=== PATIENT | female | born 1955 | race Caucasian/White ===

== ENCOUNTER 2022-10-16 21:37 | Inpatient (IN) | payer MEDICARE, OTHER ==
[2022-10-16] MEDS ORDERED: MORPHINE SULFATE 4 MG/ML SYRINGE IV PRN (22:20)
[2022-10-16] MEDS ORDERED: NALOXONE 0.4 MG/ML 1 ML VIAL IV PRN (22:20)
--- NOTE | 2022-10-16 22:20 | ED ---
General Adult HPI - General Chief complaint: Abdominal Pain Stated complaint: Abd Pain Time Seen by Provider: 10/16/22 21:56 Source: patient, EMS Mode of arrival: EMS Limitations: no limitations - History of Present Illness Initial comments: Dictation was produced using [employer] dictation software. please excuse any grammatical, word or spelling errors. Chief Complaint: 67-year-old female transferred from outside hospital for diverticulitis, bowel fistula and intra-abdominal abscess History of Present Illness: 67-year-old female transferred from [facility]. Patient was seen there for 3-4 days of nausea, abdominal pain. 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 Patient is treated with ceftriaxone and Flagyl. She was transferred to our facility for further care. Patient has any fevers. Denies any diarrhea. She states that the pain is to the perineal umbilical and epigastric area. Is nonradiating The ROS documented in this emergency department record has been reviewed and confirmed by me. Those systems with pertinent positive or negative responses have been documented in the HPI. All other systems are other negative and/or noncontributory. - Related Data Allergies Allergy/AdvReac Type Severity Reaction Status Date / Time codeine Allergy Unknown Verified 10/16/22 21:45 Review of Systems ROS Statement: Those systems with pertinent positive or pertinent negative responses have been documented in the HPI. ROS Other: All systems not noted in ROS Statement are negative. Past Medical History Past Medical History: Diabetes Mellitus, Hypertension, Myocardial Infarction ([place]) History of Any Multi-Drug Resistant Organisms: None Reported Past Surgical History: Tubal Ligation Past Psychological History: No Psychological Hx Reported Smoking Status: Former smoker Past Alcohol Use History: None Reported Past Drug Use History: None Reported General Exam - General Exam Comments Initial Comments: PHYSICAL EXAM: General Impression: Alert and oriented x3, not in acute distress HEENT: Normocephalic atraumatic, extra-ocular movements intact, pupils equal and reactive to light bilaterally, mucous membranes moist. Cardiovascular: Heart regular rate and rhythm Chest: Able to complete full sentences, no retractions, no tachypnea Abdomen: abdomen soft, tenderness to the epigastric and. Umbilical area, non- distended, no organomegaly Musculoskeletal: Pulses present and equal in all extremities, no peripheral edema Motor: no focal deficits noted Neurological: CN II-XII grossly intact, no focal motor or sensory deficits noted Skin: Intact with no visualized rashes Psych: Normal affect and mood Limitations: no limitations Course Vital Signs 10/16/22 21:41 Temperature 99 F Pulse Rate 111 H Respiratory 18 Rate Blood Pressure 149/64 O2 Sat by Pulse 97 Oximetry Medical Decision Making - Medical Decision Making Was pt. sent in by a medical professional or institution (, RUIZ, BUSINESS SALES CONSULTANT, urgent care, hospital, or custodial...) When possible be specific @ -Sent from [facility] Did you speak to anyone other than the patient for history (EMS, parent, family, police, friend...)? What history was obtained from this source @ -No Did you review nursing and triage notes (agree or disagree)? Why? @ -I reviewed and agree with nursing and triage notes Were old charts reviewed (outside hosp., previous admission, EMS record, old EKG, old radiological studies, urgent care reports/EKG's, custodial records)? Report findings @ -No old charts were reviewed Differential Diagnosis (chest pain, altered mental status, abdominal pain women, abdominal pain men, vaginal bleeding, musculoskeletal, weakness, fever, dyspnea, syncope, headache, dizziness, GI bleed, back pain, seizure, CVA, palpatations, mental health)? @ -Differential Abdominal Pain Women: Appendicitis, Cholecystitis, diverticulosis, ischemic bowel, pancreatitis, hepatitis, UTI, gastroenteritis, AAA, incarcerated hernia, bowel obstruction, constipation, inflammatory bowel, hepatitis, peptic ulcer disease, splenic infarction, perforated viscus, vulvitis, ovarian torsion, PID, kidney stone, placenta abruption, this is not meant to be an all-inclusive list EKG interpreted by me (3pts min.). @ -None done X-rays interpreted by me (1pt min.). @ -None done CT interpreted by me (1pt min.). @ -None done U/S interpreted by me (1pt. min.). @ -None done What testing was considered but not performed or refused? (CT, X-rays, U/S, labs)? Why? @ -None What meds were considered but not given or refused? Why? @ -None Did you discuss the management of the patient with other professionals (professionals i.e. , RUIZ, BUSINESS SALES CONSULTANT, lab, RT, psych nurse, social studies teacher, lead network architect, teacher, custody officer, case packer and sealer)? Give summary @ -Case was discussed with on-call general surgeon, Dr. Mckee requested patient be admitted to medicine service with surgery on consult Was smoking cessation discussed for >3mins.? @ -No Was critical care preformed (if so, how long)? @ -No Were there social determinants of health that impacted care today? How? (Homelessness, low income, unemployed, alcoholism, drug addiction, transportation, low edu. Level, literacy, decrease access to med. care, [facility], rehab)? @ -No Was there de-escalation of care discussed even if they declined (Discuss DNR or withdrawal of care, Hospice)? DNR status @ -No What co-morbidities impacted this encounter? (DM, HTN, Smoking, COPD, CAD, Cancer, CVA, ARF, Chemo, Hep., AIDS, mental health diagnosis, sleep apnea, morbid obesity)? @ -None Was patient admitted / discharged? Hospital course, mention meds given and route, prescriptions, significant lab abnormalities, going to OR and other pertinent info. @ -67-year-old female transferred from outside hospital for escalation of care. Patient is diagnosed with diverticulitis, complicated by fistula and abscess formation. Vital signs upon arrival shows mild tachycardia 111, worse vital signs within acceptable limits. Patient received ceftriaxone and Flagyl. Patient started on Zosyn here in our facility. Patient will be admitted with consultation to general surgery. Undiagnosed new problem with uncertain prognosis? @ -No Drug Therapy requiring intensive monitoring for toxicity (Heparin, Nitro, Insulin, Cardizem)? @ -No Were any procedures done? @ -No Diagnosis/symptom? Acute, or Chronic, or Acute on Chronic? Uncomplicated (without systemic symptoms) or Complicated (systemic symptoms)? @ -1. Complicated diverticulitis Side effects of treatment? @ -No Exacerbation, Progression, or Severe Exacerbation? @ -No Poses a threat to life or bodily function? How? (Chest pain, [place], [place], pneumonia, PE, COPD, DKA, ARF, appy, cholecystitis, CVA, Diverticulitis, Homicidal, Suicidal, threat to staff... and all critical care pts) @ -yes Disposition Clinical Impression: Diverticulitis of large intestine with complication Disposition: ADMITTED IP TO THIS [facility] Condition: Fair Referrals: Nonstaff,Physician [Primary Care Provider] - 1-2 days Decision Time: 22:20
[2022-10-16] MEDS ORDERED: ACETAMINOPHEN IV (For NPO) 1,000 MG in EMPTY BAG 1 BAG IVPB STA (22:21)
[2022-10-16] MEDS: SODIUM CHLORIDE 0.9% 1,000 ML IV SCH (22:55)
[2022-10-16] MEDS ORDERED: DEXTROSE 50% SYRINGE 50 ML IVP PRN ×2 (23:41)
[2022-10-17] MEDS: PIPERACILLIN-TAZOBACTAM 3.375 GM in SODIUM CHLORIDE 0.9% 100 ML IVPB SCH ×5 (00:21→23:36)
[2022-10-17] MEDS ORDERED: ACETAMINOPHEN IV (For NPO) 500 MG in EMPTY BAG 1 BAG IVPB PRN (04:00)
[2022-10-17] MEDS: ENOXAPARIN 40 MG/0.4 ML SYRINGE SQ SCH (06:09)
[2022-10-17] MEDS: SODIUM CHLORIDE 0.9% 1,000 ML IV SCH ×2 (06:11→17:07)
[2022-10-17 08:07] LABS: Glucose,Whole Blood 140 mg/dL (70-110)
[2022-10-17 08:48] LABS: Basophils # (A) 0.04 X 10*3/uL (0.00-0.10); Basophils % (A) 0.3 %; Eosinophils # (A) 0.11 X 10*3/uL (0.04-0.35); Eosinophils % (A) 0.8 %; HCT 35.2 % (37.2-46.3); HGB 10.6 d/dL (12.0-15.0); Lymphocytes # (A) 0.96 X 10*3/uL (0.90-5.00); Lymphocytes % (A) 6.6 %; MCH 26.3 pg (27.0-32.0); MCHC 30.1 d/dL (32.0-37.0); MCV 87.3 FL (80.0-97.0); Monocytes % (A) 8.3 %; NRBC Per 100 WBC 0 X 10*3/uL (0.00-0.01); Neutrophils # (A) 12.06 X 10*3/uL (1.80-7.70); Neutrophils % (A) 83.4 %; Platelet Count 383 X 10*3/uL (140-440); RBC 4.03 X 10*6/uL (4.10-5.20); RDW 15.3 % (11.5-14.5); WBC 14.46 X 10*3/uL (4.50-10.00)
[2022-10-17 09:43] LABS: ALT 32 U/L (8-44); AST 13 U/L (13-35); Albumin 3.1 d/dL (3.8-4.9); Albumin/Globulin Ratio 0.91 Ratio (1.60-3.17); Alkaline Phosphatase 137 U/L (41-126); BUN/Creat Ratio 10.71 Ratio (12.00-20.00); Blood Urea Nitrogen 7.5 mg/dL (9.0-27.0); Calcium 8.7 mg/dL (8.7-10.3); Carbon Dioxide 23.2 mmol/L (21.6-31.8); Chloride 102 mmol/L (96-109); Globulin 3.4 d/dL (1.6-3.3); Glucose 147 mg/dL (70-110); Potassium 4.3 mmol/L (3.5-5.5); Sodium 139 mmol/L (135-145); Total Bilirubin 0.6 mg/dL (0.3-1.2); Total Protein 6.5 d/dL (6.2-8.2)
[2022-10-17] MEDS: lisinopriL 5 MG TAB PO SCH (09:47)
--- NOTE | 2022-10-17 10:53 | P.GSCN ---
History of Present Illness Consult date: 10/17/22 History of present illness: CHIEF COMPLAINT: Abdominal pain HISTORY OF PRESENT ILLNESS: This is a 67-year-old female who was a transfer from [facility] to be evaluated by surgical service. She complains of right- sided mid abdominal pain and nausea for the past 4 days. Patient had a computed tomography scan completed at [facility] had shown evidence of diverticulitis with fistula formation from the descending colon to an adjacent loop of proximal small bowel with a developing abscess within the wall of the small bowel. Patient denies any past history of diverticulitis. She reports her last colonoscopy was several years ago and at that time daily found a polyp. She reports having nausea. Denies any vomiting. Denies any change in bowel habits. Patient denies any fever chills or sweats. She has a surgical history of a tubal ligation. She also has history of diabetes and [place] in 2007, managed medically. She denies any blood thinners. Patient has been mildly tachycardic low-grade temp 99. PAST MEDICAL HISTORY: See list. PAST SURGICAL HISTORY: See list. MEDICATIONS: See list. ALLERGIES: See list. SOCIAL HISTORY: No illicit drug use. REVIEW OF SYSTEMS: CONSTITUTIONAL: Denies fever or chills. HEENT: Denies blurred vision, vision changes, or eye pain. Denies hemoptysis ENDOCRINE: Denies heat or cold intolerance. CARDIOVASCULAR: Denies chest pain or pressure. RESPIRATORY: No shortness of breath. GASTROINTESTINAL: Please refer to HPI NEURO: Denies history of seizures. PSYCH: No depression or suicidal ideation HEMATOLOGIC: Denies bleeding disorders. LYMPHATIC: The patient denies any lumps and bumps around the neck. GENITOURINARY: Denies any blood in urine or increased urinary frequency. MUSCULOSKELETAL: Denies myalgias. Denies joint swelling. Denies decreased range of motion beyond patients baseline. SKIN: Denies pruitis. Denies rash. PHYSICAL EXAM: VITAL SIGNS: Reviewed GENERAL: Well-developed in no acute distress. HEENT: No sclera icterus. Extraocular movements grossly intact. Moist buccal mucosa. Head is atraumatic, normocephalic. Hears conversational speech. No nasal drainage. NECK: Supple without lymphadenopathy. CHEST: Non-labored respirations and equal bilateral excursions. CARDIOVASCULAR: Palpable 2+ radial pulses. ABDOMEN: Soft. obese. Nondistended. Tenderness with palpation of right mid abdomen and left side abdomen. No evidence of peritonitis MUSCULOSKELETAL: No clubbing or cyanosis. NEUROLOGIC: No focal or lateralizing signs. Cranial nerves II through XII grossly intact. PSYCH: Appropriate affect. Alert and oriented to person, place and time. SKIN: Well perfused. Good skin turgor. LABORATORY DATA: WBC 14.46 HCT 10.6 platelets 383 Sodium 139 potassium is 4.3 creatinine 0.7 Hemoglobin A1c 7.9 IMAGING: Computed tomography scan findings as stated above ASSESSMENT: 1. Acute diverticulitis with fistula formation from the descending colon to an adjacent loop of proximal small bowel with a developing abscess 2. Leukocytosis secondary to above 3. History of diabetes mellitus 4. History of hypertension PLAN: -Further recommendations forthcoming per surgeon -Keep patient nothing by mouth -Continue IV antibiotics -Continue IV fluids -Continue supportive care -Agree with ID consult Thank you for this consultation Physician [employer] Superintendent note has been reviewed by physician. Signing provider agrees with the documented findings, assessment, and plan of care. Past Medical History Past Medical History: Diabetes Mellitus, Hypertension, Myocardial Infarction ([place]) Last Myocardial Infarction Date:: 11/19/2007 History of Any Multi-Drug Resistant Organisms: None Reported Past Surgical History: Orthopedic Surgery, Tubal Ligation Additional Past Surgical History / Comment(s): bilateral knee replacement Past Psychological History: Anxiety Smoking Status: Former smoker Past Alcohol Use History: None Reported Past Drug Use History: None Reported Medications and Allergies Home Medications Medication Instructions Recorded Confirmed Type Acetaminophen Tab [Tylenol Tab] 500 mg PO Q6H PRN 10/16/22 10/16/22 History Insulin Glargine,Hum.rec.anlog 35 units SQ BID 10/16/22 10/16/22 History [Lantus Solostar Pen] Insulin Lispro [humaLOG Kwikpen] See Protocol SQ ACHS PRN 10/16/22 10/16/22 History lisinopriL [Zestril] 5 mg PO DAILY 10/16/22 10/16/22 History Allergies Allergy/AdvReac Type Severity Reaction Status Date / Time codeine Allergy Unknown Verified 10/16/22 23:21 Latex, Natural Rubber Allergy Swelling Verified 10/17/22 00:29 morphine Allergy Nausea & Verified 10/17/22 00:30 Vomiting sulfamethoxazole Allergy Nausea & Verified 10/17/22 00:29 [From Bactrim] Vomiting trimethoprim [From Bactrim] Allergy Nausea & Verified 10/17/22 00:29 Vomiting Surgical - Exam Vital Signs Temp Pulse Resp BP Pulse Ox 99 F 111 H 18 149/64 97 10/16/22 21:41 10/16/22 21:41 10/16/22 21:41 10/16/22 21:41 10/16/22 21:41 Results - Labs 10/17/22 06:06 10/17/22 06:06 Abnormal Lab Results - Last 24 Hours (Table) 10/17/22 10/17/22 10/17/22 Range/Units 06:06 06:06 06:06 WBC 14.46 H (4.50-10.00) X 10*3/uL RBC 4.03 L (4.10-5.20) X 10*6/uL Hgb 10.6 L (12.0-15.0) d/dL Hct 35.2 L (37.2-46.3) % MCH 26.3 L (27.0-32.0) pg MCHC 30.1 L (32.0-37.0) d/dL RDW 15.3 H (11.5-14.5) % MPV 9.0 L (9.5-12.2) FL Neutrophils # 12.06 H (1.80-7.70) X 10*3/uL Monocytes # 1.20 H (0.20-1.00) X 10*3/uL Anion Gap 13.80 H (4.00-12.00) mmol/L BUN 7.5 L (9.0-27.0) mg/dL BUN/Creatinine Ratio 10.71 L (12.00-20.00) Ratio Glucose 147 H (70-110) mg/dL POC Glucose (mg/dL) (70-110) mg/dL Hemoglobin A1c 7.9 H (<=6.0) % Alkaline Phosphatase 137 H (41-126) U/L Albumin 3.1 L (3.8-4.9) d/dL Globulin 3.4 H (1.6-3.3) d/dL Albumin/Globulin Ratio 0.91 L (1.60-3.17) Ratio 10/17/22 Range/Units 08:05 WBC (4.50-10.00) X 10*3/uL RBC (4.10-5.20) X 10*6/uL Hgb (12.0-15.0) d/dL Hct (37.2-46.3) % MCH (27.0-32.0) pg MCHC (32.0-37.0) d/dL RDW (11.5-14.5) % MPV (9.5-12.2) FL Neutrophils # (1.80-7.70) X 10*3/uL Monocytes # (0.20-1.00) X 10*3/uL Anion Gap (4.00-12.00) mmol/L BUN (9.0-27.0) mg/dL BUN/Creatinine Ratio (12.00-20.00) Ratio Glucose (70-110) mg/dL POC Glucose (mg/dL) 140 H (70-110) mg/dL Hemoglobin A1c (<=6.0) % Alkaline Phosphatase (41-126) U/L Albumin (3.8-4.9) d/dL Globulin (1.6-3.3) d/dL Albumin/Globulin Ratio (1.60-3.17) Ratio Diabetes panel 10/17/22 10/17/22 Range/Units 06:06 06:06 Sodium 139 (135-145) mmol/L Potassium 4.3 (3.5-5.5) mmol/L Chloride 102 (96-109) mmol/L Carbon Dioxide 23.2 (21.6-31.8) mmol/L BUN 7.5 L (9.0-27.0) mg/dL Creatinine 0.7 (0.6-1.5) mg/dL Glucose 147 H (70-110) mg/dL Hemoglobin A1c 7.9 H (<=6.0) % Calcium 8.7 (8.7-10.3) mg/dL AST 13 (13-35) U/L ALT 32 (8-44) U/L Alkaline Phosphatase 137 H (41-126) U/L Total Protein 6.5 (6.2-8.2) d/dL Albumin 3.1 L (3.8-4.9) d/dL Calcium panel 10/17/22 Range/Units 06:06 Calcium 8.7 (8.7-10.3) mg/dL Albumin 3.1 L (3.8-4.9) d/dL Pituitary panel 10/17/22 Range/Units 06:06 Sodium 139 (135-145) mmol/L Potassium 4.3 (3.5-5.5) mmol/L Chloride 102 (96-109) mmol/L Carbon Dioxide 23.2 (21.6-31.8) mmol/L BUN 7.5 L (9.0-27.0) mg/dL Creatinine 0.7 (0.6-1.5) mg/dL Glucose 147 H (70-110) mg/dL Calcium 8.7 (8.7-10.3) mg/dL Adrenal panel 10/17/22 Range/Units 06:06 Sodium 139 (135-145) mmol/L Potassium 4.3 (3.5-5.5) mmol/L Chloride 102 (96-109) mmol/L Carbon Dioxide 23.2 (21.6-31.8) mmol/L BUN 7.5 L (9.0-27.0) mg/dL Creatinine 0.7 (0.6-1.5) mg/dL Glucose 147 H (70-110) mg/dL Calcium 8.7 (8.7-10.3) mg/dL Total Bilirubin 0.6 (0.3-1.2) mg/dL AST 13 (13-35) U/L ALT 32 (8-44) U/L Alkaline Phosphatase 137 H (41-126) U/L Total Protein 6.5 (6.2-8.2) d/dL Albumin 3.1 L (3.8-4.9) d/dL
[2022-10-17 12:47] LABS: Glucose,Whole Blood 162 mg/dL (70-110)
[2022-10-17 17:21] LABS: Glucose,Whole Blood 141 mg/dL (70-110)
[2022-10-17] MEDS: PANTOPRAZOLE 40 MG TABLET PO SCH ×2 (18:36→19:03)
[2022-10-17] MEDS: ONDANSETRON 4 MG/2 ML VIAL IVP PRN (19:03)
--- NOTE | 2022-10-17 19:32 | HP ---
HISTORY AND PHYSICAL HISTORY OF PRESENT ILLNESS: A 67-year-old white female transferred from diverticulitis with fistula formation, descending colon to the adjacent loop of the small bowel, developing abscess. Denies any history of diverticulitis. She had a scope done 10 years ago, found polyps. Surgical history of tubal ligation. Diabetes mellitus. She is having tachycardia and low-grade temperatures. ALLERGIES: See list. MEDICATIONS: See list. PAST SURGICAL HISTORY: See list. PAST MEDICAL HISTORY: Diabetic, hypertensive, and obese. SOCIAL HISTORY: Please see further orders. REVIEW OF SYSTEMS: Fourteen-point review of systems is otherwise negative. PHYSICAL EXAMINATION: VITAL SIGNS: Reviewed. CARDIOVASCULAR: S1 and S2. LUNGS: Clear. GI: Soft. Abdomen is distended. Obesity. Tenderness to palpation, right middle abdomen and left-sided abdomen. Negative peritoneal signs. NEUROLOGIC: Cranial nerves are intact. LABORATORY DATA: White count 14.46, hemoglobin 10.6, platelets 383. Sodium 139, potassium 4.3, creatinine 0.7. A1c 7.9. ASSESSMENT: 1. Acute diverticulitis with fistula formation, descending colon to the adjacent loop of the proximal small bowel, with developing abscess. 2. Leukocytosis secondary to above. 3. Diabetes mellitus. 4. Hypertension. PLAN: IV antibiotics. Infectious Disease consult. Possible Surgical recommendations. IV fluids. Supportive care. Possible surgical repair will be needed. Please see further orders. Wait for Surgical consultation. MMODL / IJN: [id number] /
[2022-10-17 20:05] LABS: Glucose,Whole Blood 182 mg/dL (70-110)
[2022-10-17 20:28] LABS: Creatine Kinase MB <0.2 ng/mL (0.0-3.4); Troponin I <0.012 ng/mL (0.000-0.034)
--- NOTE | 2022-10-17 22:44 | P.CONS ---
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 significant for diabetes mellitus hypertension [place] presented to [facility] for evaluation of right-sided abdominal pain and nausea patien t mention symptom has been getting worse for the last 4 days patient did have some abdominal pain prior to that which she was attributing to a fall recently with the pain getting worse and became more intense describing it to be sharp intensity almost 10 out of 10 in severity with no radiation with associated nausea but no vomiting denies having any constipation or diarrhea patient was evaluated at [facility] the patient did have a CT abdominal pelvis we did shows evidence of diverticulitis with fistula formation from the descending colon to the adjustment about the proximal small bowel and developing abscess within the wall of the small bowel for the patient has been transferred to [facility] for further evaluation patient on presentation to this facility did have a low-grade fever of 99.1 F patient was tachycardic did have elevated white count with a left shift kidney function has been normal exams are normal patient was started on Zosyn infectious disease was consulted for further management of antibiotic therapy Review of Systems Positive point and negatives has been mentioned in the HPI, complete review of systems was performed and all other systems are negative Past Medical History Past Medical History: Diabetes Mellitus, Hypertension, Myocardial Infarction ([place]) Last Myocardial Infarction Date:: 11/19/2007 History of Any Multi-Drug Resistant Organisms: None Reported Past Surgical History: Orthopedic Surgery, Tubal Ligation Additional Past Surgical History / Comment(s): bilateral knee replacement Past Psychological History: Anxiety Smoking Status: Former smoker Past Alcohol Use History: None Reported Past Drug Use History: None Reported Medications and Allergies Home Medications Medication Instructions Recorded Confirmed Type Acetaminophen Tab [Tylenol] 500 mg PO Q6H PRN 10/16/22 10/16/22 History Budesonide [Pulmicort] 0.5 mg INHALATION RT-BID 30 Days 11/07/22 Rx #60 ml Ciprofloxacin HCl [Cipro] 500 mg PO BID 7 Days #14 tab 11/07/22 Rx HYDROcodone/APAP 5-325MG [Murray 1 each PO Q4HR PRN tab 11/07/22 Rx 5-325] INSULIN ASPART (NovoLOG) [NovoLOG 0 unit SQ ACHS each 11/07/22 Rx (formulary)] Insulin Detemir (Levemir) [Levemir] 15 unit SQ BID@0700,2100 each 11/07/22 Rx Ipratropium-Albuterol Nebulize 3 ml INHALATION RT-QID 30 Days 11/07/22 Rx [Duoneb 0.5 mg-3 mg/3 ml Soln] #120 each Lactulose [Cephulac] 20 gm PO DAILY ml 11/07/22 Rx Losartan-Hctz 50-12.5 mg [Hyzaar 1 each PO DAILY tab 11/07/22 Rx 50-12.5] Nystatin 100,000 Unit/gm Powd 1 applic TOPICAL BID 30 Days #100 11/07/22 Rx [Mycostatin Powder] each atenoloL [Tenormin] 25 mg PO BID tab 11/07/22 Rx metroNIDAZOLE [Flagyl] 500 mg PO TID 7 Days #21 tab 11/07/22 Rx Allergies Allergy/AdvReac Type Severity Reaction Status Date / Time codeine Allergy Unknown Verified 10/16/22 23:21 Latex, Natural Rubber Allergy Swelling Verified 10/17/22 00:29 morphine Allergy Nausea & Verified 10/17/22 00:30 Vomiting sulfamethoxazole Allergy Nausea & Verified 10/17/22 00:29 [From Bactrim] Vomiting trimethoprim [From Bactrim] Allergy Nausea & Verified 10/17/22 00:29 Vomiting Physical Exam Vitals: Vital Signs Temp Pulse Pulse Resp BP BP Pulse Ox 10/17/22 08:03 98.5 F 102 H 17 131/79 96 10/17/22 02:00 98.0 F 118 H 16 145/83 95 10/16/22 23:59 98.4 F 102 H 16 119/73 93 L 10/16/22 23:12 99.1 F 108 H 20 142/68 97 10/16/22 21:41 99 F 111 H 18 149/64 97 Intake and Output 10/16/22 10/17/22 10/17/22 22:59 06:59 14:59 Intake Total 2400 Balance 2400 Intake: Oral 2400 Other: Voiding Method Toilet # Voids 2 Weight 108.862 kg GENERAL DESCRIPTION: An male female lying in bed, no distress. No tachypnea or accessory muscle of respiration use. HEENT: Shows Pallor , no scleral icterus. Oral mucous membrane is dry. No pharyngeal erythema or thrush NECK: Trachea central, no thyromegaly. LUNGS: Unlabored breathing. Clear to auscultation anteriorly. No wheeze or crackle. HEART: S1, S2, regular rate and rhythm. No loud murmur ABDOMEN: Soft, mild distention and tenderness EXTREMITIES: No edema of feet. SKIN: No rash, no masses palpable. NEUROLOGICAL: The patient is awake, alert, oriented x3, mood and affect normal. Results CBC & Chem 7: 11/08/22 06:31 11/08/22 06:31 Labs: Abnormal Lab Results - Last 24 Hours (Table) 10/17/22 10/17/22 10/17/22 Range/Units 06:06 06:06 06:06 WBC 14.46 H (4.50-10.00) X 10*3/uL RBC 4.03 L (4.10-5.20) X 10*6/uL Hgb 10.6 L (12.0-15.0) d/dL Hct 35.2 L (37.2-46.3) % MCH 26.3 L (27.0-32.0) pg MCHC 30.1 L (32.0-37.0) d/dL RDW 15.3 H (11.5-14.5) % MPV 9.0 L (9.5-12.2) FL Neutrophils # 12.06 H (1.80-7.70) X 10*3/uL Monocytes # 1.20 H (0.20-1.00) X 10*3/uL Anion Gap 13.80 H (4.00-12.00) mmol/L BUN 7.5 L (9.0-27.0) mg/dL BUN/Creatinine Ratio 10.71 L (12.00-20.00) Ratio Glucose 147 H (70-110) mg/dL POC Glucose (mg/dL) (70-110) mg/dL Hemoglobin A1c 7.9 H (<=6.0) % Alkaline Phosphatase 137 H (41-126) U/L Albumin 3.1 L (3.8-4.9) d/dL Globulin 3.4 H (1.6-3.3) d/dL Albumin/Globulin Ratio 0.91 L (1.60-3.17) Ratio / Range/Units 08:05 WBC (4.50-10.00) X 10*3/uL RBC (4.10-5.20) X 10*6/uL Hgb (12.0-15.0) d/dL Hct (37.2-46.3) % MCH (27.0-32.0) pg MCHC (32.0-37.0) d/dL RDW (11.5-14.5) % MPV (9.5-12.2) FL Neutrophils # (1.80-7.70) X 10*3/uL Monocytes # (0.20-1.00) X 10*3/uL Anion Gap (4.00-12.00) mmol/L BUN (9.0-27.0) mg/dL BUN/Creatinine Ratio (12.00-20.00) Ratio Glucose (70-110) mg/dL POC Glucose (mg/dL) 140 H (70-110) mg/dL Hemoglobin A1c (<=6.0) % Alkaline Phosphatase (41-126) U/L Albumin (3.8-4.9) d/dL Globulin (1.6-3.3) d/dL Albumin/Globulin Ratio (1.60-3.17) Ratio Assessment and Plan (1) Intra-abdominal abscess Status: Acute Code(s): K65.1 - PERITONEAL ABSCESS SNOMED Code(s): 79154524 (2) Diverticulitis of large intestine with complication Status: Acute Code(s): K57.32 - DVTRCLI OF LG INT W/O PERFORATION OR ABSCESS W/O BLEEDING SNOMED Code(s): 259554361 Plan: 1patient was in the hospital with sepsis in this patient with a fever tachycardia elevated white count cirrhosis complicated diverticulitis with evidence of fistula formation between descending colon and loop of the small bowel and concern for abscess we will need to cover for the enteric gram-ne gative both anaerobes and anaerobes to the likely pathogen 2-await possible surgery and drainage of the abscess along with deep culture 3-Zosyn 3.375 g every 8 hours should provide adequate antibiotic coverage at this point Family at the bedside questions were answered We will follow on clinical condition and cultures to further adjust medication if needed Thank you for this consultation we will follow the patient along with you Dictation was produced using [employer] dictation software. please excuse any grammatical, word or spelling errors. Time with Patient: Greater than 30
[2022-10-18] MEDS: SODIUM CHLORIDE 0.9% 1,000 ML IV SCH ×3 (01:10→16:53)
[2022-10-18] MEDS: ONDANSETRON 4 MG/2 ML VIAL IVP PRN (02:17)
[2022-10-18] MEDS: ENOXAPARIN 40 MG/0.4 ML SYRINGE SQ SCH (05:17)
[2022-10-18 07:09] LABS: Glucose,Whole Blood 200 mg/dL (70-110)
[2022-10-18] MEDS: PANTOPRAZOLE 40 MG/10 ML VIAL IVP SCH ×2 (08:56→22:04)
[2022-10-18] MEDS: PIPERACILLIN-TAZOBACTAM 3.375 GM in SODIUM CHLORIDE 0.9% 100 ML IVPB SCH ×3 (08:58→23:53)
[2022-10-18 09:03] LABS: Basophils # (A) 0.03 X 10*3/uL (0.00-0.10); Basophils % (A) 0.3 %; Eosinophils # (A) 0.04 X 10*3/uL (0.04-0.35); Eosinophils % (A) 0.4 %; HCT 34.6 % (37.2-46.3); HGB 10.6 d/dL (12.0-15.0); Lymphocytes # (A) 0.68 X 10*3/uL (0.90-5.00); Lymphocytes % (A) 6.8 %; MCH 26.9 pg (27.0-32.0); MCHC 30.6 d/dL (32.0-37.0); MCV 87.8 FL (80.0-97.0); Mean Platelet Volume 8.8 FL (9.5-12.2); Monocytes # (A) 0.68 X 10*3/uL (0.20-1.00); Monocytes % (A) 6.8 %; NRBC Per 100 WBC 0 X 10*3/uL (0.00-0.01); Neutrophils # (A) 8.48 X 10*3/uL (1.80-7.70); Neutrophils % (A) 84.6 %; Platelet Count 378 X 10*3/uL (140-440); RBC 3.94 X 10*6/uL (4.10-5.20); RDW 15.5 % (11.5-14.5); WBC 10.02 X 10*3/uL (4.50-10.00)
[2022-10-18] MEDS: ACETAMINOPHEN IV (For NPO) 1,000 MG in EMPTY BAG 1 BAG IVPB SCH ×4 (09:05→23:51)
[2022-10-18 09:06] LABS: ALT 24 U/L (8-44); AST 13 U/L (13-35); Albumin 3.1 d/dL (3.8-4.9); Albumin/Globulin Ratio 0.89 Ratio (1.60-3.17); Alkaline Phosphatase 125 U/L (41-126); BUN/Creat Ratio 10.38 Ratio (12.00-20.00); Blood Urea Nitrogen 8.3 mg/dL (9.0-27.0); Calcium 8.6 mg/dL (8.7-10.3); Carbon Dioxide 21.5 mmol/L (21.6-31.8); Chloride 102 mmol/L (96-109); Globulin 3.5 d/dL (1.6-3.3); Glucose 199 mg/dL (70-110); Potassium 4.1 mmol/L (3.5-5.5); Sodium 139 mmol/L (135-145); Total Bilirubin 0.5 mg/dL (0.3-1.2); Total Protein 6.6 d/dL (6.2-8.2)
[2022-10-18] MEDS: lisinopriL 5 MG TAB PO SCH (09:07)
[2022-10-18] MEDS: PANTOPRAZOLE 40 MG TABLET PO SCH (11:30)
[2022-10-18 12:18] LABS: Glucose,Whole Blood 181 mg/dL (70-110)
--- NOTE | 2022-10-18 13:37 | P.PN ---
Subjective Progress Note Date: 10/18/22 CHIEF COMPLAINT: Diverticulitis with fistula and abscess HISTORY OF PRESENT ILLNESS: Patient complains of right sided abdominal pain. She does report the pain is slightly less than yesterday. She has been nauseated. She had multiple episodes of vomiting during the night. Patient reports as the antibiotics were contributing to her nausea and vomiting. She did have a small bowel movement yesterday. She does report some dry heaves this morning. She did have a low-grade temp of 100 at 2 AM. She had been tachycardic. WBC is decreased from 14.46-10.0 to Hgb 10.6 platelets 378 creatinine 0.8 PHYSICAL EXAM: VITAL SIGNS: Reviewed GENERAL: Well-developed in no acute distress. HEENT: No sclera icterus. Extraocular movements grossly intact. Moist buccal mucosa. Head is atraumatic, normocephalic. Hears conversational speech. No nasal drainage. NECK: Supple without lymphadenopathy. CHEST: Non-labored respirations and equal bilateral excursions. CARDIOVASCULAR: Palpable 2+ radial pulses. ABDOMEN: Soft. Nondistended. Tenderness to palpation of the right side abdomen MUSCULOSKELETAL: No clubbing or cyanosis. NEUROLOGIC: No focal or lateralizing signs. Cranial nerves II through XII grossly intact. PSYCH: Appropriate affect. Alert and oriented to person, place and time. SKIN: Well perfused. Good skin turgor. ASSESSMENT: 1. Acute diverticulitis with fistula formation from the descending colon to an adjacent loop of proximal small bowel with a developing abscess 2. Leukocytosis secondary to above 3. History of diabetes mellitus 4. History of hypertension PLAN: -Small bowel follow-through ordered for further evaluation of fistula -Keep patient nothing by mouth -Continue IV antibiotics -Continue IV fluids -Continue anti-emetics -Zofran changed every 6 hours. Protonix changed to IV -Tylenol IV added for pain Physician Purchase Analyst note has been reviewed by physician. Signing provider agrees with the documented findings, assessment, and plan of care. Objective - Vital Signs Vital signs: Vital Signs Temp 98.6 F 10/18/22 08:10 Pulse 94 10/18/22 08:10 Resp 16 10/18/22 08:10 BP 137/83 10/18/22 08:10 Pulse Ox 94 L 10/18/22 07:15 FiO2 Intake & Output 10/17/22 10/18/22 10/18/22 18:59 06:59 18:59 Intake Total 100 0 Balance 100 0 Intake: Intake, IV Titration 100 Amount Piperacillin-Tazobactam 3 100 .375 gm In Sodium Chloride 0.9% 100 ml @ 25 mls/hr IVPB Q8HR [facility] Rx# :[id number] Oral 0 Other: Voiding Method Toilet Toilet # Voids 4 - Labs CBC & Chem 7: 10/18/22 05:32 10/18/22 05:32 Labs: Abnormal Lab Results - Last 24 Hours (Table) 10/17/22 10/17/22 10/17/22 Range/Units 12:44 17:18 20:04 WBC (4.50-10.00) X 10*3/uL RBC (4.10-5.20) X 10*6/uL Hgb (12.0-15.0) d/dL Hct (37.2-46.3) % MCH (27.0-32.0) pg MCHC (32.0-37.0) d/dL RDW (11.5-14.5) % MPV (9.5-12.2) FL Neutrophils # (1.80-7.70) X 10*3/uL Lymphocytes # (0.90-5.00) X 10*3/uL Carbon Dioxide (21.6-31.8) mmol/L Anion Gap (4.00-12.00) mmol/L BUN (9.0-27.0) mg/dL BUN/Creatinine Ratio (12.00-20.00) Ratio Glucose (70-110) mg/dL POC Glucose (mg/dL) 162 H 141 H 182 H (70-110) mg/dL Calcium (8.7-10.3) mg/dL Albumin (3.8-4.9) d/dL Globulin (1.6-3.3) d/dL Albumin/Globulin Ratio (1.60-3.17) Ratio 10/18/22 10/18/22 10/18/22 Range/Units 05:32 05:32 07:07 WBC 10.02 H (4.50-10.00) X 10*3/uL RBC 3.94 L (4.10-5.20) X 10*6/uL Hgb 10.6 L (12.0-15.0) d/dL Hct 34.6 L (37.2-46.3) % MCH 26.9 L (27.0-32.0) pg MCHC 30.6 L (32.0-37.0) d/dL RDW 15.5 H (11.5-14.5) % MPV 8.8 L (9.5-12.2) FL Neutrophils # 8.48 H (1.80-7.70) X 10*3/uL Lymphocytes # 0.68 L (0.90-5.00) X 10*3/uL Carbon Dioxide 21.5 L (21.6-31.8) mmol/L Anion Gap 15.50 H (4.00-12.00) mmol/L BUN 8.3 L (9.0-27.0) mg/dL BUN/Creatinine Ratio 10.38 L (12.00-20.00) Ratio Glucose 199 H (70-110) mg/dL POC Glucose (mg/dL) 200 H (70-110) mg/dL Calcium 8.6 L (8.7-10.3) mg/dL Albumin 3.1 L (3.8-4.9) d/dL Globulin 3.5 H (1.6-3.3) d/dL Albumin/Globulin Ratio 0.89 L (1.60-3.17) Ratio
[2022-10-18 17:09] LABS: Glucose,Whole Blood 176 mg/dL (70-110)
[2022-10-18 20:11] LABS: Glucose,Whole Blood 171 mg/dL (70-110)
[2022-10-19] MEDS: SODIUM CHLORIDE 0.9% 1,000 ML IV SCH ×4 (05:36→21:57)
[2022-10-19] MEDS: ENOXAPARIN 40 MG/0.4 ML SYRINGE SQ SCH (05:36)
[2022-10-19 07:25] LABS: Glucose,Whole Blood 146 mg/dL (70-110)
[2022-10-19 08:21] LABS: Basophils # (A) 0.01 X 10*3/uL (0.00-0.10); Basophils % (A) 0.1 %; Eosinophils % (A) 1.5 %; HCT 31.3 % (37.2-46.3); HGB 9.4 d/dL (12.0-15.0); Lymphocytes # (A) 0.72 X 10*3/uL (0.90-5.00); Lymphocytes % (A) 10.6 %; MCH 26.9 pg (27.0-32.0); MCV 89.4 FL (80.0-97.0); Mean Platelet Volume 8.6 FL (9.5-12.2); Monocytes # (A) 0.56 X 10*3/uL (0.20-1.00); Monocytes % (A) 8.2 %; NRBC Per 100 WBC 0 X 10*3/uL (0.00-0.01); Neutrophils # (A) 5.36 X 10*3/uL (1.80-7.70); Platelet Count 308 X 10*3/uL (140-440); RDW 15.5 % (11.5-14.5); WBC 6.79 X 10*3/uL (4.50-10.00)
[2022-10-19 08:42] LABS: ALT 20 U/L (8-44); AST 10 U/L (13-35); Albumin 2.8 d/dL (3.8-4.9); Albumin/Globulin Ratio 0.93 Ratio (1.60-3.17); Alkaline Phosphatase 104 U/L (41-126); BUN/Creat Ratio 11.86 Ratio (12.00-20.00); Blood Urea Nitrogen 8.3 mg/dL (9.0-27.0); Calcium 8.2 mg/dL (8.7-10.3); Carbon Dioxide 23.3 mmol/L (21.6-31.8); Chloride 108 mmol/L (96-109); Glucose 151 mg/dL (70-110); Sodium 142 mmol/L (135-145); Total Bilirubin 0.3 mg/dL (0.3-1.2); Total Protein 5.8 d/dL (6.2-8.2)
--- NOTE | 2022-10-19 11:01 | CDI ---
Documentation Clarification Form Date: 10/19/2022 10:34:19 AM From: Zulema Murphy RN,CCDS Admit Date: 10/16/2022 10:20:00 PM Patient Name: Alannah Galloway Visit Number: [id number] Discharge Date: ATTENTION: The Clinical Documentation Specialists (CDI) and [facility] Coding Staff appreciate your assistance in clarifying documentation. Please respond to the clarification below the line at the bottom and electronically sign. The CDI & [facility] Coding staff will review the response and follow-up if needed. Please note: Queries are made part of the Legal Health Record. If you have any questions, please contact the author of this message via ITS. Dr. Pérez Payne The patient has sepsis documented in the ID consult on 10/17/2022. Based on this information and the findings below, is there an additional diagnosis that is clinically appropriate for this patient? History/Risk Factors: Diabetes Mellitus, Hypertension, Myocardial Infarction (CO) former smoker Clinical Indicators: 67-year-old female transfer for diverticulitis, bowel fistula and intra-abdominal abscess. 10/17 WBC 14.46, Neutrophils 12.06, Monocytes 1.20 10/17 Vital signs: 149/64 111 18 99 97% RA Treatment: Zosyn 3.375 GM IVPB Q8 HR 10/17-10/18 Small bowel follow-through further evaluation of fistula, Keep patient NPO Zofran 4 MG IVP Q6 HR ID Consult: patient was in the hospital with sepsis in this patient with a fever tachycardia elevated white count, complicated diverticulitis with evidence of fistula formation between descending colon and loop of the small bowel and concern for abscess. Is there an additional diagnosis that is clinically appropriate for this patient? [ ] Sepsis, present on admission [ ] Sepsis ruled out [ ] Other, please specify [ ] Unable to determine SIRS Criteria: 2 or more of the following may indicate SIRS Temperature < 96.8F (36C) or > 101.0F (38.3C) Heart Rate > 90 bpm Respiratory Rate > 20 breaths/min or PaCO2 < 32 mmHg White Blood Cell Count > 12,000 or < 4,000 cells/mm3 or > 10% bands (Template Last Reviewed: April 2022) MTDD
[2022-10-19] MEDS: PIPERACILLIN-TAZOBACTAM 3.375 GM in SODIUM CHLORIDE 0.9% 100 ML IVPB SCH ×2 (12:07→17:59)
[2022-10-19] MEDS: PANTOPRAZOLE 40 MG/10 ML VIAL IVP SCH ×2 (12:07→21:56)
[2022-10-19 13:11] LABS: Glucose,Whole Blood 181 mg/dL (70-110)
--- NOTE | 2022-10-19 13:27 | P.PN ---
Subjective Progress Note Date: 10/19/22 CHIEF COMPLAINT: Diverticulitis with fistula and abscess HISTORY OF PRESENT ILLNESS: Patient reports her pain is better. She had nausea and vomiting during the night and NG tube was placed. She had 400 mL output. She's undergoing a small bowel follow-through series today. Imaging partially completed per radiologist showing obstruction secondary to progressive inflammation. Barium is not well controlled. Afebrile. WBC is 6.79 Hgb 9.4 platelets are 308 sounds 142 potassium is 4.0 creatinine 0.7 PHYSICAL EXAM: VITAL SIGNS: Reviewed GENERAL: Well-developed in no acute distress. HEENT: No sclera icterus. Extraocular movements grossly intact. Moist buccal mucosa. Head is atraumatic, normocephalic. Hears conversational speech. No nasal drainage. NECK: Supple without lymphadenopathy. CHEST: Non-labored respirations and equal bilateral excursions. CARDIOVASCULAR: Palpable 2+ radial pulses. ABDOMEN: Soft. Nondistended. Tenderness to palpation of the right side abdomen MUSCULOSKELETAL: No clubbing or cyanosis. NEUROLOGIC: No focal or lateralizing signs. Cranial nerves II through XII grossly intact. PSYCH: Appropriate affect. Alert and oriented to person, place and time. SKIN: Well perfused. Good skin turgor. ASSESSMENT: 1. Acute diverticulitis with fistula formation from the descending colon to an adjacent loop of proximal small bowel with a developing abscess 2. Leukocytosis secondary to above 3. History of diabetes mellitus 4. History of hypertension PLAN: -Complete small bowel follow-through series -Further recommendations forthcoming -Continue NG tube. Currently clamped to complete small bowel follow through series -Keep patient nothing by mouth -Continue IV antibiotics -Continue IV fluids -Continue anti-emetics -Continue pain management -Encourage patient to ambulate Physician Calendar Control Clerk Blood Bank note has been reviewed by physician. Signing provider agrees with the documented findings, assessment, and plan of care. Objective - Vital Signs Vital signs: Vital Signs Temp 97.6 F 10/19/22 07:40 Pulse 74 10/19/22 07:40 Resp 15 10/19/22 07:40 BP 133/73 10/19/22 07:40 Pulse Ox 95 10/19/22 07:40 FiO2 Intake & Output 10/18/22 10/19/22 10/19/22 18:59 06:59 18:59 Intake Total 300 0 Output Total 1202 Balance -902 0 Intake: Intake, IV Titration 300 Amount ACETAMINOPHEN IV (For NPO 100 ) 1,000 mg In Empty Bag 1 bag @ 400 mls/hr IVPB Q6HR [facility] Rx#:[id number] ACETAMINOPHEN IV (For NPO 100 ) 500 mg In Empty Bag 1 bag @ 200 mls/hr IVPB Q6H [facility] Rx#:[id number] Piperacillin-Tazobactam 3 100 .375 gm In Sodium Chloride 0.9% 100 ml @ 25 mls/hr IVPB Q8HR [facility] Rx# :[id number] Oral 0 Output: Gastric Drainage 400 Emesis 2 Oral Regurgitation 800 Other: Voiding Method Toilet Toilet Toilet # Voids 1 2 - Labs CBC & Chem 7: 10/19/22 05:48 10/19/22 05:48 Labs: Abnormal Lab Results - Last 24 Hours (Table) 10/18/22 10/18/22 10/19/22 Range/Units 17:07 20:11 05:48 RBC 3.50 L (4.10-5.20) X 10*6/uL Hgb 9.4 L (12.0-15.0) d/dL Hct 31.3 L (37.2-46.3) % MCH 26.9 L (27.0-32.0) pg MCHC 30.0 L (32.0-37.0) d/dL RDW 15.5 H (11.5-14.5) % MPV 8.6 L (9.5-12.2) FL Lymphocytes # 0.72 L (0.90-5.00) X 10*3/uL BUN (9.0-27.0) mg/dL BUN/Creatinine Ratio (12.00-20.00) Ratio Glucose (70-110) mg/dL POC Glucose (mg/dL) 176 H 171 H (70-110) mg/dL Calcium (8.7-10.3) mg/dL AST (13-35) U/L Total Protein (6.2-8.2) d/dL Albumin (3.8-4.9) d/dL Albumin/Globulin Ratio (1.60-3.17) Ratio 10/19/22 10/19/22 10/19/22 Range/Units 05:48 07:23 13:09 RBC (4.10-5.20) X 10*6/uL Hgb (12.0-15.0) d/dL Hct (37.2-46.3) % MCH (27.0-32.0) pg MCHC (32.0-37.0) d/dL RDW (11.5-14.5) % MPV (9.5-12.2) FL Lymphocytes # (0.90-5.00) X 10*3/uL BUN 8.3 L (9.0-27.0) mg/dL BUN/Creatinine Ratio 11.86 L (12.00-20.00) Ratio Glucose 151 H (70-110) mg/dL POC Glucose (mg/dL) 146 H 181 H (70-110) mg/dL Calcium 8.2 L (8.7-10.3) mg/dL AST 10 L (13-35) U/L Total Protein 5.8 L (6.2-8.2) d/dL Albumin 2.8 L (3.8-4.9) d/dL Albumin/Globulin Ratio 0.93 L (1.60-3.17) Ratio
--- NOTE | 2022-10-19 15:07 | FL ---
EXAMINATION TYPE: FL small bowel follow through DATE OF EXAM: 10/19/2022 CLINICAL HISTORY: 67-year-old female with diverticulitis with fistula, abdominal pain TECHNIQUE: A single contrast small bowel follow through is performed utilizing barium. Surgery was consulted prior to the start of the procedure as far as type of contrast. Total fluoroscopy time: None. Total images: DOSE AREA PRODUCT (DAP) UGY*M,MGY*CM: 5 COMPARISON: Correlation outside CT 10/16/2022 FINDINGS: Can Bander Operator image shows a solitary dilated small bowel loop in the midabdomen measuring up to 7.4 cm. The small bowel study shows cut off of contrast within the proximal jejunum. Jejunum just before the cut off is dilated up to 6.0 cm. Duodenum is dilated up to 5.9 cm. Imaging was carried out to 3 hours and 45 minutes and the appearance is similar. When correlating with the patient's CT, this appears to be obstruction secondary to contiguous inflam mation of this small bowel loop and/or mass effect from the patient's known abscess. IMPRESSION: 1. High-grade small bowel obstruction at the proximal jejunum. 2. Duodenum and jejunum dilated up to 6.0 cm. When correlating with the patient's CT, obstruction is likely secondary to contiguous inflammation of the small bowel and/or mass effect from the patient's known abscess.
--- NOTE | 2022-10-19 16:15 | PN ---
PROGRESS NOTE The patient remains on Zosyn, has an NG tube in. Temperature 97 to 98, blood pressure 130s to 140s over 70s to 80s, O2 92 to 95 on room air, respiratory rate 16 to 18 NG tube, small-bowel x-ray today Infectious Disease consult. Antibiotics and surgical consult. Prognosis guarded. MMODL / IJN: [id number] /
--- NOTE | 2022-10-19 16:23 | P.PN ---
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 On today's evaluation that is 10/18/2022, the patient did have a low-grade fever 100F after midnight, the patient is afebrile since then the patient is [place] athing comfortably. Still complaining of abdominal pain. The patient is feeling nauseated but no vomiting did not have any bowel movement for chest pain shortness of breath or cough Objective - Vital Signs Vital signs: Vital Signs Temp 97.8 F 10/18/22 13:57 Pulse 104 H 10/18/22 13:57 Resp 18 10/18/22 13:57 BP 137/94 10/18/22 13:57 Pulse Ox 95 10/18/22 13:57 FiO2 Intake & Output 10/17/22 10/18/22 10/18/22 18:59 06:59 18:59 Intake Total 100 0 Balance 100 0 Intake: Intake, IV Titration 100 Amount Piperacillin-Tazobactam 3 100 .375 gm In Sodium Chloride 0.9% 100 ml @ 25 mls/hr IVPB Q8HR [facility] Rx# :[id number] Oral 0 Other: Voiding Method Toilet Toilet Toilet # Voids 4 2 - Exam GENERAL DESCRIPTION: An elderly female lying in bed in no distress RESPIRATORY SYSTEM: Unlabored breathing , decreased breath sounds at bases HEART: S1 S2 regular rate and rhythm , ABDOMEN: Soft , mild abdominal distention and tenderness EXTREMITIES: No edema feet - Labs CBC & Chem 7: 10/19/22 05:48 10/19/22 05:48 Labs: Abnormal Lab Results - Last 24 Hours (Table) 10/17/22 10/17/22 10/18/22 Range/Units 17:18 20:04 05:32 WBC 10.02 H (4.50-10.00) X 10*3/uL RBC 3.94 L (4.10-5.20) X 10*6/uL Hgb 10.6 L (12.0-15.0) d/dL Hct 34.6 L (37.2-46.3) % MCH 26.9 L (27.0-32.0) pg MCHC 30.6 L (32.0-37.0) d/dL RDW 15.5 H (11.5-14.5) % MPV 8.8 L (9.5-12.2) FL Neutrophils # 8.48 H (1.80-7.70) X 10*3/uL Lymphocytes # 0.68 L (0.90-5.00) X 10*3/uL Carbon Dioxide (21.6-31.8) mmol/L Anion Gap (4.00-12.00) mmol/L BUN (9.0-27.0) mg/dL BUN/Creatinine Ratio (12.00-20.00) Ratio Glucose (70-110) mg/dL POC Glucose (mg/dL) 141 H 182 H (70-110) mg/dL Calcium (8.7-10.3) mg/dL Albumin (3.8-4.9) d/dL Globulin (1.6-3.3) d/dL Albumin/Globulin Ratio (1.60-3.17) Ratio 10/18/22 10/18/22 10/18/22 Range/Units 05:32 07:07 12:17 WBC (4.50-10.00) X 10*3/uL RBC (4.10-5.20) X 10*6/uL Hgb (12.0-15.0) d/dL Hct (37.2-46.3) % MCH (27.0-32.0) pg MCHC (32.0-37.0) d/dL RDW (11.5-14.5) % MPV (9.5-12.2) FL Neutrophils # (1.80-7.70) X 10*3/uL Lymphocytes # (0.90-5.00) X 10*3/uL Carbon Dioxide 21.5 L (21.6-31.8) mmol/L Anion Gap 15.50 H (4.00-12.00) mmol/L BUN 8.3 L (9.0-27.0) mg/dL BUN/Creatinine Ratio 10.38 L (12.00-20.00) Ratio Glucose 199 H (70-110) mg/dL POC Glucose (mg/dL) 200 H 181 H (70-110) mg/dL Calcium 8.6 L (8.7-10.3) mg/dL Albumin 3.1 L (3.8-4.9) d/dL Globulin 3.5 H (1.6-3.3) d/dL Albumin/Globulin Ratio 0.89 L (1.60-3.17) Ratio Assessment and Plan (1) Diverticulitis of large intestine with complication Current Visit: Yes Status: Acute Code(s): K57.32 - DVTRCLI OF LG INT W/O PERFORATION OR ABSCESS W/O BLEEDING SNOMED Code(s): 132836585 Plan: 1patient was in the hospital with sepsis in this patient with a fever tachycardia elevated white count cirrhosis complicated diverticulitis with evidence of fistula formation between descending colon and loop of the small bowel and concern for abscess we will need to cover for the enteric gram- negative both anaerobes and anaerobes to the likely pathogen 2-await possible surgery and drainage of the abscess along with deep culture 3-patient to continue Zosyn 3.375 g every 8 hours along with bowel rest Dictation was produced using [employer] dictation software. please excuse any grammatical, word or spelling errors. Time with Patient: Less than 30
--- NOTE | 2022-10-19 16:25 | P.PN ---
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 On today's evaluation that is 10/19/2022, the patient did have a low-grade fever 99.6F this morning, the patient is breathing comfortably on room air patient did have NG for suction and has been complaining of abdominal pain after drinking contrast for the small bowel follow-through. The patient is feeling nauseated but no vomiting did not have any bowel movement for chest pain shortness of breath or cough Objective - Vital Signs Vital signs: Vital Signs Temp 97.6 F 10/19/22 07:40 Pulse 74 10/19/22 07:40 Resp 15 10/19/22 07:40 BP 133/73 10/19/22 07:40 Pulse Ox 95 10/19/22 07:40 FiO2 Intake & Output 10/18/22 10/19/22 10/19/22 18:59 06:59 18:59 Intake Total 300 0 Output Total 1202 Balance -902 0 Intake: Intake, IV Titration 300 Amount ACETAMINOPHEN IV (For NPO 100 ) 1,000 mg In Empty Bag 1 bag @ 400 mls/hr IVPB Q6HR [facility] Rx#:[id number] ACETAMINOPHEN IV (For NPO 100 ) 500 mg In Empty Bag 1 bag @ 200 mls/hr IVPB Q6H [facility] Rx#:[id number] Piperacillin-Tazobactam 3 100 .375 gm In Sodium Chloride 0.9% 100 ml @ 25 mls/hr IVPB Q8HR [facility] Rx# :[id number] Oral 0 Output: Gastric Drainage 400 Emesis 2 Oral Regurgitation 800 Other: Voiding Method Toilet Toilet Toilet # Voids 1 2 - Exam GENERAL DESCRIPTION: An elderly female lying in bed in no distress RESPIRATORY SYSTEM: Unlabored breathing , decreased breath sounds at bases HEART: S1 S2 regular rate and rhythm , ABDOMEN: Soft , mild abdominal distention and tenderness EXTREMITIES: No edema feet - Labs CBC & Chem 7: 10/19/22 05:48 10/19/22 05:48 Labs: Abnormal Lab Results - Last 24 Hours (Table) 10/18/22 10/18/22 10/19/22 Range/Units 17:07 20:11 05:48 RBC 3.50 L (4.10-5.20) X 10*6/uL Hgb 9.4 L (12.0-15.0) d/dL Hct 31.3 L (37.2-46.3) % MCH 26.9 L (27.0-32.0) pg MCHC 30.0 L (32.0-37.0) d/dL RDW 15.5 H (11.5-14.5) % MPV 8.6 L (9.5-12.2) FL Lymphocytes # 0.72 L (0.90-5.00) X 10*3/uL BUN (9.0-27.0) mg/dL BUN/Creatinine Ratio (12.00-20.00) Ratio Glucose (70-110) mg/dL POC Glucose (mg/dL) 176 H 171 H (70-110) mg/dL Calcium (8.7-10.3) mg/dL AST (13-35) U/L Total Protein (6.2-8.2) d/dL Albumin (3.8-4.9) d/dL Albumin/Globulin Ratio (1.60-3.17) Ratio 10/19/22 10/19/22 Range/Units 05:48 07:23 RBC (4.10-5.20) X 10*6/uL Hgb (12.0-15.0) d/dL Hct (37.2-46.3) % MCH (27.0-32.0) pg MCHC (32.0-37.0) d/dL RDW (11.5-14.5) % MPV (9.5-12.2) FL Lymphocytes # (0.90-5.00) X 10*3/uL BUN 8.3 L (9.0-27.0) mg/dL BUN/Creatinine Ratio 11.86 L (12.00-20.00) Ratio Glucose 151 H (70-110) mg/dL POC Glucose (mg/dL) 146 H (70-110) mg/dL Calcium 8.2 L (8.7-10.3) mg/dL AST 10 L (13-35) U/L Total Protein 5.8 L (6.2-8.2) d/dL Albumin 2.8 L (3.8-4.9) d/dL Albumin/Globulin Ratio 0.93 L (1.60-3.17) Ratio Assessment and Plan (1) Diverticulitis of large intestine with complication Current Visit: Yes Status: Acute Code(s): K57.32 - DVTRCLI OF LG INT W/O PERFORATION OR ABSCESS W/O BLEEDING SNOMED Code(s): 360332690 Plan: 1patient was in the hospital with sepsis in this patient with a fever tachycardia elevated white count cirrhosis complicated diverticulitis with evidence of fistula formation between descending colon and loop of the small bowel and concern for abscess we will need to cover for the enteric gram-negative both anaerobes and anaerobes to the likely pathogen Patient is currently undergoing small bowel follow-through per surgery 3-patient to continue Zosyn 3.375 g every 8 hours along with bowel rest Dictation was produced using [email or web address] dictation software. please excuse any grammatical, word or spelling errors. Time with Patient: Less than 30
--- NOTE | 2022-10-19 16:29 | XR ---
EXAMINATION TYPE: XR chest 2V DATE OF EXAM: 10/19/2022 4:21 PM COMPARISON: Chest radiographs from 06/22/2013 TECHNIQUE: XR chest 2V Frontal and lateral views of the chest. CLINICAL INDICATION:Female, 67 years old with history of preop; FINDINGS: Lungs/Pleura: There is no evidence of pleural effusion, focal consolidation, or pneumothorax. Pulmonary vascularity: Unremarkable. Heart/mediastinum: Cardiomediastinal silhouette is unremarkable. Musculoskeletal: No acute osseous pathology. Other findings: None Lines/Tubes: Tubing terminates in the in the gastroesophageal junction. IMPRESSION: Suspected oral gastric tube remain with tip projecting over the gastroesophageal junction. Consider a dvancement of 5 cm for optimal placement.
--- NOTE | 2022-10-19 17:29 | P.PN ---
Progress Note - Text Progress Note Date: 10/19/22 I am now covering this patient. I was signed out this patient by Dr. Garcia. Today she had a small bowel series which shows near complete small bowel obstruction. Recent CAT scan from [facility] reviewed. Clinical scenario and films discussed with patient at length. Patient has a abscess adjacent to a loop of small bowel which is likely this site of small bowel obstruction. There is mild inflammatory changes and haziness of the colon adjacent to the small bowel loop and there is the possibility of perforated diverticulitis with abscess formation and developing fistula. Patient admits that she is not feeling any better since she was admitted. Options discussed. I do not think this patient will improve with conservative management at this time. Recommend surgical intervention. She is agreeable. We'll proceed with exploratory laparotomy, possible bowel resection, possible ostomy tomorrow. Discussed that depending on the appearance of the adjacent: We may be able to avoid colostomy in this case. Risks of bleeding, infection, scarring, leak, abscess, recurrent obstruction, peritonitis, need for further surgery, ostomy related complications, hernia, sepsis, ureteral injury, cardiac complications all discussed. Will discuss case with cardiology this evening. She understands wishes to proceed.
[2022-10-19 17:31] LABS: Glucose,Whole Blood 145 mg/dL (70-110)
[2022-10-19 19:51] LABS: Glucose,Whole Blood 152 mg/dL (70-110)
[2022-10-19] MEDS: lisinopriL 5 MG TAB PO SCH (21:47)
[2022-10-20] MEDS: PIPERACILLIN-TAZOBACTAM 3.375 GM in SODIUM CHLORIDE 0.9% 100 ML IVPB SCH ×3 (00:01→16:26)
[2022-10-20] MEDS: SODIUM CHLORIDE 0.9% 1,000 ML IV SCH ×4 (04:45→21:01)
[2022-10-20] MEDS: ENOXAPARIN 40 MG/0.4 ML SYRINGE SQ SCH (06:11)
--- NOTE | 2022-10-20 07:52 | P.CRDCN ---
History of Present Illness History of present illness: HISTORY OF PRESENTING ILLNESS Patient is a pleasant 67-year-old female with history of diabetes mellitus type 2 hypertension, reported history of myocardial infarction however patient denies , previous tobacco abuse, family history father with CABG, osteoarthritis. Patient presented as a transfer from [place] secondary to abdominal pain. Patient has been having nausea with right-sided abdominal pain and epigastric abdominal pain or lasts 5-6 days. CAT scan showed diverticulitis with fistula formation and additional concern of small bowel obstruction. She has had sinus tachycardia and low-grade fevers and placed on antibiotics. She has been monitored with NG tube in place however has not significantly improved and conservative management patient has not been feeling any better. She states she has had issues with anesthesia in the past however is unsure of this have been related to ALLERGIES to medications. She believes that with her knee surgery she required CPR however no additional workup has been performed and apparently was told this can happen frequently with anesthesia. She did see a cytotechnologist and has had a number of stress test which were all normal per patient and therefore stop seen cytotechnologist. She states she has never had a heart catheterization. She normally can walk around [employer] without stopping and denies any chest pain, pressure, shortness breath. She does have some atypical chest pain worse with movement since a fall a few months ago however only occurring with positioning. REVIEW OF SYSTEMS At the time of my exam: CONSTITUTIONAL: Denies fever or chills. CARDIOVASCULAR: +Atypical chest pain, +mild shortness of breath, no orthopnea, PND or palpitations. RESPIRATORY: Denies cough. GASTROINTESTINAL: Denies abdominal pain, diarrhea, constipation, nausea or vomiting. MUSCULOSKELETAL: Denies myalgias. NEUROLOGIC: Denies numbness, tingling or weakness. ENDOCRINE: Denies fatigue, weight change, polydipsia or polyurina. GENITOURINARY: Denies burning, hematuria or urgency with micturation. HEMATOLOGIC: Denies history of anemia or bleeding. PHYSICAL EXAMINATION Vital signs reviewed. CONSTITUTIONAL: No apparent distress. HEENT: Head is normocephalic. Pupils are equal, round. Sclerae anicteric. Mucous membranes of the mouth are moist. No JVD. No carotid bruit. CHEST EXAMINATION: Lungs are clear to auscultation. No chest wall tenderness is noted on palpation or with deep breathing. HEART EXAMINATION: Regular rate and rhythm. S1, S2 heard. No murmurs, gallops or rub. ABDOMEN: Soft, nontender. Positive bowel sounds. EXTREMITIES: 2+ peripheral pulses, no lower extremity edema and no calf tenderness. NEUROLOGIC EXAMINATION: Patient is awake, alert and oriented x3. ASSESSMENT 1. Diverticulitis with abscess 2. Preoperative cardiovascular exam 3. Atypical chest pain after fall, musculoskeletal 4. Reported prior issues with anesthesia, does not appear cardiac and believes related to her allergies 5. Diabetes mellitus type 2 6. Hypertension 7. Family history of CAD/CABG 8. Documentation of ID, patient denies PLAN Overall patient having occasional atypical chest pain at home however able to do 4 metastases of activity walking around [facility] without difficulty. Patient apparently did have issues with anesthesia in the past however does not appear cardiac related and more likely related to medications she was given. Bedside echo reviewed with ejection fraction 55% without significant valvular disease. Patient is cleared from a cardiology standpoint for surgery. Given family history of coronary artery disease and number of risk factors discuss follow-up as an outpatient for further evaluation. Thank you for the consult and please call with any questions. Past Medical History Past Medical History: Diabetes Mellitus, Hypertension, Myocardial Infarction (ID) Last Myocardial Infarction Date:: 11/19/2007 History of Any Multi-Drug Resistant Organisms: None Reported Past Surgical History: Orthopedic Surgery, Tubal Ligation Additional Past Surgical History / Comment(s): bilateral knee replacement Past Psychological History: Anxiety Smoking Status: Former smoker Past Alcohol Use History: None Reported Past Drug Use History: None Reported Medications and Allergies Home Medications Medication Instructions Recorded Confirmed Type Acetaminophen Tab [Tylenol Tab] 500 mg PO Q6H PRN 10/16/22 10/16/22 History Insulin Glargine,Hum.rec.anlog 35 units SQ BID 10/16/22 10/16/22 History [Lantus Solostar Pen] Insulin Lispro [humaLOG Kwikpen] See Protocol SQ ACHS PRN 10/16/22 10/16/22 History lisinopriL [Zestril] 5 mg PO DAILY 10/16/22 10/16/22 History Allergies Allergy/AdvReac Type Severity Reaction Status Date / Time codeine Allergy Unknown Verified 10/16/22 23:21 Latex, Natural Rubber Allergy Swelling Verified 10/17/22 00:29 morphine Allergy Nausea & Verified 10/17/22 00:30 Vomiting sulfamethoxazole Allergy Nausea & Verified 10/17/22 00:29 [From Bactrim] Vomiting trimethoprim [From Bactrim] Allergy Nausea & Verified 10/17/22 00:29 Vomiting Physical Exam Vitals: Vital Signs Temp Pulse Resp BP Pulse Ox 10/20/22 02:00 98.3 F 75 16 123/78 92 L 10/19/22 20:00 97.9 F 80 17 128/76 96 10/19/22 15:04 97.6 F 83 14 136/81 96 Intake and Output 10/19/22 10/20/22 10/20/22 22:59 06:59 14:59 Other: Voiding Method Toilet # Voids 1 Weight 108.862 kg Results 10/19/22 05:48 10/19/22 05:48 Cardiac Enzymes 10/19/22 Range/Units 05:48 AST 10 L (13-35) U/L CBC 10/19/22 Range/Units 05:48 WBC 6.79 (4.50-10.00) X 10*3/uL RBC 3.50 L (4.10-5.20) X 10*6/uL Hgb 9.4 L (12.0-15.0) d/dL Hct 31.3 L (37.2-46.3) % Plt Count 308 (140-440) X 10*3/uL Comprehensive Metabolic Panel 10/19/22 Range/Units 05:48 Sodium 142 (135-145) mmol/L Potassium 4.0 (3.5-5.5) mmol/L Chloride 108 (96-109) mmol/L Carbon Dioxide 23.3 (21.6-31.8) mmol/L BUN 8.3 L (9.0-27.0) mg/dL Creatinine 0.7 (0.6-1.5) mg/dL Glucose 151 H (70-110) mg/dL Calcium 8.2 L (8.7-10.3) mg/dL AST 10 L (13-35) U/L ALT 20 (8-44) U/L Alkaline Phosphatase 104 (41-126) U/L Total Protein 5.8 L (6.2-8.2) d/dL Albumin 2.8 L (3.8-4.9) d/dL Current Medications Generic Name Dose Route Start Last Admin Trade Name Freq PRN Reason Stop Dose Admin Dextrose/Water 25 ml 10/16/22 23:41 Dextrose 50% Syringe 50 Ml IVP PER PROTOCOL PRN Hypoglycemia Protocol Dextrose/Water 50 ml 10/16/22 23:41 Dextrose 50% Syringe 50 Ml IVP PER PROTOCOL PRN Hypoglycemia Protocol Enoxaparin Sodium 40 mg 10/17/22 06:00 10/20/22 06:11 Enoxaparin 40 Mg/0.4 Ml Syringe SQ Not Given Q24H LORETTA Sodium Chloride 1,000 mls @ 130 mls/hr 10/16/22 22:30 10/20/22 04:45 Saline 0.9% IV 130 mls/hr .Q7H42M LORETTA Administration Piperacillin Sod/Tazobactam 100 mls @ 25 mls/hr 10/17/22 00:00 10/20/22 00:01 Sod 3.375 gm/ Sodium Chloride IVPB 25 mls/hr Q8HR LORETTA Administration Protocol Lisinopril 5 mg 10/19/22 21:00 10/19/22 21:47 Lisinopril 5 Mg Tab PO Not Given HS LORETTA Morphine Sulfate 4 mg 10/16/22 22:20 Morphine Sulfate 4 Mg/Ml Syringe IV Q4HR PRN Severe Pain (Scale 7 to 10) Naloxone HCl 0.2 mg 10/16/22 22:20 Naloxone 0.4 Mg/Ml 1 Ml Vial IV Q2M PRN Opioid Reversal Ondansetron HCl 4 mg 10/18/22 07:46 Ondansetron 4 Mg/2 Ml Vial IVP Q6HR PRN Nausea And Vomiting Pantoprazole Sodium 40 mg 10/18/22 09:00 10/19/22 21:56 Pantoprazole 40 Mg/10 Ml Vial IVP 40 mg BID LORETTA Administration Intake and Output 10/19/22 10/20/22 10/20/22 22:59 06:59 14:59 Other: Voiding Method Toilet # Voids 1 Weight 108.862 kg 10/19/22 05:48 10/19/22 05:48
[2022-10-20] MEDS ORDERED: LABETALOL 5 MG/ML VIAL MDV ONE (08:16)
[2022-10-20] MEDS ORDERED: MIDAZOLAM 2 MG/2 ML VIAL ONE (08:16)
[2022-10-20] MEDS ORDERED: ceFAZolin 1,000 MG VIAL ONE (08:16)
[2022-10-20] MEDS ORDERED: PROPOFOL 10 MG/ML 20 ML VIAL IV ONE (08:16)
[2022-10-20] MEDS ORDERED: ONDANSETRON 4 MG/2 ML VIAL ONE (08:16)
[2022-10-20] MEDS ORDERED: GLYCOPYRROLATE 0.2 MG/ML 2 ML VIAL ONE (08:16)
[2022-10-20] MEDS ORDERED: ROCURONIUM 10 MG/ML (5 ML VIAL) IV ONE (08:16)
[2022-10-20] MEDS ORDERED: HYDROmorphone (PF) 1 MG/ML ONE (08:16)
[2022-10-20] MEDS ORDERED: LIDOCAINE 2% INJ 20 MG/ML (2 ML VIAL) ONE (08:16)
[2022-10-20] MEDS ORDERED: DEXAMETHASONE SOD PHOSPHATE 4 MG/ML 1 ML VIAL ONE (08:16)
[2022-10-20] MEDS ORDERED: ACETAMINOPHEN IV (For NPO) 1,000 MG/100 ML VIAL ONE (08:16)
[2022-10-20] MEDS ORDERED: PHENYLEPHRINE-0.9% NACL SYG 1,000 MCG/10 ML SYRINGE ONE (08:16)
[2022-10-20] MEDS ORDERED: SUCCINYLCHOLINE CHLORIDE 200 MG/10 ML VIAL IV ONE (08:16)
[2022-10-20] MEDS ORDERED: SODIUM CHLORIDE 0.9% 100 ML BAG ONE (08:16)
[2022-10-20] MEDS ORDERED: fentaNYL (PF) 50 MCG/ML 2 ML AMP ONE (08:16)
[2022-10-20] MEDS ORDERED: NEOSTIGMINE 1 MG/ML 10 ML VIAL ONE (08:16)
[2022-10-20] MEDS ORDERED: LACTATED RINGERS 1,000 ML IV ONE (08:21)
[2022-10-20] MEDS ORDERED: SODIUM CHLORIDE 0.9% 100 ML with ceFAZolin 2,000 MG IV ONE ×2 (08:50)
[2022-10-20] MEDS: PANTOPRAZOLE 40 MG/10 ML VIAL IVP SCH ×2 (09:28→21:01)
[2022-10-20] MEDS ORDERED: PROCHLORPERAZINE SUPPOSITORY 25 MG SUPP RECTAL PRN (11:49)
--- NOTE | 2022-10-20 11:58 | P.OP ---
Date of Procedure: 10/20/22 Procedure(s) Performed: PREOPERATIVE DIAGNOSIS: Abdominal abscess with small bowel obstruction, suspected diverticulitis POSTOPERATIVE DIAGNOSIS: Same PROCEDURE: Partial colectomy with end colostomy, small bowel resection, drainage of abdominal abscess, mobilization splenic flexure SURGEON: Carly EBL: 150 mL ANESTHESIA: General COMPLICATIONS: None OPERATIVE PROCEDURE: Patient place in the operative table in the supine position. The patient was placed under general anesthesia. The abdomen was prepped and draped in usual sterile fashion. A vertical incision was made encompassing extending from the suprapubic region above the umbilicus. The fascia was divided as well. The patient had a fascial defect at the umbilicus that was incorporated into our incision and later closed with our fascial closure. Upon entrance into the peritoneal cavity serous fluid was identified. The Bookwalter retractor was utilized. The proximal to mid jejunum loop where the obstruction was present was adjacent to the distal descending colon mesentery. As I mobilized the small bowel away from this chronically adhesed area a pocket of purulent fluid was encountered and cultured. This was then irrigated and evacuated. The patient's small bowel was very diseased in this area with chronic inflammatory changes and suspected luminal narrowing. I decided to proceed with resection of the small bowel loop. The bowel was divided proximal and distal to this using a linear 75 stapler. The mesentery was then divided using a combination of 0 silk ties and LigaSure. It should be noted that the mesentery was very thick and inflamed. Once the specimen was removed a gcul-bt-heqp anastomosis took place. The antimesenteric portion of the staple line was removed and a linear stapler was fired along the antimesenteric border. The remaining defect was closed transversely using a TX 60 device. The TX 60 stapler line was imbricated using interrupted 3-0 GI silk sutures and a 3-0 GI silk crotch stitch was placed. I was then able to inspect the distal descending colon. The patient had marketed inflammatory changes here with some small 5 mm nodules on the peritoneal surface that it initially appeared somewhat suspicious for malignancy. As the case progressed I suspect this was more related to the chronic inflammatory change of malignancy is not excluded at this point. This section of colon was mobilized medially and in doing so an additional abscess was identified on the lateral posterior surface of the colon here. This was evacuated. The colon was divided proximal and distal to the inflamed segment using a linear 75 stapler proximally and a contour stapler distally. The mesentery was again divided using a combination of 0 silk ties and the LigaSure device. Unfortunately we were now dealing with the proximal descending colon and this would not reach the skin surface for ostomy. A painstaking mobilization of the splenic flexure took place using both blunt dissection and electrocautery and LigaSure. We then had adequate length. Copious irrigation of the abdominal cavity took place using 4 L of saline. No purulence or bleeding was seen. A drain was brought into the abdomen from a separate stab incision in the left lateral upper abdomen. This was placed along the left gutter where the abscess had been present. At that point circular incision was made in the left midabdomen. Dissection through the subcutaneous fat and fascia took place using electrocautery. I bluntly entered the perineal cavity and this was further bluntly opened. The bowel was brought out through this defect in the left midabdomen. The midline fascia was then reapproximated using 3 separate double-stranded #1 PDS sutures. The subcutaneous tissues were irrigated. A drain was placed anterior to the fascial closure exiting from the suprapubic location. Both drains were sutured in place using 3-0 silk sutures. The subcutaneous tissues were closed using 20 and 3-0 Vicryl sutures. The skin was then closed using will. The ostomy was then addressed. A portion of the pericolonic fat was removed using the LigaSure device. The staple line was then removed using electrocautery. The ostomy was then matured in a three affiliated fashion using interrupted 3-0 Vicryl sutures. An ostomy appliance was then applied. Sterile dressings were then applied to the midline incision. DISPOSITION: Stable to recovery room
[2022-10-20 12:17] LABS: Glucose,Whole Blood 203 mg/dL (70-110)
[2022-10-20 12:45] LABS: Glucose,Whole Blood 225 mg/dL (70-110)
--- NOTE | 2022-10-20 14:07 | P.PN ---
Subjective Progress Note Date: 10/20/22 Patient is a pleasant 67-year-old female with history of diabetes mellitus type 2 hypertension, reported history of myocardial infarction however patient denies, previous tobacco abuse, family history father with CABG, osteoarthritis. Patient presented as a transfer from [place] secondary to abdominal pain. Patient has been having nausea with right-sided abdominal pain and epigastric abdominal pain or lasts 5-6 days. CAT scan showed diverticulitis with fistula formation and additional concern of small bowel obstruction. She has had sinus tachycardia and low-grade fevers and placed on antibiotics. She has been monitored with NG tube in place however has not significantly improved and conservative management patient has not been feeling any better. 10/20. Patient seen and examined. Going for surgery today REVIEW OF SYSTEMS: CONSTITUTIONAL: No fever, no malaise,. CARDIOVASCULAR: No chest pain, no palpitations, no syncope. PULMONARY: No shortness of breath, no cough, GASTROINTESTINAL: Having abdominal pain NEUROLOGICAL: No headaches, no weakness, PHYSICAL EXAMINATION: GENERAL: The patient is alert and oriented x3, not in any acute distress. Well developed, well nourished. HEENT: Pupils are round and equally reacting to light. EOMI. No scleral icterus. No conjunctival pallor. Normocephalic, atraumatic. No pharyngeal erythema. No thyromegaly. CARDIOVASCULAR: S1 and S2 present. No murmurs, rubs, or gallops. PULMONARY: Chest is clear to auscultation, no wheezing or crackles. ABDOMEN: Tenderness left lower quadrant No palpable organomegaly. MUSCULOSKELETAL: No joint swelling or deformity. EXTREMITIES: No cyanosis, clubbing, or pedal edema. NEUROLOGICAL: Gross neurological examination did not reveal any focal deficits. SKIN: No rashes. Assessment and plan Acute diverticulitis with fistula formation from the descending colon to an adjacent loop of proximal small bowel with a developing abscess Sepsis Atypical chest pain after fall, musculoskeletal Reported prior issues with anesthesia, does not appear cardiac and believes related to her allergies Diabetes mellitus type 2 Hypertension Family history of CAD/CABG Documentation of [place], patient denies Monitor vital signs Monitor CBC Monitor CMP Continue telemetry monitoring Continue IV fluids Continue IV Zosyn ID following Cardiology has cleared the patient for surgery Surgery planning exploratory laparotomy, possible bowel resection, possible ostomy Labs and medication were reviewed.. Continue same treatment. Continue with symptomatic treatment. Resume home medication. Monitor labs and vitals. DVT and GI prophylaxis. Further recommendations as per clinical course of the patient Dictation was produced using [employer] dictation software. please excuse any grammatical, word or spelling errors. Objective - Vital Signs Vital signs: Vital Signs Temp 98.3 F 10/20/22 02:00 Pulse 75 10/20/22 02:00 Resp 16 10/20/22 02:00 BP 123/78 10/20/22 02:00 Pulse Ox 92 L 10/20/22 02:00 FiO2 Intake & Output 10/19/22 10/20/22 10/20/22 18:59 06:59 18:59 Intake Total 100 Balance 100 Weight 108.862 kg Intake: IV 100 Other: Voiding Method Toilet Toilet # Voids 1 - Labs CBC & Chem 7: 10/19/22 05:48 10/19/22 05:48 Labs: Abnormal Lab Results - Last 24 Hours (Table) 10/19/22 10/19/22 10/19/22 Range/Units 13:09 17:29 19:50 POC Glucose (mg/dL) 181 H 145 H 152 H (70-110) mg/dL
[2022-10-20] MEDS: HYDROmorphone PCA 10 MG/50 ML BAG IV PRN (14:14)
--- NOTE | 2022-10-20 15:32 | CA ---
Transthoracic Echo Report Name: Alannah Galloway Age: 67 Gender: F : 1955 Exam Date: 10/20/2022 07:32 Exam Location: [facility] Ht (in): 62 Wt (lb): 240 Ordering Physician: Pérez Payne MD Attending/Referring Phys: Kerry Ortez;[id number] Wet Pan Operator Kailey Nunn RDCS Procedure CPT: Indications: preop Cardiac Hx: Technical Quality: Contrast 1: Total Dose (mL): Contrast 2: Total Dose (mL): MEASUREMENTS (Male / Female) Normal Values 2D ECHO LV Diastolic Diameter PLAX 4.9 cm 4.2 - 5.9 / 3.9 - 5.3 cm LV Systolic Diameter PLAX 3.2 cm IVS Diastolic Thickness 1.0 cm 0.6 - 1.0 / 0.6 - 0.9 cm LVPW Diastolic Thickness 1.1 cm 0.6 - 1.0 / 0.6 - 0.9 cm LV Relative Wall Thickness 0.4 RV Internal Dim ED PLAX 2.9 cm LA Systolic Diameter LX 3.2 cm 3.0 - 4.0 / 2.7 - 3.8 cm LA Volume 40.9 cm??? 18 - 58 / 22 - 52 cm??? M-MODE Aortic Root Diameter MM 3.5 cm MV E Point Septal Separation 0.3 cm AV Cusp Separation MM 2.0 cm DOPPLER AV Peak Velocity 145.3 cm/s AV Peak Gradient 8.4 mmHg MV Area PHT 3.8 cm??? Mitral E Point Velocity 110.9 cm/s Mitral A Point Velocity 119.3 cm/s Mitral E to A Ratio 0.9 MV Deceleration Time 201.9 ms MV E' Velocity 9.2 cm/s Mitral E to MV E' Ratio 12.0 TR Peak Velocity 256.7 cm/s TR Peak Gradient 26.4 mmHg Right Ventricular Systolic Press 30.1 mmHg FINDINGS Left Ventricle Left ventricular ejection fraction is estimated at 55-60 %. Left ventricular cavity size normal. Mildly increased posterior wall thickness. Right Ventricle Normal right ventricular size and function. Right ventricular systolic pressure within normal limits. Right Atrium Normal right atrial size. Left Atrium Normal left atrial size. Mitral Valve Structurally normal mitral valve. Trace mitral regurgitation. Aortic Valve Trileaflet aortic valve. No aortic valve stenosis or regurgitation. Tricuspid Valve Structurally normal tricuspid valve. Mild tricuspid regurgitation. Pulmonic Valve Structurally normal pulmonic valve. No pulmonic regurgitation. Pericardium Normal pericardium. No pericardial effusion. Aorta Normal size aortic root and proximal ascending aorta. CONCLUSIONS Left ventricular ejection fraction 55-60% Mild increased left ventricular wall thickness Trace mitral regurgitation Mild tricuspid regurgitation No pericardial effusion Previewed by: Dr. Mac Hui DO (Electronically Signed) Final Date: 20 October 2022 15:31
[2022-10-20 17:34] LABS: Glucose,Whole Blood 195 mg/dL (70-110)
[2022-10-20 20:35] LABS: Glucose,Whole Blood 218 mg/dL (70-110)
[2022-10-20] MEDS: lisinopriL 5 MG TAB PO SCH (20:48)
[2022-10-21] MEDS: PIPERACILLIN-TAZOBACTAM 3.375 GM in SODIUM CHLORIDE 0.9% 100 ML IVPB SCH ×4 (00:01→23:26)
[2022-10-21] MEDS: ENOXAPARIN 40 MG/0.4 ML SYRINGE SQ SCH (06:09)
[2022-10-21] MEDS: SODIUM CHLORIDE 0.9% 1,000 ML IV SCH ×4 (06:09→22:15)
[2022-10-21 07:03] LABS: Glucose,Whole Blood 188 mg/dL (70-110)
--- NOTE | 2022-10-21 08:01 | P.PN ---
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 significant for diabetes mellitus hypertension MS presented to [facility] for evaluation of right-sided abdominal pain,patient did have a CT abdominal pelvis we did shows evidence of diverticulitis with fistula formation from the descending colon to the adjustment about the proximal small b owel and developing abscess within the wall of the small bowel,, patient subsequently transferred to [facility] for further management.Patient is status post partial colectomy with end colostomy small bowel resection drainage of abdominal abscess however no culture was done on 10/20/2022. On today's evaluation that is 10/20/2022 patient denies having any fever or any chills patient complaining of abdominal discomfort after surgery did have some nausea but no vomiting no chest pain shortness of breath or cough Objective - Vital Signs Vital signs: Vital Signs Temp 97.6 F 10/20/22 12:42 Pulse 81 10/20/22 12:42 Resp 15 10/20/22 12:42 BP 133/70 10/20/22 12:42 Pulse Ox 91 L 10/20/22 12:42 FiO2 Intake & Output 10/19/22 10/20/22 10/20/22 18:59 06:59 18:59 Intake Total 1950 Output Total 690 Balance 1260 Weight 108.862 kg Intake: IV 1950 Output: Drainage 90 Left 90 Urine 450 Estimated Blood Loss 150 Other: Voiding Method Toilet Toilet # Voids 1 - Exam GENERAL DESCRIPTION: An elderly female lying in bed in no distress RESPIRATORY SYSTEM: Unlabored breathing , decreased breath sounds at bases HEART: S1 S2 regular rate and rhythm , ABDOMEN: Soft , mild abdominal distention and tenderness EXTREMITIES: No edema feet - Labs CBC & Chem 7: 10/19/22 05:48 10/19/22 05:48 Labs: Abnormal Lab Results - Last 24 Hours (Table) 10/19/22 10/19/22 10/20/22 Range/Units 17:29 19:50 12:14 POC Glucose (mg/dL) 145 H 152 H 203 H (70-110) mg/dL 10/20/22 Range/Units 12:44 POC Glucose (mg/dL) 225 H (70-110) mg/dL Assessment and Plan (1) Diverticulitis of large intestine with complication Current Visit: Yes Status: Acute Code(s): K57.32 - DVTRCLI OF LG INT W/O PERFORATION OR ABSCESS W/O BLEEDING SNOMED Code(s): 472277560 Plan: 1patient was in the hospital with sepsis in this patient with a fever tachycardia elevated white count cirrhosis complicated diverticulitis with evidence of fistula formation between descending colon and loop of the small bowel and concern for abscess we will need to cover for the enteric gram- negative both anaerobes and anaerobes to the likely pathogen 2-Patient is status post partial colectomy with end colostomy small bowel resection drainage of abdominal abscess however no culture was done on 10/20/2022 3-patient to continue Zosyn 3.375 g every 8 hours and monitor clinical course closely Dictation was produced using [employer] dictation software. please excuse any grammatical, word or spelling errors. Time with Patient: Less than 30
[2022-10-21] MEDS: PANTOPRAZOLE 40 MG/10 ML VIAL IVP SCH ×2 (08:22→21:40)
--- NOTE | 2022-10-21 10:45 | PN ---
PROGRESS NOTE ADDENDUM: Sepsis, present on admission. MMODL / IJN: [id number] /
[2022-10-21 11:47] LABS: Glucose,Whole Blood 204 mg/dL (70-110)
--- NOTE | 2022-10-21 13:46 | P.PN ---
Subjective Progress Note Date: 10/21/22 Principal diagnosis: Diverticulitis with abscess Patient says her pain is somewhat improved today. Feels better than when she came to the hospital. She is afebrile. She is tachycardic. Urine output is marginal and somewhat cloudy. Objective - Vital Signs Vital signs: Vital Signs Temp 98.2 F 10/21/22 13:00 Pulse 109 H 10/21/22 13:00 Resp 18 10/21/22 13:00 BP 126/87 10/21/22 13:00 Pulse Ox 94 L 10/21/22 13:00 FiO2 Intake & Output 10/20/22 10/21/22 10/21/22 18:59 06:59 18:59 Intake Total 1950 Output Total 1030 525 Balance 920 -525 Intake: IV 1950 Output: Drainage 130 100 Left 130 80 Left Lower Abdomen 20 Urine 750 425 Estimated Blood Loss 150 Other: Voiding Method Indwelling Catheter Indwelling Catheter Indwelling Catheter - Exam Abdomen: Soft, mild distention, dressing clean and dry, ostomy pink, drains serosanguineous - Labs CBC & Chem 7: 10/19/22 05:48 10/19/22 05:48 Labs: Abnormal Lab Results - Last 24 Hours (Table) 10/20/22 10/20/22 10/21/22 Range/Units 17:33 20:33 07:02 POC Glucose (mg/dL) 195 H 218 H 188 H (70-110) mg/dL 10/21/22 Range/Units 11:45 POC Glucose (mg/dL) 204 H (70-110) mg/dL Assessment and Plan (1) Diverticulitis of large intestine with complication Narrative/Plan: Patient slowly improving. We'll bolus saline for tachycardia and marginal urine output. Add Toradol for pain control. Recheck labs tomorrow. Current Visit: Yes Status: Acute Code(s): K57.32 - DVTRCLI OF LG INT W/O PERFORATION OR ABSCESS W/O BLEEDING SNOMED Code(s): 775704460
[2022-10-21] MEDS ORDERED: SODIUM CHLORIDE 0.9% 500 ML 500 ML IV ONE (13:47)
[2022-10-21 15:39] LABS: Basophils % (A) 0 %; Eosinophils # (A) 0.1 k/uL (0-0.7); Eosinophils % (A) 1 %; HCT 31.8 % (34.0-46.0); HGB 9.8 gm/dL (11.4-16.0); Hypochromasia Marked; Lymphocytes % (A) 9 %; MCH 27.8 pg (25.0-35.0); MCHC 30.8 g/dL (31.0-37.0); MCV 90.4 fL (80.0-100.0); Mean Platelet Volume 7.4; Monocytes # (A) 0.6 k/uL (0-1.0); Monocytes % (A) 5 %; Neutrophils # (A) 9.2 k/uL (1.3-7.7); Neutrophils % (A) 83 %; Platelet Count 346 k/uL (150-450); RBC 3.52 m/uL (3.80-5.40); RDW 15.7 % (11.5-15.5); WBC 11.1 k/uL (3.8-10.6)
[2022-10-21 15:48] LABS: African American GFR (CKD) >90 (>60 ml/min/1.73 sqM); Anion Gap 10 mmol/L; Blood Urea Nitrogen 10 mg/dL (7-17); Calcium 7.3 mg/dL (8.4-10.2); Carbon Dioxide 22 mmol/L (22-30); Chloride 110 mmol/L (98-107); Glucose 200 mg/dL (74-99); Non-African American GFR(CKD) 89 (>60 ml/min/1.73 sqM); Sodium 142 mmol/L (137-145)
--- NOTE | 2022-10-21 15:49 | P.PN ---
Subjective Progress Note Date: 10/21/22 Patient is a pleasant 67-year-old female with history of diabetes mellitus type 2 hypertension, reported history of myocardial infarction however patient denies, previous tobacco abuse, family history father with CABG, osteoarthritis. Patient presented as a transfer from [place] secondary to abdominal pain. Patient has been having nausea with right-sided abdominal pain and epigastric abdominal pain or lasts 5-6 days. CAT scan showed diverticulitis with fistula formation and additional concern of small bowel obstruction. She has had sinus tachycardia and low-grade fevers and placed on antibiotics. She has been monitored with NG tube in place however has not significantly improved and conservative management patient has not been feeling any better. 10/20. Patient seen and examined. Going for surgery today 10/21. Patient seen and examined. Status post exploratory laparotomy, NG tube in place. Tachycardic this morning. Complaining of abdominal pain REVIEW OF SYSTEMS: CONSTITUTIONAL: No fever, no malaise,. CARDIOVASCULAR: No chest pain, no palpitations, no syncope. PULMONARY: No shortness of breath, no cough, GASTROINTESTINAL: As mentioned above NEUROLOGICAL: No headaches, no weakness, PHYSICAL EXAMINATION: GENERAL: The patient is alert and oriented x3, not in any acute distress. Well developed, well nourished. HEENT: Pupils are round and equally reacting to light. EOMI. No scleral icterus. No conjunctival pallor. Normocephalic, atraumatic. No pharyngeal erythema. No thyromegaly. CARDIOVASCULAR: S1 and S2 present. No murmurs, rubs, or gallops. PULMONARY: Chest is clear to auscultation, no wheezing or crackles. ABDOMEN: Laparotomy surgical incision seen, tenderness present MUSCULOSKELETAL: No joint swelling or deformity. EXTREMITIES: No cyanosis, clubbing, or pedal edema. NEUROLOGICAL: Gross neurological examination did not reveal any focal deficits. SKIN: No rashes. Assessment and plan Acute diverticulitis with fistula formation from the descending colon to an adjacent loop of proximal small bowel with a developing abscess Sepsis Atypical chest pain after fall, musculoskeletal Reported prior issues with anesthesia, does not appear cardiac and believes related to her allergies Diabetes mellitus type 2 Hypertension Family history of CAD/CABG Documentation of [place], patient denies Monitor vital signs Monitor CBC Monitor CMP Continue telemetry monitoring Continue IV fluids Continue IV Zosyn Status post exploratory laparotomy, Partial colectomy with end colostomy, small bowel resection, drainage of abdominal abscess, mobilization splenic flexure Continue wound care per surgery Follow-up in surgery recommendations Follow-up in ID recommendations Labs and medication were reviewed.. Continue same treatment. Continue with symptomatic treatment. Resume home medication. Monitor labs and vitals. DVT and GI prophylaxis. Further recommendations as per clinical course of the patient Dictation was produced using [employer] dictation software. please excuse any grammatical, word or spelling errors. Objective - Vital Signs Vital signs: Vital Signs Temp 98.3 F 10/21/22 07:04 Pulse 112 H 10/21/22 07:04 Resp 20 10/21/22 07:04 BP 146/59 10/21/22 07:04 Pulse Ox 95 10/21/22 07:04 FiO2 Intake & Output 10/20/22 10/21/22 10/21/22 18:59 06:59 18:59 Intake Total 1950 Output Total 1030 525 Balance 920 -525 Intake: IV 1950 Output: Drainage 130 100 Left 130 80 Left Lower Abdomen 20 Urine 750 425 Estimated Blood Loss 150 Other: Voiding Method Indwelling Catheter Indwelling Catheter Indwelling Catheter - Labs CBC & Chem 7: 10/21/22 15:13 10/21/22 15:13 Labs: Abnormal Lab Results - Last 24 Hours (Table) 10/20/22 10/20/22 10/21/22 Range/Units 17:33 20:33 07:02 POC Glucose (mg/dL) 195 H 218 H 188 H (70-110) mg/dL 10/21/22 Range/Units 11:45 POC Glucose (mg/dL) 204 H (70-110) mg/dL
[2022-10-21] MEDS: HYDROmorphone PCA 10 MG/50 ML BAG IV PRN (16:19)
[2022-10-21 17:07] LABS: Glucose,Whole Blood 197 mg/dL (70-110)
[2022-10-21] MEDS: KETOROLAC 15 MG/ML 1 ML VIAL IVP SCH ×2 (18:04→23:27)
[2022-10-21 18:58] LABS: Chol/HDL Ratio 4.89 Ratio; LDL Cholesterol,Calculated 76.6 mg/dL (0.0-131.0)
[2022-10-21 20:07] LABS: Glucose,Whole Blood 186 mg/dL (70-110)
[2022-10-21] MEDS: lisinopriL 5 MG TAB PO SCH (21:46)
[2022-10-22] MEDS: lisinopriL 5 MG TAB PO SCH ×2 (02:16→21:30)
[2022-10-22] MEDS: ENOXAPARIN 40 MG/0.4 ML SYRINGE SQ SCH (06:05)
[2022-10-22] MEDS: SODIUM CHLORIDE 0.9% 1,000 ML IV SCH ×3 (06:05→21:29)
[2022-10-22] MEDS: KETOROLAC 15 MG/ML 1 ML VIAL IVP SCH ×4 (06:06→23:27)
[2022-10-22 07:09] LABS: Glucose,Whole Blood 173 mg/dL (70-110)
[2022-10-22] MEDS: PIPERACILLIN-TAZOBACTAM 3.375 GM in SODIUM CHLORIDE 0.9% 100 ML IVPB SCH ×3 (09:06→23:27)
[2022-10-22] MEDS: PANTOPRAZOLE 40 MG/10 ML VIAL IVP SCH ×2 (09:06→21:30)
[2022-10-22 09:23] LABS: Basophils # (A) 0.02 X 10*3/uL (0.00-0.10); Basophils % (A) 0.2 %; Eosinophils # (A) 0.19 X 10*3/uL (0.04-0.35); Eosinophils % (A) 2.1 %; HGB 8.5 d/dL (12.0-15.0); Lymphocytes # (A) 1.01 X 10*3/uL (0.90-5.00); Lymphocytes % (A) 11.3 %; MCH 26.9 pg (27.0-32.0); MCHC 29.3 d/dL (32.0-37.0); MCV 91.8 FL (80.0-97.0); Mean Platelet Volume 9.1 FL (9.5-12.2); Monocytes # (A) 0.75 X 10*3/uL (0.20-1.00); Monocytes % (A) 8.4 %; NRBC Per 100 WBC 0 X 10*3/uL (0.00-0.01); Neutrophils # (A) 6.81 X 10*3/uL (1.80-7.70); Neutrophils % (A) 76.5 %; Platelet Count 314 X 10*3/uL (140-440); RBC 3.16 X 10*6/uL (4.10-5.20); RDW 15.9 % (11.5-14.5); WBC 8.91 X 10*3/uL (4.50-10.00)
[2022-10-22 09:26] LABS: BUN/Creat Ratio 13.67 Ratio (12.00-20.00); Blood Urea Nitrogen 8.2 mg/dL (9.0-27.0); Calcium 7.6 mg/dL (8.7-10.3); Carbon Dioxide 19.5 mmol/L (21.6-31.8); Chloride 114 mmol/L (96-109); Glucose 178 mg/dL (70-110); Potassium 3.8 mmol/L (3.5-5.5); Sodium 147 mmol/L (135-145)
[2022-10-22 12:00] LABS: Glucose,Whole Blood 160 mg/dL (70-110)
--- NOTE | 2022-10-22 16:03 | P.PN ---
Subjective Progress Note Date: 10/22/22 Principal diagnosis: Diverticulitis with abscess Patient out of bed in the chair. Pain is improving. She is afebrile. Less tachycardic. White blood cell count is normal. Hemoglobin 8.5. Objective - Vital Signs Vital signs: Vital Signs Temp 98.1 F 10/22/22 11:55 Pulse 85 10/22/22 11:55 Resp 16 10/22/22 11:55 BP 126/77 10/22/22 11:55 Pulse Ox 94 L 10/22/22 11:55 FiO2 Intake & Output 10/21/22 10/22/22 10/22/22 18:59 06:59 18:59 Intake Total 0 Output Total 405 880 325 Balance -405 -880 -325 Weight 108.862 kg Intake: Oral 0 Output: Gastric Drainage 380 Drainage 30 Left 20 Left Lower Abdomen 10 Urine 375 500 325 Other: Voiding Method Indwelling Catheter Indwelling Catheter Indwelling Catheter - Exam Abdomen: Soft, nondistended, mild incisional tenderness, dressing clean and dry, ostomy pink - Labs CBC & Chem 7: 10/22/22 04:55 10/22/22 04:55 Labs: Abnormal Lab Results - Last 24 Hours (Table) 10/19/22 10/21/22 10/21/22 Range/Units 05:48 17:06 20:05 RBC (4.10-5.20) X 10*6/uL Hgb (12.0-15.0) d/dL Hct (37.2-46.3) % MCH (27.0-32.0) pg MCHC (32.0-37.0) d/dL RDW (11.5-14.5) % MPV (9.5-12.2) FL Sodium (135-145) mmol/L Chloride (96-109) mmol/L Carbon Dioxide (21.6-31.8) mmol/L Anion Gap (4.00-12.00) mmol/L BUN (9.0-27.0) mg/dL Glucose (70-110) mg/dL POC Glucose (mg/dL) 197 H 186 H (70-110) mg/dL Calcium (8.7-10.3) mg/dL HDL Cholesterol 27.00 L (40.00-60.00) mg/dL 10/22/22 10/22/22 10/22/22 Range/Units 04:55 04:55 07:07 RBC 3.16 L (4.10-5.20) X 10*6/uL Hgb 8.5 L (12.0-15.0) d/dL Hct 29.0 L (37.2-46.3) % MCH 26.9 L (27.0-32.0) pg MCHC 29.3 L (32.0-37.0) d/dL RDW 15.9 H (11.5-14.5) % MPV 9.1 L (9.5-12.2) FL Sodium 147 H (135-145) mmol/L Chloride 114 H (96-109) mmol/L Carbon Dioxide 19.5 L (21.6-31.8) mmol/L Anion Gap 13.50 H (4.00-12.00) mmol/L BUN 8.2 L (9.0-27.0) mg/dL Glucose 178 H (70-110) mg/dL POC Glucose (mg/dL) 173 H (70-110) mg/dL Calcium 7.6 L (8.7-10.3) mg/dL HDL Cholesterol (40.00-60.00) mg/dL 10/22/22 Range/Units 11:58 RBC (4.10-5.20) X 10*6/uL Hgb (12.0-15.0) d/dL Hct (37.2-46.3) % MCH (27.0-32.0) pg MCHC (32.0-37.0) d/dL RDW (11.5-14.5) % MPV (9.5-12.2) FL Sodium (135-145) mmol/L Chloride (96-109) mmol/L Carbon Dioxide (21.6-31.8) mmol/L Anion Gap (4.00-12.00) mmol/L BUN (9.0-27.0) mg/dL Glucose (70-110) mg/dL POC Glucose (mg/dL) 160 H (70-110) mg/dL Calcium (8.7-10.3) mg/dL HDL Cholesterol (40.00-60.00) mg/dL Microbiology - Last 24 Hours (Table) 10/20/22 10:43 Gram Stain - Preliminary Abdomen Wound Culture - Preliminary Gram Neg Bacilli Gram Neg Bacilli#2 Assessment and Plan (1) Diverticulitis of large intestine with complication Narrative/Plan: Patient is slowly improving. Keep nasogastric tube to suction. May have some popsicles intermittently. Continue antibiotics. Continue increasing activity. Await return bowel function. Current Visit: Yes Status: Acute Code(s): K57.32 - DVTRCLI OF LG INT W/O PERFORATION OR ABSCESS W/O BLEEDING SNOMED Code(s): 988688135
[2022-10-22 17:20] LABS: Glucose,Whole Blood 171 mg/dL (70-110)
[2022-10-22 20:34] LABS: Glucose,Whole Blood 205 mg/dL (70-110)
--- NOTE | 2022-10-22 23:11 | CT ---
EXAM: CT Chest Without Intravenous Contrast CLINICAL HISTORY: ITS.REASON CT Reason: dyspnea TECHNIQUE: Axial computed tomography images of the chest without intravenous contrast. CTDI is 14.70 mGy and DLP is 469.9 mGy-cm. This CT exam was performed using one or more of the following dose reduction techniques: automated exposure control, adjustment of the mA and/or kV according to patient size, and/or use of iterative reconstruction technique. COMPARISON: No relevant prior studies available. FINDINGS: Lungs: See below. Pleural space: Small bilateral pleural effusions. Dependent atelectasis. No pneumothorax. Heart: Mild cardiomegaly. No significant pericardial effusion. No significant coronary artery calcifications. Bones/joints: Degenerative changes of the spine. No acute fracture. No dislocation. Soft tissues: Unremarkable. Vasculature: Atherosclerotic changes of the aorta. No thoracic aortic aneurysm. Lymph nodes: Unremarkable. No enlarged lymph nodes. Tubes, lines and devices: Feeding tube terminates in the stomach. IMPRESSION: 1. Small bilateral pleural effusions. Dependent atelectasis. No pneumothorax. 2. Feeding tube terminates in the stomach.
[2022-10-23 00:14] LABS: Magnesium 2.2 mg/dL (1.5-2.4); Phosphorus 1.6 mg/dL (2.4-5.1)
[2022-10-23] MEDS: ENOXAPARIN 40 MG/0.4 ML SYRINGE SQ SCH (05:33)
[2022-10-23] MEDS: KETOROLAC 15 MG/ML 1 ML VIAL IVP SCH ×2 (05:33→12:16)
[2022-10-23] MEDS: SODIUM CHLORIDE 0.9% 1,000 ML IV SCH ×3 (05:33→20:29)
[2022-10-23 07:19] LABS: Glucose,Whole Blood 187 mg/dL (70-110)
[2022-10-23 07:32] LABS: Ionized Calcium 4.9 mg/dL (4.5-5.3)
[2022-10-23 07:38] LABS: ALT 17 U/L (4-34); AST 18 U/L (14-36); African American GFR (CKD) >90 (>60 ml/min/1.73 sqM); Albumin 2.1 g/dL (3.5-5.0); Albumin/Globulin Ratio 0.7; Alkaline Phosphatase 104 U/L (38-126); Anion Gap 8 mmol/L; Blood Urea Nitrogen 7 mg/dL (7-17); Calcium 7.3 mg/dL (8.4-10.2); Carbon Dioxide 19 mmol/L (22-30); Chloride 116 mmol/L (98-107); Globulin 2.9 g/dL; Glucose 164 mg/dL (74-99); Magnesium 2.2 mg/dL (1.6-2.3); Non-African American GFR(CKD) >90 (>60 ml/min/1.73 sqM); Phosphorus 2.5 mg/dL (2.5-4.5); Potassium 3.5 mmol/L (3.5-5.1); Sodium 143 mmol/L (137-145); Total Bilirubin 0.7 mg/dL (0.2-1.3)
--- NOTE | 2022-10-23 08:41 | P.PN ---
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 On today's evaluation that is 10/21/2022 patient remains to be afebrile, patient abdominal discomfort is controlled with a [employer] SAL[employer], the patient did have some nausea but no vomiting no chest pain shortness of breath or cough Objective - Vital Signs Vital signs: Vital Signs Temp 98.2 F 10/21/22 13:00 Pulse 75 10/21/22 15:05 Resp 18 10/21/22 13:00 BP 126/87 10/21/22 13:00 Pulse Ox 96 10/21/22 15:00 FiO2 Intake & Output 10/20/22 10/21/22 10/21/22 18:59 06:59 18:59 Intake Total 1950 Output Total 1030 525 Balance 920 -525 Intake: IV 1950 Output: Drainage 130 100 Left 130 80 Left Lower Abdomen 20 Urine 750 425 Estimated Blood Loss 150 Other: Voiding Method Indwelling Catheter Indwelling Catheter Indwelling Catheter - Exam GENERAL DESCRIPTION: An elderly female lying in bed in no distress RESPIRATORY SYSTEM: Unlabored breathing , decreased breath sounds at bases HEART: S1 S2 regular rate and rhythm , ABDOMEN: Soft , mild abdominal distention and tenderness EXTREMITIES: No edema feet - Labs CBC & Chem 7: 10/22/22 04:55 10/23/22 06:54 Labs: Abnormal Lab Results - Last 24 Hours (Table) 10/20/22 10/20/22 10/21/22 Range/Units 17:33 20:33 07:02 POC Glucose (mg/dL) 195 H 218 H 188 H (70-110) mg/dL 10/21/22 Range/Units 11:45 POC Glucose (mg/dL) 204 H (70-110) mg/dL Assessment and Plan (1) Diverticulitis of large intestine with complication Current Visit: Yes Status: Acute Code(s): K57.32 - DVTRCLI OF LG INT W/O PERFORATION OR ABSCESS W/O BLEEDING SNOMED Code(s): 965262793 Plan: 1patient was in the hospital with sepsis in this patient with a fever tachycardia elevated white count cirrhosis complicated diverticulitis with evidence of fistula formation between descending colon and loop of the small bowel and concern for abscess we will need to cover for the enteric gram- negative both anaerobes and anaerobes to the likely pathogen 2-Patient is status post partial colectomy with end colostomy small bowel resection drainage of abdominal abscess cultures were done and now showing up in the system now pending 3-patient to continue Zosyn 3.375 g every 8 hours and monitor clinical course closely Dictation was produced using [employer] dictation software. please excuse any grammatical, word or spelling errors. Time with Patient: Less than 30
--- NOTE | 2022-10-23 08:42 | P.PN ---
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 On today's evaluation that is 10/22/2022 patient continues to be afebrile, patient abdominal discomfort is controlled with a pain medication, the patient did have some nausea but no vomiting , the patient still have the NG in, the patient denies chest pain shortness of breath or cough Objective - Vital Signs Vital signs: Vital Signs Temp 98.1 F 10/22/22 11:55 Pulse 85 10/22/22 11:55 Resp 16 10/22/22 11:55 BP 126/77 10/22/22 11:55 Pulse Ox 94 L 10/22/22 11:55 FiO2 Intake & Output 10/21/22 10/22/22 10/22/22 18:59 06:59 18:59 Intake Total 0 Output Total 405 880 325 Balance -405 -880 -325 Intake: Oral 0 Output: Gastric Drainage 380 Drainage 30 Left 20 Left Lower Abdomen 10 Urine 375 500 325 Other: Voiding Method Indwelling Catheter Indwelling Catheter Indwelling Catheter - Exam GENERAL DESCRIPTION: An elderly female lying in bed in no distress RESPIRATORY SYSTEM: Unlabored breathing , decreased breath sounds at bases HEART: S1 S2 regular rate and rhythm , ABDOMEN: Soft , mild abdominal distention and tenderness EXTREMITIES: No edema feet - Labs CBC & Chem 7: 10/22/22 04:55 10/23/22 06:54 Labs: Abnormal Lab Results - Last 24 Hours (Table) 10/19/22 10/21/22 10/21/22 Range/Units 05:48 15:13 15:13 WBC 11.1 H (3.8-10.6) k/uL RBC 3.52 L (3.80-5.40) m/uL Hgb 9.8 L (11.4-16.0) gm/dL Hct 31.8 L (34.0-46.0) % MCH (27.0-32.0) pg MCHC 30.8 L (31.0-37.0) g/dL RDW 15.7 H (11.5-15.5) % MPV (9.5-12.2) FL Neutrophils # 9.2 H (1.3-7.7) k/uL Sodium (135-145) mmol/L Chloride 110 H (98-107) mmol/L Carbon Dioxide (21.6-31.8) mmol/L Anion Gap (4.00-12.00) mmol/L BUN (9.0-27.0) mg/dL Glucose 200 H (74-99) mg/dL POC Glucose (mg/dL) (70-110) mg/dL Calcium 7.3 L (8.4-10.2) mg/dL HDL Cholesterol 27.00 L (40.00-60.00) mg/dL 10/21/22 10/21/22 10/22/22 Range/Units 17:06 20:05 04:55 WBC (3.8-10.6) k/uL RBC 3.16 L (3.80-5.40) m/uL Hgb 8.5 L (11.4-16.0) gm/dL Hct 29.0 L (34.0-46.0) % MCH 26.9 L (27.0-32.0) pg MCHC 29.3 L (31.0-37.0) g/dL RDW 15.9 H (11.5-15.5) % MPV 9.1 L (9.5-12.2) FL Neutrophils # (1.3-7.7) k/uL Sodium (135-145) mmol/L Chloride (98-107) mmol/L Carbon Dioxide (21.6-31.8) mmol/L Anion Gap (4.00-12.00) mmol/L BUN (9.0-27.0) mg/dL Glucose (74-99) mg/dL POC Glucose (mg/dL) 197 H 186 H (70-110) mg/dL Calcium (8.4-10.2) mg/dL HDL Cholesterol (40.00-60.00) mg/dL 10/22/22 10/22/22 10/22/22 Range/Units 04:55 07:07 11:58 WBC (3.8-10.6) k/uL RBC (3.80-5.40) m/uL Hgb (11.4-16.0) gm/dL Hct (34.0-46.0) % MCH (27.0-32.0) pg MCHC (31.0-37.0) g/dL RDW (11.5-15.5) % MPV (9.5-12.2) FL Neutrophils # (1.3-7.7) k/uL Sodium 147 H (135-145) mmol/L Chloride 114 H (98-107) mmol/L Carbon Dioxide 19.5 L (21.6-31.8) mmol/L Anion Gap 13.50 H (4.00-12.00) mmol/L BUN 8.2 L (9.0-27.0) mg/dL Glucose 178 H (74-99) mg/dL POC Glucose (mg/dL) 173 H 160 H (70-110) mg/dL Calcium 7.6 L (8.4-10.2) mg/dL HDL Cholesterol (40.00-60.00) mg/dL Microbiology - Last 24 Hours (Table) 10/20/22 10:43 Gram Stain - Preliminary Abdomen Wound Culture - Preliminary Gram Neg Bacilli Gram Neg Bacilli#2 Assessment and Plan (1) Diverticulitis of large intestine with complication Current Visit: Yes Status: Acute Code(s): K57.32 - DVTRCLI OF LG INT W/O PERFORATION OR ABSCESS W/O BLEEDING SNOMED Code(s): 717113163 Plan: 1patient was in the hospital with sepsis in this patient with a fever tachycardia elevated white count cirrhosis complicated diverticulitis with evidence of fistula formation between descending colon and loop of the small bowel and concern for abscess we will need to cover for the enteric gram- negative both anaerobes and anaerobes to the likely pathogen 2-Patient is status post partial colectomy with end colostomy small bowel r esection drainage of abdominal abscess cultures were done and now showing up in the system is currently growing gram-negative bacilli 2 3-patient to continue Zosyn 3.375 g every 8 hours while waiting for the cultures to finalize Dictation was produced using [employer] dictation software. please excuse any grammatical, word or spelling errors. Time with Patient: Less than 30
[2022-10-23] MEDS ORDERED: LIDOCAINE 1% INJ 10MG/ML (5 ML VIAL-PF) SQ ONE (08:45)
[2022-10-23] MEDS ORDERED: IV FLUID CONTINUATION 700 ML IV ONE (08:56)
--- NOTE | 2022-10-23 09:07 | P.PCN ---
Date of Procedure: 10/23/22 Preoperative Diagnosis: Diverticulitis, intra-abdominal abscess, need for IV abx and TPN Postoperative Diagnosis: same Procedure(s) Performed: Ultrasound guided left basilic vein dual lumen PICC placement Surgeon: Chevy Montana Estimated Blood Loss (ml): 2 Pathology: none sent Condition: stable Disposition: floor Indications for Procedure: 67 year old female with history of diverticulitis, who underwent colon surgery for fistula and abscess presents for PICC line placement for TPN and Abx. Description of Procedure: After written and informed consent was obtained and all risks, benefits and complications were discussed the patient was brought to the labeling machine operator and laid in a supine position with the left arm on an arm board. The area of the arm was prepped and draped in the usual fashion. Timeout was performed in usual fashion. Local anesthetic was then placed over the vein which was visualized under ultrasound and shown to be compressible and patent. Utilzing a micro access needle the basilic vein was cannulated and an 018 guidewire was placed at the SVC. A breakaway sheath was then guided in place and the catheter was cut to size and guided to the tip of SVC and the sheath was removed. The catheter was then flushed and secured in usual fashion. The patient tolerated the procedure well and was sent back to her room for recovery.
[2022-10-23] MEDS: PANTOPRAZOLE 40 MG/10 ML VIAL IVP SCH ×2 (09:29→20:28)
[2022-10-23] MEDS: PIPERACILLIN-TAZOBACTAM 3.375 GM in SODIUM CHLORIDE 0.9% 100 ML IVPB SCH ×3 (09:29→23:07)
--- NOTE | 2022-10-23 11:12 | P.PN ---
Subjective Progress Note Date: 10/23/22 CHIEF COMPLAINT: Diverticulitis with fistula and abscess HISTORY OF PRESENT ILLNESS: Patient is postop day #1 status post Partial colectomy with end colostomy, small bowel resection, drainage of abdominal abscess, mobilization splenic flexure. Patient reports pain is controlled with VALVE TESTER pump. No function per ostomy. Denies any nausea. Afebrile. NG tube with 180ml output reddish in color from popsicles. ANNA MARIE drains with serosanguineous output. Left drain 30 mL left lower abdomen drain 20 mL. Patient is status post PICC line placement for TPN. PHYSICAL EXAM: VITAL SIGNS: Reviewed GENERAL: Well-developed in no acute distress. ABDOMEN: Soft. Nondistended. Incisional dressing with a small area of drainage noted distally. Ostomy with no function. Stoma is pink. ASSESSMENT: 1. Abdominal abscess with small bowel obstruction, suspected diverticulitis PLAN: -Continue NG tube for decompression -Keep patient nothing by mouth except for popsicles -Continue antibiotics -Increase activity level -Incentive spirometer ordered -Continue pain management -TPN has been started for nutrition support -DVT prophylaxis Lovenox and GI prophylaxis Protonix Physician Project Manager note has been reviewed by physician. Signing provider agrees with the documented findings, assessment, and plan of care. Objective - Vital Signs Vital signs: Vital Signs Temp 97.4 F L 10/23/22 07:14 Pulse 71 10/23/22 07:14 Resp 16 10/23/22 07:14 BP 146/80 10/23/22 07:14 Pulse Ox 95 10/23/22 07:14 FiO2 Intake & Output 10/22/22 10/23/22 10/23/22 18:59 06:59 18:59 Intake Total 50 Output Total 505 700 Balance -505 -700 50 Weight 108.862 kg Intake: IV 50 Output: Gastric Drainage 180 Drainage 50 Left 30 Left Lower Abdomen 20 Urine 325 600 Stool 50 Other: Voiding Method Indwelling Catheter Indwelling Catheter - Labs CBC & Chem 7: 10/22/22 04:55 10/23/22 06:54 Labs: Abnormal Lab Results - Last 24 Hours (Table) 10/22/22 10/22/22 10/22/22 Range/Units 04:55 11:58 17:19 Chloride (98-107) mmol/L Carbon Dioxide (22-30) mmol/L Glucose (74-99) mg/dL POC Glucose (mg/dL) 160 H 171 H (70-110) mg/dL Calcium (8.4-10.2) mg/dL Phosphorus 1.6 L (2.4-5.1) mg/dL Total Protein (6.3-8.2) g/dL Albumin (3.5-5.0) g/dL 10/22/22 10/23/22 10/23/22 Range/Units 20:33 06:54 07:17 Chloride 116 H (98-107) mmol/L Carbon Dioxide 19 L (22-30) mmol/L Glucose 164 H (74-99) mg/dL POC Glucose (mg/dL) 205 H 187 H (70-110) mg/dL Calcium 7.3 L (8.4-10.2) mg/dL Phosphorus (2.4-5.1) mg/dL Total Protein 5.0 L (6.3-8.2) g/dL Albumin 2.1 L (3.5-5.0) g/dL Microbiology - Last 24 Hours (Table) 10/20/22 10:43 Gram Stain - Final Abdomen Wound Culture - Final Escherichia coli Klebsiella oxytoca
[2022-10-23] MEDS ORDERED: MVI, ADULT NO.4 WITH VIT K 10 ML, TRACE (CONC-1ML/DOSE) 1 ML in AMINO ACID 5%-D20W+LYTE... IV ONE ×3 (12:00)
[2022-10-23 12:14] LABS: Glucose,Whole Blood 180 mg/dL (70-110)
--- NOTE | 2022-10-23 15:02 | P.PN ---
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 On today's evaluation that is 10/23/2022 patient remains to be afebrile, patient abdominal discomfort has decreased in intensity, the patient did have some nausea but no vomiting , the patient still have the NG in, the patient denies chest pain shortness of breath or cough Objective - Vital Signs Vital signs: Vital Signs Temp 97.4 F L 10/23/22 07:14 Pulse 71 10/23/22 07:14 Resp 16 10/23/22 07:14 BP 146/80 10/23/22 07:14 Pulse Ox 95 10/23/22 07:14 FiO2 Intake & Output 10/22/22 10/23/22 10/23/22 18:59 06:59 18:59 Intake Total 50 Output Total 505 700 Balance -505 -700 50 Weight 108.862 kg Intake: IV 50 Output: Gastric Drainage 180 Drainage 50 Left 30 Left Lower Abdomen 20 Urine 325 600 Stool 50 Other: Voiding Method Indwelling Catheter Indwelling Catheter Indwelling Catheter - Exam GENERAL DESCRIPTION: An elderly female lying in bed in no distress RESPIRATORY SYSTEM: Unlabored breathing , decreased breath sounds at bases HEART: S1 S2 regular rate and rhythm , ABDOMEN: Soft , mild abdominal distention and tenderness EXTREMITIES: No edema feet - Labs CBC & Chem 7: 10/22/22 04:55 10/23/22 06:54 Labs: Abnormal Lab Results - Last 24 Hours (Table) 10/22/22 10/22/22 10/22/22 Range/Units 04:55 17:19 20:33 Chloride (98-107) mmol/L Carbon Dioxide (22-30) mmol/L Glucose (74-99) mg/dL POC Glucose (mg/dL) 171 H 205 H (70-110) mg/dL Calcium (8.4-10.2) mg/dL Phosphorus 1.6 L (2.4-5.1) mg/dL Total Protein (6.3-8.2) g/dL Albumin (3.5-5.0) g/dL 10/23/22 10/23/22 10/23/22 Range/Units 06:54 07:17 12:13 Chloride 116 H (98-107) mmol/L Carbon Dioxide 19 L (22-30) mmol/L Glucose 164 H (74-99) mg/dL POC Glucose (mg/dL) 187 H 180 H (70-110) mg/dL Calcium 7.3 L (8.4-10.2) mg/dL Phosphorus (2.4-5.1) mg/dL Total Protein 5.0 L (6.3-8.2) g/dL Albumin 2.1 L (3.5-5.0) g/dL Microbiology - Last 24 Hours (Table) 10/20/22 10:43 Gram Stain - Final Abdomen Wound Culture - Final Escherichia coli Klebsiella oxytoca Assessment and Plan (1) Diverticulitis of large intestine with complication Current Visit: Yes Status: Acute Code(s): K57.32 - DVTRCLI OF LG INT W/O PERFORATION OR ABSCESS W/O BLEEDING SNOMED Code(s): 904021001 Plan: 1patient was in the hospital with sepsis in this patient with a fever tachycardia elevated white count cirrhosis complicated diverticulitis with evidence of fistula formation between descending colon and loop of the small bowel and concern for abscess we will need to cover for the enteric gram- negative both anaerobes and anaerobes to the likely pathogen 2-Patient is status post partial colectomy with end colostomy small bowel resection drainage of abdominal abscess cultures were done growing E. coli and Klebsiella, E. coli is resistant to Unasyn 3-patient to continue Zosyn 3.375 g every 8 hours and monitor glucose closely Dictation was produced using [employer] dictation software. please excuse any grammatical, word or spelling errors. Time with Patient: Less than 30
[2022-10-23] MEDS: FAT EMULSION 20% 250 ML in EMPTY BAG 1 BAG IV SCH (17:02)
[2022-10-23 17:41] LABS: Glucose,Whole Blood 245 mg/dL (70-110)
[2022-10-23] MEDS: INSULIN ASPART (NovoLOG) 100 UNIT/ML VIAL SQ SCH (17:54)
--- NOTE | 2022-10-23 20:15 | PN ---
PROGRESS NOTE SUBJECTIVE: The patient is a 67-year-old white female who was admitted with diverticulitis. Temperature 97.4, blood pressure 146/88, respiratory rate 16 to 18, and pulse 71. She had a bowel obstruction status post diverticulitis with fistula and abscess. No function per ostomy, continues with NG tube postop, continue broad-spectrum antibiotics for postop ileus and ostomy care. Broad-spectrum antibiotics for abdominal abscess. Prognosis extremely guarded. Continue breathing treatments, etc. OBJECTIVE: VITAL SIGNS: Temperature 97.4, blood pressure 146/80, pulse 71, respiratory rate 16, and O2 96. LUNGS: Decreased breath sounds x4. CARDIOVASCULAR: S1, S2. She has NG tube in place in ENT. BMI is over 40. ASSESSMENT: Suspect COPD asthma. Abdominal ostomy placement status post abdominal diverticular abscess with rupture. Prognosis guarded. Continue current treatment. Possibly TPN as she has not eaten in 12 days. MMODL / IJN: [id number] /
[2022-10-23] MEDS: lisinopriL 5 MG TAB PO SCH (20:28)
[2022-10-24 00:18] LABS: Glucose,Whole Blood 279 mg/dL (70-110)
[2022-10-24] MEDS: INSULIN ASPART (NovoLOG) 100 UNIT/ML VIAL SQ SCH ×4 (00:20→17:58)
[2022-10-24 05:57] LABS: Glucose,Whole Blood 268 mg/dL (70-110)
[2022-10-24] MEDS: ENOXAPARIN 40 MG/0.4 ML SYRINGE SQ SCH (06:08)
[2022-10-24 06:46] LABS: African American GFR (CKD) >90 (>60 ml/min/1.73 sqM); Anion Gap 7 mmol/L; Blood Urea Nitrogen 7 mg/dL (7-17); Calcium 7.3 mg/dL (8.4-10.2); Carbon Dioxide 23 mmol/L (22-30); Chloride 115 mmol/L (98-107); Glucose 263 mg/dL (74-99); Magnesium 2.1 mg/dL (1.6-2.3); Non-African American GFR(CKD) >90 (>60 ml/min/1.73 sqM); Phosphorus 2.6 mg/dL (2.5-4.5); Potassium 3.5 mmol/L (3.5-5.1); Sodium 145 mmol/L (137-145)
[2022-10-24] MEDS: PIPERACILLIN-TAZOBACTAM 3.375 GM in SODIUM CHLORIDE 0.9% 100 ML IVPB SCH ×2 (08:18→16:39)
[2022-10-24] MEDS: SODIUM CHLORIDE 0.9% 1,000 ML IV SCH ×2 (08:18→12:49)
[2022-10-24] MEDS: PANTOPRAZOLE 40 MG/10 ML VIAL IVP SCH ×2 (08:18→21:27)
--- NOTE | 2022-10-24 11:10 | P.PN ---
Subjective Progress Note Date: 10/24/22 CHIEF COMPLAINT: Diverticulitis with fistula and abscess HISTORY OF PRESENT ILLNESS: Patient is postop day #4 status post Partial colectomy with end colostomy, small bowel resection, drainage of abdominal abscess, mobilization splenic flexure. Patient reports her pain is controlled. She did have some nausea earlier that has improved. She denies any function from her ostomy. Currently has TPN for nutrition support. Afebrile. Sodium 145 potassium 3.5 creatinine 0.53. ANNA MARIE drains with 70 mL serosanguineous output on the left and lower drain minimal serosanguineous output. Urine is dark and urine output decreased PHYSICAL EXAM: VITAL SIGNS: Reviewed GENERAL: Well-developed in no acute distress. ABDOMEN: Soft. Nondistended. Incisional dressing with a small area of drainage noted distally. Ostomy with no function. Stoma is pink. ASSESSMENT: 1. Abdominal abscess with small bowel obstruction, suspected diverticulitis PLAN: -Continue NG tube for decompression -Keep patient nothing by mouth except for popsicles -Continue antibiotics -Increase activity level -Incentive spirometer ordered -Continue pain management -TPN has been started for nutrition support -Increase IV fluids to 100ml/hr -DVT prophylaxis Lovenox and GI prophylaxis Protonix Physician Pharmaceutical Compounding Supervisor note has been reviewed by physician. Signing provider agrees with the documented findings, assessment, and plan of care. I have personally seen and examined the patient, reviewed the BENDING ROLL OPERATOR /PAs history, exam and MDM and agree with the assessment and plan as written. Based on total visit time, I have performed more than 50% of the visit. As above: patient doing about the same. Still little ostomy output. Mild nausea today. Pain fairly well controlled with ARCHITECTURE INTERN. Vital signs are stable. Drains are serosanguineous. Continue antibiotics. Continue TPN. Keep nasogastric tube in place. Await final pathology Objective - Vital Signs Vital signs: Vital Signs Temp 98.7 F 10/24/22 07:30 Pulse 74 10/24/22 07:30 Resp 18 10/24/22 07:30 BP 162/79 10/24/22 07:30 Pulse Ox 93 L 10/24/22 07:30 FiO2 Intake & Output 10/23/22 10/24/22 10/24/22 18:59 06:59 18:59 Intake Total 50 0 Output Total 335 620 Balance -285 -620 Weight 108.862 kg Intake: IV 50 Oral 0 Output: Drainage 35 70 Left 30 70 Left Lower Abdomen 5 0 Urine 300 550 Other: Voiding Method Indwelling Catheter Indwelling Catheter Indwelling Catheter - Labs CBC & Chem 7: 10/22/22 04:55 10/24/22 06:02 Labs: Abnormal Lab Results - Last 24 Hours (Table) 10/23/22 10/23/22 10/24/22 Range/Units 12:13 17:36 00:17 Chloride (98-107) mmol/L Glucose (74-99) mg/dL POC Glucose (mg/dL) 180 H 245 H 279 H (70-110) mg/dL Calcium (8.4-10.2) mg/dL 10/24/22 10/24/22 Range/Units 05:48 06:02 Chloride 115 H (98-107) mmol/L Glucose 263 H (74-99) mg/dL POC Glucose (mg/dL) 268 H (70-110) mg/dL Calcium 7.3 L (8.4-10.2) mg/dL Microbiology - Last 24 Hours (Table) 10/20/22 10:43 Gram Stain - Final Abdomen Wound Culture - Final Escherichia coli Klebsiella oxytoca
[2022-10-24 11:56] LABS: Glucose,Whole Blood 291 mg/dL (70-110)
[2022-10-24] MEDS: POTASSIUM CHLORIDE 20 MEQ in WATER FOR INJECTION 1 100ML.BAG IVPB SCH ×2 (12:50→16:06)
[2022-10-24] MEDS: 1: MVI, ADULT NO.4 WITH VIT K 10 ML, TRACE (CONC-1ML/DOSE) 1 ML in AMINO ACID 5%-D20W+LY IV SCH ×3 (16:39)
[2022-10-24 17:38] LABS: Glucose,Whole Blood 323 mg/dL (70-110)
--- NOTE | 2022-10-24 20:27 | PN ---
PROGRESS NOTE SUBJECTIVE: A 67-year-old white female, status post bowel obstruction with drainage of abdominal abscess, mobilization of splenic flexure, and some nausea, improved. She is on TPN for nutritional support. She is afebrile. Sodium 145, potassium 3.5, creatinine 0.53. ANNA MARIE shows 70 mL of fluid. OBJECTIVE: VITAL SIGNS: Reviewed. CARDIOVASCULAR: S1 and S2. LUNGS: Transmitted upper airway sounds. HEMATOLOGY: Negative Homans. ASSESSMENT AND PLAN: 1. Abdominal abscess. 2. Small bowel obstruction. 3. Diverticulitis. NG tube for decompression. Antibiotics. N.p.o. Increase . Activity. Spirometry. TPN. Increase fluids. Prognosis is guarded. Follow up in the next 24 to 48 hours. MMODL / IJN: [id number] /
[2022-10-24] MEDS: ONDANSETRON 4 MG/2 ML VIAL IVP PRN (21:24)
[2022-10-24] MEDS: lisinopriL 5 MG TAB PO SCH (21:35)
[2022-10-24 23:49] LABS: Glucose,Whole Blood 218 mg/dL (70-110)
[2022-10-25] MEDS: INSULIN ASPART (NovoLOG) 100 UNIT/ML VIAL SQ SCH ×4 (00:29→17:38)
[2022-10-25] MEDS: PIPERACILLIN-TAZOBACTAM 3.375 GM in SODIUM CHLORIDE 0.9% 100 ML IVPB SCH ×3 (00:29→16:20)
[2022-10-25] MEDS: 1: MVI, ADULT NO.4 WITH VIT K 10 ML, TRACE (CONC-1ML/DOSE) 1 ML in AMINO ACID 5%-D20W+LY IV SCH ×6 (00:41→14:12)
[2022-10-25] MEDS: SODIUM CHLORIDE 0.9% 1,000 ML IV SCH ×3 (02:55→14:22)
[2022-10-25 04:29] LABS: African American GFR (CKD) >90 (>60 ml/min/1.73 sqM); Anion Gap 5 mmol/L; Blood Urea Nitrogen 5 mg/dL (7-17); Calcium 7.3 mg/dL (8.4-10.2); Carbon Dioxide 24 mmol/L (22-30); Chloride 111 mmol/L (98-107); Glucose 291 mg/dL (74-99); Magnesium 1.9 mg/dL (1.6-2.3); Non-African American GFR(CKD) >90 (>60 ml/min/1.73 sqM); Phosphorus 2.9 mg/dL (2.5-4.5); Potassium 3.5 mmol/L (3.5-5.1); Sodium 140 mmol/L (137-145)
[2022-10-25 05:03] LABS: Anisocytosis Slight; HCT 27.4 % (34.0-46.0); HGB 8.3 gm/dL (11.4-16.0); Hypochromasia Marked; MCH 27.5 pg (25.0-35.0); MCHC 30.4 g/dL (31.0-37.0); MCV 90.7 fL (80.0-100.0); Mean Platelet Volume 7.7; Platelet Count 322 k/uL (150-450); RBC 3.02 m/uL (3.80-5.40); RDW 16.1 % (11.5-15.5); WBC 6.6 k/uL (3.8-10.6)
[2022-10-25] MEDS: HYDROmorphone PCA 10 MG/50 ML BAG IV PRN (05:46)
[2022-10-25 06:01] LABS: Glucose,Whole Blood 344 mg/dL (70-110)
[2022-10-25] MEDS: ENOXAPARIN 40 MG/0.4 ML SYRINGE SQ SCH (06:24)
[2022-10-25] MEDS: PANTOPRAZOLE 40 MG/10 ML VIAL IVP SCH ×2 (09:06→20:20)
[2022-10-25] MEDS: POTASSIUM CHLORIDE 20 MEQ in WATER FOR INJECTION 1 100ML.BAG IVPB SCH ×2 (09:49→12:12)
[2022-10-25 11:59] LABS: Glucose,Whole Blood 352 mg/dL (70-110)
--- NOTE | 2022-10-25 12:01 | P.PN ---
Subjective Progress Note Date: 10/25/22 CHIEF COMPLAINT: Diverticulitis with fistula and abscess HISTORY OF PRESENT ILLNESS: Patient is postop day #5 status post Partial colectomy with end colostomy, small bowel resection, drainage of abdominal abscess, mobilization splenic flexure. Patient complains of abdominal pain. But she had just gotten up to the bedside chair. She does report nausea improved with medication. NG tube with 300 mL output. 2 ANNA MARIE drains with serosanguineous output. No stool or flatus output from ostomy. Urine output improving. Afebrile. WBC 6.6 Hgb 8.3 platelets 322 sodium 140 potassium 3.5 creatinine 0.50 glucose 344 PHYSICAL EXAM: VITAL SIGNS: Reviewed GENERAL: Well-developed in no acute distress. ABDOMEN: Soft. Nondistended. Incisional dressing with a small area of drainage noted distally. Ostomy with no stool function. Yellowish liquid noted in ostomy bag. Stoma is pink. ASSESSMENT: 1. Abdominal abscess with small bowel obstruction, suspected diverticulitis PLAN: -Continue NG tube for decompression -Keep patient nothing by mouth except for popsicles -Awaiting final pathology result -Continue antibiotics -Increase activity level -Incentive spirometer ordered -Continue pain management -TPN plus IV fluids equal total of 130 mL per hour -DVT prophylaxis Lovenox and GI prophylaxis Protonix Physician Epidemiology Investigator note has been reviewed by physician. Signing provider agrees with the documented findings, assessment, and plan of care. I have personally seen and examined the patient, reviewed the RECREATION MANAGER /PAs history, exam and MDM and agree with the assessment and plan as written. Based on total visit time, I have performed more than 50% of the visit. As above: Patient doing about the same. She has had a small amount of flatus through the ostomy. Mild nausea at times. Continue antibiotics. Keep nasogastric tube to suction. We'll follow. Objective - Vital Signs Vital signs: Vital Signs Temp 98.8 F 10/25/22 07:10 Pulse 85 10/25/22 07:10 Resp 16 10/25/22 07:10 BP 158/80 10/25/22 07:10 Pulse Ox 92 L 10/25/22 07:10 FiO2 Intake & Output 10/24/22 10/25/22 10/25/22 18:59 06:59 18:59 Output Total 1410 809 700 Balance -1410 -809 -700 Weight 108.862 kg Output: Gastric Drainage 600 Drainage 60 9 Left 50 0 Left Lower Abdomen 10 9 Urine 750 800 700 Other: Voiding Method Indwelling Catheter Indwelling Catheter Indwelling Catheter # Voids 0 - Labs CBC & Chem 7: 10/25/22 03:37 10/25/22 03:37 Labs: Abnormal Lab Results - Last 24 Hours (Table) 10/24/22 10/24/22 10/25/22 Range/Units 17:36 23:47 03:37 RBC (3.80-5.40) m/uL Hgb (11.4-16.0) gm/dL Hct (34.0-46.0) % MCHC (31.0-37.0) g/dL RDW (11.5-15.5) % Chloride 111 H (98-107) mmol/L BUN 5 L (7-17) mg/dL Creatinine 0.50 L (0.52-1.04) mg/dL Glucose 291 H (74-99) mg/dL POC Glucose (mg/dL) 323 H 218 H (70-110) mg/dL Calcium 7.3 L (8.4-10.2) mg/dL 10/25/22 10/25/22 Range/Units 03:37 05:58 RBC 3.02 L (3.80-5.40) m/uL Hgb 8.3 L D (11.4-16.0) gm/dL Hct 27.4 L (34.0-46.0) % MCHC 30.4 L (31.0-37.0) g/dL RDW 16.1 H (11.5-15.5) % Chloride (98-107) mmol/L BUN (7-17) mg/dL Creatinine (0.52-1.04) mg/dL Glucose (74-99) mg/dL POC Glucose (mg/dL) 344 H (70-110) mg/dL Calcium (8.4-10.2) mg/dL
[2022-10-25 17:18] LABS: Glucose,Whole Blood 293 mg/dL (70-110)
[2022-10-25] MEDS: ONDANSETRON 4 MG/2 ML VIAL IVP PRN (20:20)
[2022-10-25] MEDS: lisinopriL 5 MG TAB PO SCH (20:20)
--- NOTE | 2022-10-25 21:56 | P.PN ---
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 On today's evaluation that is 10/24/2022 patient continues to be afebrile, patient abdominal pain is controlled with the pain medication, the patient did have some nausea but no vomiting , the patient still have the NG in, the patient denies chest pain shortness of breath or cough Objective - Vital Signs Vital signs: Vital Signs Temp 98.7 F 10/24/22 07:30 Pulse 74 10/24/22 07:30 Resp 18 10/24/22 07:30 BP 162/79 10/24/22 07:30 Pulse Ox 93 L 10/24/22 07:30 FiO2 Intake & Output 10/23/22 10/24/22 10/24/22 18:59 06:59 18:59 Intake Total 50 0 Output Total 335 620 390 Balance -285 -620 -390 Weight 108.862 kg Intake: IV 50 Oral 0 Output: Drainage 35 70 40 Left 30 70 30 Left Lower Abdomen 5 0 10 Urine 300 550 350 Other: Voiding Method Indwelling Catheter Indwelling Catheter Indwelling Catheter - Exam GENERAL DESCRIPTION: An elderly female lying in bed in no distress RESPIRATORY SYSTEM: Unlabored breathing , decreased breath sounds at bases HEART: S1 S2 regular rate and rhythm , ABDOMEN: Soft , mild abdominal distention and tenderness EXTREMITIES: No edema feet - Labs CBC & Chem 7: 10/25/22 03:37 10/25/22 03:37 Labs: Abnormal Lab Results - Last 24 Hours (Table) 10/23/22 10/24/22 10/24/22 Range/Units 17:36 00:17 05:48 Chloride (98-107) mmol/L Glucose (74-99) mg/dL POC Glucose (mg/dL) 245 H 279 H 268 H (70-110) mg/dL Calcium (8.4-10.2) mg/dL 10/24/22 10/24/22 Range/Units 06:02 11:54 Chloride 115 H (98-107) mmol/L Glucose 263 H (74-99) mg/dL POC Glucose (mg/dL) 291 H (70-110) mg/dL Calcium 7.3 L (8.4-10.2) mg/dL Microbiology - Last 24 Hours (Table) 10/20/22 10:43 Gram Stain - Final Abdomen Wound Culture - Final Escherichia coli Klebsiella oxytoca Assessment and Plan (1) Diverticulitis of large intestine with complication Current Visit: Yes Status: Acute Code(s): K57.32 - DVTRCLI OF LG INT W/O PERFORATION OR ABSCESS W/O BLEEDING SNOMED Code(s): 058343324 Plan: 1patient was in the hospital with sepsis in this patient with a fever tachycardia elevated white count cirrhosis complicated diverticulitis with evidence of fistula formation between descending colon and loop of the small bowel and concern for abscess we will need to cover for the enteric gram- negative both anaerobes and anaerobes to the likely pathogen 2-Patient is status post partial colectomy with end colostomy small bowel resection drainage of abdominal abscess cultures were done growing E. coli and Klebsiella, E. coli is resistant to Unasyn 3-patient is slowly clinically improving and will continue Zosyn 3.375 g every 8 hours and monitor clinical course closely Dictation was produced using [email or web address] dictation software. please excuse any grammatical, word or spelling errors. Time with Patient: Less than 30
--- NOTE | 2022-10-25 21:57 | P.PN ---
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 On today's evaluation that is 10/25/2022 patient remains to be afebrile, patient abdominal pain has decreased in intensity, patient did have some nausea but no vomiting , the patient still have the NG in, the patient denies chest pain shortness of breath or cough Objective - Vital Signs Vital signs: Vital Signs Temp 99.5 F 10/25/22 13:16 Pulse 88 10/25/22 13:16 Resp 18 10/25/22 13:16 BP 165/90 10/25/22 13:16 Pulse Ox 93 L 10/25/22 13:16 FiO2 Intake & Output 10/24/22 10/25/22 10/25/22 18:59 06:59 18:59 Output Total 1410 809 700 Balance -1410 -809 -700 Weight 108.862 kg Output: Gastric Drainage 600 Drainage 60 9 Left 50 0 Left Lower Abdomen 10 9 Urine 750 800 700 Other: Voiding Method Indwelling Catheter Indwelling Catheter Indwelling Catheter # Voids 0 - Exam GENERAL DESCRIPTION: An elderly female lying in bed in no distress RESPIRATORY SYSTEM: Unlabored breathing , decreased breath sounds at bases HEART: S1 S2 regular rate and rhythm , ABDOMEN: Soft , mild abdominal distention and tenderness EXTREMITIES: No edema feet - Labs CBC & Chem 7: 10/25/22 03:37 10/25/22 03:37 Labs: Abnormal Lab Results - Last 24 Hours (Table) 10/24/22 10/24/22 10/25/22 Range/Units 17:36 23:47 03:37 RBC (3.80-5.40) m/uL Hgb (11.4-16.0) gm/dL Hct (34.0-46.0) % MCHC (31.0-37.0) g/dL RDW (11.5-15.5) % Chloride 111 H (98-107) mmol/L BUN 5 L (7-17) mg/dL Creatinine 0.50 L (0.52-1.04) mg/dL Glucose 291 H (74-99) mg/dL POC Glucose (mg/dL) 323 H 218 H (70-110) mg/dL Calcium 7.3 L (8.4-10.2) mg/dL 10/25/22 10/25/22 10/25/22 Range/Units 03:37 05:58 11:57 RBC 3.02 L (3.80-5.40) m/uL Hgb 8.3 L D (11.4-16.0) gm/dL Hct 27.4 L (34.0-46.0) % MCHC 30.4 L (31.0-37.0) g/dL RDW 16.1 H (11.5-15.5) % Chloride (98-107) mmol/L BUN (7-17) mg/dL Creatinine (0.52-1.04) mg/dL Glucose (74-99) mg/dL POC Glucose (mg/dL) 344 H 352 H (70-110) mg/dL Calcium (8.4-10.2) mg/dL Assessment and Plan (1) Diverticulitis of large intestine with complication Current Visit: Yes Status: Acute Code(s): K57.32 - DVTRCLI OF LG INT W/O PERFORATION OR ABSCESS W/O BLEEDING SNOMED Code(s): 527522015 Plan: 1patient was in the hospital with sepsis in this patient with a fever tachycardia elevated white count cirrhosis complicated diverticulitis with shankar dence of fistula formation between descending colon and loop of the small bowel and concern for abscess we will need to cover for the enteric gram-negative both anaerobes and anaerobes to the likely pathogen 2-Patient is status post partial colectomy with end colostomy small bowel resection drainage of abdominal abscess cultures were done growing E. coli and Klebsiella, E. coli is resistant to Unasyn 3-patient is slowly clinically improving and the patient white count has normalized 4- the patient will continue Zosyn 3.375 g every 8 hours and monitor clinical course closely Dictation was produced using [employer] dictation software. please excuse any grammatical, word or spelling errors. Time with Patient: Less than 30
[2022-10-26 00:11] LABS: Glucose,Whole Blood 368 mg/dL (70-110)
[2022-10-26] MEDS: PIPERACILLIN-TAZOBACTAM 3.375 GM in SODIUM CHLORIDE 0.9% 100 ML IVPB SCH ×3 (00:26→16:21)
[2022-10-26] MEDS: INSULIN ASPART (NovoLOG) 100 UNIT/ML VIAL SQ SCH ×7 (00:32→17:40)
[2022-10-26] MEDS: SODIUM CHLORIDE 0.9% 1,000 ML IV SCH (00:41)
[2022-10-26] MEDS: 1: MVI, ADULT NO.4 WITH VIT K 10 ML, TRACE (CONC-1ML/DOSE) 1 ML in AMINO ACID 5%-D20W+LY IV SCH ×6 (00:42→11:59)
[2022-10-26 06:05] LABS: Glucose,Whole Blood 366 mg/dL (70-110)
[2022-10-26] MEDS: ENOXAPARIN 40 MG/0.4 ML SYRINGE SQ SCH (06:16)
[2022-10-26] MEDS: ONDANSETRON 4 MG/2 ML VIAL IVP PRN (06:25)
[2022-10-26 07:05] LABS: African American GFR (CKD) >90 (>60 ml/min/1.73 sqM); Anion Gap 5 mmol/L; Blood Urea Nitrogen 8 mg/dL (7-17); Calcium 7.6 mg/dL (8.4-10.2); Carbon Dioxide 27 mmol/L (22-30); Chloride 108 mmol/L (98-107); Glucose 362 mg/dL (74-99); Non-African American GFR(CKD) >90 (>60 ml/min/1.73 sqM); Phosphorus 2.9 mg/dL (2.5-4.5); Sodium 140 mmol/L (137-145)
[2022-10-26] MEDS ORDERED: DEXTROSE 50% SYRINGE 50 ML IVP PRN ×2 (07:23)
[2022-10-26] MEDS: PANTOPRAZOLE 40 MG/10 ML VIAL IVP SCH ×2 (09:25→20:54)
[2022-10-26] MEDS: INSULIN DETEMIR (LEVEMIR) 100 UNIT/ML SYR SQ SCH ×2 (09:26→20:55)
[2022-10-26] MEDS: METOCLOPRAMIDE 5 MG/ML 2 ML VIAL IVP PRN (09:28)
--- NOTE | 2022-10-26 11:21 | P.PN ---
Subjective Progress Note Date: 10/26/22 Principal diagnosis: Diverticulitis with abscess Patient states she is gradually feeling better. Had some discomfort this morning. Mild nausea still at times. Small amount of flatus through the ostomy. She is afebrile. Objective - Vital Signs Vital signs: Vital Signs Temp 98.5 F 10/26/22 07:25 Pulse 90 10/26/22 07:25 Resp 20 10/26/22 07:25 BP 157/78 10/26/22 07:25 Pulse Ox 92 L 10/26/22 07:25 FiO2 Intake & Output 10/25/22 10/26/22 10/26/22 18:59 06:59 18:59 Intake Total 1000 0 Output Total 1230 1900 600 Balance -230 -1900 -600 Intake: Intake, IV Titration 1000 Amount Amino Acid 5%-D20w+Lytes* 1000 E* 1,000 ml @ 90 mls/hr IV .BY DURATION [facility] Rx#: [id number] Oral 0 Output: Gastric Drainage 800 Drainage 30 Left 20 Left Lower Abdomen 10 Urine 1200 1100 600 Uretheral (Maria) 600 Other: Voiding Method Indwelling Catheter Indwelling Catheter - Exam Abdomen: Soft, mild distention, mild diffuse tenderness, dressing clean and dry, ANNA MARIE drains both serosanguineous - Labs CBC & Chem 7: 10/25/22 03:37 10/26/22 06:23 Labs: Abnormal Lab Results - Last 24 Hours (Table) 10/25/22 10/25/22 10/26/22 Range/Units 11:57 17:17 00:09 Chloride (98-107) mmol/L Creatinine (0.52-1.04) mg/dL Glucose (74-99) mg/dL POC Glucose (mg/dL) 352 H 293 H 368 H (70-110) mg/dL Calcium (8.4-10.2) mg/dL 10/26/22 10/26/22 Range/Units 06:03 06:23 Chloride 108 H (98-107) mmol/L Creatinine 0.50 L (0.52-1.04) mg/dL Glucose 362 H (74-99) mg/dL POC Glucose (mg/dL) 366 H (70-110) mg/dL Calcium 7.6 L (8.4-10.2) mg/dL Assessment and Plan (1) Diverticulitis of large intestine with complication Narrative/Plan: Patient is doing slightly better each day. Still has mild nausea and does not have great ostomy output. Ileus persisting although I believe improving. Continue nasogastric tube to suction for today. Hopefully can remove tomorrow. Discussed pathologic findings with patient. 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 We'll plan outpatient follow-up with gynecologic oncology and oncology. Current Visit: Yes Status: Acute Code(s): K57.32 - DVTRCLI OF LG INT W/O PERFORATION OR ABSCESS W/O BLEEDING SNOMED Code(s): 638265750
[2022-10-26 12:41] LABS: Glucose,Whole Blood 350 mg/dL (70-110)
--- NOTE | 2022-10-26 15:55 | P.PN ---
Subjective Progress Note Date: 10/26/22 patient is evaluated today in the medical floor postoperative colectomy with end colostomy and small bowel resection. Patient is postoperative day #6. Patient also had drainage of abdominal abscess with culture showing E. coli and Klebsiella. Patient remains on IV antibiotics with infectious disease on cl osely. Patient is currently nothing by mouth and has NG tube in place to intermittent suction. Patient does report feeling bloated. She is making minimal stool per the ostomy. Labs today remain stable. Blood glucoses in the 300s and long acting and scheduled insulin have been added. Continue Accu-Cheks every 6 hours. Patient remains on TPN and lipids. 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 Patient will need f/u with [facility] on discharge. Review of Systems Constitutional: Denied any fatigue denied any fever. Cardio vascular: denied any chest pain, palpitations Gastrointestinal: Reports nausea, no vomiting, diarrhea Pulmonary: Denied any shortness of breath cough Reports incisional abdominal pain and bloating Neurologic denied any new focal deficits All inpatient medications were reviewed and appropriate changes in these medications as dictated in the interval history and assessment and plan. PHYSICAL EXAMINATION: GENERAL: The patient is alert and oriented x3, not in any acute distress. Well developed, well nourished. HEENT: Pupils are round and equally reacting to light. EOMI. No scleral icterus. No conjunctival pallor. Normocephalic, atraumatic. No pharyngeal erythema. No thyromegaly. CARDIOVASCULAR: S1 and S2 present. No murmurs, rubs, or gallops. PULMONARY: Chest is clear to auscultation, no wheezing or crackles. ABDOMEN: Soft, nontender, nondistended, normoactive bowel sounds. No palpable organomegaly. Post surgical abdomen midline incision in place with ostomy. MUSCULOSKELETAL: No joint swelling or deformity. EXTREMITIES: No cyanosis, clubbing, or pedal edema. NEUROLOGICAL: Gross neurological examination did not reveal any focal deficits. SKIN: No rashes. Assessment and Plan Acute diverticulitis with Abscess formation postoperative day #6 bowel resection and colostomy formation patient also underwent drainage of abscess. Postoperative ileus with NG tube in place. and patient remains NPO general surgery making recommendations Hyperglycemia on TPN and Lipids insulin is increased today and continue accuchec ks Q6h. Incidental finding on pathology of possible primary ovarian/mullerin origin involving the wall of the colon patient needs f/u with [facility] Developer[facility] on discharge Diabetes Mellitus Hypertension Hx of [place] Anxiety Former smoker GI prophylaxis DVT prophylaxis Full Code Plan Continue with diet per general surgery NPO and popsicles/ice chips Encourage ambulation and incentive spirometry use Patient may benefit from simethicone gtts if ok with general surgery Increase insulin and accuchecks Q6h and levemir has been added Follow up labs in AM The impression and plan of care has been dictated by Saige Pina, Nurse Practitioner as directed. Dr. Francisco MD I have performed a history and physical examination and medical decision making of this patient, discussed the same with the dictator, and agree with the dictators assessment and plan as written, documented as a scribe. Based on total visit time, I have performed more than 50% of this visit. Objective - Vital Signs Vital signs: Vital Signs Temp 98.7 F 10/26/22 02:00 Pulse 86 10/26/22 02:00 Resp 16 10/26/22 02:00 BP 162/85 10/26/22 02:00 Pulse Ox 93 L 10/26/22 02:00 FiO2 Intake & Output 10/25/22 10/26/22 10/26/22 18:59 06:59 18:59 Intake Total 1000 0 Output Total 1230 1900 Balance -230 -1900 Intake: Intake, IV Titration 1000 Amount Amino Acid 5%-D20w+Lytes* 1000 E* 1,000 ml @ 90 mls/hr IV .BY DURATION LORETTA Rx#: [id number] Oral 0 Output: Gastric Drainage 800 Drainage 30 Left 20 Left Lower Abdomen 10 Urine 1200 1100 Other: Voiding Method Indwelling Catheter Indwelling Catheter - Labs CBC & Chem 7: 10/25/22 03:37 10/26/22 06:23 Labs: Abnormal Lab Results - Last 24 Hours (Table) 10/25/22 10/25/22 10/26/22 Range/Units 11:57 17:17 00:09 Chloride (98-107) mmol/L Creatinine (0.52-1.04) mg/dL Glucose (74-99) mg/dL POC Glucose (mg/dL) 352 H 293 H 368 H (70-110) mg/dL Calcium (8.4-10.2) mg/dL 10/26/22 10/26/22 Range/Units 06:03 06:23 Chloride 108 H (98-107) mmol/L Creatinine 0.50 L (0.52-1.04) mg/dL Glucose 362 H (74-99) mg/dL POC Glucose (mg/dL) 366 H (70-110) mg/dL Calcium 7.6 L (8.4-10.2) mg/dL Assessment and Plan Time with Patient: Less than 30
[2022-10-26] MEDS: FAT EMULSION 20% 250 ML in EMPTY BAG 1 BAG IV SCH (16:21)
[2022-10-26 17:35] LABS: Glucose,Whole Blood 329 mg/dL (70-110)
[2022-10-26] MEDS: lisinopriL 5 MG TAB PO SCH (20:53)
[2022-10-26] MEDS ORDERED: INSULIN DETEMIR (LEVEMIR) 100 UNIT/ML SYR SQ SCH (21:00)
[2022-10-27 00:12] LABS: Glucose,Whole Blood 322 mg/dL (70-110)
[2022-10-27] MEDS: INSULIN ASPART (NovoLOG) 100 UNIT/ML VIAL SQ SCH ×8 (00:16→18:01)
[2022-10-27] MEDS: 1: MVI, ADULT NO.4 WITH VIT K 10 ML, TRACE (CONC-1ML/DOSE) 1 ML in AMINO ACID 5%-D20W+LY IV SCH ×9 (00:17→23:02)
[2022-10-27] MEDS: PIPERACILLIN-TAZOBACTAM 3.375 GM in SODIUM CHLORIDE 0.9% 100 ML IVPB SCH ×3 (00:17→16:00)
[2022-10-27] MEDS: SODIUM CHLORIDE 0.9% 1,000 ML IV SCH (00:17)
[2022-10-27] MEDS: HYDROmorphone PCA 10 MG/50 ML BAG IV PRN (04:29)
[2022-10-27] MEDS: ONDANSETRON 4 MG/2 ML VIAL IVP PRN (05:21)
[2022-10-27 06:03] LABS: Glucose,Whole Blood 309 mg/dL (70-110)
[2022-10-27] MEDS: ENOXAPARIN 40 MG/0.4 ML SYRINGE SQ SCH (06:05)
[2022-10-27] MEDS: INSULIN DETEMIR (LEVEMIR) 100 UNIT/ML SYR SQ SCH ×2 (06:06→21:42)
--- NOTE | 2022-10-27 09:16 | IR ---
EXAMINATION TYPE: IR cvc insert >=5 years DATE OF EXAM: 10/23/2022 COMPARISON: NONE HISTORY: Antibiotics/TPN, 5 Ethiopian, 35 cm left basilic, fluoroscopy time 0.8 minutes, DAP 0.914 Gycm2 Fluoroscopy was provided to the referring clinician.
--- NOTE | 2022-10-27 09:45 | P.PN ---
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 past medical history significant for diabetes mellitus hypertension [place] presented to [facility] for evaluation of right-sided abdominal pain,patient did have a CT abdominal pelvis we did shows evidence of diverticulitis with fistula formation from the descending colon to the adjustment about the proximal small b owel and developing abscess within the wall of the small bowel,, patient subsequently transferred to [facility] for further management.Patient is status post partial colectomy with end colostomy small bowel resection drainage of abdominal abscess done on 10/20/2022. On today's evaluation that is 10/26/2022 patient continues to be afebrile, patient abdominal pain is currently controlled, patient did have some nausea but no vomiting , the patient still have the NG in, the patient denies chest pain shortness of breath or cough, feeling slightly better Objective - Vital Signs Vital signs: Vital Signs Temp 98.5 F 10/26/22 07:25 Pulse 90 10/26/22 07:25 Resp 20 10/26/22 07:25 BP 157/78 10/26/22 07:25 Pulse Ox 92 L 10/26/22 07:25 FiO2 Intake & Output 10/25/22 10/26/22 10/26/22 18:59 06:59 18:59 Intake Total 1000 1011 Output Total 1230 1900 600 Balance -230 -889 -600 Intake: Intake, IV Titration 1000 1011 Amount Amino Acid 5%-D20w+Lytes* 1000 E* 1,000 ml @ 90 mls/hr IV .BY DURATION [facility] Rx#: [id number] Mvi, Adult No.4 with Vit 1011 K 10 ml Trace (Conc-1Ml/ Dose) 1 ml In Amino Acid 5%-D20w+Lytes*E* 1,000 ml @ 90 mls/hr IV .BY DURATION [facility] Rx#: [id number] Oral 0 Output: Gastric Drainage 800 Drainage 30 Left 20 Left Lower Abdomen 10 Urine 1200 1100 600 Uretheral (Maria) 600 Other: Voiding Method Indwelling Catheter Indwelling Catheter Indwelling Catheter - Exam GENERAL DESCRIPTION: An elderly female lying in bed in no distress RESPIRATORY SYSTEM: Unlabored breathing , decreased breath sounds at bases HEART: S1 S2 regular rate and rhythm , ABDOMEN: Soft , mild abdominal distention and tenderness EXTREMITIES: No edema feet - Labs CBC & Chem 7: 10/25/22 03:37 10/26/22 06:23 Labs: Abnormal Lab Results - Last 24 Hours (Table) 10/25/22 10/26/22 10/26/22 Range/Units 17:17 00:09 06:03 Chloride (98-107) mmol/L Creatinine (0.52-1.04) mg/dL Glucose (74-99) mg/dL POC Glucose (mg/dL) 293 H 368 H 366 H (70-110) mg/dL Calcium (8.4-10.2) mg/dL 10/26/22 10/26/22 Range/Units 06:23 12:39 Chloride 108 H (98-107) mmol/L Creatinine 0.50 L (0.52-1.04) mg/dL Glucose 362 H (74-99) mg/dL POC Glucose (mg/dL) 350 H (70-110) mg/dL Calcium 7.6 L (8.4-10.2) mg/dL Assessment and Plan (1) Diverticulitis of large intestine with complication Current Visit: Yes Status: Acute Code(s): K57.32 - DVTRCLI OF LG INT W/O PERFORATION OR ABSCESS W/O BLEEDING SNOMED Code(s): 640886566 Plan: 1patient was in the hospital with sepsis in this patient with a fever tachycardia elevated white count cirrhosis complicated diverticulitis with evidence of fistula formation between descending colon and loop of the small bowel and concern for abscess we will need to cover for the enteric gram- negative both anaerobes and anaerobes to the likely pathogen 2-Patient is status post partial colectomy with end colostomy small bowel resection drainage of abdominal abscess cultures were done growing E. coli and Klebsiella, E. coli is resistant to Unasyn 3-patient continued to show some clinical improvement and the patient white count has normalized 4- the patient will continue Zosyn 3.375 g every 8 hours and continue supportive care Dictation was produced using [employer] dictation software. please excuse any grammatical, word or spelling errors. Time with Patient: Less than 30
[2022-10-27 10:05] LABS: Basophils # (A) 0.04 X 10*3/uL (0.00-0.10); Basophils % (A) 0.5 %; Eosinophils # (A) 0.28 X 10*3/uL (0.04-0.35); Eosinophils % (A) 3.2 %; HCT 29.1 % (37.2-46.3); HGB 8.4 d/dL (12.0-15.0); Lymphocytes # (A) 1.01 X 10*3/uL (0.90-5.00); Lymphocytes % (A) 11.7 %; MCH 26.5 pg (27.0-32.0); MCHC 28.9 d/dL (32.0-37.0); MCV 91.8 FL (80.0-97.0); Mean Platelet Volume 9.9 FL (9.5-12.2); Monocytes # (A) 0.61 X 10*3/uL (0.20-1.00); Monocytes % (A) 7.1 %; NRBC Per 100 WBC 0 X 10*3/uL (0.00-0.01); Neutrophils # (A) 6.51 X 10*3/uL (1.80-7.70); Neutrophils % (A) 75.4 %; Platelet Count 327 X 10*3/uL (140-440); RBC 3.17 X 10*6/uL (4.10-5.20); RDW 16.2 % (11.5-14.5); WBC 8.63 X 10*3/uL (4.50-10.00)
[2022-10-27 10:21] LABS: Blood Urea Nitrogen 9.2 mg/dL (9.0-27.0); Calcium 7.9 mg/dL (8.7-10.3); Chloride 104 mmol/L (96-109); Glucose 330 mg/dL (70-110); Potassium 3.9 mmol/L (3.5-5.5); Sodium 138 mmol/L (135-145)
[2022-10-27] MEDS: PANTOPRAZOLE 40 MG/10 ML VIAL IVP SCH ×2 (10:21→21:42)
--- NOTE | 2022-10-27 11:34 | P.PN ---
Progress Note - Text Progress Note Date: 10/27/22 The patient is resting comfortably in her bed. She denies any significant pain. On exam vital signs appear stable. Abdomen is soft. Incision is clean dry intact. Colostomy is functioning.. Status post colon resection for diverticular is. Patient will continue supportive care.
[2022-10-27 12:31] LABS: Glucose,Whole Blood 286 mg/dL (70-110)
--- NOTE | 2022-10-27 13:37 | P.PN ---
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 for evaluation of right-sided abdominal pain,patient did have a CT abdominal pelvis we did shows evidence of diverticulitis with fistula formation from the descending colon to the adjustment about the proximal small b owel and developing abscess within the wall of the small bowel,, patient subsequently transferred to [facility] for further management.Patient is status post partial colectomy with end colostomy small bowel resection drainage of abdominal abscess done on 10/20/2022. On today's evaluation that is 10/27/2022 patient remains to be afebrile, patient abdominal pain is controlled with current pain medication, patient did have some nausea and abdominal bloating but no vomiting , the patient still have the NG in, the patient denies chest pain shortness of breath or cough, no output in the colostomy bag Patient did have a normal white count of 8.63 creatinine 0.85, abdominal culture positive for Klebsiella and E. coli Objective - Vital Signs Vital signs: Vital Signs Temp 98.8 F 10/27/22 07:22 Pulse 88 10/27/22 07:22 Resp 18 10/27/22 07:22 BP 159/79 10/27/22 07:22 Pulse Ox 90 L 10/27/22 07:22 FiO2 Intake & Output 10/26/22 10/27/22 10/27/22 18:59 06:59 18:59 Intake Total 1480 1011 Output Total 1220 1025 0 Balance 260 -14 0 Weight 108.862 kg Intake: Intake, IV Titration 1480 1011 Amount Amino Acid 5%-D20w+Lytes* 1000 E* 1,000 ml @ 90 mls/hr IV .BY DURATION [facility]ET[facility] Rx#: [id number] Mvi, Adult No.4 with Vit 1011 K 10 ml Trace (Conc-1Ml/ Dose) 1 ml In Amino Acid 5%-D20w+Lytes*E* 1,000 ml @ 90 mls/hr IV .BY DURATION [facility]ET[facility] Rx#: [id number] Sodium Chloride 0.9% 1, 480 000 ml @ 40 mls/hr IV . Q24H LORETTA Rx#:[id number] Output: Gastric Drainage 80 Drainage 60 Left 40 Left Lower Abdomen 20 Urine 1050 1025 Uretheral (Maria) 600 Stool 30 0 Other: Voiding Method Indwelling Catheter Indwelling Catheter Indwelling Catheter - Exam GENERAL DESCRIPTION: An elderly female lying in bed in no distress RESPIRATORY SYSTEM: Unlabored breathing , decreased breath sounds at bases HEART: S1 S2 regular rate and rhythm , ABDOMEN: Soft , mild abdominal distention and tenderness EXTREMITIES: No edema feet - Labs CBC & Chem 7: 10/27/22 06:45 10/27/22 06:45 Labs: Abnormal Lab Results - Last 24 Hours (Table) 10/26/22 10/27/22 10/27/22 Range/Units 17:33 00:11 06:01 RBC (4.10-5.20) X 10*6/uL Hgb (12.0-15.0) d/dL Hct (37.2-46.3) % MCH (27.0-32.0) pg MCHC (32.0-37.0) d/dL RDW (11.5-14.5) % Creatinine (0.6-1.5) mg/dL Glucose (70-110) mg/dL POC Glucose (mg/dL) 329 H 322 H 309 H (70-110) mg/dL Calcium (8.7-10.3) mg/dL 10/27/22 10/27/22 10/27/22 Range/Units 06:45 06:45 12:30 RBC 3.17 L (4.10-5.20) X 10*6/uL Hgb 8.4 L (12.0-15.0) d/dL Hct 29.1 L (37.2-46.3) % MCH 26.5 L (27.0-32.0) pg MCHC 28.9 L (32.0-37.0) d/dL RDW 16.2 H (11.5-14.5) % Creatinine 0.5 L (0.6-1.5) mg/dL Glucose 330 H (70-110) mg/dL POC Glucose (mg/dL) 286 H (70-110) mg/dL Calcium 7.9 L (8.7-10.3) mg/dL Assessment and Plan (1) Diverticulitis of large intestine with complication Current Visit: Yes Status: Acute Code(s): K57.32 - DVTRCLI OF LG INT W/O PERFORATION OR ABSCESS W/O BLEEDING SNOMED Code(s): 878395146 Plan: 1patient was in the hospital with sepsis in this patient with a fever tachycardia elevated white count cirrhosis complicated diverticulitis with evidence of fistula formation between descending colon and loop of the small bowel and concern for abscess we will need to cover for the enteric gram- negative both anaerobes and anaerobes to the likely pathogen 2-Patient is status post partial colectomy with end colostomy small bowel resection drainage of abdominal abscess cultures were done growing E. coli and Klebsiella, E. coli is resistant to Unasyn 3-patient continued to show some clinical improvement and the patient white count has normalized, patient to continue with the Zosyn waiting for bowel activity Dictation was produced using [employer] dictation software. please excuse any grammatical, word or spelling errors. Time with Patient: Less than 30
[2022-10-27 17:12] LABS: Glucose,Whole Blood 284 mg/dL (70-110)
[2022-10-27] MEDS: lisinopriL 5 MG TAB PO SCH (21:42)
[2022-10-27 23:54] LABS: Glucose,Whole Blood 297 mg/dL (70-110)
[2022-10-28] MEDS: PIPERACILLIN-TAZOBACTAM 3.375 GM in SODIUM CHLORIDE 0.9% 100 ML IVPB SCH ×3 (00:33→17:05)
[2022-10-28] MEDS: INSULIN ASPART (NovoLOG) 100 UNIT/ML VIAL SQ SCH ×8 (00:33→18:00)
[2022-10-28] MEDS: atenoloL 25 MG TAB PO SCH ×3 (04:12→21:10)
[2022-10-28 05:52] LABS: Glucose,Whole Blood 273 mg/dL (70-110)
[2022-10-28] MEDS: ENOXAPARIN 40 MG/0.4 ML SYRINGE SQ SCH (06:12)
[2022-10-28] MEDS: INSULIN DETEMIR (LEVEMIR) 100 UNIT/ML SYR SQ SCH ×2 (06:12→21:09)
--- NOTE | 2022-10-28 07:03 | P.PN ---
Subjective Progress Note Date: 10/27/22 patient is evaluated today in the medical floor postoperative colectomy with end colostomy and small bowel resection. Patient is postoperative day #6. Patient also had drainage of abdominal abscess with culture showing E. coli and Klebsiella. Patient remains on IV antibiotics with infectious disease on cl osely. Patient is currently nothing by mouth and has NG tube in place to intermittent suction. Patient does report feeling bloated. She is making minimal stool per the ostomy. Labs today remain stable. Blood glucoses in the 300s and long acting and scheduled insulin have been added. Continue Accu-Cheks every 6 hours. Patient remains on TPN and lipids. 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 Patient will need f/u with Linux Developer-Onc on discharge. 10/27/2022 Patient evaluated today on the medical floor. Patient is postoperative day #7. NPO for postoperative ileus. Today she has about 50 ml of yellow clear drainage from the ostomy bag. Bowel sounds are increasing. Patient needs encouragement to get up out of bed and increase activity level. Labs today are stable, kidney function normal no elevated white count. Blood glucose is slowly improving down into the 200s. Review of Systems Constitutional: Denied any fatigue denied any fever. Cardio vascular: denied any chest pain, palpitations Gastrointestinal: Reports nausea, no vomiting, diarrhea Pulmonary: Denied any shortness of breath cough Reports incisional abdominal pain and bloating Neurologic denied any new focal deficits All inpatient medications were reviewed and appropriate changes in these medi cations as dictated in the interval history and assessment and plan. PHYSICAL EXAMINATION: GENERAL: The patient is alert and oriented x3, not in any acute distress. Well developed, well nourished. HEENT: Pupils are round and equally reacting to light. EOMI. No scleral icterus. No conjunctival pallor. Normocephalic, atraumatic. No pharyngeal erythema. No thyromegaly. CARDIOVASCULAR: S1 and S2 present. No murmurs, rubs, or gallops. PULMONARY: Chest is clear to auscultation, no wheezing or crackles. ABDOMEN: Soft, nontender, nondistended, hypoactive bowel sounds. No palpable organomegaly. Post surgical abdomen midline incision in place with ostomy. MUSCULOSKELETAL: No joint swelling or deformity. EXTREMITIES: No cyanosis, clubbing, or pedal edema. NEUROLOGICAL: Gross neurological examination did not reveal any focal deficits. SKIN: No rashes. Assessment and Plan Acute diverticulitis with Abscess formation postoperative day #7 bowel resection and colostomy formation patient also underwent drainage of abscess. Postoperative ileus with NG tube in place. and patient remains NPO general surgery making recommendations Hyperglycemia on TPN and Lipids insulin is increased today and continue accuchecks Q6h. Incidental finding on pathology of possible primary ovarian/mullerin origin involving the wall of the colon patient needs f/u with [employer] Developer-Onc on discharge Diabetes Mellitus Hypertension Hx of [place] Anxiety Former smoker GI prophylaxis DVT prophylaxis Full Code Plan Continue with diet per general surgery NPO and popsicles/ice chips Encourage ambulation and incentive spirometry use Patient may benefit from simethicone gtts if ok with general surgery Increase insulin and accuchecks Q6h and levemir on board and blood glucose improving The impression and plan of care has been dictated by Saige Pina, Nurse Practitioner as directed. Dr. Francisco MD I have performed a history and physical examination and medical decision making of this patient, discussed the same with the dictator, and agree with the dictators assessment and plan as written, documented as a scribe. Based on total visit time, I have performed more than 50% of this visit. Objective - Vital Signs Vital signs: Vital Signs Temp 98.8 F 10/27/22 14:17 Pulse 92 10/27/22 14:17 Resp 16 10/27/22 14:17 BP 143/87 10/27/22 14:17 Pulse Ox 93 L 10/27/22 14:17 FiO2 Intake & Output 10/26/22 10/27/22 10/27/22 18:59 06:59 18:59 Intake Total 1480 1011 Output Total 1220 1025 0 Balance 260 -14 0 Weight 108.862 kg Intake: Intake, IV Titration 1480 1011 Amount Amino Acid 5%-D20w+Lytes* 1000 E* 1,000 ml @ 90 mls/hr IV .BY DURATION [facility]ET[place] Rx#: [id number] Mvi, Adult No.4 with Vit 1011 K 10 ml Trace (Conc-1Ml/ Dose) 1 ml In Amino Acid 5%-D20w+Lytes*E* 1,000 ml @ 90 mls/hr IV .BY DURATION LORETTA Rx#: [id number] Sodium Chloride 0.9% 1, 480 000 ml @ 40 mls/hr IV . Q24H [facility] Rx#:[id number] Output: Gastric Drainage 80 Drainage 60 Left 40 Left Lower Abdomen 20 Urine 1050 1025 Uretheral (Maria) 600 Stool 30 0 Other: Voiding Method Indwelling Catheter Indwelling Catheter Indwelling Catheter - Labs CBC & Chem 7: 10/27/22 06:45 10/27/22 06:45 Labs: Abnormal Lab Results - Last 24 Hours (Table) 10/26/22 10/27/22 10/27/22 Range/Units 17:33 00:11 06:01 RBC (4.10-5.20) X 10*6/uL Hgb (12.0-15.0) d/dL Hct (37.2-46.3) % MCH (27.0-32.0) pg MCHC (32.0-37.0) d/dL RDW (11.5-14.5) % Creatinine (0.6-1.5) mg/dL Glucose (70-110) mg/dL POC Glucose (mg/dL) 329 H 322 H 309 H (70-110) mg/dL Calcium (8.7-10.3) mg/dL 10/27/22 10/27/22 10/27/22 Range/Units 06:45 06:45 12:30 RBC 3.17 L (4.10-5.20) X 10*6/uL Hgb 8.4 L (12.0-15.0) d/dL Hct 29.1 L (37.2-46.3) % MCH 26.5 L (27.0-32.0) pg MCHC 28.9 L (32.0-37.0) d/dL RDW 16.2 H (11.5-14.5) % Creatinine 0.5 L (0.6-1.5) mg/dL Glucose 330 H (70-110) mg/dL POC Glucose (mg/dL) 286 H (70-110) mg/dL Calcium 7.9 L (8.7-10.3) mg/dL Assessment and Plan Time with Patient: Less than 30
[2022-10-28 08:18] LABS: African American GFR (CKD) >90 (>60 ml/min/1.73 sqM); Anion Gap 5 mmol/L; Blood Urea Nitrogen 11 mg/dL (7-17); Calcium 7.5 mg/dL (8.4-10.2); Carbon Dioxide 30 mmol/L (22-30); Chloride 102 mmol/L (98-107); Glucose 295 mg/dL (74-99); Non-African American GFR(CKD) >90 (>60 ml/min/1.73 sqM); Sodium 137 mmol/L (137-145)
[2022-10-28] MEDS: PANTOPRAZOLE 40 MG/10 ML VIAL IVP SCH ×2 (09:19→21:09)
[2022-10-28] MEDS: 1: MVI, ADULT NO.4 WITH VIT K 10 ML, TRACE (CONC-1ML/DOSE) 1 ML in AMINO ACID 5%-D20W+LY IV SCH ×6 (10:34→21:15)
[2022-10-28] MEDS: SODIUM CHLORIDE 0.9% 1,000 ML IV SCH (10:38)
--- NOTE | 2022-10-28 10:52 | P.PN ---
Progress Note - Text Progress Note Date: 10/28/22 Patient's resting comfortably in bed. She has minimal incisional pain. She's had no significant output through her colostomy. Her nasogastric tube still has bilious fluid in the canister. On exam vital signs are stable. Abdomen soft. Colostomy is pink. There is no significant output through colostomy. Status post sigmoid resection. Patient has a postoperative ileus. She'll continue receive nasogastric tube decompression.
[2022-10-28 12:39] LABS: Glucose,Whole Blood 244 mg/dL (70-110)
[2022-10-28] MEDS: LOSARTAN-HCTZ 50-12.5 MG 1 EACH TAB PO SCH (12:39)
[2022-10-28] MEDS: IPRATROPIUM-ALBUTEROL 3 ML NEB INHALATION SCH ×2 (15:41→19:52)
--- NOTE | 2022-10-28 17:21 | XR ---
EXAMINATION TYPE: XR chest 1V portable DATE OF EXAM: 10/28/2022 5:15 PM COMPARISON: Chest radiographs from 10/19/2022 TECHNIQUE: XR chest 1V portable Portable AP radiograph of the chest. CLINICAL INDICATION:Female, 67 years old with history of sob; FINDINGS: Patient is rotated which limits evaluation. Lungs/Pleura: There is no evidence of pleural effusion or pneumothorax. Left basilar atelectasis. Pulmonary vascularity: Unremarkable. Heart/mediastinum: Cardiomediastinal silhouette is unremarkable. Atherosclerotic calcifications are seen in the aorta. Musculoskeletal: No acute osseous pathology. Degenerative changes of the thoracic spine Other findings: None Lines/Tubes: Nasogastric tube with its distal tip in the lower esophagus and sidehole in the midesophagus. IMPRESSION: 1. NG tube terminates within the lower esophagus with sidehole in the mid esophagus. Recommend advan cement of 15 cm. 2. Left basilar atelectasis.
[2022-10-28] MEDS ORDERED: FUROSEMIDE 10 MG/ML 4 ML VIAL IV STA (17:49)
[2022-10-28 17:53] LABS: Glucose,Whole Blood 215 mg/dL (70-110)
--- NOTE | 2022-10-28 18:41 | CT ---
EXAMINATION TYPE: CT chest angio for PE CT DLP: 450.4 mGycm, Automated exposure control for dose reduction was used. DATE OF EXAM: 10/28/2022 5:44 PM COMPARISON: Chest radiograph from same day CLINICAL INDICATION:Female, 67 years old with history of elevated d dimer, rule out PE; ELEVATED D-DI BRENNON TECHNIQUE/CONTRAST: CTA scan of the thorax is performed with IV Contrast, patient injected with 75cc mL of Isovue 370, pu lmonary embolism protocol. MIP images are created and reviewed. FINDINGS: Pulmonary Artery: There is no evidence for a filling defect within the pulmonary vasculature to sugge st acute pulmonary embolism. The pulmonary artery is of normal size. Lungs/Pleura: Mild left and small to moderate size right pleural effusion with associated atelectasis . Fluid tracks into both major fissures. No pneumothorax. No focal consolidation. Airway: Large airways are patent. Heart: Heart is within normal limits for size.. No pericardial effusion. Vasculature: No evidence of aortic aneurysm. Mediastinum: No evidence of adenopathy. Musculoskeletal: No acute osseous abnormalities Soft Tissues: Unremarkable. Lower neck: No significant findings. Upper Abdomen: NG tube terminates in the distal lower esophagus. Small hiatal hernia.. IMPRESSION: 1. No evidence of pulmonary embolism. 2. Small left and small to moderate size right pleural effusion with associated atelectasis. 3. NG tube terminates in the distal lower esophagus. Recommend advancement 15 cm.
[2022-10-28] MEDS: BUDESONIDE 0.5 MG/2 ML NEBU INHALATION SCH (19:52)
[2022-10-28] MEDS: lisinopriL 5 MG TAB PO SCH (21:09)
--- NOTE | 2022-10-28 23:55 | PN ---
PROGRESS NOTE A 67-year-old white female, continues her current treatment. She got short of breath, they put her on oxygen today. She remains on broad-spectrum antibiotics. She is not breathing well. I talked to her about possibly ordering a CAT scan of her chest. She is supposed to be on breathing treatments. I do not see that she is on breathing treatments, even though she says she cannot breathe 92% on room air; this morning 97% and 98% on room air. Blood pressure is 140s/70s, pulse 70s, respiratory rate 16 to 18, temperature 98.6. Cardiovascular S1, S2. Lungs, scattered wheeze x4. Hematology, 2+ edema. Plan, I think we should give her some breathing treatments as she said she cannot breathe. possibly CT of the chest. Prognosis guarded. ERNIE / IJN: [id number] /
[2022-10-28 23:57] LABS: Glucose,Whole Blood 213 mg/dL (70-110)
[2022-10-29] MEDS: INSULIN ASPART (NovoLOG) 100 UNIT/ML VIAL SQ SCH ×8 (00:18→18:07)
[2022-10-29] MEDS: PIPERACILLIN-TAZOBACTAM 3.375 GM in SODIUM CHLORIDE 0.9% 100 ML IVPB SCH ×3 (00:19→16:59)
[2022-10-29] MEDS: SODIUM CHLORIDE 0.9% 1,000 ML IV SCH (02:36)
[2022-10-29 06:15] LABS: Glucose,Whole Blood 251 mg/dL (70-110)
[2022-10-29] MEDS: ENOXAPARIN 40 MG/0.4 ML SYRINGE SQ SCH (06:23)
[2022-10-29 07:15] LABS: ALT 20 U/L (4-34); AST 20 U/L (14-36); African American GFR (CKD) >90 (>60 ml/min/1.73 sqM); Albumin 2.3 g/dL (3.5-5.0); Albumin/Globulin Ratio 0.7; Alkaline Phosphatase 101 U/L (38-126); Anion Gap 3 mmol/L; Blood Urea Nitrogen 14 mg/dL (7-17); Calcium 7.8 mg/dL (8.4-10.2); Carbon Dioxide 38 mmol/L (22-30); Chloride 96 mmol/L (98-107); Globulin 3.1 g/dL; Glucose 241 mg/dL (74-99); Magnesium 1.9 mg/dL (1.6-2.3); Non-African American GFR(CKD) >90 (>60 ml/min/1.73 sqM); Phosphorus 4.1 mg/dL (2.5-4.5); Potassium 3.8 mmol/L (3.5-5.1); Sodium 137 mmol/L (137-145); Total Bilirubin 0.5 mg/dL (0.2-1.3); Total Protein 5.4 g/dL (6.3-8.2)
--- NOTE | 2022-10-29 08:13 | US ---
EXAMINATION TYPE: US venous doppler duplex LE BI DATE OF EXAM: 10/29/2022 7:46 AM COMPARISON: NONE CLINICAL INDICATION: Female, 67 years old with history of dvt; SIDE PERFORMED: bilateral TECHNIQUE: The lower extremity deep venous system is examined utilizing real time linear array sonog david with graded compression, doppler sonography and color-flow sonography. VESSELS IMAGED: Common Femoral Vein Deep Femoral Vein Greater Saphenous Vein * Femoral Vein Popliteal Vein Small Saphenous Vein * Proximal Calf Veins (* superficial vessels) Right Leg: No evidence of DVT Left Leg: No evidence of DVT IMPRESSION: Grayscale, color doppler, spectral doppler imaging performed of the deep veins of the lo wer extremities. There is normal flow, compressibility, vascular waveforms.
[2022-10-29] MEDS: IPRATROPIUM-ALBUTEROL 3 ML NEB INHALATION SCH ×4 (08:27→18:32)
[2022-10-29] MEDS: BUDESONIDE 0.5 MG/2 ML NEBU INHALATION SCH ×3 (08:27→18:38)
[2022-10-29 08:46] LABS: Basophils # (A) 0.04 X 10*3/uL (0.00-0.10); Basophils % (A) 0.4 %; Eosinophils # (A) 0.22 X 10*3/uL (0.04-0.35); Eosinophils % (A) 2.4 %; HGB 8.6 d/dL (12.0-15.0); Lymphocytes % (A) 12.2 %; MCH 26.9 pg (27.0-32.0); MCHC 29.7 d/dL (32.0-37.0); MCV 90.6 FL (80.0-97.0); Mean Platelet Volume 9.9 FL (9.5-12.2); Monocytes # (A) 0.78 X 10*3/uL (0.20-1.00); Monocytes % (A) 8.7 %; NRBC Per 100 WBC 0 X 10*3/uL (0.00-0.01); Neutrophils # (A) 6.74 X 10*3/uL (1.80-7.70); Neutrophils % (A) 74.9 %; Platelet Count 315 X 10*3/uL (140-440); WBC 9.01 X 10*3/uL (4.50-10.00)
[2022-10-29] MEDS: LOSARTAN-HCTZ 50-12.5 MG 1 EACH TAB PO SCH (09:25)
[2022-10-29] MEDS: atenoloL 25 MG TAB PO SCH ×2 (09:25→20:27)
[2022-10-29] MEDS: INSULIN DETEMIR (LEVEMIR) 100 UNIT/ML SYR SQ SCH ×2 (09:26→20:27)
[2022-10-29] MEDS: 1: MVI, ADULT NO.4 WITH VIT K 10 ML, TRACE (CONC-1ML/DOSE) 1 ML in AMINO ACID 5%-D20W+LY IV SCH ×6 (09:41→21:26)
[2022-10-29] MEDS: PANTOPRAZOLE 40 MG/10 ML VIAL IVP SCH ×2 (09:47→20:27)
--- NOTE | 2022-10-29 10:40 | P.PN ---
Subjective HISTORY OF PRESENT ILLNESS: 10/20/22 Patient is a pleasant 67-year-old female with history of diabetes mellitus type 2 hypertension, reported history of myocardial infarction however patient denies, previous tobacco abuse, family history father with CABG, osteoarthritis. Patient presented as a transfer from [place] secondary to abdominal pain. Patient has been having nausea with right-sided abdominal pain and epigastric abdominal pain or lasts 5-6 days[address] CAT scan showed diverticulitis with fistula formation and additional concern of small bowel obstruction. She has had sinus tachycardia and low-grade fevers and placed on antibiotics. She has been monitored with NG tube in place however has not significantly improved and conservative management patient has not been feeling any better. She states she has had issues with anesthesia in the past however is unsure of this have been related to ALLERGIES to medications. She believes that with her knee surgery she required CPR however no additional workup has been performed and apparently was told this can happen frequently with anesthesia. She did see a disability hearing officer and has had a number of stress test which were all normal per patient and therefore stop seen disability hearing officer. She states she has never had a heart catheterization. She normally can walk around [facility] without stopping and denies any chest pain, pressure, shortness breath. She does have some atypical chest pain worse with movement since a fall a few months ago however only occurring with positioning. 10/29/2022 Cardiology was reconsulted to evaluate patient secondary to episode of chest discomfort yesterday. Patient examined this morning at the bedside. Patient states she did not have chest pain yesterday evening. She states that she had some burning in her chest like heartburn. She states that the burning went up into her throat. She also reports having some irritation from her NG tube. She denied having any chest pain or pressure this morning. She denies any shortness of breath. Echocardiogram performed during this admission revealed ejection fr action 55% without significant valvular disease. PHYSICAL EXAM: VITAL SIGNS: Reviewed. GENERAL: Well-developed in no acute distress. NG tube noted. NECK: Supple. No JVD or thyromegaly LUNGS: Respirations even and unlabored. Lungs essentially clear to auscultation bilaterally. HEART: Regular rate and rhythm. S1 and S2 heard. EXTREMITIES: Normal range of motion. No clubbing or cyanosis. Peripheral pulses intact. No lower extremity edema ASSESSMENT: Acute diverticulitis with abscess formation, status post bowel resection and colostomy formation and drainage of abscess Postoperative ileus Chest pain, atypical, troponin negative Hypertension Diabetes Family history of CAD Documentation of [place], patient denies PLAN: Patients chest discomfort appears to be more GI related and irritation from her NG tube. Obtain EKG Troponin obtained and unremarkable If EKG does not reveal any ischemic changes, we will sign off and patient can follow up in the office post discharge Nurse practitioner note has been reviewed by physician. Signing provider agrees with the documented findings, assessment, and plan of care. Objective - Vital Signs Vital signs: Vital Signs Temp 98.6 F 10/29/22 06:53 Pulse 73 10/29/22 08:27 Resp 18 10/29/22 06:53 BP 144/81 10/29/22 06:53 Pulse Ox 96 10/29/22 08:27 FiO2 Intake & Output 10/28/22 10/29/22 10/29/22 18:59 06:59 18:59 Intake Total 1000 Output Total 135 9000 15 Balance 865 -9000 -15 Intake: Intake, IV Titration 1000 Amount Amino Acid 5%-D20w+Lytes* 1000 E* 1,000 ml @ 90 mls/hr IV .BY DURATION [facility] Rx#: [id number] Output: Gastric Drainage 75 Drainage 60 15 Left 42 7 Left Lower Abdomen 18 8 Urine 9000 Uretheral (Maria) 3000 Other: Voiding Method Indwelling Catheter Indwelling Catheter - Labs CBC & Chem 7: 10/29/22 06:24 10/29/22 06:24 Labs: Abnormal Lab Results - Last 24 Hours (Table) 10/28/22 10/28/22 10/28/22 Range/Units 07:28 12:38 14:38 D-Dimer 5.01 H (<0.60) mg/L FEU Chloride (98-107) mmol/L Carbon Dioxide (22-30) mmol/L Glucose (74-99) mg/dL POC Glucose (mg/dL) 244 H (70-110) mg/dL Calcium (8.4-10.2) mg/dL Total Protein (6.3-8.2) g/dL Albumin (3.5-5.0) g/dL Triglycerides 151.00 H (0.00-149.00) mg/dL 10/28/22 10/28/22 10/29/22 Range/Units 17:52 23:55 06:14 D-Dimer (<0.60) mg/L FEU Chloride (98-107) mmol/L Carbon Dioxide (22-30) mmol/L Glucose (74-99) mg/dL POC Glucose (mg/dL) 215 H 213 H 251 H (70-110) mg/dL Calcium (8.4-10.2) mg/dL Total Protein (6.3-8.2) g/dL Albumin (3.5-5.0) g/dL Triglycerides (0.00-149.00) mg/dL 10/29/22 Range/Units 06:24 D-Dimer (<0.60) mg/L FEU Chloride 96 L (98-107) mmol/L Carbon Dioxide 38 H (22-30) mmol/L Glucose 241 H (74-99) mg/dL POC Glucose (mg/dL) (70-110) mg/dL Calcium 7.8 L (8.4-10.2) mg/dL Total Protein 5.4 L (6.3-8.2) g/dL Albumin 2.3 L (3.5-5.0) g/dL Triglycerides (0.00-149.00) mg/dL
--- NOTE | 2022-10-29 11:54 | XR ---
EXAMINATION TYPE: XR abdomen 1V DATE OF EXAM: 10/29/2022 COMPARISON: NONE HISTORY: NG tube placement TECHNIQUE: One view abdominal series FINDINGS: The osseous structures are intact. The bowel gas pattern is nonspecific. Bibasilar subsegmental cons olidation with tiny effusions. The heart appears mildly enlarged.. An NG tube is seen with tip exten ding in the abdomen likely within the tip at the level of gastric fundus junction and could be advanc ed. Contrast within the colon suspected. Portions of the left-sided central line are seen in the fiel d-of-view. IMPRESSION: 1. NG tube is seen with the tip at the level of the gastric fundus or GE junction. Recommend advancem ent by 3 to 4 cm.. 2. Bilateral lower lobe infiltrate and small effusion.
[2022-10-29 12:34] LABS: Glucose,Whole Blood 216 mg/dL (70-110)
--- NOTE | 2022-10-29 12:56 | P.CNPUL ---
History of Present Illness Consult date: 10/29/22 Reason for consult: dyspnea, chest pain, hypoxemia Chief complaint: Chest pain History of present illness: 67-year-old female who is postoperative colectomy with end colostomy and small bowel resection. Patient is postoperative day # 8. Patient also had drainage of abdominal abscess with culture showing E. coli and Klebsiella. Patient remains on IV antibiotics with infectious disease on closely. Patient is currently nothing by mouth and has NG tube in place to intermittent suction. Patient has been on 2 L oxygen nasal cannula 24 7 with a deep breathing sense incentive spirometry to bedside, Patient does report feeling bloated. She is making minimal stool per the ostomy. Due to hyperglycemia and uncontrolled diabetes patient has been on Accu-Cheks as well as the long and short acting insulin. Patient remains on TPN and lipids. 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 Chest x-ray NG tube within lower esophagus and left basilar atelectasis recommended to advance the NG tube computed tomography scan of the chest negative for pulmonary embolism, right lower lobe subsegmental atelectasis present likely compressive atelectasis due to mild to moderate pleural effusion Review of Systems All systems: negative Past Medical History Past Medical History: Diabetes Mellitus, Hypertension, Myocardial Infarction ([place]) Last Myocardial Infarction Date:: 11/19/2007 History of Any Multi-Drug Resistant Organisms: None Reported Past Surgical History: Orthopedic Surgery, Tubal Ligation Additional Past Surgical History / Comment(s): bilateral knee replacement Past Psychological History: Anxiety Smoking Status: Former smoker Past Alcohol Use History: None Reported Past Drug Use History: None Reported Medications and Allergies Home Medications Medication Instructions Recorded Confirmed Type Acetaminophen Tab [Tylenol Tab] 500 mg PO Q6H PRN 10/16/22 10/16/22 History Insulin Glargine,Hum.rec.anlog 35 units SQ BID 10/16/22 10/16/22 History [Lantus Solostar Pen] Insulin Lispro [humaLOG Kwikpen] See Protocol SQ ACHS PRN 10/16/22 10/16/22 History lisinopriL [Zestril] 5 mg PO DAILY 10/16/22 10/16/22 History Allergies Allergy/AdvReac Type Severity Reaction Status Date / Time codeine Allergy Unknown Verified 10/16/22 23:21 Latex, Natural Rubber Allergy Swelling Verified 10/17/22 00:29 morphine Allergy Nausea & Verified 10/17/22 00:30 Vomiting sulfamethoxazole Allergy Nausea & Verified 10/17/22 00:29 [From Bactrim] Vomiting trimethoprim [From Bactrim] Allergy Nausea & Verified 10/17/22 00:29 Vomiting Physical Exam Vitals: Vital Signs Temp Pulse Pulse Pulse Resp BP Pulse Ox 10/29/22 11:56 75 10/29/22 11:46 74 10/29/22 08:38 76 10/29/22 08:27 73 96 10/29/22 06:53 98.6 F 81 18 144/81 96 10/29/22 02:00 98.3 F 83 104/68 97 10/28/22 20:03 88 10/28/22 19:52 84 10/28/22 19:45 98.6 F 80 18 159/78 100 10/28/22 15:55 84 10/28/22 15:45 80 97 10/28/22 13:05 97 10/28/22 13:04 98.6 F 75 18 145/79 97 Intake and Output 10/28/22 10/29/22 10/29/22 22:59 06:59 14:59 Intake Total 1011 Output Total 6135 3000 715 Balance -5123 -3000 712 Intake: Intake, IV Titration 1011 Amount Mvi, Adult No.4 with Vit 1011 K 10 ml Trace (Conc-1Ml/ Dose) 1 ml In Amino Acid 5%-D20w+Lytes*E* 1,000 ml @ 90 mls/hr IV .BY DURATION [facility] Rx#: [id number] Output: Gastric Drainage 75 Drainage 60 15 Left 42 7 Left Lower Abdomen 18 8 Urine 6000 3000 700 Uretheral (Maria) 3000 Other: Voiding Method Indwelling Catheter Indwelling Catheter - Constitutional General appearance: mild distress, morbidly obese - EENT Eyes: EOMI, PERRLA Ears: bilateral: normal - Neck Carotids: bilateral: upstroke normal - Respiratory Respiratory: right: diminished - Cardiovascular Rhythm: regular Heart sounds: normal: S1, S2 - Gastrointestinal General gastrointestinal: decreased bowel sounds - Integumentary Integumentary: normal turgor - Neurologic Neurologic: CNII-XII intact - Musculoskeletal Musculoskeletal: gait normal, generalized weakness, strength equal bilaterally - Psychiatric Psychiatric: A&O x's 3, appropriate affect, intact judgment & insight Results - Laboratory Findings CBC and BMP: 10/29/22 06:24 10/29/22 06:24 PT/INR, D-dimer D-Dimer 5.01 mg/L FEU (<0.60) H 10/28/22 14:38 Abnormal lab findings: Abnormal Labs 10/17/22 10/17/22 10/17/22 06:06 06:06 06:06 WBC 14.46 H RBC 4.03 L Hgb 10.6 L Hct 35.2 L MCH 26.3 L MCHC 30.1 L RDW 15.3 H MPV 9.0 L Neutrophils # 12.06 H Lymphocytes # Monocytes # 1.20 H D-Dimer Sodium Chloride Carbon Dioxide Anion Gap 13.80 H BUN 7.5 L Creatinine BUN/Creatinine Ratio 10.71 L Glucose 147 H POC Glucose (mg/dL) Hemoglobin A1c 7.9 H Calcium Phosphorus AST Alkaline Phosphatase 137 H Total Protein Albumin 3.1 L Globulin 3.4 H Albumin/Globulin Ratio 0.91 L Triglycerides HDL Cholesterol 10/17/22 10/17/22 10/17/22 08:05 12:44 17:18 WBC RBC Hgb Hct MCH MCHC RDW MPV Neutrophils # Lymphocytes # Monocytes # D-Dimer Sodium Chloride Carbon Dioxide Anion Gap BUN Creatinine BUN/Creatinine Ratio Glucose POC Glucose (mg/dL) 140 H 162 H 141 H Hemoglobin A1c Calcium Phosphorus AST Alkaline Phosphatase Total Protein Albumin Globulin Albumin/Globulin Ratio Triglycerides HDL Cholesterol 10/17/22 10/18/22 10/18/22 20:04 05:32 05:32 WBC 10.02 H RBC 3.94 L Hgb 10.6 L Hct 34.6 L MCH 26.9 L MCHC 30.6 L RDW 15.5 H MPV 8.8 L Neutrophils # 8.48 H Lymphocytes # 0.68 L Monocytes # D-Dimer Sodium Chloride Carbon Dioxide 21.5 L Anion Gap 15.50 H BUN 8.3 L Creatinine BUN/Creatinine Ratio 10.38 L Glucose 199 H POC Glucose (mg/dL) 182 H Hemoglobin A1c Calcium 8.6 L Phosphorus AST Alkaline Phosphatase Total Protein Albumin 3.1 L Globulin 3.5 H Albumin/Globulin Ratio 0.89 L Triglycerides HDL Cholesterol 10/18/22 10/18/22 10/18/22 07:07 12:17 17:07 WBC RBC Hgb Hct MCH MCHC RDW MPV Neutrophils # Lymphocytes # Monocytes # D-Dimer Sodium Chloride Carbon Dioxide Anion Gap BUN Creatinine BUN/Creatinine Ratio Glucose POC Glucose (mg/dL) 200 H 181 H 176 H Hemoglobin A1c Calcium Phosphorus AST Alkaline Phosphatase Total Protein Albumin Globulin Albumin/Globulin Ratio Triglycerides HDL Cholesterol 10/18/22 10/19/22 10/19/22 20:11 05:48 05:48 WBC RBC 3.50 L Hgb 9.4 L Hct 31.3 L MCH 26.9 L MCHC 30.0 L RDW 15.5 H MPV 8.6 L Neutrophils # Lymphocytes # 0.72 L Monocytes # D-Dimer Sodium Chloride Carbon Dioxide Anion Gap BUN 8.3 L Creatinine BUN/Creatinine Ratio 11.86 L Glucose 151 H POC Glucose (mg/dL) 171 H Hemoglobin A1c Calcium 8.2 L Phosphorus AST 10 L Alkaline Phosphatase Total Protein 5.8 L Albumin 2.8 L Globulin Albumin/Globulin Ratio 0.93 L Triglycerides HDL Cholesterol 10/19/22 10/19/22 10/19/22 05:48 07:23 13:09 WBC RBC Hgb Hct MCH MCHC RDW MPV Neutrophils # Lymphocytes # Monocytes # D-Dimer Sodium Chloride Carbon Dioxide Anion Gap BUN Creatinine BUN/Creatinine Ratio Glucose POC Glucose (mg/dL) 146 H 181 H Hemoglobin A1c Calcium Phosphorus AST Alkaline Phosphatase Total Protein Albumin Globulin Albumin/Globulin Ratio Triglycerides HDL Cholesterol 27.00 L 10/19/22 10/19/22 10/20/22 17:29 19:50 12:14 WBC RBC Hgb Hct MCH MCHC RDW MPV Neutrophils # Lymphocytes # Monocytes # D-Dimer Sodium Chloride Carbon Dioxide Anion Gap BUN Creatinine BUN/Creatinine Ratio Glucose POC Glucose (mg/dL) 145 H 152 H 203 H Hemoglobin A1c Calcium Phosphorus AST Alkaline Phosphatase Total Protein Albumin Globulin Albumin/Globulin Ratio Triglycerides HDL Cholesterol 10/20/22 10/20/22 10/20/22 12:44 17:33 20:33 WBC RBC Hgb Hct MCH MCHC RDW MPV Neutrophils # Lymphocytes # Monocytes # D-Dimer Sodium Chloride Carbon Dioxide Anion Gap BUN Creatinine BUN/Creatinine Ratio Glucose POC Glucose (mg/dL) 225 H 195 H 218 H Hemoglobin A1c Calcium Phosphorus AST Alkaline Phosphatase Total Protein Albumin Globulin Albumin/Globulin Ratio Triglycerides HDL Cholesterol 10/21/22 10/21/22 10/21/22 07:02 11:45 15:13 WBC 11.1 H RBC 3.52 L Hgb 9.8 L Hct 31.8 L MCH MCHC 30.8 L RDW 15.7 H MPV Neutrophils # 9.2 H Lymphocytes # Monocytes # D-Dimer Sodium Chloride Carbon Dioxide Anion Gap BUN Creatinine BUN/Creatinine Ratio Glucose POC Glucose (mg/dL) 188 H 204 H Hemoglobin A1c Calcium Phosphorus AST Alkaline Phosphatase Total Protein Albumin Globulin Albumin/Globulin Ratio Triglycerides HDL Cholesterol 10/21/22 10/21/22 10/21/22 15:13 17:06 20:05 WBC RBC Hgb Hct MCH MCHC RDW MPV Neutrophils # Lymphocytes # Monocytes # D-Dimer Sodium Chloride 110 H Carbon Dioxide Anion Gap BUN Creatinine BUN/Creatinine Ratio Glucose 200 H POC Glucose (mg/dL) 197 H 186 H Hemoglobin A1c Calcium 7.3 L Phosphorus AST Alkaline Phosphatase Total Protein Albumin Globulin Albumin/Globulin Ratio Triglycerides HDL Cholesterol 10/22/22 10/22/22 10/22/22 04:55 04:55 04:55 WBC RBC 3.16 L Hgb 8.5 L Hct 29.0 L MCH 26.9 L MCHC 29.3 L RDW 15.9 H MPV 9.1 L Neutrophils # Lymphocytes # Monocytes # D-Dimer Sodium 147 H Chloride 114 H Carbon Dioxide 19.5 L Anion Gap 13.50 H BUN 8.2 L Creatinine BUN/Creatinine Ratio Glucose 178 H POC Glucose (mg/dL) Hemoglobin A1c Calcium 7.6 L Phosphorus 1.6 L AST Alkaline Phosphatase Total Protein Albumin Globulin Albumin/Globulin Ratio Triglycerides HDL Cholesterol 10/22/22 10/22/22 10/22/22 07:07 11:58 17:19 WBC RBC Hgb Hct MCH MCHC RDW MPV Neutrophils # Lymphocytes # Monocytes # D-Dimer Sodium Chloride Carbon Dioxide Anion Gap BUN Creatinine BUN/Creatinine Ratio Glucose POC Glucose (mg/dL) 173 H 160 H 171 H Hemoglobin A1c Calcium Phosphorus AST Alkaline Phosphatase Total Protein Albumin Globulin Albumin/Globulin Ratio Triglycerides HDL Cholesterol 10/22/22 10/23/22 10/23/22 20:33 06:54 07:17 WBC RBC Hgb Hct MCH MCHC RDW MPV Neutrophils # Lymphocytes # Monocytes # D-Dimer Sodium Chloride 116 H Carbon Dioxide 19 L Anion Gap BUN Creatinine BUN/Creatinine Ratio Glucose 164 H POC Glucose (mg/dL) 205 H 187 H Hemoglobin A1c Calcium 7.3 L Phosphorus AST Alkaline Phosphatase Total Protein 5.0 L Albumin 2.1 L Globulin Albumin/Globulin Ratio Triglycerides HDL Cholesterol 10/23/22 10/23/22 10/24/22 12:13 17:36 00:17 WBC RBC Hgb Hct MCH MCHC RDW MPV Neutrophils # Lymphocytes # Monocytes # D-Dimer Sodium Chloride Carbon Dioxide Anion Gap BUN Creatinine BUN/Creatinine Ratio Glucose POC Glucose (mg/dL) 180 H 245 H 279 H Hemoglobin A1c Calcium Phosphorus AST Alkaline Phosphatase Total Protein Albumin Globulin Albumin/Globulin Ratio Triglycerides HDL Cholesterol 10/24/22 10/24/22 10/24/22 05:48 06:02 11:54 WBC RBC Hgb Hct MCH MCHC RDW MPV Neutrophils # Lymphocytes # Monocytes # D-Dimer Sodium Chloride 115 H Carbon Dioxide Anion Gap BUN Creatinine BUN/Creatinine Ratio Glucose 263 H POC Glucose (mg/dL) 268 H 291 H Hemoglobin A1c Calcium 7.3 L Phosphorus AST Alkaline Phosphatase Total Protein Albumin Globulin Albumin/Globulin Ratio Triglycerides HDL Cholesterol 10/24/22 10/24/22 10/25/22 17:36 23:47 03:37 WBC RBC Hgb Hct MCH MCHC RDW MPV Neutrophils # Lymphocytes # Monocytes # D-Dimer Sodium Chloride 111 H Carbon Dioxide Anion Gap BUN 5 L Creatinine 0.50 L BUN/Creatinine Ratio Glucose 291 H POC Glucose (mg/dL) 323 H 218 H Hemoglobin A1c Calcium 7.3 L Phosphorus AST Alkaline Phosphatase Total Protein Albumin Globulin Albumin/Globulin Ratio Triglycerides HDL Cholesterol 10/25/22 10/25/22 10/25/22 03:37 05:58 11:57 WBC RBC 3.02 L Hgb 8.3 L D Hct 27.4 L MCH MCHC 30.4 L RDW 16.1 H MPV Neutrophils # Lymphocytes # Monocytes # D-Dimer Sodium Chloride Carbon Dioxide Anion Gap BUN Creatinine BUN/Creatinine Ratio Glucose POC Glucose (mg/dL) 344 H 352 H Hemoglobin A1c Calcium Phosphorus AST Alkaline Phosphatase Total Protein Albumin Globulin Albumin/Globulin Ratio Triglycerides HDL Cholesterol 10/25/22 10/26/22 10/26/22 17:17 00:09 06:03 WBC RBC Hgb Hct MCH MCHC RDW MPV Neutrophils # Lymphocytes # Monocytes # D-Dimer Sodium Chloride Carbon Dioxide Anion Gap BUN Creatinine BUN/Creatinine Ratio Glucose POC Glucose (mg/dL) 293 H 368 H 366 H Hemoglobin A1c Calcium Phosphorus AST Alkaline Phosphatase Total Protein Albumin Globulin Albumin/Globulin Ratio Triglycerides HDL Cholesterol 10/26/22 10/26/22 10/26/22 06:23 12:39 17:33 WBC RBC Hgb Hct MCH MCHC RDW MPV Neutrophils # Lymphocytes # Monocytes # D-Dimer Sodium Chloride 108 H Carbon Dioxide Anion Gap BUN Creatinine 0.50 L BUN/Creatinine Ratio Glucose 362 H POC Glucose (mg/dL) 350 H 329 H Hemoglobin A1c Calcium 7.6 L Phosphorus AST Alkaline Phosphatase Total Protein Albumin Globulin Albumin/Globulin Ratio Triglycerides HDL Cholesterol 10/27/22 10/27/22 10/27/22 00:11 06:01 06:45 WBC RBC 3.17 L Hgb 8.4 L Hct 29.1 L MCH 26.5 L MCHC 28.9 L RDW 16.2 H MPV Neutrophils # Lymphocytes # Monocytes # D-Dimer Sodium Chloride Carbon Dioxide Anion Gap BUN Creatinine BUN/Creatinine Ratio Glucose POC Glucose (mg/dL) 322 H 309 H Hemoglobin A1c Calcium Phosphorus AST Alkaline Phosphatase Total Protein Albumin Globulin Albumin/Globulin Ratio Triglycerides HDL Cholesterol 10/27/22 10/27/22 10/27/22 06:45 12:30 17:10 WBC RBC Hgb Hct MCH MCHC RDW MPV Neutrophils # Lymphocytes # Monocytes # D-Dimer Sodium Chloride Carbon Dioxide Anion Gap BUN Creatinine 0.5 L BUN/Creatinine Ratio Glucose 330 H POC Glucose (mg/dL) 286 H 284 H Hemoglobin A1c Calcium 7.9 L Phosphorus AST Alkaline Phosphatase Total Protein Albumin Globulin Albumin/Globulin Ratio Triglycerides HDL Cholesterol 10/27/22 10/28/22 10/28/22 23:52 05:50 07:28 WBC RBC Hgb Hct MCH MCHC RDW MPV Neutrophils # Lymphocytes # Monocytes # D-Dimer Sodium Chloride Carbon Dioxide Anion Gap BUN Creatinine BUN/Creatinine Ratio Glucose POC Glucose (mg/dL) 297 H 273 H Hemoglobin A1c Calcium Phosphorus AST Alkaline Phosphatase Total Protein Albumin Globulin Albumin/Globulin Ratio Triglycerides 151.00 H HDL Cholesterol 10/28/22 10/28/22 10/28/22 07:28 12:38 14:38 WBC RBC Hgb Hct MCH MCHC RDW MPV Neutrophils # Lymphocytes # Monocytes # D-Dimer 5.01 H Sodium Chloride Carbon Dioxide Anion Gap BUN Creatinine BUN/Creatinine Ratio Glucose 295 H POC Glucose (mg/dL) 244 H Hemoglobin A1c Calcium 7.5 L Phosphorus AST Alkaline Phosphatase Total Protein Albumin Globulin Albumin/Globulin Ratio Triglycerides HDL Cholesterol 10/28/22 10/28/22 10/29/22 17:52 23:55 06:14 WBC RBC Hgb Hct MCH MCHC RDW MPV Neutrophils # Lymphocytes # Monocytes # D-Dimer Sodium Chloride Carbon Dioxide Anion Gap BUN Creatinine BUN/Creatinine Ratio Glucose POC Glucose (mg/dL) 215 H 213 H 251 H Hemoglobin A1c Calcium Phosphorus AST Alkaline Phosphatase Total Protein Albumin Globulin Albumin/Globulin Ratio Triglycerides HDL Cholesterol 10/29/22 10/29/22 10/29/22 06:24 06:24 12:32 WBC RBC 3.20 L Hgb 8.6 L Hct 29.0 L MCH 26.9 L MCHC 29.7 L RDW 17.0 H MPV Neutrophils # Lymphocytes # Monocytes # D-Dimer Sodium Chloride 96 L Carbon Dioxide 38 H Anion Gap BUN Creatinine BUN/Creatinine Ratio Glucose 241 H POC Glucose (mg/dL) 216 H Hemoglobin A1c Calcium 7.8 L Phosphorus AST Alkaline Phosphatase Total Protein 5.4 L Albumin 2.3 L Globulin Albumin/Globulin Ratio Triglycerides HDL Cholesterol - Diagnostic Findings Chest x-ray: report reviewed, image reviewed CT scan - chest: report reviewed, image reviewed Assessment and Plan Assessment: Episode of chest pain likely related to reflux GERD symptom, patient has been on PPI Right-sided small to moderate pleural effusion with compressive atelectasis likely related to volume overload, consider gentle diuresis, continue deep breathing exercises incentive spirometry Right lower lobe atelectasis subsegmental due to compressive atelectasis, continue deep breathing sense incentive spirometry Morbid obesity and likely sleep disorder breathing and sleep apnea patient will need a polysomnogram will arrange it as outpatient 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
--- NOTE | 2022-10-29 14:45 | P.PN ---
Subjective Progress Note Date: 10/29/22 CHIEF COMPLAINT: Diverticulitis with fistula and abscess HISTORY OF PRESENT ILLNESS: Patient is postop day #9 status post Partial colectomy with end colostomy, small bowel resection, drainage of abdominal abscess, mobilization splenic flexure. Patient is sitting up at bedside chair. She reports her pain is controlled. The mom puts her NG tube. She is currently on TPN and nothing by mouth. No output through her ostomy today. Patient reports here in the ostomy bag yesterday. Patient does report having nausea. Afebrile. WBC 9.0 1H8.6 platelets 3:15 creatinine 0.59 troponin negative. Patient evaluated by cardiology for chest pain and also seen by pulmonary service. Abdominal x-ray NG tube seen at the tip of the gastric fundus her GE junction and has been advanced by nursing staff 5 cm. PHYSICAL EXAM: VITAL SIGNS: Reviewed GENERAL: Well-developed in no acute distress. ABDOMEN: Soft. Nondistended. Incisional dressing with a small area of drainage noted distally. Ostomy with no stool function. Yellowish liquid noted in ostomy bag. Stoma is pink. ASSESSMENT: 1. Abdominal abscess with small bowel obstruction, suspected diverticulitis PLAN: -Continue NG tube for decompression -Keep patient nothing by mouth except for popsicles -Continue antibiotics -Increase activity level -Incentive spirometer ordered -Continue pain management -Continue TPN for nutrition support -DVT prophylaxis Lovenox and GI prophylaxis Protonix Physician Conditioner Tender note has been reviewed by physician. Signing provider agrees with the documented findings, assessment, and plan of care. I have personally seen and examined the patient, reviewed the WHITE SIDEWALL TIRE BUFFER /PAs history, exam and MDM and agree with the assessment and plan as written. Based on total visit time, I have performed more than 50% of the visit. As above: Patient appears clinically improved. She has less discomfort. Abdomen exam is benign. Still with minimal flatus or ostomy. We'll order CT abdomen for tomorrow. Objective - Vital Signs Vital signs: Vital Signs Temp 98.6 F 10/29/22 06:53 Pulse 75 10/29/22 11:56 Resp 18 10/29/22 06:53 BP 144/81 10/29/22 06:53 Pulse Ox 96 10/29/22 08:27 FiO2 Intake & Output 10/28/22 10/29/22 10/29/22 18:59 06:59 18:59 Intake Total 1000 1011 Output Total 135 9000 715 Balance 413 -8337 -765 Intake: Intake, IV Titration 1000 1011 Amount Amino Acid 5%-D20w+Lytes* 1000 E* 1,000 ml @ 90 mls/hr IV .BY DURATION [facility] Rx#: [id number] Mvi, Adult No.4 with Vit 1011 K 10 ml Trace (Conc-1Ml/ Dose) 1 ml In Amino Acid 5%-D20w+Lytes*E* 1,000 ml @ 90 mls/hr IV .BY DURATION [facility] Rx#: [id number] Output: Gastric Drainage 75 Drainage 60 15 Left 42 7 Left Lower Abdomen 18 8 Urine 9000 700 Uretheral (Maria) 3000 Other: Voiding Method Indwelling Catheter Indwelling Catheter Indwelling Catheter - Labs CBC & Chem 7: 10/29/22 06:24 10/29/22 06:24 Labs: Abnormal Lab Results - Last 24 Hours (Table) 10/28/22 10/28/22 10/28/22 Range/Units 14:38 17:52 23:55 RBC (4.10-5.20) X 10*6/uL Hgb (12.0-15.0) d/dL Hct (37.2-46.3) % MCH (27.0-32.0) pg MCHC (32.0-37.0) d/dL RDW (11.5-14.5) % D-Dimer 5.01 H (<0.60) mg/L FEU Chloride (98-107) mmol/L Carbon Dioxide (22-30) mmol/L Glucose (74-99) mg/dL POC Glucose (mg/dL) 215 H 213 H (70-110) mg/dL Calcium (8.4-10.2) mg/dL Total Protein (6.3-8.2) g/dL Albumin (3.5-5.0) g/dL 10/29/22 10/29/22 10/29/22 Range/Units 06:14 06:24 06:24 RBC 3.20 L (4.10-5.20) X 10*6/uL Hgb 8.6 L (12.0-15.0) d/dL Hct 29.0 L (37.2-46.3) % MCH 26.9 L (27.0-32.0) pg MCHC 29.7 L (32.0-37.0) d/dL RDW 17.0 H (11.5-14.5) % D-Dimer (<0.60) mg/L FEU Chloride 96 L (98-107) mmol/L Carbon Dioxide 38 H (22-30) mmol/L Glucose 241 H (74-99) mg/dL POC Glucose (mg/dL) 251 H (70-110) mg/dL Calcium 7.8 L (8.4-10.2) mg/dL Total Protein 5.4 L (6.3-8.2) g/dL Albumin 2.3 L (3.5-5.0) g/dL 10/29/22 Range/Units 12:32 RBC (4.10-5.20) X 10*6/uL Hgb (12.0-15.0) d/dL Hct (37.2-46.3) % MCH (27.0-32.0) pg MCHC (32.0-37.0) d/dL RDW (11.5-14.5) % D-Dimer (<0.60) mg/L FEU Chloride (98-107) mmol/L Carbon Dioxide (22-30) mmol/L Glucose (74-99) mg/dL POC Glucose (mg/dL) 216 H (70-110) mg/dL Calcium (8.4-10.2) mg/dL Total Protein (6.3-8.2) g/dL Albumin (3.5-5.0) g/dL
[2022-10-29 17:09] LABS: Glucose,Whole Blood 213 mg/dL (70-110)
[2022-10-29] MEDS: lisinopriL 5 MG TAB PO SCH (20:27)
[2022-10-30] MEDS: INSULIN ASPART (NovoLOG) 100 UNIT/ML VIAL SQ SCH ×10 (00:03→23:53)
[2022-10-30] MEDS: PIPERACILLIN-TAZOBACTAM 3.375 GM in SODIUM CHLORIDE 0.9% 100 ML IVPB SCH ×4 (00:03→23:53)
[2022-10-30 00:07] LABS: Glucose,Whole Blood 171 mg/dL (70-110)
[2022-10-30 05:24] LABS: Glucose,Whole Blood 201 mg/dL (70-110)
[2022-10-30] MEDS: ENOXAPARIN 40 MG/0.4 ML SYRINGE SQ SCH (05:29)
[2022-10-30 06:27] LABS: ALT 19 U/L (4-34); AST 21 U/L (14-36); African American GFR (CKD) >90 (>60 ml/min/1.73 sqM); Albumin 2.3 g/dL (3.5-5.0); Albumin/Globulin Ratio 0.7; Alkaline Phosphatase 104 U/L (38-126); Anion Gap 2 mmol/L; Blood Urea Nitrogen 14 mg/dL (7-17); Calcium 7.9 mg/dL (8.4-10.2); Carbon Dioxide 36 mmol/L (22-30); Chloride 97 mmol/L (98-107); Globulin 3.2 g/dL; Glucose 203 mg/dL (74-99); Magnesium 1.9 mg/dL (1.6-2.3); Non-African American GFR(CKD) >90 (>60 ml/min/1.73 sqM); Phosphorus 4.2 mg/dL (2.5-4.5); Potassium 4.1 mmol/L (3.5-5.1); Sodium 135 mmol/L (137-145); Total Bilirubin 0.6 mg/dL (0.2-1.3); Total Protein 5.5 g/dL (6.3-8.2)
[2022-10-30] MEDS: IPRATROPIUM-ALBUTEROL 3 ML NEB INHALATION SCH ×4 (09:01→20:03)
[2022-10-30] MEDS: BUDESONIDE 0.5 MG/2 ML NEBU INHALATION SCH ×2 (09:01→20:03)
[2022-10-30] MEDS: atenoloL 25 MG TAB PO SCH ×2 (09:23→20:53)
[2022-10-30] MEDS: INSULIN DETEMIR (LEVEMIR) 100 UNIT/ML SYR SQ SCH ×2 (09:25→20:53)
[2022-10-30] MEDS: LOSARTAN-HCTZ 50-12.5 MG 1 EACH TAB PO SCH (09:26)
[2022-10-30] MEDS: 1: MVI, ADULT NO.4 WITH VIT K 10 ML, TRACE (CONC-1ML/DOSE) 1 ML, SODIUM CHLORIDE 4MEQ/ML IV SCH ×8 (09:29→21:28)
[2022-10-30] MEDS: 1: MVI, ADULT NO.4 WITH VIT K 10 ML, TRACE (CONC-1ML/DOSE) 1 ML in AMINO ACID 5%-D20W+LY IV SCH ×3 (09:35)
[2022-10-30] MEDS: PANTOPRAZOLE 40 MG/10 ML VIAL IVP SCH ×2 (09:39→20:52)
[2022-10-30] MEDS: IOPAMIDOL CONTRAST (ORAL USE) VIAL PO PRN ×2 (10:20→11:24)
[2022-10-30 11:52] LABS: Magnesium 1.9 mg/dL (1.5-2.4); Phosphorus 2.6 mg/dL (2.4-5.1)
[2022-10-30 12:03] LABS: Glucose,Whole Blood 222 mg/dL (70-110)
--- NOTE | 2022-10-30 12:32 | CT ---
EXAMINATION TYPE: CT abdomen pelvis w con CT DLP: 2539 mGycm, Automated exposure control for dose reduction was used. DATE OF EXAM: 10/30/2022 12:17 PM COMPARISON: Abdominal radiograph 10/29/2022 CLINICAL INDICATION:Female, 67 years old with history of Postoperative ileus; Post operative ileus. TECHNIQUE: Standard CT of the abdomen and pelvis following the administration of 100 cc of Isovue 3 00 IV contrast material and oral contrast. Coronal and sagittal reformats were performed. FINDINGS: LOWER CHEST: Small bilateral pleural effusions with associated atelectasis. ABDOMEN LIVER: Unremarkable GALLBLADDER AND BILE DUCTS: Unremarkable. PANCREAS: Unremarkable. SPLEEN: Unremarkable. ADRENAL GLANDS: Unremarkable. KIDNEYS AND URETERS: No evidence of hydronephrosis or renal calculus. The kidneys enhance symmetrical ly. PELVIS BLADDER: Nondistended with Maria catheter in place. Nondependent focus of gas likely from catheter pl acement. REPRODUCTIVE: Unremarkable. ABDOMEN & PELVIS STOMACH AND BOWEL: NG tube terminates in the stomach. No bowel dilatation. Enteric contrast reaches t he left lower quadrant ostomy. Residual contrast demonstrated within the sigmoid:. No contrast extrav asation identified. Anastomosis identified within the mid abdomen. No evidence of bowel obstruction. PERITONEUM: No evidence of pneumoperitoneum. Trace free fluid in the mesentery. No organized fluid co llection. VASCULATURE: Mild atherosclerotic calcifications are present throughout the abdominal aorta and its b ranches. No evidence of aortic aneurysm. MUSCULOSKELETAL: No acute osseous abnormalities. Mild disc degeneration changes are present throughou t the thoracolumbar spine. LYMPH NODES: No gross evidence for lymphadenopathy. SOFT TISSUE/ABDOMINAL WALL: Post surgical changes of the anterior abdominal wall with skin will an d a surgical drain identified within the soft tissues of the anterior abdominal wall. No organized fl uid collection. Additional left lower quadrant anterior approach surgical drain identified with tip t erminating in the left lower quadrant with some surrounding fat stranding identified. IMPRESSION: 1. Postsurgical changes of the bowel without evidence for contrast extravasation to suggest leak or dilatation to suggest ileus or obstruction. 2. Small bilateral pleural effusions with associated atelectasis.
[2022-10-30] MEDS: SODIUM CHLORIDE 0.9% 1,000 ML IV SCH (12:37)
--- NOTE | 2022-10-30 15:00 | P.PN ---
Subjective Progress Note Date: 10/30/22 CHIEF COMPLAINT: Diverticulitis with fistula and abscess HISTORY OF PRESENT ILLNESS: Patient is postop day #10 status post Partial colectomy with end colostomy, small bowel resection, drainage of abdominal abscess, mobilization splenic flexure. Patient reports her pain is controlled. No stool output through her ostomy. She occasionally has air noted in the bag per patient. She denies any nausea vomiting. NG tube with torn 25 mL output. She had computed tomography scan of the abdomen today shows postsurgical changes of bowel without evidence for contrast extravasation to suggest leak or dilata tion to suggest ileus or obstruction. Small bilateral pleural effusions with associated atelectasis. Afebrile. PHYSICAL EXAM: VITAL SIGNS: Reviewed GENERAL: Well-developed in no acute distress. ABDOMEN: Soft. Nondistended. Incisional dressing with a small area of drainage noted distally. Ostomy with no stool function. Yellowish liquid noted in ostomy bag. Stoma is pink. ASSESSMENT: 1. Abdominal abscess with small bowel obstruction, suspected diverticulitis PLAN: -Continue NG tube for decompression -Keep patient nothing by mouth except for popsicles -Continue antibiotics -Increase activity level -Incentive spirometer ordered -Continue pain management -Continue TPN for nutrition support -DVT prophylaxis Lovenox and GI prophylaxis Protonix Physician Electronic Court Recorder note has been reviewed by physician. Signing provider agrees with the documented findings, assessment, and plan of care. I have personally seen and examined the patient, reviewed the DISTRIBUTED ENERGY SYSTEMS CONSULTANT /PAs history, exam and MDM and agree with the assessment and plan as written. Based on total visit time, I have performed more than 50% of the visit. As above: CAT scan reviewed. Contrast extends down to the ostomy. No significant output through the ostomy surprisingly. No Lloyd and bowel distention. No evidence of leak. We'll remove nasogastric tube. Ambulate. Objective - Vital Signs Vital signs: Vital Signs Temp 98.4 F 10/30/22 11:43 Pulse 79 10/30/22 11:43 Resp 18 10/30/22 11:43 BP 142/66 10/30/22 11:43 Pulse Ox 98 10/30/22 11:43 FiO2 Intake & Output 10/29/22 10/30/22 10/30/22 18:59 06:59 18:59 Intake Total 1000 1591 Output Total 1815 1355 1700 Balance -815 236 -1700 Weight 108.862 kg Intake: Intake, IV Titration 1000 1591 Amount Amino Acid 5%-D20w+Lytes* 1000 E* 1,000 ml @ 90 mls/hr IV .BY DURATION [facility] Rx#: [id number] Mvi, Adult No.4 with Vit 1011 K 10 ml Trace (Conc-1Ml/ Dose) 1 ml In Amino Acid 5%-D20w+Lytes*E* 1,000 ml @ 90 mls/hr IV .BY DURATION [facility] Rx#: [id number] Piperacillin-Tazobactam 3 100 .375 gm In Sodium Chloride 0.9% 100 ml @ 25 mls/hr IVPB Q8HR [facility] Rx# :[id number] Sodium Chloride 0.9% 1, 480 000 ml @ 40 mls/hr IV . Q24H [facility] Rx#:[id number] Output: Gastric Drainage 400 225 Drainage 15 30 Left 7 20 Left Lower Abdomen 8 10 Urine 1400 1100 1700 Stool 0 Other: Voiding Method Indwelling Catheter Indwelling Catheter Indwelling Catheter - Labs CBC & Chem 7: 10/29/22 06:24 10/30/22 05:44 Labs: Abnormal Lab Results - Last 24 Hours (Table) 10/29/22 10/29/22 10/30/22 Range/Units 17:03 23:57 05:22 Sodium (137-145) mmol/L Chloride (98-107) mmol/L Carbon Dioxide (22-30) mmol/L Glucose (74-99) mg/dL POC Glucose (mg/dL) 213 H 171 H 201 H (70-110) mg/dL Calcium (8.4-10.2) mg/dL Total Protein (6.3-8.2) g/dL Albumin (3.5-5.0) g/dL 10/30/22 10/30/22 Range/Units 05:44 11:45 Sodium 135 L (137-145) mmol/L Chloride 97 L (98-107) mmol/L Carbon Dioxide 36 H (22-30) mmol/L Glucose 203 H (74-99) mg/dL POC Glucose (mg/dL) 222 H (70-110) mg/dL Calcium 7.9 L (8.4-10.2) mg/dL Total Protein 5.5 L (6.3-8.2) g/dL Albumin 2.3 L (3.5-5.0) g/dL
[2022-10-30 17:03] LABS: Glucose,Whole Blood 165 mg/dL (70-110)
[2022-10-30] MEDS: FAT EMULSION 20% 250 ML in EMPTY BAG 1 BAG IV SCH (18:12)
--- NOTE | 2022-10-30 20:25 | PN ---
PROGRESS NOTE SUBJECTIVE: A 67-year-old white female with abdominal abscess, small bowel obstruction, status post NG tube decompression, TPN for nutrition support, ostomy. There is no stool output per ostomy. She is supposed to do a CAT scan of her abdomen today. Postsurgical changes of bowel without evidence of contrast extravasation to suggest leak or dilation to suggest ileus or obstruction. Her breathing treatments have greatly improved her breathing. She continues to improve. OBJECTIVE: CARDIOVASCULAR: S1 and S2. LUNGS: Clear. GI: Soft. She is wearing 2 L oxygen. No pneumoperitoneum on the CAT scan either. Continue current treatment. Prognosis is guarded. MMODL / IJN: [id number] /
[2022-10-30] MEDS: lisinopriL 5 MG TAB PO SCH (20:52)
[2022-10-30 23:43] LABS: Glucose,Whole Blood 248 mg/dL (70-110)
[2022-10-31] MEDS: ENOXAPARIN 40 MG/0.4 ML SYRINGE SQ SCH (05:56)
[2022-10-31] MEDS: SODIUM CHLORIDE 0.9% 1,000 ML IV SCH (05:57)
[2022-10-31] MEDS: INSULIN ASPART (NovoLOG) 100 UNIT/ML VIAL SQ SCH ×6 (05:57→18:24)
[2022-10-31 06:02] LABS: Glucose,Whole Blood 241 mg/dL (70-110)
[2022-10-31 06:50] LABS: ALT 18 U/L (4-34); AST 18 U/L (14-36); African American GFR (CKD) >90 (>60 ml/min/1.73 sqM); Albumin 2.3 g/dL (3.5-5.0); Albumin/Globulin Ratio 0.7; Alkaline Phosphatase 105 U/L (38-126); Anion Gap 3 mmol/L; Blood Urea Nitrogen 15 mg/dL (7-17); Calcium 7.9 mg/dL (8.4-10.2); Carbon Dioxide 34 mmol/L (22-30); Chloride 98 mmol/L (98-107); Globulin 3.1 g/dL; Glucose 215 mg/dL (74-99); Non-African American GFR(CKD) >90 (>60 ml/min/1.73 sqM); Potassium 4.2 mmol/L (3.5-5.1); Sodium 135 mmol/L (137-145); Total Bilirubin 0.5 mg/dL (0.2-1.3); Total Protein 5.4 g/dL (6.3-8.2)
[2022-10-31] MEDS: BUDESONIDE 0.5 MG/2 ML NEBU INHALATION SCH ×2 (07:53→18:49)
[2022-10-31] MEDS: IPRATROPIUM-ALBUTEROL 3 ML NEB INHALATION SCH ×4 (07:53→18:49)
[2022-10-31 08:45] LABS: Basophils # (A) 0.02 X 10*3/uL (0.00-0.10); Basophils % (A) 0.2 %; Eosinophils # (A) 0.27 X 10*3/uL (0.04-0.35); HCT 29.2 % (37.2-46.3); HGB 8.6 d/dL (12.0-15.0); Lymphocytes # (A) 1.08 X 10*3/uL (0.90-5.00); Lymphocytes % (A) 12.1 %; MCH 26.8 pg (27.0-32.0); MCHC 29.5 d/dL (32.0-37.0); Monocytes # (A) 0.85 X 10*3/uL (0.20-1.00); Monocytes % (A) 9.5 %; NRBC Per 100 WBC 0 X 10*3/uL (0.00-0.01); Neutrophils # (A) 6.65 X 10*3/uL (1.80-7.70); Neutrophils % (A) 74.2 %; Platelet Count 337 X 10*3/uL (140-440); RBC 3.21 X 10*6/uL (4.10-5.20); RDW 17.5 % (11.5-14.5); WBC 8.96 X 10*3/uL (4.50-10.00)
[2022-10-31] MEDS: PIPERACILLIN-TAZOBACTAM 3.375 GM in SODIUM CHLORIDE 0.9% 100 ML IVPB SCH ×2 (08:45→16:03)
[2022-10-31] MEDS: INSULIN DETEMIR (LEVEMIR) 100 UNIT/ML SYR SQ SCH ×2 (08:45→21:25)
[2022-10-31] MEDS: PANTOPRAZOLE 40 MG/10 ML VIAL IVP SCH ×2 (08:46→21:25)
[2022-10-31] MEDS: LOSARTAN-HCTZ 50-12.5 MG 1 EACH TAB PO SCH (09:06)
[2022-10-31] MEDS: atenoloL 25 MG TAB PO SCH ×2 (09:06→21:25)
[2022-10-31] MEDS: 1: MVI, ADULT NO.4 WITH VIT K 10 ML, TRACE (CONC-1ML/DOSE) 1 ML, SODIUM CHLORIDE 4MEQ/ML IV SCH ×8 (09:42→21:29)
--- NOTE | 2022-10-31 09:59 | P.PN ---
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 Her oxygen 67-year-old female who is postoperative colectomy with end colostomy and small bowel resection. Patient is postoperative day # 8. Patient also had drainage of abdominal abscess with culture showing E. coli and Klebsiella. Patient remains on IV antibiotics with infectious disease on closely. Patient is currently nothing by mouth and has NG tube in place to intermittent suction. Patient has been on 2 L oxygen nasal cannula 24 7 with a deep breathing sense incentive spirometry to bedside, Patient does report feeling bloated. She is making minimal stool per the ostomy. Due to hyperglycemia and uncontrolled diabetes patient has been on Accu-Cheks as well as the long and short acting insulin. Patient remains on TPN and lipids. 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 Chest x-ray NG tube within lower esophagus and left basilar atelectasis recommended to advance the NG tube computed tomography scan of the chest negative for pulmonary embolism, right lower lobe subsegmental atelectasis present likely compressive atelectasis due to mild to moderate pleural effusion Objective - Vital Signs Vital signs: Vital Signs Temp 98.4 F 10/30/22 11:43 Pulse 79 10/30/22 11:43 Resp 18 10/30/22 11:43 BP 142/66 10/30/22 11:43 Pulse Ox 98 10/30/22 11:43 FiO2 Intake & Output 10/29/22 10/30/22 10/30/22 18:59 06:59 18:59 Intake Total 1000 1591 Output Total 1815 1355 1700 Balance -815 236 -1700 Weight 108.862 kg Intake: Intake, IV Titration 1000 1591 Amount Amino Acid 5%-D20w+Lytes* 1000 E* 1,000 ml @ 90 mls/hr IV .BY DURATION [facility] Rx#: [id number] Mvi, Adult No.4 with Vit 1011 K 10 ml Trace (Conc-1Ml/ Dose) 1 ml In Amino Acid 5%-D20w+Lytes*E* 1,000 ml @ 90 mls/hr IV .BY DURATION [facility] Rx#: [id number] Piperacillin-Tazobactam 3 100 .375 gm In Sodium Chloride 0.9% 100 ml @ 25 mls/hr IVPB Q8HR [facility] Rx# :[id number] Sodium Chloride 0.9% 1, 480 000 ml @ 40 mls/hr IV . Q24H [facility] Rx#:[id number] Output: Gastric Drainage 400 225 Drainage 15 30 Left 7 20 Left Lower Abdomen 8 10 Urine 1400 1100 1700 Stool 0 Other: Voiding Method Indwelling Catheter Indwelling Catheter Indwelling Catheter - Exam - Constitutional General appearance: mild distress, morbidly obese - EENT Eyes: EOMI, PERRLA Ears: bilateral: normal - Neck Carotids: bilateral: upstroke normal - Respiratory Respiratory: right: diminished - Cardiovascular Rhythm: regular Heart sounds: normal: S1, S2 - Gastrointestinal General gastrointestinal: decreased bowel sounds - Integumentary Integumentary: normal turgor - Neurologic Neurologic: CNII-XII intact - Musculoskeletal Musculoskeletal: gait normal, generalized weakness, strength equal bilaterally - Psychiatric Psychiatric: A&O x's 3, appropriate affect, intact judgment & insight - Labs CBC & Chem 7: 10/31/22 05:49 10/31/22 05:49 Labs: Abnormal Lab Results - Last 24 Hours (Table) 10/29/22 10/30/22 10/30/22 Range/Units 23:57 05:22 05:44 Sodium 135 L (137-145) mmol/L Chloride 97 L (98-107) mmol/L Carbon Dioxide 36 H (22-30) mmol/L Glucose 203 H (74-99) mg/dL POC Glucose (mg/dL) 171 H 201 H (70-110) mg/dL Calcium 7.9 L (8.4-10.2) mg/dL Total Protein 5.5 L (6.3-8.2) g/dL Albumin 2.3 L (3.5-5.0) g/dL 10/30/22 10/30/22 Range/Units 11:45 17:00 Sodium (137-145) mmol/L Chloride (98-107) mmol/L Carbon Dioxide (22-30) mmol/L Glucose (74-99) mg/dL POC Glucose (mg/dL) 222 H 165 H (70-110) mg/dL Calcium (8.4-10.2) mg/dL Total Protein (6.3-8.2) g/dL Albumin (3.5-5.0) g/dL Assessment and Plan Assessment: Episode of chest pain likely related to reflux GERD symptom, patient has been on PPI Right-sided small to moderate pleural effusion with compressive atelectasis likely related to volume overload, consider gentle diuresis, continue deep breathing exercises incentive spirometry Right lower lobe atelectasis subsegmental due to compressive atelectasis, continue deep breathing sense incentive spirometry Morbid obesity and likely sleep disorder breathing and sleep apnea patient will need a polysomnogram will arrange it as outpatient 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
--- NOTE | 2022-10-31 10:01 | P.PN ---
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 10/30/2022, patient seen eval examined, labs reviewed medications reviewed, patient remains on CONSULTANT pump at 2 L oxygen however NG tube has been removed with dynamic status stable, patient however is not passing any gas remains nothing by mouth respirator status stable patient being monitor observe for a small right-sided pleural effusion and basal atelectasis likely due to volume overload we'll continue gentle diuresis 10/30/22 patient seen eval examined fistula on supplemental oxygen, patient has been on CONSULTANT pump with Dilaudid, still have no bowel sounds patient remains nothing by mouth, labs from today reviewed hemoglobin and hematocrit remained stable 8.09/27, chemistry within normal limit was however 215 him a patient is afebrile hemodynamically stable with oxygen saturation 95%. Her oxygen 67-year-old female who is postoperative colectomy with end colostomy and small bowel resection. Patient is postoperative day # 8. Patient also had drainage of abdominal abscess with culture showing E. coli and Klebsiella. Patient remains on IV antibiotics with infectious disease on closely. Patient is currently n othing by mouth and has NG tube in place to intermittent suction. Patient has been on 2 L oxygen nasal cannula 24 7 with a deep breathing sense incentive spirometry to bedside, Patient does report feeling bloated. She is making minimal stool per the ostomy. Due to hyperglycemia and uncontrolled diabetes patient has been on Accu-Cheks as well as the long and short acting insulin. Patient remains on TPN and lipids. 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 Chest x-ray NG tube within lower esophagus and left basilar atelectasis recommended to advance the NG tube computed tomography scan of the chest negative for pulmonary embolism, right lower lobe subsegmental atelectasis present likely compressive atelectasis due to mild to moderate pleural effusion Objective - Vital Signs Vital signs: Vital Signs Temp 98.4 F 10/31/22 08:20 Pulse 82 10/31/22 08:20 Resp 18 10/31/22 08:20 BP 108/65 10/31/22 08:20 Pulse Ox 97 10/31/22 08:20 FiO2 Intake & Output 10/30/22 10/31/22 10/31/22 18:59 06:59 18:59 Intake Total 1015 Output Total 2600 1800 Balance -2600 -785 Intake: Intake, IV Titration 1015 Amount Mvi, Adult No.4 with Vit 1015 K 10 ml Trace (Conc-1Ml/ Dose) 1 ml Sodium Chloride 4Meq/ml Vial 16 meq In Amino Acid 5%-D20w +Lytes*E* 1,000 ml @ 90 mls/hr IV .BY DURATION [facility] Rx#:[id number] Oral 0 Output: Gastric Drainage 300 Urine 2300 1800 Stool 0 Other: Voiding Method Indwelling Catheter Indwelling Catheter - Exam - Constitutional General appearance: mild distress, morbidly obese - EENT Eyes: EOMI, PERRLA Ears: bilateral: normal - Neck Carotids: bilateral: upstroke normal - Respiratory Respiratory: right: diminished - Cardiovascular Rhythm: regular Heart sounds: normal: S1, S2 - Gastrointestinal General gastrointestinal: decreased bowel sounds - Integumentary Integumentary: normal turgor - Neurologic Neurologic: CNII-XII intact - Musculoskeletal Musculoskeletal: gait normal, generalized weakness, strength equal bilaterally - Psychiatric Psychiatric: A&O x's 3, appropriate affect, intact judgment & insight - Labs CBC & Chem 7: 10/31/22 05:49 10/31/22 05:49 Labs: Abnormal Lab Results - Last 24 Hours (Table) 10/30/22 10/30/22 10/30/22 Range/Units 11:45 17:00 23:41 RBC (4.10-5.20) X 10*6/uL Hgb (12.0-15.0) d/dL Hct (37.2-46.3) % MCH (27.0-32.0) pg MCHC (32.0-37.0) d/dL RDW (11.5-14.5) % Sodium (137-145) mmol/L Carbon Dioxide (22-30) mmol/L Glucose (74-99) mg/dL POC Glucose (mg/dL) 222 H 165 H 248 H (70-110) mg/dL Calcium (8.4-10.2) mg/dL Total Protein (6.3-8.2) g/dL Albumin (3.5-5.0) g/dL 10/31/22 10/31/22 10/31/22 Range/Units 05:49 05:49 05:51 RBC 3.21 L (4.10-5.20) X 10*6/uL Hgb 8.6 L (12.0-15.0) d/dL Hct 29.2 L (37.2-46.3) % MCH 26.8 L (27.0-32.0) pg MCHC 29.5 L (32.0-37.0) d/dL RDW 17.5 H (11.5-14.5) % Sodium 135 L (137-145) mmol/L Carbon Dioxide 34 H (22-30) mmol/L Glucose 215 H (74-99) mg/dL POC Glucose (mg/dL) 241 H (70-110) mg/dL Calcium 7.9 L (8.4-10.2) mg/dL Total Protein 5.4 L (6.3-8.2) g/dL Albumin 2.3 L (3.5-5.0) g/dL Assessment and Plan Assessment: Episode of chest pain likely related to reflux GERD symptom, patient has been on PPI Right-sided small to moderate pleural effusion with compressive atelectasis likely related to volume overload, consider gentle diuresis, continue deep breathing exercises incentive spirometry Right lower lobe atelectasis subsegmental due to compressive atelectasis, continue deep breathing sense incentive spirometry Morbid obesity and likely sleep disorder breathing and sleep apnea patient will need a polysomnogram will arrange it as outpatient 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
[2022-10-31 11:57] LABS: Glucose,Whole Blood 199 mg/dL (70-110)
[2022-10-31] MEDS: LACTULOSE 20 GM/30 ML CUP PO SCH (13:03)
--- NOTE | 2022-10-31 15:29 | P.PN ---
Subjective Progress Note Date: 10/31/22 CHIEF COMPLAINT: Diverticulitis with fistula and abscess HISTORY OF PRESENT ILLNESS: Patient is postop day #11 status post Partial colectomy with end colostomy, small bowel resection, drainage of abdominal abscess, mobilization splenic flexure. Patient reports her pain is controlled. Still no stool output through her ostomy. She does report occasional air in the bag. She denies any nausea or vomiting. NG tube was removed yesterday. She is on TPN for nutrition support. ANNA MARIE drain minimal output serosanguineous. PHYSICAL EXAM: VITAL SIGNS: Reviewed GENERAL: Well-developed in no acute distress. ABDOMEN: Soft. Nondistended. Incisional dressing with a small area of drainage noted distally. Ostomy with no stool function. Yellowish liquid noted in ostomy bag. Stoma is pink. ASSESSMENT: 1. Abdominal abscess with small bowel obstruction, suspected diverticulitis PLAN: -Start clear liquid diet and advanced to full liquid diet in the morning -Lactulose 20 g daily ordered to help stimulate ostomy output -Continue antibiotics per ID service -Increase activity level -Incentive spirometer ordered -Continue pain management -Continue TPN for nutrition support -DVT prophylaxis Lovenox and GI prophylaxis Protonix Physician Data Entry Technician note has been reviewed by physician. Signing provider agrees with the documented findings, assessment, and plan of care. Objective - Vital Signs Vital signs: Vital Signs Temp 98.4 F 10/31/22 08:20 Pulse 76 10/31/22 11:59 Resp 18 10/31/22 08:20 BP 108/65 10/31/22 08:20 Pulse Ox 97 10/31/22 08:20 FiO2 Intake & Output 10/30/22 10/31/22 10/31/22 18:59 06:59 18:59 Intake Total 1015 Output Total 2600 1800 Balance -2600 -785 Weight 108.862 kg Intake: Intake, IV Titration 1015 Amount Mvi, Adult No.4 with Vit 1015 K 10 ml Trace (Conc-1Ml/ Dose) 1 ml Sodium Chloride 4Meq/ml Vial 16 meq In Amino Acid 5%-D20w +Lytes*E* 1,000 ml @ 90 mls/hr IV .BY DURATION [facility] Rx#:[id number] Oral 0 Output: Gastric Drainage 300 Urine 2300 1800 Stool 0 Other: Voiding Method Indwelling Catheter Indwelling Catheter Indwelling Catheter - Labs CBC & Chem 7: 10/31/22 05:49 10/31/22 05:49 Labs: Abnormal Lab Results - Last 24 Hours (Table) 10/30/22 10/30/22 10/31/22 Range/Units 17:00 23:41 05:49 RBC (4.10-5.20) X 10*6/uL Hgb (12.0-15.0) d/dL Hct (37.2-46.3) % MCH (27.0-32.0) pg MCHC (32.0-37.0) d/dL RDW (11.5-14.5) % Sodium 135 L (137-145) mmol/L Carbon Dioxide 34 H (22-30) mmol/L Glucose 215 H (74-99) mg/dL POC Glucose (mg/dL) 165 H 248 H (70-110) mg/dL Calcium 7.9 L (8.4-10.2) mg/dL Total Protein 5.4 L (6.3-8.2) g/dL Albumin 2.3 L (3.5-5.0) g/dL 10/31/22 10/31/22 10/31/22 Range/Units 05:49 05:51 11:56 RBC 3.21 L (4.10-5.20) X 10*6/uL Hgb 8.6 L (12.0-15.0) d/dL Hct 29.2 L (37.2-46.3) % MCH 26.8 L (27.0-32.0) pg MCHC 29.5 L (32.0-37.0) d/dL RDW 17.5 H (11.5-14.5) % Sodium (137-145) mmol/L Carbon Dioxide (22-30) mmol/L Glucose (74-99) mg/dL POC Glucose (mg/dL) 241 H 199 H (70-110) mg/dL Calcium (8.4-10.2) mg/dL Total Protein (6.3-8.2) g/dL Albumin (3.5-5.0) g/dL
--- NOTE | 2022-10-31 16:04 | CDI ---
Documentation Clarification Form Date: 10/31/2022 03:43:14 PM From: Zulema Murphy RN, CCDS Admit Date: 10/16/2022 10:20:00 PM Patient Name: Alannah Galloway Visit Number: [id number] Discharge Date: ATTENTION: The Clinical Documentation Specialists (CDI) and [facility] Coding Staff appreciate your assistance in clarifying documentation. Please respond to the clarification below the line at the bottom and electronically sign. The CDI & [facility] Coding staff will review the response and follow-up if needed. Please note: Queries are made part of the Legal Health Record. If you have any questions, please contact the author of this message via ITS. Dr. Aj Carroll Ileus is documented in the progress note on 10/26/2022 and patient had. Additional clarification is requested regarding the relationship, if any, that exists between the diagnosis and the procedure. Patients Admitting Diagnosis: Abdominal abscess with small bowel obstruction, suspected diverticulitis. Post-Operative Diagnosis: Same Procedure performed: Partial colectomy with end colostomy, small bowel resection, drainage of abdominal abscess, mobilization splenic flexure. History/Risk Factors: Diabetes Mellitus, Hypertension, Myocardial Infarction (RI), Former smoker Clinical Indicators: 67-year-old female transferred from outside hospital for diverticulitis, bowel fistula and intra-abdominal abscess. 10/26 surgery progress note: Still has mild nausea and does not have great ostomy output. Ileus persisting although I believe improving. 10/26 VS: 157/78 90 20 98.5 Treatment: NGT to suction today. NPO (Per surgical orders) TPN Plus IV fluids equal total of 130 MLS//HR Zofran 4 MG IVP Q 6 HRS PRN Protonix 40MG IVP BID Monitor I/O What relationship, if any, exists between the diagnosis of Ileus and the procedure: [ ] Ileus is a complication of surgical procedure. [X ] Ileus is an expected outcome of the surgical procedure. [ ] Ileus is related to patients co-morbid condition(s) of [insert co-morbid dxs] & not a complication of the procedure. [ ] Ileus has been ruled out. [ ] Other please specify ____ [ ] Unable to determine. (Template Last Revised: May 2020) MTDD
[2022-10-31 17:31] LABS: Glucose,Whole Blood 228 mg/dL (70-110)
[2022-10-31] MEDS: lisinopriL 5 MG TAB PO SCH (21:25)
[2022-10-31 23:54] LABS: Glucose,Whole Blood 219 mg/dL (70-110)
[2022-11-01] MEDS: PIPERACILLIN-TAZOBACTAM 3.375 GM in SODIUM CHLORIDE 0.9% 100 ML IVPB SCH ×4 (00:10→23:18)
[2022-11-01] MEDS: INSULIN ASPART (NovoLOG) 100 UNIT/ML VIAL SQ SCH ×10 (00:10→23:33)
[2022-11-01 06:01] LABS: Glucose,Whole Blood 204 mg/dL (70-110)
[2022-11-01] MEDS: INSULIN DETEMIR (LEVEMIR) 100 UNIT/ML SYR SQ SCH ×2 (06:23→21:50)
[2022-11-01] MEDS: ENOXAPARIN 40 MG/0.4 ML SYRINGE SQ SCH (06:24)
[2022-11-01 06:45] LABS: Ionized Calcium 4.6 mg/dL (4.5-5.3)
[2022-11-01 06:59] LABS: ALT 18 U/L (4-34); AST 20 U/L (14-36); African American GFR (CKD) >90 (>60 ml/min/1.73 sqM); Albumin 2.3 g/dL (3.5-5.0); Albumin/Globulin Ratio 0.7; Alkaline Phosphatase 105 U/L (38-126); Anion Gap 2 mmol/L; Blood Urea Nitrogen 15 mg/dL (7-17); Calcium 7.8 mg/dL (8.4-10.2); Carbon Dioxide 31 mmol/L (22-30); Chloride 102 mmol/L (98-107); Globulin 3.1 g/dL; Glucose 182 mg/dL (74-99); Magnesium 2.1 mg/dL (1.6-2.3); Non-African American GFR(CKD) >90 (>60 ml/min/1.73 sqM); Phosphorus 3.8 mg/dL (2.5-4.5); Potassium 4.4 mmol/L (3.5-5.1); Sodium 135 mmol/L (137-145); Total Bilirubin 0.5 mg/dL (0.2-1.3); Total Protein 5.4 g/dL (6.3-8.2)
[2022-11-01] MEDS: IPRATROPIUM-ALBUTEROL 3 ML NEB INHALATION SCH ×4 (08:07→20:37)
--- NOTE | 2022-11-01 08:22 | PN ---
PROGRESS NOTE SUBJECTIVE: This is a 67-year-old white female. She feels better with her breathing treatments, breathing better. She is on Lovenox. She has been given a bowel softener, she was given some clear liquids. She is on Accu-Chek protocol, low-dose Levemir, pain control, GERD precautions, IV Zosyn. She continues on fluid. OBJECTIVE: VITAL SIGNS: Blood Pressure 125/77, temp 98.6, pulse 94, respiratory rate 16 to 18, oxygen 96 On 2 L. CARDIOVASCULAR: S1, S2. LUNGS: Transmitted upper sounds. HEMATOLOGY: Negative for Homans. PSYCH: Fair mood and affect. OPHTHALMOLOGIC: Pupils equal, round, and reactive to light and accommodation. Continue current treatment, oxygen and nebulizers. Increase diet and she is on clear liquids at this time. Monitor electrolytes. Standard ostomy care. Prognosis guarded. Please see further orders. MMODL / IJN: [id number] /
[2022-11-01] MEDS: 1: MVI, ADULT NO.4 WITH VIT K 10 ML, TRACE (CONC-1ML/DOSE) 1 ML, SODIUM CHLORIDE 4MEQ/ML IV SCH ×12 (09:20→22:13)
[2022-11-01] MEDS: LACTULOSE 20 GM/30 ML CUP PO SCH (09:22)
[2022-11-01] MEDS: PANTOPRAZOLE 40 MG/10 ML VIAL IVP SCH ×2 (09:22→21:52)
[2022-11-01] MEDS: atenoloL 25 MG TAB PO SCH ×2 (09:22→21:50)
[2022-11-01] MEDS: LOSARTAN-HCTZ 50-12.5 MG 1 EACH TAB PO SCH (09:22)
[2022-11-01 12:21] LABS: Glucose,Whole Blood 194 mg/dL (70-110)
[2022-11-01] MEDS: SODIUM CHLORIDE 0.9% 1,000 ML IV SCH (12:51)
--- NOTE | 2022-11-01 13:56 | P.PN ---
Subjective Progress Note Date: 11/01/22 CHIEF COMPLAINT: Diverticulitis with fistula and abscess HISTORY OF PRESENT ILLNESS: Patient is postop day #12 status post Partial colectomy with end colostomy, small bowel resection, drainage of abdominal abscess, mobilization splenic flexure. Patient reports her pain is controlled. Patient was started on lactulose yesterday. She is now having stool output through her ostomy. She does complain of abdominal cramps. Denies any nausea or vomiting. Afebrile. ANNA MARIE chains with serosanguineous output PHYSICAL EXAM: VITAL SIGNS: Reviewed GENERAL: Well-developed in no acute distress. ABDOMEN: Soft. Nondistended. Incisional dressing with a small area of drainage noted distally. Ostomy with stool. ASSESSMENT: 1. Abdominal abscess with small bowel obstruction, suspected diverticulitis PLAN: -Continue full liquid diet -Start to wean down the TPN -[place] added for pain control -Discontinue ACO COORDINATOR pump -IV Dilaudid added for breakthrough pain -Continue lactulose -Continue antibiotics per ID service -Increase activity level -Incentive spirometer ordered -Continue pain management -DVT prophylaxis Lovenox and GI prophylaxis Protonix Physician Seal Delivery Vehicle Team Technician note has been reviewed by physician. Signing provider agrees with the documented findings, assessment, and plan of care. I have personally seen and examined the patient, reviewed the PATCHING MACHINE OPERATOR /PAs history, exam and MDM and agree with the assessment and plan as written. Based on total visit time, I have performed more than 50% of the visit. As above: Patient doing better today. She is having bowel function through the ostomy. Mild nausea at times. She is ambulating. Continue antibiotics. Wean TPN. Objective - Vital Signs Vital signs: Vital Signs Temp 98.4 F 11/01/22 07:16 Pulse 80 11/01/22 11:41 Resp 17 11/01/22 07:16 BP 114/72 11/01/22 07:16 Pulse Ox 98 11/01/22 08:07 FiO2 Intake & Output 10/31/22 11/01/22 11/01/22 18:59 06:59 18:59 Intake Total 2499 Output Total 900 1210 500 Balance -900 1289 -500 Weight 108.862 kg 115.3 kg Intake: Intake, IV Titration 2019 Amount Mvi, Adult No.4 with Vit 1015 K 10 ml Trace (Conc-1Ml/ Dose) 1 ml Sodium Chloride 4Meq/ml Vial 16 meq In Amino Acid 5%-D20w +Lytes*E* 1,000 ml @ 90 mls/hr IV .BY DURATION [facility] Rx#:[id number] Sodium Chloride 4Meq/ml 1004 Vial 16 meq In Amino Acid 5%-D20w+Lytes*E* 1,000 ml @ 90 mls/hr IV .BY DURATION [facility] Rx#: [id number] Oral 480 Output: Drainage 35 Left 20 Left Lower Abdomen 15 Urine 900 1100 Stool 75 500 Other: Voiding Method Indwelling Catheter Indwelling Catheter Indwelling Catheter # Voids 1 - Labs CBC & Chem 7: 10/31/22 05:49 11/01/22 05:54 Labs: Abnormal Lab Results - Last 24 Hours (Table) 10/31/22 10/31/22 11/01/22 Range/Units 17:30 23:52 05:54 Sodium 135 L (137-145) mmol/L Carbon Dioxide 31 H (22-30) mmol/L Glucose 182 H (74-99) mg/dL POC Glucose (mg/dL) 228 H 219 H (70-110) mg/dL Calcium 7.8 L (8.4-10.2) mg/dL Total Protein 5.4 L (6.3-8.2) g/dL Albumin 2.3 L (3.5-5.0) g/dL 11/01/22 11/01/22 Range/Units 06:00 12:17 Sodium (137-145) mmol/L Carbon Dioxide (22-30) mmol/L Glucose (74-99) mg/dL POC Glucose (mg/dL) 204 H 194 H (70-110) mg/dL Calcium (8.4-10.2) mg/dL Total Protein (6.3-8.2) g/dL Albumin (3.5-5.0) g/dL
[2022-11-01] MEDS: HYDROmorphone 1 MG/ML 1 ML SYRINGE IVP PRN ×2 (14:28→23:17)
--- NOTE | 2022-11-01 15:35 | P.PN ---
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 Patient did have a CT angiogram of the chest on 10/28/2022 evidence of PE moderate-sized right effusion On today's evaluation that is 10/28/2022 patient continues to be afebrile, patient abdominal pain has decreased in intensity, patient did have some nausea and abdominal bloating but no vomiting , the patient still have the NG in, the patient denies chest pain shortness of breath or cough, no output in the colostomy bag Patient did have a normal white count of 8.63 creatinine 0.85 as of 10/27/2022 no CBC was done today, abdominal culture positive for Klebsiella and E. coli Objective - Vital Signs Vital signs: Vital Signs Temp 98.9 F 10/28/22 07:49 Pulse 76 10/28/22 07:49 Resp 17 10/28/22 07:49 BP 152/81 10/28/22 07:49 Pulse Ox 98 10/28/22 07:49 FiO2 Intake & Output 10/27/22 10/28/22 10/28/22 18:59 06:59 18:59 Intake Total 1000 1011 Output Total 295 1000 Balance 705 11 Intake: Intake, IV Titration 1000 1011 Amount Amino Acid 5%-D20w+Lytes* 1000 E* 1,000 ml @ 90 mls/hr IV .BY DURATION [facility] Rx#: [id number] Mvi, Adult No.4 with Vit 1011 K 10 ml Trace (Conc-1Ml/ Dose) 1 ml In Amino Acid 5%-D20w+Lytes*E* 1,000 ml @ 90 mls/hr IV .BY DURATION [facility] Rx#: [id number] Output: Gastric Drainage 250 Drainage 45 Left 30 Left Lower Abdomen 15 Urine 1000 Stool 0 Other: Voiding Method Indwelling Catheter Indwelling Catheter Indwelling Catheter - Exam GENERAL DESCRIPTION: An elderly female lying in bed in no distress RESPIRATORY SYSTEM: Unlabored breathing , decreased breath sounds at bases HEART: S1 S2 regular rate and rhythm , ABDOMEN: Soft , mild abdominal distention and tenderness EXTREMITIES: No edema feet - Labs CBC & Chem 7: 10/31/22 05:49 11/01/22 05:54 Labs: Abnormal Lab Results - Last 24 Hours (Table) 10/27/22 10/27/22 10/28/22 Range/Units 17:10 23:52 05:50 Glucose (74-99) mg/dL POC Glucose (mg/dL) 284 H 297 H 273 H (70-110) mg/dL Calcium (8.4-10.2) mg/dL 10/28/22 10/28/22 Range/Units 07:28 12:38 Glucose 295 H (74-99) mg/dL POC Glucose (mg/dL) 244 H (70-110) mg/dL Calcium 7.5 L (8.4-10.2) mg/dL Assessment and Plan (1) Diverticulitis of large intestine with complication Current Visit: Yes Status: Acute Code(s): K57.32 - DVTRCLI OF LG INT W/O PERFORATION OR ABSCESS W/O BLEEDING SNOMED Code(s): 524500303 Plan: 1patient was in the hospital with sepsis in this patient with a fever tachycardia elevated white count cirrhosis complicated diverticulitis with evidence of fistula formation between descending colon and loop of the small bowel and concern for abscess we will need to cover for the enteric gram- negative both anaerobes and anaerobes to the likely pathogen 2-Patient is status post partial colectomy with end colostomy small bowel resection drainage of abdominal abscess cultures were done growing E. coli and Klebsiella, E. coli is resistant to Unasyn 3-patient is slowly clinically improving,the patient white count has normalized, patient to continue with the Zosyn and monitor clinical course closely Dictation was produced using Me[employer] dictation software. please excuse any gra mmatical, word or spelling errors. Time with Patient: Less than 30
--- NOTE | 2022-11-01 15:37 | P.PN ---
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 Patient did have a CT angiogram of the chest on 10/28/2022 evidence of PE moderate-sized right effusion On today's evaluation that is 10/29/2022 patient denies any fever or any chills, patient abdominal pain has decreased in intensity, patient did have some nausea and abdominal bloating but no vomiting , the patient still have the NG in, the patient denies chest pain shortness of breath or cough, no output in the colostomy bag, no new symptoms Patient did have a normal white count of 9.01 creatinine is normal at 0.59, abdominal culture positive for Klebsiella and E. coli Objective - Vital Signs Vital signs: Vital Signs Temp 98.6 F 10/29/22 06:53 Pulse 75 10/29/22 11:56 Resp 18 10/29/22 06:53 BP 144/81 10/29/22 06:53 Pulse Ox 96 10/29/22 08:27 FiO2 Intake & Output 10/28/22 10/29/22 10/29/22 18:59 06:59 18:59 Intake Total 1000 1011 Output Total 135 9000 715 Balance 987 -3573 -481 Intake: Intake, IV Titration 1000 1011 Amount Amino Acid 5%-D20w+Lytes* 1000 E* 1,000 ml @ 90 mls/hr IV .BY DURATION [facility] Rx#: [id number] Mvi, Adult No.4 with Vit 1011 K 10 ml Trace (Conc-1Ml/ Dose) 1 ml In Amino Acid 5%-D20w+Lytes*E* 1,000 ml @ 90 mls/hr IV .BY DURATION [facility] Rx#: [id number] Output: Gastric Drainage 75 Drainage 60 15 Left 42 7 Left Lower Abdomen 18 8 Urine 9000 700 Uretheral (Maria) 3000 Other: Voiding Method Indwelling Catheter Indwelling Catheter Indwelling Catheter - Exam GENERAL DESCRIPTION: An elderly female lying in bed in no distress RESPIRATORY SYSTEM: Unlabored breathing , decreased breath sounds at bases HEART: S1 S2 regular rate and rhythm , ABDOMEN: Soft , mild abdominal distention and tenderness EXTREMITIES: No edema feet - Labs CBC & Chem 7: 10/31/22 05:49 11/01/22 05:54 Labs: Abnormal Lab Results - Last 24 Hours (Table) 10/28/22 10/28/22 10/28/22 Range/Units 07:28 14:38 17:52 RBC (4.10-5.20) X 10*6/uL Hgb (12.0-15.0) d/dL Hct (37.2-46.3) % MCH (27.0-32.0) pg MCHC (32.0-37.0) d/dL RDW (11.5-14.5) % D-Dimer 5.01 H (<0.60) mg/L FEU Chloride (98-107) mmol/L Carbon Dioxide (22-30) mmol/L Glucose (74-99) mg/dL POC Glucose (mg/dL) 215 H (70-110) mg/dL Calcium (8.4-10.2) mg/dL Total Protein (6.3-8.2) g/dL Albumin (3.5-5.0) g/dL Triglycerides 151.00 H (0.00-149.00) mg/dL 10/28/22 10/29/22 10/29/22 Range/Units 23:55 06:14 06:24 RBC (4.10-5.20) X 10*6/uL Hgb (12.0-15.0) d/dL Hct (37.2-46.3) % MCH (27.0-32.0) pg MCHC (32.0-37.0) d/dL RDW (11.5-14.5) % D-Dimer (<0.60) mg/L FEU Chloride 96 L (98-107) mmol/L Carbon Dioxide 38 H (22-30) mmol/L Glucose 241 H (74-99) mg/dL POC Glucose (mg/dL) 213 H 251 H (70-110) mg/dL Calcium 7.8 L (8.4-10.2) mg/dL Total Protein 5.4 L (6.3-8.2) g/dL Albumin 2.3 L (3.5-5.0) g/dL Triglycerides (0.00-149.00) mg/dL 10/29/22 10/29/22 Range/Units 06:24 12:32 RBC 3.20 L (4.10-5.20) X 10*6/uL Hgb 8.6 L (12.0-15.0) d/dL Hct 29.0 L (37.2-46.3) % MCH 26.9 L (27.0-32.0) pg MCHC 29.7 L (32.0-37.0) d/dL RDW 17.0 H (11.5-14.5) % D-Dimer (<0.60) mg/L FEU Chloride (98-107) mmol/L Carbon Dioxide (22-30) mmol/L Glucose (74-99) mg/dL POC Glucose (mg/dL) 216 H (70-110) mg/dL Calcium (8.4-10.2) mg/dL Total Protein (6.3-8.2) g/dL Albumin (3.5-5.0) g/dL Triglycerides (0.00-149.00) mg/dL Assessment and Plan (1) Diverticulitis of large intestine with complication Current Visit: Yes Status: Acute Code(s): K57.32 - DVTRCLI OF LG INT W/O PERFORATION OR ABSCESS W/O BLEEDING SNOMED Code(s): 890460342 Plan: 1patient was in the hospital with sepsis in this patient with a fever tachycardia elevated white count cirrhosis complicated diverticulitis with evidence of fistula formation between descending colon and loop of the small bowel and concern for abscess we will need to cover for the enteric gram- negative both anaerobes and anaerobes to the likely pathogen 2-Patient is status post partial colectomy with end colostomy small bowel resection drainage of abdominal abscess cultures were done growing E. coli and Klebsiella, E. coli is resistant to Unasyn 3-patient remains to be afebrile and,the patient white count has normalized, patient to continue with the Zosyn while waiting for resumption of the oral activity Dictation was produced using [employer] dictation software. please excuse any gramm atical, word or spelling errors. Time with Patient: Less than 30
--- NOTE | 2022-11-01 15:39 | P.PN ---
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 for evaluation of right-sided abdominal pain,patient did have a CT abdominal pelvis we did shows evidence of diverticulitis with fistula formation from the descending colon to the adjustment about the proximal small b owel and developing abscess within the wall of the small bowel,, patient subsequently transferred to [facility] for further management.Patient is status post partial colectomy with end colostomy small bowel resection drainage of abdominal abscess done on 10/20/2022. Patient did have a CT angiogram of the chest on 10/28/2022 evidence of PE moderate-sized right effusion, patient did have CT of abdominal pelvis on 10/30/2022 without evidence for contrast extravasation to suggest leak and no evidence of any dietitian to suggest ileus or obstruction On today's evaluation that is 10/30/2022 patient remains to be afebrile, patient abdominal pain has decreased in intensity, patient did have some nausea and abdominal bloating but no vomiting , the patient denies chest pain shortness of breath or cough, no output in the colostomy bag, no new symptoms Patient did have a normal white count of 9.01 as of 10/29/2022 creatinine is normal at 0.56, abdominal culture positive for Klebsiella and E. coli Objective - Vital Signs Vital signs: Vital Signs Temp 98.9 F 10/30/22 19:11 Pulse 80 10/30/22 20:11 Resp 16 10/30/22 19:55 BP 123/75 10/30/22 19:11 Pulse Ox 99 10/30/22 19:11 FiO2 Intake & Output 10/30/22 10/30/22 10/31/22 06:59 18:59 06:59 Intake Total 1591 0 Output Total 1355 2600 0 Balance 236 -2600 0 Intake: Intake, IV Titration 1591 Amount Mvi, Adult No.4 with Vit 1011 K 10 ml Trace (Conc-1Ml/ Dose) 1 ml In Amino Acid 5%-D20w+Lytes*E* 1,000 ml @ 90 mls/hr IV .BY DURATION [facility] Rx#: [id number] Piperacillin-Tazobactam 3 100 .375 gm In Sodium Chloride 0.9% 100 ml @ 25 mls/hr IVPB Q8HR [facility] Rx# :[id number] Sodium Chloride 0.9% 1, 480 000 ml @ 40 mls/hr IV . Q24H [facility] Rx#:[id number] Oral 0 Output: Gastric Drainage 225 300 Drainage 30 Left 20 Left Lower Abdomen 10 Urine 1100 2300 Stool 0 0 Other: Voiding Method Indwelling Catheter Indwelling Catheter Indwelling Catheter - Exam GENERAL DESCRIPTION: An elderly female lying in bed in no distress RESPIRATORY SYSTEM: Unlabored breathing , decreased breath sounds at bases HEART: S1 S2 regular rate and rhythm , ABDOMEN: Soft , mild abdominal distention and tenderness EXTREMITIES: No edema feet - Labs CBC & Chem 7: 10/31/22 05:49 11/01/22 05:54 Labs: Abnormal Lab Results - Last 24 Hours (Table) 10/29/22 10/30/22 10/30/22 Range/Units 23:57 05:22 05:44 Sodium 135 L (137-145) mmol/L Chloride 97 L (98-107) mmol/L Carbon Dioxide 36 H (22-30) mmol/L Glucose 203 H (74-99) mg/dL POC Glucose (mg/dL) 171 H 201 H (70-110) mg/dL Calcium 7.9 L (8.4-10.2) mg/dL Total Protein 5.5 L (6.3-8.2) g/dL Albumin 2.3 L (3.5-5.0) g/dL 10/30/22 10/30/22 Range/Units 11:45 17:00 Sodium (137-145) mmol/L Chloride (98-107) mmol/L Carbon Dioxide (22-30) mmol/L Glucose (74-99) mg/dL POC Glucose (mg/dL) 222 H 165 H (70-110) mg/dL Calcium (8.4-10.2) mg/dL Total Protein (6.3-8.2) g/dL Albumin (3.5-5.0) g/dL Assessment and Plan (1) Diverticulitis of large intestine with complication Current Visit: Yes Status: Acute Code(s): K57.32 - DVTRCLI OF LG INT W/O PERFORATION OR ABSCESS W/O BLEEDING SNOMED Code(s): 718641992 Plan: 1patient was in the hospital with sepsis in this patient with a fever tachycardia elevated white count cirrhosis complicated diverticulitis with evidence of fistula formation between descending colon and loop of the small bowel and concern for abscess we will need to cover for the enteric gram- negative both anaerobes and anaerobes to the likely pathogen 2-Patient is status post partial colectomy with end colostomy small bowel resection drainage of abdominal abscess cultures were done growing E. coli and Klebsiella, E. coli is resistant to Unasyn 3-patient remains to be afebrile and,the patient white count has normalized, patient did have a repeat CT did not show any evidence of ileus or leakage, patient to continue with the Zosyn and monitor clinical course closely Dictation was produced using [employer] dictation software. please excuse any grammatical, word or spelling errors. Time with Patient: Less than 30
--- NOTE | 2022-11-01 15:41 | P.PN ---
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 Patient did have a CT angiogram of the chest on 10/28/2022 evidence of PE moderate-sized right effusion, patient did have CT of abdominal pelvis on 10/30/2022 without evidence for contrast extravasation to suggest leak and no evidence of any dietitian to suggest ileus or obstruction On today's evaluation that is 10/31/2022 patient continues to be afebrile, patient abdominal pain has decreased in intensity, patient and she has been discontinued and the patient started on a clear liquid patient denies having any worsening abdominal pain no nausea no vomiting no chest pain shortness of breath or cough Patient did have a normal white count of 8.96 with a creatinine 0.62, abdominal culture positive for Klebsiella and E. coli Objective - Vital Signs Vital signs: Vital Signs Temp 98.4 F 10/31/22 08:20 Pulse 76 10/31/22 11:59 Resp 18 10/31/22 08:20 BP 108/65 10/31/22 08:20 Pulse Ox 97 10/31/22 08:20 FiO2 Intake & Output 10/30/22 10/31/22 10/31/22 18:59 06:59 18:59 Intake Total 1015 Output Total 2600 1800 Balance -2600 -785 Intake: Intake, IV Titration 1015 Amount Mvi, Adult No.4 with Vit 1015 K 10 ml Trace (Conc-1Ml/ Dose) 1 ml Sodium Chloride 4Meq/ml Vial 16 meq In Amino Acid 5%-D20w +Lytes*E* 1,000 ml @ 90 mls/hr IV .BY DURATION [facility] Rx#:[id number] Oral 0 Output: Gastric Drainage 300 Urine 2300 1800 Stool 0 Other: Voiding Method Indwelling Catheter Indwelling Catheter Indwelling Catheter - Exam GENERAL DESCRIPTION: An elderly female lying in bed in no distress RESPIRATORY SYSTEM: Unlabored breathing , decreased breath sounds at bases HEART: S1 S2 regular rate and rhythm , ABDOMEN: Soft , mild abdominal distention and tenderness EXTREMITIES: No edema feet - Labs CBC & Chem 7: 10/31/22 05:49 11/01/22 05:54 Labs: Abnormal Lab Results - Last 24 Hours (Table) 10/30/22 10/30/22 10/31/22 Range/Units 17:00 23:41 05:49 RBC (4.10-5.20) X 10*6/uL Hgb (12.0-15.0) d/dL Hct (37.2-46.3) % MCH (27.0-32.0) pg MCHC (32.0-37.0) d/dL RDW (11.5-14.5) % Sodium 135 L (137-145) mmol/L Carbon Dioxide 34 H (22-30) mmol/L Glucose 215 H (74-99) mg/dL POC Glucose (mg/dL) 165 H 248 H (70-110) mg/dL Calcium 7.9 L (8.4-10.2) mg/dL Total Protein 5.4 L (6.3-8.2) g/dL Albumin 2.3 L (3.5-5.0) g/dL 10/31/22 10/31/22 10/31/22 Range/Units 05:49 05:51 11:56 RBC 3.21 L (4.10-5.20) X 10*6/uL Hgb 8.6 L (12.0-15.0) d/dL Hct 29.2 L (37.2-46.3) % MCH 26.8 L (27.0-32.0) pg MCHC 29.5 L (32.0-37.0) d/dL RDW 17.5 H (11.5-14.5) % Sodium (137-145) mmol/L Carbon Dioxide (22-30) mmol/L Glucose (74-99) mg/dL POC Glucose (mg/dL) 241 H 199 H (70-110) mg/dL Calcium (8.4-10.2) mg/dL Total Protein (6.3-8.2) g/dL Albumin (3.5-5.0) g/dL Assessment and Plan (1) Diverticulitis of large intestine with complication Current Visit: Yes Status: Acute Code(s): K57.32 - DVTRCLI OF LG INT W/O PERFORATION OR ABSCESS W/O BLEEDING SNOMED Code(s): 292382723 Plan: 1patient was in the hospital with sepsis in this patient with a fever tachycard ia elevated white count cirrhosis complicated diverticulitis with evidence of fistula formation between descending colon and loop of the small bowel and concern for abscess we will need to cover for the enteric gram-negative both anaerobes and anaerobes to the likely pathogen 2-Patient is status post partial colectomy with end colostomy small bowel resection drainage of abdominal abscess cultures were done growing E. coli and Klebsiella, E. coli is resistant to Unasyn 3-patient remains to be afebrile and,the patient white count has normalized, patient did have a repeat CT did not show any evidence of ileus or leakage, 4-patient slowly clinically improving and will continue the patient on Zosyn Dictation was produced using [employer] dictation software. please excuse any grammatical, word or spelling errors. Time with Patient: Less than 30
--- NOTE | 2022-11-01 15:44 | P.PN ---
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 Patient did have a CT angiogram of the chest on 10/28/2022 evidence of PE moderate-sized right effusion, patient did have CT of abdominal pelvis on 10/30/2022 without evidence for contrast extravasation to suggest leak and no evidence of any dietitian to suggest ileus or obstruction On today's evaluation that is 11/01/2022 patient continues to be afebrile, patient abdominal pain has decreased in intensity, patient has been complaining of some abdominal pain after she ate oatmeal this morning, some nausea but no vomiting, the patient denies chest pain shortness of breath or cough Patient did have a normal white count of 8.96 as of 10/31/2022 with a creatinine 0.63, abdominal culture positive for Klebsiella and E. coli Objective - Vital Signs Vital signs: Vital Signs Temp 98.4 F 11/01/22 07:16 Pulse 80 11/01/22 11:41 Resp 17 11/01/22 07:16 BP 114/72 11/01/22 07:16 Pulse Ox 98 11/01/22 08:07 FiO2 Intake & Output 10/31/22 11/01/22 11/01/22 18:59 06:59 18:59 Intake Total 2499 Output Total 900 1210 500 Balance -900 1289 -500 Weight 108.862 kg 115.3 kg Intake: Intake, IV Titration 2019 Amount Mvi, Adult No.4 with Vit 1015 K 10 ml Trace (Conc-1Ml/ Dose) 1 ml Sodium Chloride 4Meq/ml Vial 16 meq In Amino Acid 5%-D20w +Lytes*E* 1,000 ml @ 90 mls/hr IV .BY DURATION [facility] Rx#:[id number] Sodium Chloride 4Meq/ml 1004 Vial 16 meq In Amino Acid 5%-D20w+Lytes*E* 1,000 ml @ 90 mls/hr IV .BY DURATION [facility] Rx#: [id number] Oral 480 Output: Drainage 35 Left 20 Left Lower Abdomen 15 Urine 900 1100 Stool 75 500 Other: Voiding Method Indwelling Catheter Indwelling Catheter Indwelling Catheter # Voids 1 - Exam GENERAL DESCRIPTION: An elderly female lying in bed in no distress RESPIRATORY SYSTEM: Unlabored breathing , decreased breath sounds at bases HEART: S1 S2 regular rate and rhythm , ABDOMEN: Soft , mild abdominal distention and tenderness EXTREMITIES: No edema feet - Labs CBC & Chem 7: 10/31/22 05:49 11/01/22 05:54 Labs: Abnormal Lab Results - Last 24 Hours (Table) 10/31/22 10/31/22 11/01/22 Range/Units 17:30 23:52 05:54 Sodium 135 L (137-145) mmol/L Carbon Dioxide 31 H (22-30) mmol/L Glucose 182 H (74-99) mg/dL POC Glucose (mg/dL) 228 H 219 H (70-110) mg/dL Calcium 7.8 L (8.4-10.2) mg/dL Total Protein 5.4 L (6.3-8.2) g/dL Albumin 2.3 L (3.5-5.0) g/dL 11/01/22 11/01/22 Range/Units 06:00 12:17 Sodium (137-145) mmol/L Carbon Dioxide (22-30) mmol/L Glucose (74-99) mg/dL POC Glucose (mg/dL) 204 H 194 H (70-110) mg/dL Calcium (8.4-10.2) mg/dL Total Protein (6.3-8.2) g/dL Albumin (3.5-5.0) g/dL Assessment and Plan (1) Diverticulitis of large intestine with complication Current Visit: Yes Status: Acute Code(s): K57.32 - DVTRCLI OF LG INT W/O PERFORATION OR ABSCESS W/O BLEEDING SNOMED Code(s): 887723969 Plan: 1patient was in the hospital with sepsis in this patient with a fever tachycardia elevated white count cirrhosis complicated diverticulitis with evidence of fistula formation between descending colon and loop of the small bowel and concern for abscess we will need to cover for the enteric gram- negative both anaerobes and anaerobes to the likely pathogen 2-Patient is status post partial colectomy with end colostomy small bowel resection drainage of abdominal abscess cultures were done growing E. coli and Klebsiella, E. coli is resistant to Unasyn 3-patient remains to be afebrile and,the patient white count has normalized, patient did have a repeat CT did not show any evidence of ileus or leakage, 4-patient slowly clinically improving and will continue the patient on Zosyn while inpatient and hopefully transition to oral antibiotics on discharge Dictation was produced using [employer] dictation software. please excuse any grammatical, word or spelling errors. Time with Patient: Less than 30
[2022-11-01 17:41] LABS: Glucose,Whole Blood 203 mg/dL (70-110)
[2022-11-01] MEDS: METOCLOPRAMIDE 5 MG/ML 2 ML VIAL IVP PRN (17:55)
[2022-11-01] MEDS: HYDROcodone/APAP 5-325MG 1 EACH TAB PO PRN (17:55)
[2022-11-01] MEDS: BUDESONIDE 0.5 MG/2 ML NEBU INHALATION SCH (20:38)
[2022-11-01] MEDS: lisinopriL 5 MG TAB PO SCH (21:50)
[2022-11-01 23:18] LABS: Glucose,Whole Blood 177 mg/dL (70-110)
[2022-11-02] MEDS: ONDANSETRON 4 MG/2 ML VIAL IVP PRN (02:37)
[2022-11-02 05:43] LABS: Glucose,Whole Blood 216 mg/dL (70-110)
[2022-11-02] MEDS: INSULIN ASPART (NovoLOG) 100 UNIT/ML VIAL SQ SCH ×8 (05:48→22:17)
[2022-11-02] MEDS: ENOXAPARIN 40 MG/0.4 ML SYRINGE SQ SCH (05:48)
[2022-11-02 06:43] LABS: ALT 19 U/L (4-34); AST 20 U/L (14-36); African American GFR (CKD) >90 (>60 ml/min/1.73 sqM); Albumin 2.3 g/dL (3.5-5.0); Albumin/Globulin Ratio 0.7; Alkaline Phosphatase 100 U/L (38-126); Anion Gap 5 mmol/L; Blood Urea Nitrogen 16 mg/dL (7-17); Calcium 7.7 mg/dL (8.4-10.2); Carbon Dioxide 29 mmol/L (22-30); Chloride 102 mmol/L (98-107); Globulin 3.1 g/dL; Glucose 201 mg/dL (74-99); Non-African American GFR(CKD) >90 (>60 ml/min/1.73 sqM); Phosphorus 4.2 mg/dL (2.5-4.5); Potassium 4.3 mmol/L (3.5-5.1); Sodium 136 mmol/L (137-145); Total Bilirubin 0.5 mg/dL (0.2-1.3); Total Protein 5.4 g/dL (6.3-8.2)
[2022-11-02] MEDS: BUDESONIDE 0.5 MG/2 ML NEBU INHALATION SCH ×2 (08:01→20:01)
[2022-11-02] MEDS: IPRATROPIUM-ALBUTEROL 3 ML NEB INHALATION SCH ×4 (08:02→20:01)
[2022-11-02] MEDS: PANTOPRAZOLE 40 MG/10 ML VIAL IVP SCH ×2 (08:22→19:50)
[2022-11-02] MEDS: PIPERACILLIN-TAZOBACTAM 3.375 GM in SODIUM CHLORIDE 0.9% 100 ML IVPB SCH ×2 (08:22→18:04)
[2022-11-02] MEDS: LOSARTAN-HCTZ 50-12.5 MG 1 EACH TAB PO SCH (08:22)
[2022-11-02] MEDS: INSULIN DETEMIR (LEVEMIR) 100 UNIT/ML SYR SQ SCH ×2 (08:22→22:18)
[2022-11-02] MEDS: atenoloL 25 MG TAB PO SCH ×2 (08:23→19:48)
[2022-11-02] MEDS: LACTULOSE 20 GM/30 ML CUP PO SCH (08:36)
[2022-11-02] MEDS: METOCLOPRAMIDE 5 MG/ML 2 ML VIAL IVP PRN (09:08)
[2022-11-02] MEDS: HYDROcodone/APAP 5-325MG 1 EACH TAB PO PRN (09:08)
[2022-11-02 09:16] LABS: Basophils # (A) 0.03 X 10*3/uL (0.00-0.10); Basophils % (A) 0.4 %; Eosinophils # (A) 0.27 X 10*3/uL (0.04-0.35); Eosinophils % (A) 3.7 %; HGB 7.9 d/dL (12.0-15.0); Lymphocytes # (A) 1.02 X 10*3/uL (0.90-5.00); Lymphocytes % (A) 14.1 %; MCH 26.5 pg (27.0-32.0); MCHC 29.3 d/dL (32.0-37.0); MCV 90.6 FL (80.0-97.0); Mean Platelet Volume 10.2 FL (9.5-12.2); Monocytes # (A) 0.64 X 10*3/uL (0.20-1.00); Monocytes % (A) 8.9 %; NRBC Per 100 WBC 0 X 10*3/uL (0.00-0.01); Neutrophils # (A) 5.23 X 10*3/uL (1.80-7.70); Neutrophils % (A) 72.3 %; Platelet Count 328 X 10*3/uL (140-440); RBC 2.98 X 10*6/uL (4.10-5.20); RDW 17.7 % (11.5-14.5); WBC 7.23 X 10*3/uL (4.50-10.00)
--- NOTE | 2022-11-02 09:24 | P.PN ---
Subjective Progress Note Date: 11/02/22 Principal diagnosis: Diverticulitis with abscess Patient ambulating in the hallway today. Says her pain is improved. Tolerating full liquids. Says she does not want to advance to regular diet yet. ANNA MARIE drain outputs minimal. Still with ostomy function. Objective - Vital Signs Vital signs: Vital Signs Temp 97.9 F 11/02/22 07:22 Pulse 88 11/02/22 08:14 Resp 20 11/02/22 07:22 BP 138/75 11/02/22 07:22 Pulse Ox 93 L 11/02/22 07:22 FiO2 Intake & Output 11/01/22 11/02/22 11/02/22 18:59 06:59 18:59 Output Total 2300 520 Balance -2300 -520 Weight 114.8 kg Output: Drainage 20 Left 10 Left Lower Abdomen 10 Urine 1800 Uretheral (Maria) 900 Stool 500 500 Other: Voiding Method Indwelling Catheter Indwelling Catheter Indwelling Catheter # Voids 2 1 - Exam Abdomen: Soft, nondistended, incision clean and dry, mild tenderness, ostomy function - Labs CBC & Chem 7: 11/02/22 05:22 11/02/22 05:22 Labs: Abnormal Lab Results - Last 24 Hours (Table) 11/01/22 11/01/22 11/01/22 Range/Units 12:17 17:25 23:16 RBC (4.10-5.20) X 10*6/uL Hgb (12.0-15.0) d/dL Hct (37.2-46.3) % MCH (27.0-32.0) pg MCHC (32.0-37.0) d/dL RDW (11.5-14.5) % Sodium (137-145) mmol/L Glucose (74-99) mg/dL POC Glucose (mg/dL) 194 H 203 H 177 H (70-110) mg/dL Calcium (8.4-10.2) mg/dL Total Protein (6.3-8.2) g/dL Albumin (3.5-5.0) g/dL 11/02/22 11/02/22 11/02/22 Range/Units 05:22 05:22 05:41 RBC 2.98 L (4.10-5.20) X 10*6/uL Hgb 7.9 L (12.0-15.0) d/dL Hct 27.0 L (37.2-46.3) % MCH 26.5 L (27.0-32.0) pg MCHC 29.3 L (32.0-37.0) d/dL RDW 17.7 H (11.5-14.5) % Sodium 136 L (137-145) mmol/L Glucose 201 H (74-99) mg/dL POC Glucose (mg/dL) 216 H (70-110) mg/dL Calcium 7.7 L (8.4-10.2) mg/dL Total Protein 5.4 L (6.3-8.2) g/dL Albumin 2.3 L (3.5-5.0) g/dL Assessment and Plan (1) Diverticulitis of large intestine with complication Narrative/Plan: Patient doing well at this time. We'll continue full liquids for now. Continue physical therapy. We'll remove both ANNA MARIE drains. Anticipate probable transfer to rehab on Saturday. Current Visit: Yes Status: Acute Code(s): K57.32 - DVTRCLI OF LG INT W/O PERFORATION OR ABSCESS W/O BLEEDING SNOMED Code(s): 272884277
--- NOTE | 2022-11-02 09:46 | P.PN ---
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 11/02/2022, patient seen eval examined during the rounds labs reviewed medications reviewed, she remains on supplemental oxygen 2 L nasal cannula unable to tolerate room air, saturation is 90-93%, otherwise hemodynamic status stable, patient remains on bronchodilators and inhaled corticosteroids and aerosolized as well as TPN general surgery has been following patient remains on DVT and peptic ulcer disease prophylaxis as well, uterus sternal pain as seen previously is not being observed on PPI. Patient has been resumed on antihypertensive agent hemodynamic status with that significantly improved, labs today reviewed white cell count is 7.2, hemoglobin hematocrit was 7.9/77 platelet count 328 chemistry fairly within normal limit except mild hyperglycemia 10/31/2022, patient seen eval examined, labs reviewed medications reviewed, patient remains on DATABASE ENGINEER pump at 2 L oxygen however NG tube has been removed with dynamic status stable, patient however is not passing any gas remains nothing by mouth respirator status stable patient being monitor observe for a small right- sided pleural effusion and basal atelectasis likely due to volume overload we'll continue gentle diuresis 10/30/22 patient seen eval examined fistula on supplemental oxygen, patient has been on DATABASE ENGINEER pump with Dilaudid, still have no bowel sounds patient remains nothing by mouth, labs from today reviewed hemoglobin and hematocrit remained stable .09/27, chemistry within normal limit was however 215 him a patient is afebrile hemodynamically stable with oxygen saturation 95%. Her oxygen 67-year-old female who is postoperative colectomy with end colostomy and small bowel resection. Patient is postoperative day # 8. Patient also had drainage of abdominal abscess with culture showing E. coli and Klebsiella. Patient remains on IV antibiotics with infectious disease on closely. Patient is currently nothing by mouth and has NG tube in place to intermittent suction. Patient has been on 2 L oxygen nasal cannula 24 7 with a deep breathing sense incentive spirometry to bedside, Patient does report feeling bloated. She is making min imal stool per the ostomy. Due to hyperglycemia and uncontrolled diabetes patient has been on Accu-Cheks as well as the long and short acting insulin. Patient remains on TPN and lipids. 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 Chest x-ray NG tube within lower esophagus and left basilar atelectasis recommended to advance the NG tube computed tomography scan of the chest negative for pulmonary embolism, right lower lobe subsegmental atelectasis present likely compressive atelectasis due to mild to moderate pleural effusion Objective - Vital Signs Vital signs: Vital Signs Temp 97.9 F 11/02/22 07:22 Pulse 88 11/02/22 08:14 Resp 20 11/02/22 07:22 BP 138/75 11/02/22 07:22 Pulse Ox 93 L 11/02/22 07:22 FiO2 Intake & Output 11/01/22 11/02/22 11/02/22 18:59 06:59 18:59 Output Total 2300 520 Balance -2300 -520 Weight 114.8 kg Output: Drainage 20 Left 10 Left Lower Abdomen 10 Urine 1800 Uretheral (Maria) 900 Stool 500 500 Other: Voiding Method Indwelling Catheter Indwelling Catheter Indwelling Catheter # Voids 2 1 - Exam - Constitutional General appearance: mild distress, morbidly obese - EENT Eyes: EOMI, PERRLA Ears: bilateral: normal - Neck Carotids: bilateral: upstroke normal - Respiratory Respiratory: right: diminished - Cardiovascular Rhythm: regular Heart sounds: normal: S1, S2 - Gastrointestinal General gastrointestinal: decreased bowel sounds - Integumentary Integumentary: normal turgor - Neurologic Neurologic: CNII-XII intact - Musculoskeletal Musculoskeletal: gait normal, generalized weakness, strength equal bilaterally - Psychiatric Psychiatric: A&O x's 3, appropriate affect, intact judgment & insight - Labs CBC & Chem 7: 11/02/22 05:22 11/02/22 05:22 Labs: Abnormal Lab Results - Last 24 Hours (Table) 11/01/22 11/01/22 11/01/22 Range/Units 12:17 17:25 23:16 RBC (4.10-5.20) X 10*6/uL Hgb (12.0-15.0) d/dL Hct (37.2-46.3) % MCH (27.0-32.0) pg MCHC (32.0-37.0) d/dL RDW (11.5-14.5) % Sodium (137-145) mmol/L Glucose (74-99) mg/dL POC Glucose (mg/dL) 194 H 203 H 177 H (70-110) mg/dL Calcium (8.4-10.2) mg/dL Total Protein (6.3-8.2) g/dL Albumin (3.5-5.0) g/dL 11/02/22 11/02/22 11/02/22 Range/Units 05:22 05:22 05:41 RBC 2.98 L (4.10-5.20) X 10*6/uL Hgb 7.9 L (12.0-15.0) d/dL Hct 27.0 L (37.2-46.3) % MCH 26.5 L (27.0-32.0) pg MCHC 29.3 L (32.0-37.0) d/dL RDW 17.7 H (11.5-14.5) % Sodium 136 L (137-145) mmol/L Glucose 201 H (74-99) mg/dL POC Glucose (mg/dL) 216 H (70-110) mg/dL Calcium 7.7 L (8.4-10.2) mg/dL Total Protein 5.4 L (6.3-8.2) g/dL Albumin 2.3 L (3.5-5.0) g/dL Assessment and Plan Assessment: Episode of chest pain likely related to reflux GERD symptom, patient has been on PPI Right-sided small to moderate pleural effusion with compressive atelectasis likely related to volume overload, consider gentle diuresis, continue deep breathing exercises incentive spirometry Right lower lobe atelectasis subsegmental due to compressive atelectasis, con tinue deep breathing sense incentive spirometry Morbid obesity and likely sleep disorder breathing and sleep apnea patient will need a polysomnogram will arrange it as outpatient 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
[2022-11-02] MEDS: 1: MVI, ADULT NO.4 WITH VIT K 10 ML, TRACE (CONC-1ML/DOSE) 1 ML, SODIUM CHLORIDE 4MEQ/ML IV SCH ×4 (10:03)
[2022-11-02 11:52] LABS: Glucose,Whole Blood 191 mg/dL (70-110)
[2022-11-02] MEDS: FAT EMULSION 20% 250 ML in EMPTY BAG 1 BAG IV SCH (12:50)
[2022-11-02] MEDS: SODIUM CHLORIDE 0.9% 1,000 ML IV SCH (13:01)
--- NOTE | 2022-11-02 14:08 | PN ---
PROGRESS NOTE A 67-year-old white female, diverticulitis, status post bowel obstruction with ileostomy. She is breathing better with nebulizer treatments. She is ambulating. Wait for rehab placement on this patient. She started to have passed some air through her ileostomy. We can slowly advance her diet and get PT/OT involved. Please see further orders. Possible discharge to Rehab Center soon. MMODL / IJN: [id number] /
[2022-11-02 17:09] LABS: Glucose,Whole Blood 169 mg/dL (70-110)
[2022-11-02] MEDS: HYDROmorphone 1 MG/ML 1 ML SYRINGE IVP PRN (19:45)
[2022-11-02] MEDS: lisinopriL 5 MG TAB PO SCH (19:48)
[2022-11-02 20:08] LABS: Glucose,Whole Blood 219 mg/dL (70-110)
[2022-11-03] MEDS: PIPERACILLIN-TAZOBACTAM 3.375 GM in SODIUM CHLORIDE 0.9% 100 ML IVPB SCH ×3 (00:07→16:23)
[2022-11-03 05:30] LABS: ALT 22 U/L (4-34); AST 24 U/L (14-36); African American GFR (CKD) >90 (>60 ml/min/1.73 sqM); Albumin 2.7 g/dL (3.5-5.0); Albumin/Globulin Ratio 0.8; Alkaline Phosphatase 112 U/L (38-126); Anion Gap 8 mmol/L; Blood Urea Nitrogen 14 mg/dL (7-17); Calcium 8.3 mg/dL (8.4-10.2); Carbon Dioxide 30 mmol/L (22-30); Chloride 100 mmol/L (98-107); Globulin 3.6 g/dL; Glucose 123 mg/dL (74-99); Non-African American GFR(CKD) >90 (>60 ml/min/1.73 sqM); Phosphorus 4.1 mg/dL (2.5-4.5); Potassium 4.7 mmol/L (3.5-5.1); Sodium 138 mmol/L (137-145); Total Bilirubin 0.5 mg/dL (0.2-1.3); Total Protein 6.3 g/dL (6.3-8.2)
[2022-11-03] MEDS: ENOXAPARIN 40 MG/0.4 ML SYRINGE SQ SCH (07:01)
[2022-11-03 07:31] LABS: Glucose,Whole Blood 110 mg/dL (70-110)
[2022-11-03] MEDS: 1: MVI, ADULT NO.4 WITH VIT K 10 ML, TRACE (CONC-1ML/DOSE) 1 ML, SODIUM CHLORIDE 4MEQ/ML IV SCH ×4 (07:46)
[2022-11-03] MEDS: BUDESONIDE 0.5 MG/2 ML NEBU INHALATION SCH ×2 (07:48→20:24)
[2022-11-03] MEDS: IPRATROPIUM-ALBUTEROL 3 ML NEB INHALATION SCH ×4 (07:48→20:24)
[2022-11-03] MEDS: INSULIN ASPART (NovoLOG) 100 UNIT/ML VIAL SQ SCH ×8 (08:27→21:58)
[2022-11-03] MEDS: PANTOPRAZOLE 40 MG/10 ML VIAL IVP SCH ×2 (08:58→22:06)
[2022-11-03] MEDS: LOSARTAN-HCTZ 50-12.5 MG 1 EACH TAB PO SCH (08:59)
[2022-11-03] MEDS: atenoloL 25 MG TAB PO SCH ×2 (08:59→22:06)
[2022-11-03] MEDS: LACTULOSE 20 GM/30 ML CUP PO SCH (08:59)
[2022-11-03] MEDS: INSULIN DETEMIR (LEVEMIR) 100 UNIT/ML SYR SQ SCH ×2 (08:59→21:59)
[2022-11-03 11:31] LABS: Glucose,Whole Blood 202 mg/dL (70-110)
[2022-11-03] MEDS: SODIUM CHLORIDE 0.9% 1,000 ML IV SCH (14:13)
[2022-11-03] MEDS: HYDROcodone/APAP 5-325MG 1 EACH TAB PO PRN (16:23)
[2022-11-03 17:10] LABS: Glucose,Whole Blood 88 mg/dL (70-110)
--- NOTE | 2022-11-03 17:51 | P.PN ---
Subjective Progress Note Date: 11/03/22 She reports increased abdominal pain and feeling gasey. She is not weaing an abdominal binder. Recommend wearing abdominal binder and gas x. Objective - Vital Signs Vital signs: Vital Signs Temp 97.7 F 11/03/22 11:44 Pulse 76 11/03/22 11:44 Resp 18 11/03/22 11:44 BP 98/64 11/03/22 11:44 Pulse Ox 100 11/03/22 11:44 FiO2 Intake & Output 11/02/22 11/03/22 11/03/22 18:59 06:59 18:59 Output Total 39 0 Balance -39 0 Weight 114.8 kg Output: Drainage 14 Left 6 Left Lower Abdomen 8 Stool 25 0 Other: Voiding Method Indwelling Catheter Indwelling Catheter Indwelling Catheter # Voids 3 4 3 - Labs CBC & Chem 7: 11/02/22 05:22 11/03/22 05:00 Labs: Abnormal Lab Results - Last 24 Hours (Table) 11/02/22 11/03/22 11/03/22 Range/Units 20:07 05:00 11:29 Glucose 123 H (74-99) mg/dL POC Glucose (mg/dL) 219 H 202 H (70-110) mg/dL Calcium 8.3 L (8.4-10.2) mg/dL Albumin 2.7 L (3.5-5.0) g/dL
[2022-11-03] MEDS: SIMETHICONE 80 MG CHEWABLE PO SCH ×2 (18:25→21:59)
[2022-11-03 20:11] LABS: Glucose,Whole Blood 169 mg/dL (70-110)
--- NOTE | 2022-11-03 20:50 | PN ---
PROGRESS NOTE SUBJECTIVE: A 67-year-old white female. OBJECTIVE: VITAL SIGNS: Temperature is 97.7 pulse 76, respiratory rate 16 to 18. She is 100% on room air. Blood pressure is 98/68. CARDIOVASCULAR: S1, S2. LUNGS: Scattered rhonchi and wheeze. HEMATOLOGY: Negative Homans. PSYCHIATRIC: Fair mood and affect. NEUROLOGIC: Alert and oriented x3. LABORATORY DATA: Sugars are mid 80s to 200s, sodium 138, potassium 4.7. Hemoglobin 7.9, white count is 7.23. She is status post ostomy, giving appropriate answers. She has GERD. She is on PPI. Pleural effusions, atelectasis, morbid obesity, mucinous adenocarcinoma with bowel obstruction. Prognosis guarded. Continue on oxygen and bronchodilators, deep breathing. Follow up as an outpatient. MMODL / IJN: [id number] /
[2022-11-03] MEDS: lisinopriL 5 MG TAB PO SCH (22:06)
[2022-11-04] MEDS: PIPERACILLIN-TAZOBACTAM 3.375 GM in SODIUM CHLORIDE 0.9% 100 ML IVPB SCH ×4 (00:34→23:44)
[2022-11-04 02:43] LABS: Glucose,Whole Blood 74 mg/dL (70-110)
[2022-11-04] MEDS: ONDANSETRON 4 MG/2 ML VIAL IVP PRN (02:47)
[2022-11-04] MEDS: HYDROcodone/APAP 5-325MG 1 EACH TAB PO PRN ×3 (02:55→19:57)
[2022-11-04 06:00] LABS: Glucose,Whole Blood 98 mg/dL (70-110)
[2022-11-04] MEDS: ENOXAPARIN 40 MG/0.4 ML SYRINGE SQ SCH (06:31)
[2022-11-04 07:09] LABS: Glucose,Whole Blood 100 mg/dL (70-110)
[2022-11-04 07:27] LABS: ALT 20 U/L (4-34); AST 22 U/L (14-36); African American GFR (CKD) >90 (>60 ml/min/1.73 sqM); Albumin 2.6 g/dL (3.5-5.0); Albumin/Globulin Ratio 0.8; Alkaline Phosphatase 102 U/L (38-126); Anion Gap 6 mmol/L; Blood Urea Nitrogen 9 mg/dL (7-17); Calcium 8.1 mg/dL (8.4-10.2); Carbon Dioxide 30 mmol/L (22-30); Chloride 103 mmol/L (98-107); Globulin 3.3 g/dL; Glucose 100 mg/dL (74-99); Non-African American GFR(CKD) >90 (>60 ml/min/1.73 sqM); Phosphorus 4.6 mg/dL (2.5-4.5); Potassium 4.1 mmol/L (3.5-5.1); Sodium 139 mmol/L (137-145); Total Bilirubin 0.5 mg/dL (0.2-1.3); Total Protein 5.9 g/dL (6.3-8.2)
[2022-11-04] MEDS: BUDESONIDE 0.5 MG/2 ML NEBU INHALATION SCH ×2 (07:50→21:18)
[2022-11-04] MEDS: IPRATROPIUM-ALBUTEROL 3 ML NEB INHALATION SCH ×4 (07:50→21:18)
[2022-11-04] MEDS: INSULIN ASPART (NovoLOG) 100 UNIT/ML VIAL SQ SCH ×8 (07:53→20:53)
[2022-11-04 09:04] LABS: Basophils # (A) 0.02 X 10*3/uL (0.00-0.10); Basophils % (A) 0.3 %; Eosinophils # (A) 0.29 X 10*3/uL (0.04-0.35); Eosinophils % (A) 4.9 %; HCT 27.2 % (37.2-46.3); HGB 7.8 d/dL (12.0-15.0); Lymphocytes # (A) 0.99 X 10*3/uL (0.90-5.00); Lymphocytes % (A) 16.7 %; MCH 26.3 pg (27.0-32.0); MCHC 28.7 d/dL (32.0-37.0); MCV 91.6 FL (80.0-97.0); Monocytes # (A) 0.52 X 10*3/uL (0.20-1.00); Monocytes % (A) 8.8 %; NRBC Per 100 WBC 0 X 10*3/uL (0.00-0.01); Neutrophils % (A) 69.1 %; Platelet Count 341 X 10*3/uL (140-440); RBC 2.97 X 10*6/uL (4.10-5.20); RDW 17.9 % (11.5-14.5); WBC 5.93 X 10*3/uL (4.50-10.00)
[2022-11-04] MEDS: atenoloL 25 MG TAB PO SCH ×2 (09:24→19:57)
[2022-11-04] MEDS: SIMETHICONE 80 MG CHEWABLE PO SCH ×3 (09:24→21:22)
[2022-11-04] MEDS: LACTULOSE 20 GM/30 ML CUP PO SCH (09:24)
[2022-11-04] MEDS: LOSARTAN-HCTZ 50-12.5 MG 1 EACH TAB PO SCH (09:24)
[2022-11-04] MEDS: INSULIN DETEMIR (LEVEMIR) 100 UNIT/ML SYR SQ SCH ×2 (09:24→20:52)
[2022-11-04] MEDS: PANTOPRAZOLE 40 MG/10 ML VIAL IVP SCH ×2 (09:24→19:58)
--- NOTE | 2022-11-04 10:41 | P.PN ---
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 Labs from today reviewed hemoglobin hematocrit 7.8/27.2 chemistry within normal limits, patient is afebrile hemodynamic status stable on room air oxygen saturation 95-98% would recommend to monitor and observe off of oxygen 11/02/2022, patient seen eval examined during the rounds labs reviewed medications reviewed, she remains on supplemental oxygen 2 L nasal cannula unable to tolerate room air, saturation is 90-93%, otherwise hemodynamic status stable, patient remains on bronchodilators and inhaled corticosteroids and aerosolized as well as TPN general surgery has been following patient remains on DVT and peptic ulcer disease prophylaxis as well, uterus sternal pain as seen previously is not being observed on PPI. Patient has been resumed on antihypertensive agent hemodynamic status with that significantly improved, labs today reviewed white cell count is 7.2, hemoglobin hematocrit was 7.9/77 platelet count 328 chemistry fairly within normal limit except mild hyperglycemia 10/31/2022, patient seen eval examined, labs reviewed medications reviewed, patient remains on [employer] ADMINISTRATOR pump at 2 L oxygen however NG tube has been removed with dynamic status stable, patient however is not passing any gas remains nothing by mouth respirator status stable patient being monitor observe for a small right- sided pleural effusion and basal atelectasis likely due to volume overload we'll continue gentle diuresis 10/30/22 patient seen eval examined fistula on supplemental oxygen, patient has been on [employer] ADMINISTRATOR pump with Dilaudid, still have no bowel sounds patient remains nothing by mouth, labs from today reviewed hemoglobin and hematocrit remained stable 8.09/27, chemistry within normal limit was however 215 him a patient is afebrile hemodynamically stable with oxygen saturation 95%. Her oxygen 67-year-old female who is postoperative colectomy with end colostomy and small bowel resection. Patient is postoperative day # 8. Patient also had drainage of abdominal abscess with culture showing E. coli and Klebsiella. Patient remains on IV antibiotics with infectious disease on closely. Patient is currently nothing by mouth and has NG tube in place to intermittent suction. Patient has been on 2 L oxygen nasal cannula 24 7 with a deep breathing sense incentive spirometry to bedside, Patient does report feeling bloated. She is making minimal stool per the ostomy. Due to hyperglycemia and uncontrolled diabetes patient has been on Accu-Cheks as well as the long and short acting insulin. Patient remains on TPN and lipids. 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 Chest x-ray NG tube within lower esophagus and left basilar atelectasis recommended to advance the NG tube computed tomography scan of the chest negative for pulmonary embolism, right lower lobe subsegmental atelectasis present likely compressive atelectasis due to mild to moderate pleural effusion Objective - Vital Signs Vital signs: Vital Signs Temp 97.6 F 11/04/22 07:10 Pulse 60 11/04/22 07:10 Resp 15 11/04/22 07:10 BP 113/75 11/04/22 07:10 Pulse Ox 98 11/04/22 07:10 FiO2 Intake & Output 11/03/22 11/04/22 11/04/22 18:59 06:59 18:59 Output Total 150 Balance -150 Output: Stool 150 Other: Voiding Method Indwelling Catheter Indwelling Catheter # Voids 3 4 - Exam - Constitutional General appearance: mild distress, morbidly obese - EENT Eyes: EOMI, PERRLA Ears: bilateral: normal - Neck Carotids: bilateral: upstroke normal - Respiratory Respiratory: right: diminished - Cardiovascular Rhythm: regular Heart sounds: normal: S1, S2 - Gastrointestinal General gastrointestinal: decreased bowel sounds - Integumentary Integumentary: normal turgor - Neurologic Neurologic: CNII-XII intact - Musculoskeletal Musculoskeletal: gait normal, generalized weakness, strength equal bilaterally - Psychiatric Psychiatric: A&O x's 3, appropriate affect, intact judgment & insight - Labs CBC & Chem 7: 11/04/22 06:47 11/04/22 06:47 Labs: Abnormal Lab Results - Last 24 Hours (Table) 11/03/22 11/03/22 11/04/22 Range/Units 11:29 20:08 06:47 RBC (4.10-5.20) X 10*6/uL Hgb (12.0-15.0) d/dL Hct (37.2-46.3) % MCH (27.0-32.0) pg MCHC (32.0-37.0) d/dL RDW (11.5-14.5) % Glucose 100 H (74-99) mg/dL POC Glucose (mg/dL) 202 H 169 H (70-110) mg/dL Calcium 8.1 L (8.4-10.2) mg/dL Phosphorus 4.6 H (2.5-4.5) mg/dL Total Protein 5.9 L (6.3-8.2) g/dL Albumin 2.6 L (3.5-5.0) g/dL 11/04/22 Range/Units 06:47 RBC 2.97 L (4.10-5.20) X 10*6/uL Hgb 7.8 L (12.0-15.0) d/dL Hct 27.2 L (37.2-46.3) % MCH 26.3 L (27.0-32.0) pg MCHC 28.7 L (32.0-37.0) d/dL RDW 17.9 H (11.5-14.5) % Glucose (74-99) mg/dL POC Glucose (mg/dL) (70-110) mg/dL Calcium (8.4-10.2) mg/dL Phosphorus (2.5-4.5) mg/dL Total Protein (6.3-8.2) g/dL Albumin (3.5-5.0) g/dL Assessment and Plan Assessment: Episode of chest pain likely related to reflux GERD symptom, patient has been on PPI Right-sided small to moderate pleural effusion with compressive atelectasis likely related to volume overload, consider gentle diuresis, continue deep breathing exercises incentive spirometry Right lower lobe atelectasis subsegmental due to compressive atelectasis, continue deep breathing sense incentive spirometry Morbid obesity and likely sleep disorder breathing and sleep apnea patient will need a polysomnogram will arrange it as outpatient 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
[2022-11-04 12:31] LABS: Glucose,Whole Blood 178 mg/dL (70-110)
--- NOTE | 2022-11-04 12:56 | P.PN ---
Subjective Progress Note Date: 11/04/22 She reports improvement of abdominal distention with gas-x She reports increased passage of gas No increased abdominal pain Overall improvement Continue Gas-x scheduled. Objective - Vital Signs Vital signs: Vital Signs Temp 97.6 F 11/04/22 07:10 Pulse 60 11/04/22 07:10 Resp 15 11/04/22 07:10 BP 113/75 11/04/22 07:10 Pulse Ox 98 11/04/22 07:10 FiO2 Intake & Output 11/03/22 11/04/22 11/04/22 18:59 06:59 18:59 Output Total 150 Balance -150 Output: Stool 150 Other: Voiding Method Indwelling Catheter Indwelling Catheter Indwelling Catheter # Voids 3 4 - Labs CBC & Chem 7: 11/04/22 06:47 11/04/22 06:47 Labs: Abnormal Lab Results - Last 24 Hours (Table) 11/03/22 11/04/22 11/04/22 Range/Units 20:08 06:47 06:47 RBC 2.97 L (4.10-5.20) X 10*6/uL Hgb 7.8 L (12.0-15.0) d/dL Hct 27.2 L (37.2-46.3) % MCH 26.3 L (27.0-32.0) pg MCHC 28.7 L (32.0-37.0) d/dL RDW 17.9 H (11.5-14.5) % Glucose 100 H (74-99) mg/dL POC Glucose (mg/dL) 169 H (70-110) mg/dL Calcium 8.1 L (8.4-10.2) mg/dL Phosphorus 4.6 H (2.5-4.5) mg/dL Total Protein 5.9 L (6.3-8.2) g/dL Albumin 2.6 L (3.5-5.0) g/dL 11/04/22 Range/Units 12:28 RBC (4.10-5.20) X 10*6/uL Hgb (12.0-15.0) d/dL Hct (37.2-46.3) % MCH (27.0-32.0) pg MCHC (32.0-37.0) d/dL RDW (11.5-14.5) % Glucose (74-99) mg/dL POC Glucose (mg/dL) 178 H (70-110) mg/dL Calcium (8.4-10.2) mg/dL Phosphorus (2.5-4.5) mg/dL Total Protein (6.3-8.2) g/dL Albumin (3.5-5.0) g/dL
[2022-11-04] MEDS: SODIUM FERRIC GLUCONAT-SUCROSE 125 MG in SODIUM CHLORIDE 0.9% 100 ML IVPB SCH (15:03)
[2022-11-04] MEDS: SODIUM CHLORIDE 0.9% 1,000 ML IV SCH ×2 (15:05→20:54)
[2022-11-04 17:10] LABS: Glucose,Whole Blood 135 mg/dL (70-110)
[2022-11-04] MEDS: lisinopriL 5 MG TAB PO SCH (19:57)
[2022-11-04 20:25] LABS: Glucose,Whole Blood 148 mg/dL (70-110)
--- NOTE | 2022-11-04 21:14 | PN ---
PROGRESS NOTE A 67-year-old white female. Blood pressure 111/71, O2 is 98%, temperature 98.1, pulse 60, respiratory rate 16 to 18. Hemoglobin is 7.8. We may give her some IV Venofer today due to the anemia. Albumin is 2.5, sugars are mid 100s, saturating is 97% to 98% on room air. Blood pressure 111 to 120s over 70s, temperature 98, pulse 60s to 70s, respiratory rate 16 to 18. Plan, continue current treatment, PT/OT, possible rehab placement this week, can start on her breathing treatments, labs are improving. Prognosis guarded, but improved. Please see further orders. MMODL / IJN: [id number] /
[2022-11-05] MEDS: ENOXAPARIN 40 MG/0.4 ML SYRINGE SQ SCH (05:24)
[2022-11-05] MEDS: HYDROcodone/APAP 5-325MG 1 EACH TAB PO PRN ×3 (06:15→18:03)
[2022-11-05 06:25] LABS: African American GFR (CKD) >90 (>60 ml/min/1.73 sqM); Anion Gap 2 mmol/L; Blood Urea Nitrogen 7 mg/dL (7-17); Carbon Dioxide 32 mmol/L (22-30); Chloride 105 mmol/L (98-107); Glucose 111 mg/dL (74-99); Non-African American GFR(CKD) >90 (>60 ml/min/1.73 sqM); Phosphorus 4.1 mg/dL (2.5-4.5); Potassium 4.4 mmol/L (3.5-5.1); Sodium 139 mmol/L (137-145)
[2022-11-05 07:04] LABS: Glucose,Whole Blood 121 mg/dL (70-110)
[2022-11-05] MEDS: INSULIN ASPART (NovoLOG) 100 UNIT/ML VIAL SQ SCH ×6 (08:08→20:18)
[2022-11-05] MEDS: PANTOPRAZOLE 40 MG/10 ML VIAL IVP SCH ×2 (08:19→20:18)
[2022-11-05] MEDS: PIPERACILLIN-TAZOBACTAM 3.375 GM in SODIUM CHLORIDE 0.9% 100 ML IVPB SCH ×3 (08:19→23:50)
[2022-11-05] MEDS: atenoloL 25 MG TAB PO SCH ×2 (08:19→20:18)
[2022-11-05] MEDS: SODIUM FERRIC GLUCONAT-SUCROSE 125 MG in SODIUM CHLORIDE 0.9% 100 ML IVPB SCH (08:19)
[2022-11-05] MEDS: LOSARTAN-HCTZ 50-12.5 MG 1 EACH TAB PO SCH (08:20)
[2022-11-05] MEDS: INSULIN DETEMIR (LEVEMIR) 100 UNIT/ML SYR SQ SCH ×2 (08:20→20:18)
[2022-11-05] MEDS: LACTULOSE 20 GM/30 ML CUP PO SCH (08:22)
[2022-11-05] MEDS: IPRATROPIUM-ALBUTEROL 3 ML NEB INHALATION SCH ×4 (08:23→20:50)
[2022-11-05] MEDS: BUDESONIDE 0.5 MG/2 ML NEBU INHALATION SCH ×2 (08:23→20:50)
[2022-11-05] MEDS: SIMETHICONE 80 MG CHEWABLE PO SCH ×3 (09:54→22:05)
[2022-11-05 12:16] LABS: Glucose,Whole Blood 198 mg/dL (70-110)
[2022-11-05] MEDS: NYSTATIN 100,000 UNIT/GM POWD 15 GM TOPICAL SCH ×2 (13:05→20:21)
--- NOTE | 2022-11-05 16:07 | P.PN ---
Subjective Progress Note Date: 11/05/22 CHIEF COMPLAINT: Diverticulitis with fistula and abscess HISTORY OF PRESENT ILLNESS: Patient is status post Partial colectomy with end colostomy, small bowel resection, drainage of abdominal abscess, mobilization splenic flexure on 10/20/22. Patient's pain is controlled. She did have some nausea earlier that's improved. Ostomy is functioning. Currently on a full liquid diet. She's complaining of yeast in her skin folds. PHYSICAL EXAM: VITAL SIGNS: Reviewed GENERAL: Well-developed in no acute distress. ABDOMEN: Soft. Nondistended. Incision dressing clean dry and intact. Ostomy with stool. ASSESSMENT: 1. Abdominal abscess with small bowel obstruction, suspected diverticulitis PLAN: -Continue full liquid diet -Nystatin powder added for skinfold candidiasis -Continue pain management -Continue antibiotics per ID service -Increase activity level -Incentive spirometer ordered -DVT prophylaxis Lovenox and GI prophylaxis Protonix Physician Coin Purse Framer note has been reviewed by physician. Signing provider agrees with the documented findings, assessment, and plan of care. Objective - Vital Signs Vital signs: Vital Signs Temp 98 F 11/05/22 12:05 Pulse 76 11/05/22 16:00 Resp 18 11/05/22 12:05 BP 128/78 11/05/22 12:05 Pulse Ox 97 11/05/22 12:05 FiO2 Intake & Output 11/04/22 11/05/22 11/05/22 18:59 06:59 18:59 Intake Total 780 860 Balance 780 860 Weight 115.8 kg 115.8 kg Intake: Intake, IV Titration 780 620 Amount Piperacillin-Tazobactam 3 200 100 .375 gm In Sodium Chloride 0.9% 100 ml @ 25 mls/hr IVPB Q8HR [facility] Rx# :[id number] Sodium Chloride 0.9% 1, 480 520 000 ml @ 40 mls/hr IV . Q24H [facility] Rx#:[id number] Sodium Ferric Gluconat- 100 Sucrose 125 mg In Sodium Chloride 0.9% 100 ml @ 100 mls/hr IVPB DAILY [facility] Rx#:[id number] Oral 240 Other: Voiding Method Indwelling Catheter Indwelling Catheter Toilet # Voids 1 # Bowel Movements 1 - Labs CBC & Chem 7: 11/04/22 06:47 11/05/22 05:56 Labs: Abnormal Lab Results - Last 24 Hours (Table) 11/04/22 11/04/22 11/05/22 Range/Units 17:08 20:18 05:56 Carbon Dioxide 32 H (22-30) mmol/L Glucose 111 H (74-99) mg/dL POC Glucose (mg/dL) 135 H 148 H (70-110) mg/dL Calcium 8.0 L (8.4-10.2) mg/dL Triglycerides (0.00-149.00) mg/dL 11/05/22 11/05/22 11/05/22 Range/Units 05:56 07:02 12:14 Carbon Dioxide (22-30) mmol/L Glucose (74-99) mg/dL POC Glucose (mg/dL) 121 H 198 H (70-110) mg/dL Calcium (8.4-10.2) mg/dL Triglycerides 164.00 H (0.00-149.00) mg/dL
[2022-11-05 17:09] LABS: Glucose,Whole Blood 135 mg/dL (70-110)
[2022-11-05 20:00] LABS: Glucose,Whole Blood 200 mg/dL (70-110)
[2022-11-05] MEDS: lisinopriL 5 MG TAB PO SCH (20:18)
[2022-11-06] MEDS: ONDANSETRON 4 MG/2 ML VIAL IVP PRN (00:17)
[2022-11-06] MEDS: HYDROcodone/APAP 5-325MG 1 EACH TAB PO PRN ×2 (00:18→08:00)
[2022-11-06] MEDS: ENOXAPARIN 40 MG/0.4 ML SYRINGE SQ SCH (06:03)
--- NOTE | 2022-11-06 06:35 | PN ---
PROGRESS NOTE SUBJECTIVE: This is a 67-year-old white female. Waiting for final culture sensitivity of the abdominal wound culture to see what antibiotics she needs. Waiting for discharge plan. 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 Diabetes, on insulin for diabetes. Hypertension medicine. Sugars are mid 100s to 100. She is on breathing treatments, CO2 is 32. Sleep apnea, needs an outpatient test. OBJECTIVE: VITAL SIGNS: Blood pressure 120s/70s, O2 97, pulse 66, respiratory rate 12 to 16, temp 98. CARDIOVASCULAR: S1, S2. LUNGS: Transmitted upper sounds. GI: Shows ostomy. HEMATOLOGY: 2 to 3+ edema. PLAN: Continue current treatment with breathing treatments, etc. She has elevated CO2 levels. Consider and DuoNeb potassium updrafts. Wait for wound culture. Consultation with Infectious Disease. She has mild pulmonary hypertension. Continue current treatments. Follow up next 24 to 48 hours. Possible discharge home to rehab center. Please see what rehab wants as far as discharge planning. MMODL / IJN: [id number] /
[2022-11-06 07:30] LABS: Glucose,Whole Blood 80 mg/dL (70-110)
[2022-11-06] MEDS: INSULIN ASPART (NovoLOG) 100 UNIT/ML VIAL SQ SCH ×4 (07:32→21:36)
[2022-11-06] MEDS: SODIUM FERRIC GLUCONAT-SUCROSE 125 MG in SODIUM CHLORIDE 0.9% 100 ML IVPB SCH (08:00)
[2022-11-06] MEDS: INSULIN DETEMIR (LEVEMIR) 100 UNIT/ML SYR SQ SCH ×2 (08:00→21:58)
[2022-11-06] MEDS: PANTOPRAZOLE 40 MG/10 ML VIAL IVP SCH ×2 (08:00→21:57)
[2022-11-06] MEDS: LOSARTAN-HCTZ 50-12.5 MG 1 EACH TAB PO SCH (08:01)
[2022-11-06] MEDS: atenoloL 25 MG TAB PO SCH ×2 (08:01→21:58)
[2022-11-06] MEDS: SIMETHICONE 80 MG CHEWABLE PO SCH ×3 (08:02→22:00)
[2022-11-06] MEDS: NYSTATIN 100,000 UNIT/GM POWD 15 GM TOPICAL SCH ×2 (08:02→22:01)
[2022-11-06] MEDS: LACTULOSE 20 GM/30 ML CUP PO SCH (08:16)
[2022-11-06] MEDS: IPRATROPIUM-ALBUTEROL 3 ML NEB INHALATION SCH ×4 (08:38→21:19)
[2022-11-06] MEDS: BUDESONIDE 0.5 MG/2 ML NEBU INHALATION SCH ×2 (08:38→21:19)
[2022-11-06] MEDS: PIPERACILLIN-TAZOBACTAM 3.375 GM in SODIUM CHLORIDE 0.9% 100 ML IVPB SCH (09:10)
[2022-11-06 10:57] LABS: Basophils # (A) 0.03 X 10*3/uL (0.00-0.10); Basophils % (A) 0.6 %; Eosinophils # (A) 0.45 X 10*3/uL (0.04-0.35); Eosinophils % (A) 9.1 %; HCT 25.3 % (37.2-46.3); HGB 7.4 d/dL (12.0-15.0); Lymphocytes # (A) 1.05 X 10*3/uL (0.90-5.00); Lymphocytes % (A) 21.1 %; MCH 27.1 pg (27.0-32.0); MCHC 29.2 d/dL (32.0-37.0); MCV 92.7 FL (80.0-97.0); Mean Platelet Volume 9.8 FL (9.5-12.2); Monocytes # (A) 0.46 X 10*3/uL (0.20-1.00); Monocytes % (A) 9.3 %; NRBC Per 100 WBC 0 X 10*3/uL (0.00-0.01); Neutrophils # (A) 2.96 X 10*3/uL (1.80-7.70); Neutrophils % (A) 59.5 %; Platelet Count 328 X 10*3/uL (140-440); RBC 2.73 X 10*6/uL (4.10-5.20); RDW 18.2 % (11.5-14.5); WBC 4.97 X 10*3/uL (4.50-10.00)
[2022-11-06 11:07] LABS: ALT 18 U/L (8-44); AST 13 U/L (13-35); Albumin 2.6 d/dL (3.8-4.9); Albumin/Globulin Ratio 0.84 Ratio (1.60-3.17); Alkaline Phosphatase 83 U/L (41-126); BUN/Creat Ratio 8.43 Ratio (12.00-20.00); Blood Urea Nitrogen 5.9 mg/dL (9.0-27.0); Calcium 8.5 mg/dL (8.7-10.3); Carbon Dioxide 29.7 mmol/L (21.6-31.8); Chloride 106 mmol/L (96-109); Globulin 3.1 d/dL (1.6-3.3); Glucose 70 mg/dL (70-110); Potassium 4.1 mmol/L (3.5-5.5); Sodium 144 mmol/L (135-145); Total Bilirubin 0.2 mg/dL (0.3-1.2); Total Protein 5.7 d/dL (6.2-8.2)
[2022-11-06 13:08] LABS: Glucose,Whole Blood 156 mg/dL (70-110)
[2022-11-06] MEDS: SODIUM CHLORIDE 0.9% 1,000 ML IV SCH (13:16)
--- NOTE | 2022-11-06 13:20 | P.PN ---
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 Patient did have a CT angiogram of the chest on 10/28/2022 evidence of PE moderate-sized right effusion, patient did have CT of abdominal pelvis on 10/30/2022 without evidence for contrast extravasation to suggest leak and no evidence of any dietitian to suggest ileus or obstruction On today's evaluation that is 11/02/2022 patient remains to be afebrile, patient abdominal pain has decreased in intensity and has been tolerating her diet, the patient did have some nausea but no vomiting, the patient denies chest pain shortness of breath or cough Patient did have a normal white count of7.23, hemoglobin is 7.9,creatinine 0.68 abdominal culture positive for Klebsiella and E. coli Objective - Vital Signs Vital signs: Vital Signs Temp 97.7 F 11/02/22 12:54 Pulse 80 11/02/22 12:54 Resp 18 11/02/22 12:54 BP 129/76 11/02/22 12:54 Pulse Ox 95 11/02/22 12:54 FiO2 Intake & Output 11/01/22 11/02/22 11/02/22 18:59 06:59 18:59 Output Total 2300 520 14 Balance -2300 -520 -14 Weight 114.8 kg Output: Drainage 20 14 Left 10 6 Left Lower Abdomen 10 8 Urine 1800 Uretheral (Maria) 900 Stool 500 500 Other: Voiding Method Indwelling Catheter Indwelling Catheter Indwelling Catheter # Voids 2 1 - Exam GENERAL DESCRIPTION: An elderly female lying in bed in no distress RESPIRATORY SYSTEM: Unlabored breathing , decreased breath sounds at bases HEART: S1 S2 regular rate and rhythm , ABDOMEN: Soft , mild abdominal distention and tenderness EXTREMITIES: No edema feet - Labs CBC & Chem 7: 11/06/22 05:51 11/06/22 05:51 Labs: Abnormal Lab Results - Last 24 Hours (Table) 11/01/22 11/01/22 11/02/22 Range/Units 17:25 23:16 05:22 RBC (4.10-5.20) X 10*6/uL Hgb (12.0-15.0) d/dL Hct (37.2-46.3) % MCH (27.0-32.0) pg MCHC (32.0-37.0) d/dL RDW (11.5-14.5) % Sodium 136 L (137-145) mmol/L Glucose 201 H (74-99) mg/dL POC Glucose (mg/dL) 203 H 177 H (70-110) mg/dL Calcium 7.7 L (8.4-10.2) mg/dL Total Protein 5.4 L (6.3-8.2) g/dL Albumin 2.3 L (3.5-5.0) g/dL 11/02/22 11/02/22 11/02/22 Range/Units 05:22 05:41 11:50 RBC 2.98 L (4.10-5.20) X 10*6/uL Hgb 7.9 L (12.0-15.0) d/dL Hct 27.0 L (37.2-46.3) % MCH 26.5 L (27.0-32.0) pg MCHC 29.3 L (32.0-37.0) d/dL RDW 17.7 H (11.5-14.5) % Sodium (137-145) mmol/L Glucose (74-99) mg/dL POC Glucose (mg/dL) 216 H 191 H (70-110) mg/dL Calcium (8.4-10.2) mg/dL Total Protein (6.3-8.2) g/dL Albumin (3.5-5.0) g/dL Assessment and Plan (1) Diverticulitis of large intestine with complication Current Visit: Yes Status: Acute Code(s): K57.32 - DVTRCLI OF LG INT W/O PERFORATION OR ABSCESS W/O BLEEDING SNOMED Code(s): 249957717 Plan: 1patient was in the hospital with sepsis in this patient with a fever tachycardia elevated white count cirrhosis complicated diverticulitis with evidence of fistula formation between descending colon and loop of the small bowel and concern for abscess we will need to cover for the enteric gram- negative both anaerobes and anaerobes to the likely pathogen 2-Patient is status post partial colectomy with end colostomy small bowel resec tion drainage of abdominal abscess cultures were done growing E. coli and Klebsiella, E. coli is resistant to Unasyn 3-patient remains to be afebrile and,the patient white count has normalized, patient did have a repeat CT did not show any evidence of ileus or leakage, 4-patient has shown clinical improvement and will continue the patient on Zosyn while inpatient and monitor clinical course closely Dictation was produced using [employer] dictation software. please excuse any grammatical, word or spelling errors. Time with Patient: Less than 30
--- NOTE | 2022-11-06 13:21 | P.PN ---
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 Patient did have a CT angiogram of the chest on 10/28/2022 evidence of PE moderate-sized right effusion, patient did have CT of abdominal pelvis on 10/30/2022 without evidence for contrast extravasation to suggest leak and no evidence of any dietitian to suggest ileus or obstruction On today's evaluation that is 11/03/2022 patient denies any fever or any chills, patient abdominal pain has decreased in intensity and controlled with current pain medication has been tolerating her diet, the patient did have some nausea but no vomiting, the patient denies chest pain shortness of breath or cough and is breathing comfortably on a 2 L nasal cannula oxygen Patient did have a normal white count of 7.23, hemoglobin is 7.9 as of yesterday no CBC was done today,creatinine 0.69 abdominal culture positive for Klebsiella and E. coli Objective - Vital Signs Vital signs: Vital Signs Temp 98.1 F 11/03/22 07:41 Pulse 85 11/03/22 11:35 Resp 20 11/03/22 07:41 BP 104/59 11/03/22 07:41 Pulse Ox 93 L 11/03/22 07:41 FiO2 Intake & Output 11/02/22 11/03/22 11/03/22 18:59 06:59 18:59 Output Total 39 0 Balance -39 0 Weight 114.8 kg Output: Drainage 14 Left 6 Left Lower Abdomen 8 Stool 25 0 Other: Voiding Method Indwelling Catheter Indwelling Catheter Indwelling Catheter # Voids 3 4 3 - Exam GENERAL DESCRIPTION: An elderly female lying in bed in no distress RESPIRATORY SYSTEM: Unlabored breathing , decreased breath sounds at bases HEART: S1 S2 regular rate and rhythm , ABDOMEN: Soft , mild abdominal distention and tenderness EXTREMITIES: No edema feet - Labs CBC & Chem 7: 11/06/22 05:51 11/06/22 05:51 Labs: Abnormal Lab Results - Last 24 Hours (Table) 11/02/22 11/02/22 11/02/22 Range/Units 11:50 17:08 20:07 Glucose (74-99) mg/dL POC Glucose (mg/dL) 191 H 169 H 219 H (70-110) mg/dL Calcium (8.4-10.2) mg/dL Albumin (3.5-5.0) g/dL 11/03/22 11/03/22 Range/Units 05:00 11:29 Glucose 123 H (74-99) mg/dL POC Glucose (mg/dL) 202 H (70-110) mg/dL Calcium 8.3 L (8.4-10.2) mg/dL Albumin 2.7 L (3.5-5.0) g/dL Assessment and Plan (1) Diverticulitis of large intestine with complication Current Visit: Yes Status: Acute Code(s): K57.32 - DVTRCLI OF LG INT W/O PERFORATION OR ABSCESS W/O BLEEDING SNOMED Code(s): 120361526 Plan: 1patient was in the hospital with sepsis in this patient with a fever tachycardia elevated white count cirrhosis complicated diverticulitis with evidence of fistula formation between descending colon and loop of the small bowel and concern for abscess we will need to cover for the enteric gram-n egative both anaerobes and anaerobes to the likely pathogen 2-Patient is status post partial colectomy with end colostomy small bowel resection drainage of abdominal abscess cultures were done growing E. coli and Klebsiella, E. coli is resistant to Unasyn 3-patient remains to be afebrile and,the patient white count is normal, patient did have a repeat CT did not show any evidence of ileus or leakage, 4-patient slowly clinically improving and is currently being treated with Zosyn while inpatient and monitor clinical course closely Dictation was produced using [employer] dictation software. please excuse any grammatical, word or spelling errors. Time with Patient: Less than 30
--- NOTE | 2022-11-06 13:23 | P.PN ---
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 Patient did have a CT angiogram of the chest on 10/28/2022 evidence of PE moderate-sized right effusion, patient did have CT of abdominal pelvis on 10/30/2022 without evidence for contrast extravasation to suggest leak and no evidence of any dietitian to suggest ileus or obstruction On today's evaluation that is 11/04/2022 patient continues to be afebrile, the patient is breathing comfortably on room air, patient abdominal pain has decreased in intensity and patient has been tolerating her diet, the patient denies any nausea no vomiting and did have on record in her colostomy bag, no chest pain shortness of breath or cough Patient did have a normal white count of 5.93, hemoglobin is 7.8,creatinine 0.65 abdominal culture positive for Klebsiella and E. coli Objective - Vital Signs Vital signs: Vital Signs Temp 98.1 F 11/04/22 11:45 Pulse 60 11/04/22 11:45 Resp 16 11/04/22 11:45 BP 111/71 11/04/22 11:45 Pulse Ox 98 11/04/22 11:45 FiO2 Intake & Output 11/03/22 11/04/22 11/04/22 18:59 06:59 18:59 Output Total 150 Balance -150 Output: Stool 150 Other: Voiding Method Indwelling Catheter Indwelling Catheter Indwelling Catheter # Voids 3 4 - Exam GENERAL DESCRIPTION: An elderly female lying in bed in no distress RESPIRATORY SYSTEM: Unlabored breathing , decreased breath sounds at bases HEART: S1 S2 regular rate and rhythm , ABDOMEN: Soft , mild abdominal distention and tenderness EXTREMITIES: No edema feet - Labs CBC & Chem 7: 11/06/22 05:51 11/06/22 05:51 Labs: Abnormal Lab Results - Last 24 Hours (Table) 11/03/22 11/04/22 11/04/22 Range/Units 20:08 06:47 06:47 RBC 2.97 L (4.10-5.20) X 10*6/uL Hgb 7.8 L (12.0-15.0) d/dL Hct 27.2 L (37.2-46.3) % MCH 26.3 L (27.0-32.0) pg MCHC 28.7 L (32.0-37.0) d/dL RDW 17.9 H (11.5-14.5) % Glucose 100 H (74-99) mg/dL POC Glucose (mg/dL) 169 H (70-110) mg/dL Calcium 8.1 L (8.4-10.2) mg/dL Phosphorus 4.6 H (2.5-4.5) mg/dL Total Protein 5.9 L (6.3-8.2) g/dL Albumin 2.6 L (3.5-5.0) g/dL 11/04/22 Range/Units 12:28 RBC (4.10-5.20) X 10*6/uL Hgb (12.0-15.0) d/dL Hct (37.2-46.3) % MCH (27.0-32.0) pg MCHC (32.0-37.0) d/dL RDW (11.5-14.5) % Glucose (74-99) mg/dL POC Glucose (mg/dL) 178 H (70-110) mg/dL Calcium (8.4-10.2) mg/dL Phosphorus (2.5-4.5) mg/dL Total Protein (6.3-8.2) g/dL Albumin (3.5-5.0) g/dL Assessment and Plan (1) Diverticulitis of large intestine with complication Current Visit: Yes Status: Acute Code(s): K57.32 - DVTRCLI OF LG INT W/O PERFORATION OR ABSCESS W/O BLEEDING SNOMED Code(s): 383254531 Plan: 1patient was in the hospital with sepsis in this patient with a fever tachycardia elevated white count cirrhosis complicated diverticulitis with evidence of fistula formation between descending colon and loop of the small bowel and concern for abscess we will need to cover for the enteric gram- negative both anaerobes and anaerobes to the likely pathogen 2-Patient is status post partial colectomy with end colostomy small bowel resection drainage of abdominal abscess cultures were done growing E. coli and Klebsiella, E. coli is resistant to Unasyn 3-patient remains to be afebrile and,the patient white count is normal, patient did have a repeat CT did not show any evidence of ileus or leakage, 4-patient has shown clinical improvement the patient had been tolerating her antibiotics of Zosyn which should be continued while inpatient and monitor clinical course closely Dictation was produced using [employer] dictation software. please excuse any grammatical, word or spelling errors. Time with Patient: Less than 30
--- NOTE | 2022-11-06 13:25 | P.PN ---
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 Patient did have a CT angiogram of the chest on 10/28/2022 evidence of PE moderate-sized right effusion, patient did have CT of abdominal pelvis on 10/30/2022 without evidence for contrast extravasation to suggest leak and no evidence of any dietitian to suggest ileus or obstruction On today's evaluation that is 11/05/2022 patient remains to be afebrile, the patient is breathing comfortably on room air, patient abdominal pain has decreased in intensity and patient has been tolerating her diet, the patient denies any nausea no vomiting and did have output in her colostomy bag, no chest pain shortness of breath or cough Patient did have a normal white count of 5.93, hemoglobin is 7.8 as of yesterday no CBC was done today the patient creatinine 0.68, abdominal culture positive for Klebsiella and E. coli Objective - Vital Signs Vital signs: Vital Signs Temp 98 F 11/05/22 12:05 Pulse 80 11/05/22 12:12 Resp 18 11/05/22 12:05 BP 128/78 11/05/22 12:05 Pulse Ox 97 11/05/22 12:05 FiO2 Intake & Output 11/04/22 11/05/22 11/05/22 18:59 06:59 18:59 Intake Total 780 860 Balance 780 860 Weight 115.8 kg Intake: Intake, IV Titration 780 620 Amount Piperacillin-Tazobactam 3 200 100 .375 gm In Sodium Chloride 0.9% 100 ml @ 25 mls/hr IVPB Q8HR [facility] Rx# :[id number] Sodium Chloride 0.9% 1, 480 520 000 ml @ 40 mls/hr IV . Q24H [facility] Rx#:[id number] Sodium Ferric Gluconat- 100 Sucrose 125 mg In Sodium Chloride 0.9% 100 ml @ 100 mls/hr IVPB DAILY [facility] Rx#:[id number] Oral 240 Other: Voiding Method Indwelling Catheter Indwelling Catheter Toilet # Voids 1 # Bowel Movements 1 - Exam GENERAL DESCRIPTION: An elderly female lying in bed in no distress RESPIRATORY SYSTEM: Unlabored breathing , decreased breath sounds at bases HEART: S1 S2 regular rate and rhythm , ABDOMEN: Soft , mild abdominal distention and tenderness EXTREMITIES: No edema feet - Labs CBC & Chem 7: 11/06/22 05:51 11/06/22 05:51 Labs: Abnormal Lab Results - Last 24 Hours (Table) 11/04/22 11/04/22 11/05/22 Range/Units 17:08 20:18 05:56 Carbon Dioxide 32 H (22-30) mmol/L Glucose 111 H (74-99) mg/dL POC Glucose (mg/dL) 135 H 148 H (70-110) mg/dL Calcium 8.0 L (8.4-10.2) mg/dL Triglycerides (0.00-149.00) mg/dL 11/05/22 11/05/22 11/05/22 Range/Units 05:56 07:02 12:14 Carbon Dioxide (22-30) mmol/L Glucose (74-99) mg/dL POC Glucose (mg/dL) 121 H 198 H (70-110) mg/dL Calcium (8.4-10.2) mg/dL Triglycerides 164.00 H (0.00-149.00) mg/dL Assessment and Plan (1) Diverticulitis of large intestine with complication Current Visit: Yes Status: Acute Code(s): K57.32 - DVTRCLI OF LG INT W/O PERFORATION OR ABSCESS W/O BLEEDING SNOMED Code(s): 808921943 Plan: 1patient was in the hospital with sepsis in this patient with a fever tachycardia elevated white count cirrhosis complicated diverticulitis with evidence of fistula formation between descending colon and loop of the small bowel and concern for abscess we will need to cover for the enteric gram- negative both anaerobes and anaerobes to the likely pathogen 2-Patient is status post partial colectomy with end colostomy small bowel resection drainage of abdominal abscess cultures were done growing E. coli and Klebsiella, E. coli is resistant to Unasyn 3-patient remains to be afebrile and,the patient white count is normal, patient did have a repeat CT did not show any evidence of ileus or leakage, 4-patient is slowly clinically improving and we will continue the patient on Zosyn while inpatient and continue with supportive care Dictation was produced using [email or web address] dictation software. please excuse any grammatical, word or spelling errors. Time with Patient: Less than 30
--- NOTE | 2022-11-06 13:29 | P.PN ---
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 Patient did have a CT angiogram of the chest on 10/28/2022 evidence of PE moderate-sized right effusion, patient did have CT of abdominal pelvis on 10/30/2022 without evidence for contrast extravasation to suggest leak and no evidence of any dietitian to suggest ileus or obstruction On today's evaluation that is 11/06/2022 , the patient denies any fever or any chills, the patient is breathing comfortably on 2 L nasal cannula oxygen patient denies having any nausea and vomiting has been tolerating her diet and did have output in her colostomy bag Patient did have a normal white count of 4.97, hemoglobin is 7.4, the patient creatinine 0.7, abdominal culture positive for Klebsiella and E. coli Objective - Vital Signs Vital signs: Vital Signs Temp 98 F 11/06/22 08:38 Pulse 72 11/06/22 08:52 Resp 18 11/06/22 08:38 BP 123/76 11/06/22 08:38 Pulse Ox 93 L 11/06/22 08:38 FiO2 Intake & Output 11/05/22 11/06/22 11/06/22 18:59 06:59 18:59 Intake Total 360 Balance 360 Weight 115.8 kg 115.7 kg Intake: Intake, IV Titration 360 Amount IV Fluid Continuation 700 360 ml @ 0 mls/hr [facility] Rx#:[id number] Other: Voiding Method Toilet Toilet Toilet Incontinent Incontinent # Voids 3 1 - Exam GENERAL DESCRIPTION: An elderly female lying in bed in no distress RESPIRATORY SYSTEM: Unlabored breathing , decreased breath sounds at bases HEART: S1 S2 regular rate and rhythm , ABDOMEN: Soft , midline incision is intact will are in place is no evidence of any swelling redness or drainage EXTREMITIES: No edema feet - Labs CBC & Chem 7: 11/06/22 05:51 11/06/22 05:51 Labs: Abnormal Lab Results - Last 24 Hours (Table) 11/05/22 11/05/22 11/06/22 Range/Units 17:08 19:58 05:51 RBC 2.73 L (4.10-5.20) X 10*6/uL Hgb 7.4 L (12.0-15.0) d/dL Hct 25.3 L (37.2-46.3) % MCHC 29.2 L (32.0-37.0) d/dL RDW 18.2 H (11.5-14.5) % Eosinophils # 0.45 H (0.04-0.35) X 10*3/uL BUN (9.0-27.0) mg/dL BUN/Creatinine Ratio (12.00-20.00) Ratio POC Glucose (mg/dL) 135 H 200 H (70-110) mg/dL Calcium (8.7-10.3) mg/dL Total Bilirubin (0.3-1.2) mg/dL Total Protein (6.2-8.2) d/dL Albumin (3.8-4.9) d/dL Albumin/Globulin Ratio (1.60-3.17) Ratio 11/06/22 11/06/22 Range/Units 05:51 13:07 RBC (4.10-5.20) X 10*6/uL Hgb (12.0-15.0) d/dL Hct (37.2-46.3) % MCHC (32.0-37.0) d/dL RDW (11.5-14.5) % Eosinophils # (0.04-0.35) X 10*3/uL BUN 5.9 L (9.0-27.0) mg/dL BUN/Creatinine Ratio 8.43 L (12.00-20.00) Ratio POC Glucose (mg/dL) 156 H (70-110) mg/dL Calcium 8.5 L (8.7-10.3) mg/dL Total Bilirubin 0.2 L (0.3-1.2) mg/dL Total Protein 5.7 L (6.2-8.2) d/dL Albumin 2.6 L (3.8-4.9) d/dL Albumin/Globulin Ratio 0.84 L (1.60-3.17) Ratio Assessment and Plan (1) Diverticulitis of large intestine with complication Current Visit: Yes Status: Acute Code(s): K57.32 - DVTRCLI OF LG INT W/O PERFORATION OR ABSCESS W/O BLEEDING SNOMED Code(s): 461423808 Plan: 1patient was in the hospital with sepsis in this patient with a fever tachycardia elevated white count cirrhosis complicated diverticulitis with evidence of fistula formation between descending colon and loop of the small bowel and concern for abscess we will need to cover for the enteric gram- negative both anaerobes and anaerobes to the likely pathogen 2-Patient is status post partial colectomy with end colostomy small bowel resection drainage of abdominal abscess cultures were done growing E. coli and Klebsiella, E. coli is resistant to Unasyn 3-patient remains to be afebrile and,the patient white count is normal, patient did have a repeat CT did not show any evidence of ileus or leakage, 4-patient has shown clinical improvement and received more than 2 weeks of IV antibiotic after surgery we will switch over to oral Cipro and Flagyl and monitor clinical course closely 5-groin fold cutaneous candidiasis, continue with the nystatin powder twice a day Dictation was produced using [employer] dictation software. please excuse any grammatical, word or spelling errors. Time with Patient: Less than 30
--- NOTE | 2022-11-06 16:05 | P.PN ---
Subjective Progress Note Date: 11/06/22 CHIEF COMPLAINT: Diverticulitis with fistula and abscess HISTORY OF PRESENT ILLNESS: Patient is status post Partial colectomy with end colostomy, small bowel resection, drainage of abdominal abscess, mobilization splenic flexure on 10/20/22. Patient's pain is controlled. Ostomy is functioning. Nausea better today. She reports when tired. WBC 4.97 Hemoglobin down from 7.8-7.4. Patient is receiving daily IV iron PHYSICAL EXAM: VITAL SIGNS: Reviewed GENERAL: Well-developed in no acute distress. ABDOMEN: Soft. Nondistended. Incision dressing clean dry and intact. Ostomy with stool. ASSESSMENT: 1. Abdominal abscess with small bowel obstruction, suspected diverticulitis PLAN: -Advance diet to a low fiber -Surgical dressing change today -Patient can shower -Continue antibiotics per ID service -Increase activity level -Incentive spirometer ordered -Patient will need ECF at discharge -Patient can be discharged when surgical standpoint when medically cleared -DVT prophylaxis Lovenox and GI prophylaxis Protonix Physician Signal Integrity Engineer note has been reviewed by physician. Signing provider agrees with the documented findings, assessment, and plan of care. Objective - Vital Signs Vital signs: Vital Signs Temp 98.2 F 11/06/22 13:31 Pulse 76 11/06/22 15:55 Resp 20 11/06/22 13:31 BP 120/76 11/06/22 13:31 Pulse Ox 94 L 11/06/22 13:31 FiO2 Intake & Output 11/05/22 11/06/22 11/06/22 18:59 06:59 18:59 Intake Total 360 Balance 360 Weight 115.8 kg 115.7 kg Intake: Intake, IV Titration 360 Amount IV Fluid Continuation 700 360 ml @ 0 mls/hr IV .[facility]- [facility] Rx#:[id number] Other: Voiding Method Toilet Toilet Toilet Incontinent Incontinent # Voids 3 1 - Labs CBC & Chem 7: 11/06/22 05:51 11/06/22 05:51 Labs: Abnormal Lab Results - Last 24 Hours (Table) 11/05/22 11/05/22 11/06/22 Range/Units 17:08 19:58 05:51 RBC 2.73 L (4.10-5.20) X 10*6/uL Hgb 7.4 L (12.0-15.0) d/dL Hct 25.3 L (37.2-46.3) % MCHC 29.2 L (32.0-37.0) d/dL RDW 18.2 H (11.5-14.5) % Eosinophils # 0.45 H (0.04-0.35) X 10*3/uL BUN (9.0-27.0) mg/dL BUN/Creatinine Ratio (12.00-20.00) Ratio POC Glucose (mg/dL) 135 H 200 H (70-110) mg/dL Calcium (8.7-10.3) mg/dL Total Bilirubin (0.3-1.2) mg/dL Total Protein (6.2-8.2) d/dL Albumin (3.8-4.9) d/dL Albumin/Globulin Ratio (1.60-3.17) Ratio 11/06/22 11/06/22 Range/Units 05:51 13:07 RBC (4.10-5.20) X 10*6/uL Hgb (12.0-15.0) d/dL Hct (37.2-46.3) % MCHC (32.0-37.0) d/dL RDW (11.5-14.5) % Eosinophils # (0.04-0.35) X 10*3/uL BUN 5.9 L (9.0-27.0) mg/dL BUN/Creatinine Ratio 8.43 L (12.00-20.00) Ratio POC Glucose (mg/dL) 156 H (70-110) mg/dL Calcium 8.5 L (8.7-10.3) mg/dL Total Bilirubin 0.2 L (0.3-1.2) mg/dL Total Protein 5.7 L (6.2-8.2) d/dL Albumin 2.6 L (3.8-4.9) d/dL Albumin/Globulin Ratio 0.84 L (1.60-3.17) Ratio
[2022-11-06] MEDS: metroNIDAZOLE 500 MG TAB PO SCH ×2 (16:22→21:58)
[2022-11-06 17:09] LABS: Glucose,Whole Blood 205 mg/dL (70-110)
[2022-11-06 21:19] LABS: Glucose,Whole Blood 138 mg/dL (70-110)
[2022-11-06] MEDS: CIPROFLOXACIN HCL 500 MG TAB PO SCH (21:58)
[2022-11-06] MEDS: lisinopriL 5 MG TAB PO SCH (21:58)
--- NOTE | 2022-11-07 01:11 | DS ---
DISCHARGE SUMMARY DISCHARGE MEDICINES: 1. Cipro 500 mg b.i.d. for 7 days. 2. Levemir 15 units subcu b.i.d. 3. Pulmicort 0.5 nebulizer b.i.d. 4. Tenormin 25 b.i.d. 5. Lactulose 20 g daily. 6. DuoNeb q.i.d. updrafts. 7. Flagyl 500 t.i.d. for 7 days. 8. Hyzaar 50/12.5 one daily. 9. Mycostatin powder b.i.d. 10.Converse 5/325 every 4 hours p.r.n. 11.NovoLog a.c. h.s. 12.Tylenol p.r.n. for pain. PROGNOSIS: Guarded. Follow up in a week or 2. Continue current treatment. Prognosis guarded. Outpatient treatment for sleep apnea versus oxygen. Please see further orders. Prognosis guarded. She will go to rehab for physical therapy. She is status post small bowel obstruction and colostomy. She appears to be stable from a medical standpoint at this time. Vitals appear to be stable. Labs appeared to be stable. Ambulate as tolerated. She is status post partial colectomy with small bowel obstruction secondary to an abdominal abscess. CT angiogram, moderate size right hilar effusion in her lungs. CT of the abdomen showed ileus and obstruction. She is on oxygen updraft treatments, she needs p.r.n. Follow up in the office in 2-4 weeks. Prognosis guarded. MMODL / IJN: [id number] /
--- NOTE | 2022-11-07 01:11 | PN ---
PROGRESS NOTE SUBJECTIVE: A 67-year-old white female. She is up ambulating and she wants to go home tomorrow. Prognosis is guarded. Condition stable. She remains on IV pain medicines. She is on Cipro, Pulmicort, Tenormin, DuoNeb, Levemir, and NovoLog. OBJECTIVE: VITAL SIGNS: Temp 98.6, pulse 84, respiratory rate 12 to 16, blood pressure 130/80. CARDIOVASCULAR: S1, S2. LUNGS: Clear. ABDOMEN: Ostomy is intact. HEMATOLOGY: 2+ edema. ASSESSMENT AND PLAN: Discussed with her. She will need outpatient study for sleep apnea versus oxygen. She is 94% on room air. Currently, she remains on breathing treatments, etc. Prognosis guarded. Continue PT, OT. Sent to rehab center in the morning. Prognosis guarded. MMODL / IJN: [id number] /
[2022-11-07] MEDS: HYDROcodone/APAP 5-325MG 1 EACH TAB PO PRN (02:13)
[2022-11-07] MEDS: ENOXAPARIN 40 MG/0.4 ML SYRINGE SQ SCH (06:22)
[2022-11-07] MEDS: INSULIN DETEMIR (LEVEMIR) 100 UNIT/ML SYR SQ SCH ×2 (06:23→20:29)
[2022-11-07 07:24] LABS: Glucose,Whole Blood 103 mg/dL (70-110)
[2022-11-07] MEDS: INSULIN ASPART (NovoLOG) 100 UNIT/ML VIAL SQ SCH ×4 (07:32→20:26)
[2022-11-07] MEDS: BUDESONIDE 0.5 MG/2 ML NEBU INHALATION SCH ×2 (08:21→20:21)
[2022-11-07] MEDS: IPRATROPIUM-ALBUTEROL 3 ML NEB INHALATION SCH ×4 (08:21→20:21)
[2022-11-07] MEDS: PANTOPRAZOLE 40 MG/10 ML VIAL IVP SCH ×2 (08:54→20:26)
[2022-11-07] MEDS: atenoloL 25 MG TAB PO SCH ×2 (08:54→20:26)
[2022-11-07] MEDS: metroNIDAZOLE 500 MG TAB PO SCH ×3 (08:54→20:26)
[2022-11-07] MEDS: NYSTATIN 100,000 UNIT/GM POWD 15 GM TOPICAL SCH ×2 (08:55→20:32)
[2022-11-07] MEDS: LOSARTAN-HCTZ 50-12.5 MG 1 EACH TAB PO SCH (08:55)
[2022-11-07] MEDS: CIPROFLOXACIN HCL 500 MG TAB PO SCH ×2 (08:55→20:26)
[2022-11-07] MEDS: SODIUM FERRIC GLUCONAT-SUCROSE 125 MG in SODIUM CHLORIDE 0.9% 100 ML IVPB SCH (08:56)
[2022-11-07] MEDS: SIMETHICONE 80 MG CHEWABLE PO SCH ×3 (08:56→20:26)
[2022-11-07 09:39] LABS: HGB 7.6 d/dL (12.0-15.0); MCH 26.8 pg (27.0-32.0); MCHC 29.2 d/dL (32.0-37.0); MCV 91.5 FL (80.0-97.0); Mean Platelet Volume 9.7 FL (9.5-12.2); NRBC Per 100 WBC 0 X 10*3/uL (0.00-0.01); Platelet Count 333 X 10*3/uL (140-440); RBC 2.84 X 10*6/uL (4.10-5.20); RDW 18.2 % (11.5-14.5); WBC 4.81 X 10*3/uL (4.50-10.00)
[2022-11-07] MEDS: SODIUM CHLORIDE 0.9% 1,000 ML IV SCH (11:03)
[2022-11-07 12:21] LABS: Glucose,Whole Blood 202 mg/dL (70-110)
[2022-11-07 13:27] VITALS: BMI 46.4
--- NOTE | 2022-11-07 13:45 | P.PN ---
Subjective Progress Note Date: 11/07/22 CHIEF COMPLAINT: Diverticulitis with fistula and abscess HISTORY OF PRESENT ILLNESS: Patient is status post Partial colectomy with end colostomy, small bowel resection, drainage of abdominal abscess, mobilization splenic flexure on 10/20/22. Patient's pain is controlled. Ostomy is functioning. Nausea improved. She is tolerating diet. afebrile. WBC 4.81 Hgb stable at 7.6. Patient scheduled to be discharged to [facility] today PHYSICAL EXAM: VITAL SIGNS: Reviewed GENERAL: Well-developed in no acute distress. ABDOMEN: Soft. Nondistended. Incision dressing clean dry and intact. Ostomy with stool. ASSESSMENT: 1. Abdominal abscess with small bowel obstruction, suspected diverticulitis PLAN: -Continue low-fat diet -Patient can be discharged from surgical standpoint -Patient can shower -Discharge antibiotics per ID service -DVT prophylaxis Lovenox and GI prophylaxis Protonix Physician Container Finisher note has been reviewed by physician. Signing provider agrees with the documented findings, assessment, and plan of care. Objective - Vital Signs Vital signs: Vital Signs Temp 97.6 F 11/07/22 07:24 Pulse 76 11/07/22 08:36 Resp 16 11/07/22 07:24 BP 135/84 11/07/22 07:24 Pulse Ox 99 11/07/22 07:24 FiO2 Intake & Output 11/06/22 11/07/22 11/07/22 18:59 06:59 18:59 Intake Total 200 Output Total 0 Balance 200 Weight 115.2 kg Intake: Oral 200 Output: Stool 0 Other: Voiding Method Toilet Toilet Incontinent # Voids 2 - Labs CBC & Chem 7: 11/07/22 06:40 11/06/22 05:51 Labs: Abnormal Lab Results - Last 24 Hours (Table) 11/06/22 11/06/22 11/06/22 Range/Units 05:51 05:51 13:07 RBC 2.73 L (4.10-5.20) X 10*6/uL Hgb 7.4 L (12.0-15.0) d/dL Hct 25.3 L (37.2-46.3) % MCH (27.0-32.0) pg MCHC 29.2 L (32.0-37.0) d/dL RDW 18.2 H (11.5-14.5) % Eosinophils # 0.45 H (0.04-0.35) X 10*3/uL BUN 5.9 L (9.0-27.0) mg/dL BUN/Creatinine Ratio 8.43 L (12.00-20.00) Ratio POC Glucose (mg/dL) 156 H (70-110) mg/dL Calcium 8.5 L (8.7-10.3) mg/dL Total Bilirubin 0.2 L (0.3-1.2) mg/dL Total Protein 5.7 L (6.2-8.2) d/dL Albumin 2.6 L (3.8-4.9) d/dL Albumin/Globulin Ratio 0.84 L (1.60-3.17) Ratio 11/06/22 11/06/22 11/07/22 Range/Units 17:08 21:17 06:40 RBC 2.84 L (4.10-5.20) X 10*6/uL Hgb 7.6 L (12.0-15.0) d/dL Hct 26.0 L (37.2-46.3) % MCH 26.8 L (27.0-32.0) pg MCHC 29.2 L (32.0-37.0) d/dL RDW 18.2 H (11.5-14.5) % Eosinophils # (0.04-0.35) X 10*3/uL BUN (9.0-27.0) mg/dL BUN/Creatinine Ratio (12.00-20.00) Ratio POC Glucose (mg/dL) 205 H 138 H (70-110) mg/dL Calcium (8.7-10.3) mg/dL Total Bilirubin (0.3-1.2) mg/dL Total Protein (6.2-8.2) d/dL Albumin (3.8-4.9) d/dL Albumin/Globulin Ratio (1.60-3.17) Ratio
[2022-11-07 17:19] LABS: Glucose,Whole Blood 144 mg/dL (70-110)
[2022-11-07 20:12] LABS: Glucose,Whole Blood 225 mg/dL (70-110)
[2022-11-07] MEDS: lisinopriL 5 MG TAB PO SCH (20:26)
[2022-11-08] MEDS: HYDROcodone/APAP 5-325MG 1 EACH TAB PO PRN ×3 (01:15→18:23)
[2022-11-08] MEDS: INSULIN DETEMIR (LEVEMIR) 100 UNIT/ML SYR SQ SCH (06:26)
[2022-11-08] MEDS: ENOXAPARIN 40 MG/0.4 ML SYRINGE SQ SCH (06:26)
[2022-11-08] MEDS: IPRATROPIUM-ALBUTEROL 3 ML NEB INHALATION SCH ×3 (07:31→15:06)
[2022-11-08] MEDS: BUDESONIDE 0.5 MG/2 ML NEBU INHALATION SCH (07:32)
[2022-11-08 07:37] LABS: Glucose,Whole Blood 129 mg/dL (70-110)
[2022-11-08] MEDS: INSULIN ASPART (NovoLOG) 100 UNIT/ML VIAL SQ SCH ×4 (07:46→18:12)
[2022-11-08] MEDS: SODIUM FERRIC GLUCONAT-SUCROSE 125 MG in SODIUM CHLORIDE 0.9% 100 ML IVPB SCH (08:03)
[2022-11-08] MEDS: metroNIDAZOLE 500 MG TAB PO SCH ×2 (09:40→16:14)
[2022-11-08] MEDS: atenoloL 25 MG TAB PO SCH (09:40)
[2022-11-08] MEDS: SIMETHICONE 80 MG CHEWABLE PO SCH ×2 (09:40→16:15)
[2022-11-08] MEDS: CIPROFLOXACIN HCL 500 MG TAB PO SCH (09:41)
[2022-11-08] MEDS: LOSARTAN-HCTZ 50-12.5 MG 1 EACH TAB PO SCH (09:41)
[2022-11-08] MEDS: NYSTATIN 100,000 UNIT/GM POWD 15 GM TOPICAL SCH (09:41)
[2022-11-08] MEDS: PANTOPRAZOLE 40 MG/10 ML VIAL IVP SCH (09:56)
[2022-11-08 10:52] LABS: Basophils # (A) 0.04 X 10*3/uL (0.00-0.10); Basophils % (A) 0.8 %; Eosinophils % (A) 6.2 %; HCT 28.6 % (37.2-46.3); HGB 8.2 d/dL (12.0-15.0); Lymphocytes # (A) 1.16 X 10*3/uL (0.90-5.00); Lymphocytes % (A) 23.8 %; MCH 26.5 pg (27.0-32.0); MCHC 28.7 d/dL (32.0-37.0); MCV 92.3 FL (80.0-97.0); Mean Platelet Volume 9.6 FL (9.5-12.2); Monocytes # (A) 0.45 X 10*3/uL (0.20-1.00); Monocytes % (A) 9.2 %; NRBC Per 100 WBC 0 X 10*3/uL (0.00-0.01); Neutrophils # (A) 2.89 X 10*3/uL (1.80-7.70); Neutrophils % (A) 59.4 %; Platelet Count 361 X 10*3/uL (140-440); RDW 18.8 % (11.5-14.5); WBC 4.87 X 10*3/uL (4.50-10.00)
[2022-11-08 11:25] LABS: ALT 24 U/L (8-44); AST 26 U/L (13-35); Albumin 3.1 d/dL (3.8-4.9); Albumin/Globulin Ratio 0.94 Ratio (1.60-3.17); Alkaline Phosphatase 85 U/L (41-126); BUN/Creat Ratio 10.29 Ratio (12.00-20.00); Blood Urea Nitrogen 7.2 mg/dL (9.0-27.0); Calcium 8.9 mg/dL (8.7-10.3); Carbon Dioxide 27.1 mmol/L (21.6-31.8); Chloride 106 mmol/L (96-109); Globulin 3.3 d/dL (1.6-3.3); Glucose 129 mg/dL (70-110); Sodium 142 mmol/L (135-145); Total Bilirubin 0.2 mg/dL (0.3-1.2); Total Protein 6.4 d/dL (6.2-8.2)
[2022-11-08] MEDS: SODIUM CHLORIDE 0.9% 1,000 ML IV SCH (12:24)
[2022-11-08 12:31] LABS: Glucose,Whole Blood 149 mg/dL (70-110)
--- NOTE | 2022-11-08 12:32 | P.PN ---
Subjective Progress Note Date: 11/08/22 CHIEF COMPLAINT: Diverticulitis with fistula and abscess HISTORY OF PRESENT ILLNESS: Patient is status post Partial colectomy with end colostomy, small bowel resection, drainage of abdominal abscess, mobilization splenic flexure on 10/20/22. Patient's pain is controlled. Ostomy is functioning. Patient denies any nausea or vomiting. She is awaiting insurance authorization for ECF placement. Afebrile. Hgb 8.2 WBC 4.87 PHYSICAL EXAM: VITAL SIGNS: Reviewed GENERAL: Well-developed in no acute distress. ABDOMEN: Soft. Nondistended. Incision dressing clean dry and intact. Ostomy with stool. ASSESSMENT: 1. Abdominal abscess with small bowel obstruction, suspected diverticulitis PLAN: -Continue low-fat diet -Patient can be discharged from surgical standpoint -Patient can shower -Discharge antibiotics per ID service Physician Flame Annealing Machine Setter note has been reviewed by physician. Signing provider agrees with the documented findings, assessment, and plan of care. Objective - Vital Signs Vital signs: Vital Signs Temp 98.3 F 11/08/22 07:34 Pulse 64 11/08/22 07:44 Resp 16 11/08/22 07:34 BP 130/65 11/08/22 07:34 Pulse Ox 95 11/08/22 07:34 FiO2 Intake & Output 11/07/22 11/08/22 11/08/22 18:59 06:59 18:59 Intake Total 200 Balance 200 Weight 115.2 kg 112 kg Intake: Oral 200 Other: Voiding Method Toilet Toilet # Voids 1 2 - Labs CBC & Chem 7: 11/08/22 06:31 11/08/22 06:31 Labs: Abnormal Lab Results - Last 24 Hours (Table) 11/07/22 11/07/22 11/08/22 Range/Units 17:17 20:11 06:31 RBC 3.10 L (4.10-5.20) X 10*6/uL Hgb 8.2 L (12.0-15.0) d/dL Hct 28.6 L (37.2-46.3) % MCH 26.5 L (27.0-32.0) pg MCHC 28.7 L (32.0-37.0) d/dL RDW 18.8 H (11.5-14.5) % BUN (9.0-27.0) mg/dL BUN/Creatinine Ratio (12.00-20.00) Ratio Glucose (70-110) mg/dL POC Glucose (mg/dL) 144 H 225 H (70-110) mg/dL Total Bilirubin (0.3-1.2) mg/dL Albumin (3.8-4.9) d/dL Albumin/Globulin Ratio (1.60-3.17) Ratio 11/08/22 11/08/22 Range/Units 06:31 07:35 RBC (4.10-5.20) X 10*6/uL Hgb (12.0-15.0) d/dL Hct (37.2-46.3) % MCH (27.0-32.0) pg MCHC (32.0-37.0) d/dL RDW (11.5-14.5) % BUN 7.2 L (9.0-27.0) mg/dL BUN/Creatinine Ratio 10.29 L (12.00-20.00) Ratio Glucose 129 H (70-110) mg/dL POC Glucose (mg/dL) 129 H (70-110) mg/dL Total Bilirubin 0.2 L (0.3-1.2) mg/dL Albumin 3.1 L (3.8-4.9) d/dL Albumin/Globulin Ratio 0.94 L (1.60-3.17) Ratio
[2022-11-08 12:44] VITALS: BP 146/77; RESP 18; TEMP 98.8
[2022-11-08 15:17] VITALS: PULSE 78
[2022-11-08 18:08] LABS: Glucose,Whole Blood 191 mg/dL (70-110)
--- NOTE | 2022-11-11 18:02 | CDI ---
Documentation Clarification Form Date: 11/11/2022 05:42:33 PM From: Katie Atkins Phone: Admit Date: 10/16/2022 10:20:00 PM Patient Name: Alannah Galloway Visit Number: [id number] Discharge Date: 11/08/2022 07:26:00 PM ATTENTION: The Clinical Documentation Specialists (CDI) and [facility] Coding Staff appreciate your assistance in clarifying documentation. Please respond to the clarification below the line at the bottom and electronically sign. The CDI & [facility] Coding staff will review the response and follow-up if needed. Please note: Queries are made part of the Legal Health Record. If you have any questions, please contact the author of this message via ITS. Dr. Pérez Payne Unspecified anemia is documented per Progress Note 8/6. Additional specificity regarding the type and acuity of anemia is requested. History/Risk Factors: 67yo F, Small bowel obstruction,abdominal abscessanddiverticulitis S/P Partial colectomywith endcolostomy,small bowel resection,drainage ofabdominal abscess, mobilization splenic flexure Clinical indicators: Hemoglobin: 7.8 Hematocrit: 27.2 Treatment: may give her some IV Venofer Please clarify the type and acuity of anemia: [ ] Acute blood loss anemia [ ] Acute on chronic blood loss anemia [ ] Anemia due to malignancy [ ] Unable to determine [ ] Other, please specify (Template Last Revised: May 2020) MTDD
--- NOTE | 2022-11-13 08:50 | CDI ---
Documentation Clarification Form Date: 11/13/2022 08:48:00 AM From: Katie Atkins Phone: Admit Date: 10/16/2022 10:20:00 PM Patient Name: Alannah Galloway Visit Number: [id number] Discharge Date: 11/08/2022 07:26:00 PM ATTENTION: The Clinical Documentation Specialists (CDI) and [facility] Coding Staff appreciate your assistance in clarifying documentation. Please respond to the clarification below the line at the bottom and electronically sign. The CDI & [facility] Coding staff will review the response and follow-up if needed. Please note: Queries are made part of the Legal Health Record. If you have any questions, please contact the author of this message via ITS. Dr. Pérez Payne Thank you for acknowledging the previous query; however, it lack clarification. Unspecifiedanemiais documented per Progress Note 8/6. Additional specificity regarding the type and acuity ofanemiais requested. History/Risk Factors: 67yo F,Small bowel obstruction,abdominal abscessanddiverticulitisS/PPartial colectomywith endcolostomy,small bowel resection,drainageofabdominal abscess, mobilization splenic flexure Clinical indicators: Hemoglobin: 7.8 Hematocrit: 27.2 Treatment: may give her some IV Venofer Please clarify the type and acuity ofanemia: [ ]Acute blood loss anemia [ ]Acute on chronic blood loss anemia [ ]Anemiadue tomalignancy [ ] Unable to determine [ ] Other, please specify (Template LastRevised: May 2020) MTDD
--- NOTE | 2022-11-15 22:51 | P.PN ---
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 Patient did have a CT angiogram of the chest on 10/28/2022 evidence of PE moderate-sized right effusion, patient did have CT of abdominal pelvis on 11/07/2022 patient denies having any fever or any chills, the patient is breathing comfortably on room air patient denies having any chest pain shortness of breath or cough no nausea vomiting no abdominal pain or diarrhea. Patient did have a normal white count of 4.81 and hemoglobin is 7.6 Objective - Vital Signs Vital signs: Vital Signs Temp 97.6 F 11/07/22 07:24 Pulse 72 11/07/22 11:58 Resp 16 11/07/22 07:24 BP 135/84 11/07/22 07:24 Pulse Ox 99 11/07/22 07:24 FiO2 Intake & Output 11/06/22 11/07/22 11/07/22 18:59 06:59 18:59 Intake Total 200 200 Output Total 0 Balance 200 200 Weight 115.2 kg Intake: Oral 200 200 Output: Stool 0 Other: Voiding Method Toilet Toilet Incontinent # Voids 2 - Exam GENERAL DESCRIPTION: An elderly female lying in bed in no distress RESPIRATORY SYSTEM: Unlabored breathing , decreased breath sounds at bases HEART: S1 S2 regular rate and rhythm , ABDOMEN: Soft , midline incision is intact will are in place is no evidence of any swelling redness or drainage EXTREMITIES: No edema feet - Labs CBC & Chem 7: 11/08/22 06:31 11/08/22 06:31 Labs: Abnormal Lab Results - Last 24 Hours (Table) 11/06/22 11/06/22 11/06/22 Range/Units 13:07 17:08 21:17 RBC (4.10-5.20) X 10*6/uL Hgb (12.0-15.0) d/dL Hct (37.2-46.3) % MCH (27.0-32.0) pg MCHC (32.0-37.0) d/dL RDW (11.5-14.5) % POC Glucose (mg/dL) 156 H 205 H 138 H (70-110) mg/dL 11/07/22 11/07/22 Range/Units 06:40 12:20 RBC 2.84 L (4.10-5.20) X 10*6/uL Hgb 7.6 L (12.0-15.0) d/dL Hct 26.0 L (37.2-46.3) % MCH 26.8 L (27.0-32.0) pg MCHC 29.2 L (32.0-37.0) d/dL RDW 18.2 H (11.5-14.5) % POC Glucose (mg/dL) 202 H (70-110) mg/dL Assessment and Plan (1) Diverticulitis of large intestine with complication Status: Acute Code(s): K57.32 - DVTRCLI OF LG INT W/O PERFORATION OR ABSCESS W/O BLEEDING SNOMED Code(s): 686798551 Plan: 1-Patient admitted to hospital with sepsis secondary to complicated diverticulitis with evidence of fistula status post laparotomy and drainage of the abscess abdominal cultures with E. coli and Klebsiella patient has received more than 2 weeks of IV Zosyn to continue with oral Cipro Flagyl for another few days. 2groin area cutaneous candidiasis to continue with nystatin powder twice a day for another week Time with Patient: Less than 30
--- NOTE | 2022-11-15 22:52 | P.PN ---
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 for evaluation of right-sided abdominal pain,patient did have a CT abdominal pelvis we did shows evidence of diverticulitis with fistula formation from the descending colon to the adjustment about the proximal small b owel and developing abscess within the wall of the small bowel,, patient subsequently transferred to [facility] for further management.Patient is status post partial colectomy with end colostomy small bowel resection drainage of abdominal abscess done on 10/20/2022. Patient did have a CT angiogram of the chest on 10/28/2022 evidence of PE moderate-sized right effusion, patient did have CT of abdominal pelvis on 11/08/2022 patient remains to be afebrile, the patient is breathing comfortably on room air patient denies having any chest pain or shortness with a cough no nausea vomiting no abdominal pain no diarrhea has been tolerating her diet. Patient did have normal white count 4.87 hemoglobin is 8.2 creatinine 0.7 Objective - Vital Signs Vital signs: Vital Signs Temp 98.8 F 11/08/22 12:28 Pulse 76 11/08/22 12:28 Resp 18 11/08/22 12:28 BP 146/77 11/08/22 12:28 Pulse Ox 94 L 11/08/22 12:28 FiO2 Intake & Output 11/07/22 11/08/22 11/08/22 18:59 06:59 18:59 Intake Total 200 Balance 200 Weight 115.2 kg 112 kg Intake: Oral 200 Other: Voiding Method Toilet Toilet # Voids 1 2 - Exam GENERAL DESCRIPTION: An elderly female lying in bed in no distress RESPIRATORY SYSTEM: Unlabored breathing , decreased breath sounds at bases HEART: S1 S2 regular rate and rhythm , ABDOMEN: Soft , midline incision is intact will are in place is no evidence of any swelling redness or drainage EXTREMITIES: No edema feet - Labs CBC & Chem 7: 11/08/22 06:31 11/08/22 06:31 Labs: Abnormal Lab Results - Last 24 Hours (Table) 11/07/22 11/07/22 11/08/22 Range/Units 17:17 20:11 06:31 RBC 3.10 L (4.10-5.20) X 10*6/uL Hgb 8.2 L (12.0-15.0) d/dL Hct 28.6 L (37.2-46.3) % MCH 26.5 L (27.0-32.0) pg MCHC 28.7 L (32.0-37.0) d/dL RDW 18.8 H (11.5-14.5) % BUN (9.0-27.0) mg/dL BUN/Creatinine Ratio (12.00-20.00) Ratio Glucose (70-110) mg/dL POC Glucose (mg/dL) 144 H 225 H (70-110) mg/dL Total Bilirubin (0.3-1.2) mg/dL Albumin (3.8-4.9) d/dL Albumin/Globulin Ratio (1.60-3.17) Ratio 11/08/22 11/08/22 11/08/22 Range/Units 06:31 07:35 12:30 RBC (4.10-5.20) X 10*6/uL Hgb (12.0-15.0) d/dL Hct (37.2-46.3) % MCH (27.0-32.0) pg MCHC (32.0-37.0) d/dL RDW (11.5-14.5) % BUN 7.2 L (9.0-27.0) mg/dL BUN/Creatinine Ratio 10.29 L (12.00-20.00) Ratio Glucose 129 H (70-110) mg/dL POC Glucose (mg/dL) 129 H 149 H (70-110) mg/dL Total Bilirubin 0.2 L (0.3-1.2) mg/dL Albumin 3.1 L (3.8-4.9) d/dL Albumin/Globulin Ratio 0.94 L (1.60-3.17) Ratio Assessment and Plan (1) Diverticulitis of large intestine with complication Status: Acute Code(s): K57.32 - DVTRCLI OF LG INT W/O PERFORATION OR ABSCESS W/O BLEEDING SNOMED Code(s): 355377054 Plan: 1-Patient admitted to hospital with sepsis secondary to complicated diverticulitis with evidence of fistula status post laparotomy and drainage of the abscess abdominal cultures with E. coli and Klebsiella patient has received more than 2 weeks of IV Zosyn to continue with oral Cipro Flagyl for another 5 days on discharge and close outpatient follow up . 2groin area cutaneous candidiasis to continue with nystatin powder twice a day for another week on discharge Time with Patient: Less than 30
--- NOTE | 2022-11-16 09:27 | CDI ---
Documentation Clarification Form Date: 11/16/2022 09:24:52 AM From: Katie Atkins Phone: Admit Date: 10/16/2022 10:20:00 PM Patient Name: Alannah Galloway Visit Number: [id number] Discharge Date: 11/08/2022 07:26:00 PM ATTENTION: The Clinical Documentation Specialists (CDI) and [facility] Coding Staff appreciate your assistance in clarifying documentation. Please respond to the clarification below the line at the bottom and electronically sign. The CDI & [facility] Coding staff will review the response and follow-up if needed. Please note: Queries are made part of the Legal Health Record. If you have any questions, please contact the author of this message via ITS. Dr. Pérez Payne Thank you for acknowledging the previous two queries; however, both lack clarification. Unspecifiedanemiais documented per Progress Note 8/6. Additional specificity regarding the type and acuity ofanemiais requested. History/Risk Factors: 67yo F,Small bowel obstruction,abdominal abscessanddiverticulitisS/PPartial colectomywith endcolostomy,small bowel resection,drainageofabdominal abscess, mobilization splenic flexure Clinical indicators: Hemoglobin: 7.8 Hematocrit: 27.2 Treatment: may give her some IV Venofer Please clarify the type and acuity ofanemia: [ ]Acute blood loss anemia [ ]Acute on chronic blood loss anemia [ ]Anemiadue tomalignancy [ ] Unable to determine [ ] Other, please specify (Template LastRevised: May 2020) JEBD
--- NOTE | 2022-11-19 10:49 | CDI ---
Documentation Clarification Form Date: 11/19/2022 10:46:39 AM From: Katie Atkins Phone: Admit Date: 10/16/2022 10:20:00 PM Patient Name: Alannah Galloway Visit Number: [id number] Discharge Date: 11/08/2022 07:26:00 PM ATTENTION: The Clinical Documentation Specialists (CDI) and [facility] Coding Staff appreciate your assistance in clarifying documentation. Please respond to the clarification below the line at the bottom and electronically sign. The CDI & [facility] Coding staff will review the response and follow-up if needed. Please note: Queries are made part of the Legal Health Record. If you have any questions, please contact the author of this message via ITS. Dr. Pérez Payne Thank you for acknowledging the previous 3 queries; however, all lack the clarification requested. Unspecifiedanemiais documented per Progress Note 8/6. Additional specificity regarding the type and acuity ofanemiais requested. History/Risk Factors: 67yo F,Small bowel obstruction,abdominal abscessanddiverticulitisS/PPartial colectomywith endcolostomy,small bowel resection,drainageofabdominal abscess, mobilization splenic flexure Clinical indicators: Hemoglobin: 7.8 Hematocrit: 27.2 Treatment: may give her some IV Venofer Please clarify the type and acuity ofanemia: [ ]Acute blood loss anemia [ ]Acute on chronic blood loss anemia [ ]Anemiadue tomalignancy [ ] Unable to determine [ ] Other, please specify (Template LastRevised: May 2020) ROXY
--- NOTE | 2022-11-22 01:47 | PN ---
PROGRESS NOTE Acute blood loss anemia. MMODL / IJN: [id number] /
== END 2022-11-08 19:26 | disposition home or self-care (01) | DRG 853 ==
LOC: EC 21:37 → 5NMEDONC 22:20
PROVIDERS: ADMIT Family Medicine; ATTEND Family Medicine
PROC: 0D9670Z Drainage of Stomach with Drainage Device, Via Natural or Artificial Opening (ICD-10-PCS; 2022-10-19)
PROC: 0D1M0Z4 Bypass Descending Colon to Cutaneous, Open Approach (ICD-10-PCS; 2022-10-20)
PROC: 0W9G0ZZ Drainage of Peritoneal Cavity, Open Approach (ICD-10-PCS; 2022-10-20)
PROC: 0DN90ZZ Release Duodenum, Open Approach (ICD-10-PCS; 2022-10-20)
PROC: 0DNL0ZZ Release Transverse Colon, Open Approach (ICD-10-PCS; 2022-10-20)
PROC: 0DTM0ZZ Resection of Descending Colon, Open Approach (ICD-10-PCS; principal; 2022-10-20 08:00)
PROC: 02HV33Z Insertion of Infusion Device into Superior Vena Cava, Percutaneous Approach (ICD-10-PCS; 2022-10-23)
PROC: 3E0436Z Introduction of Nutritional Substance into Central Vein, Percutaneous Approach (ICD-10-PCS; 2022-10-23)
DX: A41.51 Sepsis due to Escherichia coli [E. coli] (principal); K65.1 Peritoneal abscess; K56.691 Other complete intestinal obstruction; K50.00 Crohn's disease of small intestine without complications; K56.7 Ileus, unspecified; Z68.42 Body mass index [BMI] 45.0-49.9, adult; K57.00 Diverticulitis of small intestine with perforation and abscess without bleeding; C56.9 Malignant neoplasm of unspecified ovary; Z16.24 Resistance to multiple antibiotics; D62 Acute posthemorrhagic anemia; E11.65 Type 2 diabetes mellitus with hyperglycemia; E66.01 Morbid (severe) obesity due to excess calories; Z79.4 Long term (current) use of insulin; I10 Essential (primary) hypertension; B96.1 Klebsiella pneumoniae [K. pneumoniae] as the cause of diseases classified elsewhere; B96.20 Unspecified Escherichia coli [E. coli] as the cause of diseases classified elsewhere; K21.9 Gastro-esophageal reflux disease without esophagitis; E87.70 Fluid overload, unspecified; G47.30 Sleep apnea, unspecified; R09.02 Hypoxemia; B37.2 Candidiasis of skin and nail; F41.9 Anxiety disorder, unspecified; Z96.653 Presence of artificial knee joint, bilateral; Z87.891 Personal history of nicotine dependence; I25.2 Old myocardial infarction; Z88.5 Allergy status to narcotic agent; Z79.899 Other long term (current) drug therapy; Z91.040 Latex allergy status; Z88.1 Allergy status to other antibiotic agents; Z87.19 Personal history of other diseases of the digestive system; Z91.81 History of falling; Z82.49 Family history of ischemic heart disease and other diseases of the circulatory system
CPT/HCPCS: 36573; 71045; 71046; 71250; 71275; 74018; 74177; 74250; 80048; 80053; 80061; 82330; 82553; 83036; 83735; 83880; 84100; 84145; 84478; 84484; 85025; 85027; 85379; 87070; 87077; 87186; 87205; 87635; 88307; 88341; 88342; 93005; 93306; 93970; 94640; 94760; 96365; 99285

== ENCOUNTER → 2022-12-19 | Outpatient (CLI) | payer MEDICARE, OTHER ==
[2022-12-19 15:06] LABS: African American GFR (CKD) >90 (>60 ml/min/1.73 sqM); Blood Urea Nitrogen 18 mg/dL (7-17); Non-African American GFR(CKD) 79 (>60 ml/min/1.73 sqM)
--- NOTE | 2022-12-19 19:16 | CT ---
EXAMINATION TYPE: CT ChestAbdPelvis w con CT DLP: 2134.7 mGycm, Automated exposure control for dose reduction was used. DATE OF EXAM: 12/19/2022 4:14 PM COMPARISON: 10/30/2022 CLINICAL INDICATION:Female, 67 years old with history of C56.9 MALIGNANT NEOPLASM OF UNSPECIFIED OVAR Y; PHH, ovarian ca Technique: Multiple axial images of the chest, abdomen, and pelvis were obtained. Two-dimensional cor onal and sagittal reconstructions were obtained. Contrast used:100 mL of Isovue 300 with IV Contrast, Oral contrast used: with Oral Contrast Findings: CHEST: LUNGS/ PLEURA: No evidence of focal consolidation, pneumothorax or pleural effusion. Right upper lung 4 mm pulmonary nodule series 2 image 26. Resolution of prior pleural effusion effusions. AIRWAY: Patent and unremarkable. HEART: Size within normal limits. Mild coronary artery atherosclerosis. MEDIASTINUM: No gross evidence of adenopathy. VASCULATURE: No aortic aneurysm. MUSCULOSKELETAL: No acute osseous abnormalities. SOFT TISSUES/LYMPH NODES: Unremarkable. LOWER NECK: No significant findings. ABDOMEN: LIVER: Unremarkable GALLBLADDER AND BILE DUCTS: Unremarkable. PANCREAS: Unremarkable. SPLEEN: Unremarkable. ADRENAL GLANDS: Unremarkable. KIDNEYS AND URETERS: No evidence of hydronephrosis or renal calculus. The kidneys enhance symmetrical ly. PELVIS BLADDER: Nondistended and grossly unremarkable. REPRODUCTIVE: Unremarkable. ABDOMEN & PELVIS STOMACH AND BOWEL: No bowel dilatation. No contrast extravasation identified. Anastomosis identified within the mid abdomen. No evidence of bowel obstruction. PERITONEUM: No evidence of pneumoperitoneum. Trace free fluid in the mesentery. No organized fluid co llection. VASCULATURE: Mild atherosclerotic calcifications are present throughout the abdominal aorta and its b ranches. No evidence of aortic aneurysm. MUSCULOSKELETAL: No acute osseous abnormalities. Mild disc degeneration changes are present throughou t the thoracolumbar spine. LYMPH NODES: No gross evidence for lymphadenopathy. SOFT TISSUE/ABDOMINAL WALL: Post surgical changes of the anterior abdominal wall with skin will an d a surgical drain identified within the soft tissues of the anterior abdominal wall. No organized fl uid collection. IMPRESSION: 1. Postsurgical changes of the bowel . No evidence for enlarged lymph node or evidence suggest metas tatic disease at this time. 2. Resolution of bilateral pleural effusions with associated atelectasis. 3. Indeterminate right upper lung 4 mm pulmonary nodule not definitively visualized on 10/28/2022.
== END | disposition home or self-care (01) ==
LOC: RADCTMAIN 14:11
PROVIDERS: ATTEND Internal Medicine
DX: C56.9 Malignant neoplasm of unspecified ovary (principal); Z98.890 Other specified postprocedural states
CPT/HCPCS: 82565; 84520; 71260; 74177; 36415; Q9967

== ENCOUNTER → 2023-03-22 | Outpatient (CLI) | payer MEDICARE, OTHER ==
--- NOTE | 2023-03-23 10:05 | US ---
EXAMINATION TYPE: US transvaginal DATE OF EXAM: 03/22/2023 COMPARISON: 12/19/2022. CLINICAL INDICATION: Female, 67 years old with history of C56.9 MALIGNANT NEOPLASM OF UNSPECIFIED OVA RY; Ovarian cancer cells on abscess removed from bowel 10/21 per patient TECHNIQUE: Transvaginal (TV). Date of LMP: unknown EXAM MEASUREMENTS: Uterus: 8.0 x 4.0 x 4.6 cm Endometrial Stripe: 0.9 cm Right Ovary: unable to visualize Left Ovary: unable to visualize 1. Uterus: Anteverted Heterogeneous 2. Endometrium: slightly thickened 3. Right Ovary: Obscured by overlying bowel gas 4. Left Ovary: Obscured by overlying bowel gas 5. Bilateral Adnexa: appears wnl 6. Posterior cul-de-sac: wnl IMPRESSION: Endometrium thickened for patient's menopausal status. Further evaluation of the endometrium with dir ect visualization recommended.
== END | disposition home or self-care (01) ==
LOC: RADUSWWP 15:26
PROVIDERS: ATTEND Internal Medicine
DX: C56.9 Malignant neoplasm of unspecified ovary (principal); R93.89 Abnormal findings on diagnostic imaging of other specified body structures; Z71.3 Dietary counseling and surveillance
CPT/HCPCS: 76830

== ENCOUNTER → 2023-05-14 | Outpatient (CLI) | payer MEDICARE, OTHER ==
--- NOTE | 2023-05-14 22:33 | MR ---
EXAMINATION TYPE: MR pelvis wo/w con DATE OF EXAM: 05/14/2023 3:33 PM CLINICAL INDICATION:Female, 67 years old with history of C56.9 MALIGNANT NEOPLASM OF UNSPECIFIED OVAR Y, Malignant neoplasm of ovary. COMPARISON: CT 12/19/2022, ultrasound 03/22/2023. TECHNIQUE: Triplane multisequence imaging was performed of the pelvis. IV Contrast: 11 cc Gadavist FINDINGS: Reproductive: Vagina: Unremarkable. Uterus: The uterus is anteverted in position. Uterus measures 9.6 x 4.2 x 5.0 cm. The junctional zone is within normal limits for thickness. The endometrium is thickened measuring up to 8 mm. Multiple n abothian cysts are seen in the lower uterine segment. Ovaries: The right ovary is not definitively visualized. Left ovary is thought to be present measurin g 23 x 12 mm. Bladder: Unremarkable. Bowel: Unremarkable as visualized. Peritoneum: A small amount of free fluid in the pelvis. Lymph nodes: No evidence of adenopathy. Vasculature: Unremarkable. Musculoskeletal: Bone marrow signal is within normal signal intensity. Abdominal wall/soft tissues: Unremarkable. IMPRESSION: 1. Thickened endometrium for a patient of postmenopausal status. Consider direct visualization and t issue sampling of the endometrium. 2. No evidence for pelvic mass. The right ovary is not definitively visualized and may be surgically absent. The left ovary is visualized and within normal limits. No evidence for lymphadenopathy.
== END | disposition home or self-care (01) ==
LOC: RADMRIMAIN 13:25
PROVIDERS: ATTEND Internal Medicine
DX: R93.89 Abnormal findings on diagnostic imaging of other specified body structures (principal); C56.9 Malignant neoplasm of unspecified ovary; Z78.0 Asymptomatic menopausal state
CPT/HCPCS: 72197; A9585

== ENCOUNTER 2024-07-08 02:24 | Inpatient (IN) | payer MEDICARE ==
--- NOTE | 2024-07-08 02:46 | ED ---
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 The patient reportedly sees Dr. Arron Liang while here for cancer treatment and had chemotherapy on June 29. All of the history currently coming from the transfer record as the patient has dementia versus delirium on exam and not able to give any history. The she had reportedly gone to [facility]. They reported that she was fatigued having generalized weakness and had not been able to get up off of the couch. She has not been taking much to eat or drink. Patient's daughter had reported to the physician there that every time she tried to take anything she would have vomiting. EMS was called and she was taken to the other facility where she had workup including labs that revealed a D-dimer of 16.87. The patient went for CT scan of the chest with contrast that reportedly showed saddle pulmonary embolism. The patient's chemistries remarkable for glucose 398. Troponin 0.09 CBC that showed white blood cell count 2.6 hemoglobin 11.8, platelets 135. Viral panel was negative. MD Complaint: altered mental status -: days(s) Severity: severe Consistency of Symptoms: getting worse Context: cancer - Related Data Home Medications Medication Instructions Recorded Confirmed Acetaminophen [Tylenol Arthritis] 1,300 mg PO Q8H PRN MDD 4000mg 07/08/24 07/08/24 Dulaglutide [Trulicity] 1.5 mg SQ WEEKLY 07/08/24 07/08/24 Insulin Glargine,Hum.rec.anlog 25 units SQ BID 07/08/24 07/08/24 [Lantus Solostar Pen] Insulin Lispro [humaLOG Kwikpen] 8 - 10 unit SQ AC-TID 07/08/24 07/08/24 Metoprolol Tartrate [Lopressor] 12.5 mg PO BID 07/08/24 07/08/24 Nystatin 100,000 Unit/gm Powd 1 applic TOPICAL TID 07/08/24 07/08/24 [Mycostatin Powder] Previous Rx's Medication Instructions Recorded Aspirin 81 mg PO DAILY #30 tab 07/16/24 Allergies Allergy/AdvReac Type Severity Reaction Status Date / Time codeine Allergy Unknown Verified 07/08/24 06:38 glucagon Allergy Unknown Verified 07/08/24 06:38 glucosamine Allergy Unknown Verified 07/08/24 06:38 Latex, Natural Rubber Allergy Swelling Verified 07/08/24 06:38 metformin Allergy Unknown Verified 07/08/24 06:38 morphine Allergy Nausea & Verified 07/08/24 06:38 Vomiting sulfamethoxazole Allergy Nausea & Verified 07/08/24 06:38 [From Bactrim] Vomiting trimethoprim [From Bactrim] Allergy Nausea & Verified 07/08/24 06:38 Vomiting flu shot (unknown) Allergy Unknown Uncoded 07/08/24 06:38 Review of Systems ROS Statement: Those systems with pertinent positive or pertinent negative responses have been documented in the HPI. ROS Other: All systems not noted in ROS Statement are negative. Limitations: ROS unobtainable due to patients medical condition Past Medical History Past Medical History: Diabetes Mellitus, Hypertension, Myocardial Infarction (IA) Last Myocardial Infarction Date:: 11/19/2007 History of Any Multi-Drug Resistant Organisms: None Reported Past Surgical History: Orthopedic Surgery, Tubal Ligation Additional Past Surgical History / Comment(s): bilateral knee replacement Past Psychological History: Anxiety Smoking Status: Former smoker Past Alcohol Use History: None Reported Past Drug Use History: None Reported General Exam General appearance: obtunded Head exam: Present: atraumatic, normocephalic Eye exam: Present: normal appearance, PERRL. Absent: scleral icterus, conjunctival injection ENT exam: Present: mucous membranes dry Neck exam: Present: normal inspection, full ROM. Absent: tenderness Respiratory exam: Present: rhonchi. Absent: respiratory distress, wheezes, rales, stridor, accessory muscle use Cardiovascular Exam: Present: tachycardia, systolic murmur. Absent: diastolic murmur, rubs, gallop GI/Abdominal exam: Present: soft. Absent: distended, tenderness, guarding, rebound, rigid, mass Extremities exam: Present: normal inspection, normal capillary refill. Absent: pedal edema, calf tenderness Back exam: Present: normal inspection. Absent: CVA tenderness (R), CVA tenderness (L) Neurological exam: Present: altered, CN II-XII intact, reflexes normal Skin exam: Present: warm, dry, intact, normal color. Absent: rash Course Vital Signs 07/08/24 07/08/24 07/08/24 02:37 04:33 06:13 Temperature 100.6 F H 101.3 F H Pulse Rate 137 H 133 H 131 H Respiratory 30 H 18 24 Rate Blood Pressure 144/83 155/95 138/90 O2 Sat by Pulse 98 98 97 Oximetry 07/08/24 07/08/24 06:43 06:50 Temperature 101.4 F H Pulse Rate 128 H Respiratory 31 H Rate Blood Pressure 141/88 141/88 O2 Sat by Pulse 95 Oximetry - Reevaluation(s) Reevaluation #1: 07/08/24 05:29 Case discussed with cardiology (covering EKOS ) regarding patient's pulmonary embolism and current condition. Medical Decision Making - Medical Decision Making Was pt. sent in by a medical professional or institution (Dr. PA, RETAIL ASSET PROTECTION SPECIALIST, urgent care, hospital, or senior living...) When possible be specific @ -Yes the patient is transferred from the outside hospital to have further treatment for the saddle pulmonary embolism Did you speak to anyone other than the patient for history (EMS, parent, family, police, friend...)? What history was obtained from this source @ -[Patient's family gave history as patient having acute delirium Did you review nursing and triage notes (agree or disagree)? Why? @ -[I reviewed and agree with nursing and triage notes] Were old charts reviewed (outside hosp., previous admission, EMS record, old EKG, old radiological studies, urgent care reports/EKG's, senior living records)? Report findings @ -[Transfer charts were reviewed] Differential Diagnosis (chest pain, altered mental status, abdominal pain women, abdominal pain men, vaginal bleeding, weakness, fever, dyspnea, syncope, headache, dizziness, GI bleed, back pain, seizure, CVA, palpatations, mental health, musculoskeletal)? @ -[Differential Altered Mental Status: Hypoglycemia, DKA, hypercapnia, ETOH, overdose, CO poisoning, trauma, myxedema coma, HTN encephalopathy, infection, encephalitis, psychosis, intercranial hemorrhage, hepatic encephalopathy, meningitis, CVA, this is not meant to be an all-inclusive list Differential Dyspnea: Coronary syndrome, arrhythmia, tamponade, asthma, COPD, pulmonary embolism, pneumonia, pneumothorax, pulmonary effusion, anaphylaxis, diabetic ketoacidosis, flailed chest, pulmonary contusion, diaphragmatic rupture, anemia, neuromuscular, this is not meant to be an all-inclusive list. EKG interpreted by me (3pts min.). @ -[I interpreted as above] X-rays interpreted by me (1pt min.). @ -[None done] CT interpreted by me (1pt min.). @ -[None done] U/S interpreted by me (1pt. min.). @ -[None done] What testing was considered but not performed or refused? (CT, X-rays, U/S, labs)? Why? @ -[None] What meds were considered but not given or refused? Why? @ -[None] Did you discuss the management of the patient with other professionals (professionals i.e. , PA, RETAIL ASSET PROTECTION SPECIALIST, lab, RT, psych nurse, social services, criminal lawyer, teacher, facility security officer, pillowcase sewer)? Give summary @ -[Case discussed with admitting physician and also with pulmonology, the physician covering EKOS Was smoking cessation discussed for >3mins.? @ -[No] Was critical care preformed (if so, how long)? @ -[Yes, 35 minutes Were there social determinants of health that impacted care today? How? (Homelessness, low income, unemployed, alcoholism, drug addiction, transportation, low edu. Level, literacy, decrease access to med. care, senior living, rehab)? @ -[No] Was there de-escalation of care discussed even if they declined (Discuss DNR or withdrawal of care, Hospice)? DNR status @ -[No] What co-morbidities impacted this encounter? (DM, HTN, Smoking, COPD, CAD, Cancer, CVA, ARF, Chemo, Hep., AIDS, mental health diagnosis, sleep apnea, morbid obesity)? @ -[Omental cancer, diabetes Was patient admitted / discharged? Hospital course, mention meds given and route, prescriptions, significant lab abnormalities, going to OR and other pertinent info. 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 Case discussed with admitting physician and with animal nutrition consultant. Patient is admitted to have further treatment Undiagnosed new problem with uncertain prognosis? @ -[No] Drug Therapy requiring intensive monitoring for toxicity (Heparin, Nitro, Insulin, Cardizem)? @ -[IV heparin Were any procedures done? @ -[No] Diagnosis/symptom? @ -[Acute saddle pulmonary embolism Acute altered mental status Sinus tachycardia History of omental cancer Acute hyperglycemia Elevated troponin Acute, or Chronic, or Acute on Chronic? @ -[Acute Uncomplicated (without systemic symptoms) or Complicated (systemic symptoms)? @ -[Complicated by altered mental status Side effects of treatment? @ -[No] Exacerbation, Progression, or Severe Exacerbation? @ -[No] Poses a threat to life or bodily function? How? (Chest pain, USA, IA, pneumonia, PE, COPD, DKA, ARF, appy, cholecystitis, CVA, Diverticulitis, Homicidal, Suicidal, threat to staff... and all critical care pts) @ -[Yes there is significant risk of respiratory/heart failure All treatments are based on ideal body weight as in ED triage - Lab Data Result diagrams: 07/15/24 11:52 07/15/24 11:52 Lab Results 07/08/24 07/08/24 07/08/24 Range/Units 02:46 02:46 02:46 WBC 1.75 L (4.50-10.00) 10*3/uL RBC 3.71 L (4.10-5.20) 10*6/uL Hgb 11.0 L (12.0-15.0) g/dL Hct 31.8 L (37.2-46.3) % MCV 85.7 (80.0-97.0) fL MCH 29.6 (27.0-32.0) pg MCHC 34.6 (32.0-37.0) g/dL Plt Count 118 L (140-440) 10*3/uL MPV 10.1 (9.5-12.2) fL Immature Gran % (Auto) 0.6 % Neutrophils % (Manual) 71 % Band Neuts % (Manual) 3 % Lymphocytes % (Manual) 22 % Monocytes % (Manual) 4 % Immature Gran # 0.01 (0.00-0.04) 10*3/uL Neutrophils # (Manual) 1.29 L (1.3-7.7) k/uL Lymphocytes # (Manual) 0.39 L (1.0-4.8) k/uL Monocytes # (Manual) 0.07 (0-1.0) k/uL Nucleated RBCs 2 H (0-0) /100 WBC Manual Slide Review Performed PT 12.0 (10.0-12.5) sec INR 1.1 (<1.2) APTT 36.0 H (22.0-30.0) sec Sodium 134 L (137-145) mmol/L Potassium 4.4 (3.5-5.1) mmol/L Chloride 101 (98-107) mmol/L Carbon Dioxide 14 L (22-30) mmol/L Anion Gap 19 mmol/L BUN 20 H (7-17) mg/dL Creatinine 0.74 (0.52-1.04) mg/dL Est GFR (CKD-EPI)AfAm >90 (>60 ml/min/1.73 sqM) Est GFR (CKD-EPI)NonAf 84 (>60 ml/min/1.73 sqM) Glucose 409 H (74-99) mg/dL Estimated Ave Glu mg/dL mg/dL Hemoglobin A1c (<=6.0) % Plasma Lactic Acid Jag (0.7-2.0) mmol/L Calcium 8.7 (8.4-10.2) mg/dL Total Bilirubin 0.9 (0.2-1.3) mg/dL AST 21 (14-36) U/L ALT 19 (4-34) U/L Alkaline Phosphatase 106 (38-126) U/L Troponin I (0.000-0.034) ng/mL NT-Pro-B Natriuret Pep pg/mL Total Protein 6.6 (6.3-8.2) g/dL Albumin 3.4 L (3.5-5.0) g/dL 07/08/24 07/08/24 07/08/24 Range/Units 02:46 02:46 02:46 WBC (4.50-10.00) 10*3/uL RBC (4.10-5.20) 10*6/uL Hgb (12.0-15.0) g/dL Hct (37.2-46.3) % MCV (80.0-97.0) fL MCH (27.0-32.0) pg MCHC (32.0-37.0) g/dL Plt Count (140-440) 10*3/uL MPV (9.5-12.2) fL Immature Gran % (Auto) % Neutrophils % (Manual) % Band Neuts % (Manual) % Lymphocytes % (Manual) % Monocytes % (Manual) % Immature Gran # (0.00-0.04) 10*3/uL Neutrophils # (Manual) (1.3-7.7) k/uL Lymphocytes # (Manual) (1.0-4.8) k/uL Monocytes # (Manual) (0-1.0) k/uL Nucleated RBCs (0-0) /100 WBC Manual Slide Review PT (10.0-12.5) sec INR (<1.2) APTT (22.0-30.0) sec Sodium (137-145) mmol/L Potassium (3.5-5.1) mmol/L Chloride (98-107) mmol/L Carbon Dioxide (22-30) mmol/L Anion Gap mmol/L BUN (7-17) mg/dL Creatinine (0.52-1.04) mg/dL Est GFR (CKD-EPI)AfAm (>60 ml/min/1.73 sqM) Est GFR (CKD-EPI)NonAf (>60 ml/min/1.73 sqM) Glucose (74-99) mg/dL Estimated Ave Glu mg/dL mg/dL Hemoglobin A1c (<=6.0) % Plasma Lactic Acid Jag 1.1 (0.7-2.0) mmol/L Calcium (8.4-10.2) mg/dL Total Bilirubin (0.2-1.3) mg/dL AST (14-36) U/L ALT (4-34) U/L Alkaline Phosphatase (38-126) U/L Troponin I 0.138 H* (0.000-0.034) ng/mL NT-Pro-B Natriuret Pep 8250 pg/mL Total Protein (6.3-8.2) g/dL Albumin (3.5-5.0) g/dL 07/08/24 Range/Units 02:46 WBC (4.50-10.00) 10*3/uL RBC (4.10-5.20) 10*6/uL Hgb (12.0-15.0) g/dL Hct (37.2-46.3) % MCV (80.0-97.0) fL MCH (27.0-32.0) pg MCHC (32.0-37.0) g/dL Plt Count (140-440) 10*3/uL MPV (9.5-12.2) fL Immature Gran % (Auto) % Neutrophils % (Manual) % Band Neuts % (Manual) % Lymphocytes % (Manual) % Monocytes % (Manual) % Immature Gran # (0.00-0.04) 10*3/uL Neutrophils # (Manual) (1.3-7.7) k/uL Lymphocytes # (Manual) (1.0-4.8) k/uL Monocytes # (Manual) (0-1.0) k/uL Nucleated RBCs (0-0) /100 WBC Manual Slide Review PT (10.0-12.5) sec INR (<1.2) APTT (22.0-30.0) sec Sodium (137-145) mmol/L Potassium (3.5-5.1) mmol/L Chloride (98-107) mmol/L Carbon Dioxide (22-30) mmol/L Anion Gap mmol/L BUN (7-17) mg/dL Creatinine (0.52-1.04) mg/dL Est GFR (CKD-EPI)AfAm (>60 ml/min/1.73 sqM) Est GFR (CKD-EPI)NonAf (>60 ml/min/1.73 sqM) Glucose (74-99) mg/dL Estimated Ave Glu mg/dL 335 mg/dL Hemoglobin A1c 13.3 H (<=6.0) % Plasma Lactic Acid Jag (0.7-2.0) mmol/L Calcium (8.4-10.2) mg/dL Total Bilirubin (0.2-1.3) mg/dL AST (14-36) U/L ALT (4-34) U/L Alkaline Phosphatase (38-126) U/L Troponin I (0.000-0.034) ng/mL NT-Pro-B Natriuret Pep pg/mL Total Protein (6.3-8.2) g/dL Albumin (3.5-5.0) g/dL - EKG Data -: EKG Interpreted by Me EKG shows normal: sinus rhythm, axis (Normal), intervals (Normal), QRS complexes (Normal), ST-T waves (Lateral T flattening, possible ischemia) Rate: tachycardia (Rate 135 bpm) Disposition Clinical Impression: Pulmonary embolism Disposition: ADMITTED IP TO THIS HOSP Condition: Critical Is patient prescribed a controlled substance at d/c from ED?: No
[2024-07-08 03:36] LABS: HCT 31.8 % (37.2-46.3); MCH 29.6 pg (27.0-32.0); MCHC 34.6 g/dL (32.0-37.0); MCV 85.7 fL (80.0-97.0); Mean Platelet Volume 10.1 fL (9.5-12.2); Platelet Count 118 10*3/uL (140-440); RBC 3.71 10*6/uL (4.10-5.20); RDW 17.1 % (11.5-14.5)
[2024-07-08 03:48] LABS: INR 1.1 (<1.2)
[2024-07-08 03:54] LABS: ALT 19 U/L (4-34); AST 21 U/L (14-36); African American GFR (CKD) >90 (>60 ml/min/1.73 sqM); Albumin 3.4 g/dL (3.5-5.0); Alkaline Phosphatase 106 U/L (38-126); Anion Gap 19 mmol/L; Blood Urea Nitrogen 20 mg/dL (7-17); Calcium 8.7 mg/dL (8.4-10.2); Carbon Dioxide 14 mmol/L (22-30); Chloride 101 mmol/L (98-107); Glucose 409 mg/dL (74-99); Non-African American GFR(CKD) 84 (>60 ml/min/1.73 sqM); Potassium 4.4 mmol/L (3.5-5.1); Sodium 134 mmol/L (137-145); Total Bilirubin 0.9 mg/dL (0.2-1.3); Total Protein 6.6 g/dL (6.3-8.2)
[2024-07-08] MEDS: HEPARIN SOD,PORK IN 0.45% NACL 25,000 UNIT in 0.45% NACL 1 250ML.BAG IV SCH (04:28)
[2024-07-08] MEDS ORDERED: NITROGLYCERIN SL TABS 0.4 MG TAB SUBLINGUAL PRN (05:32)
[2024-07-08 05:46] LABS: Band Neutrophils % 3 %; Lymphocytes # (M) 0.39 k/uL (1.0-4.8); Monocytes # (M) 0.07 k/uL (0-1.0); Neutrophils # (M) 1.29 k/uL (1.3-7.7); Neutrophils % (M) 71 %; Nucleated Red Blood Cells 2 /100 WBC (0-0); Total Cells Counted 100; WBC 1.75 10*3/uL (4.50-10.00)
[2024-07-08 06:43] LABS: Glucose,Whole Blood 435 mg/dL (70-110)
[2024-07-08] MEDS ORDERED: DEXTROSE 50% SYRINGE 50 ML IVP PRN ×2 (07:29)
--- NOTE | 2024-07-08 07:32 | XR ---
EXAMINATION TYPE: XR chest 1V DATE OF EXAM: 07/08/2024 7:27 AM COMPARISON: 10/28/2022 CLINICAL INDICATION: Female, 69 years old with history of dyspnea, TECHNIQUE: XR chest 1V view(s) obtained. FINDINGS: The heart size is normal. The pulmonary vasculature is normal. The lungs are clear. IMPRESSION: 1. No acute pulmonary process. [facility], , 07/08/2024 7:29 AM
--- NOTE | 2024-07-08 07:38 | P.CNPUL ---
History of Present Illness Consult date: 07/08/24 Requesting physician: Chevy Onofre Reason for consult: other (Saddle pulmonary embolism) Chief complaint: Transfer from [facility] History of present illness: Patient is 69-year-old female transferred from [facility] after being found to have saddle PE with CT evidence of right-sided heart strain. Previously started on IV heparin per protocol. Patient is currently confused an d is a poor historian, her daughter is at bedside and supplements information. 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 Previously underwent bowel resection and has colostomy. Currently undergoing chemotherapy, and her last treatment on June 29rs. Reportedly follows with Dr. Isidro. Increased generalized weakness and fatigue at home. Also, noted to be short of breath. D-dimer was elevated outside facility. CT angio of the chest noted to have large saddle PE with CT evidence of right-sided heart strain. She is currently being evaluated emergency department. She is alert but does not answer questions appropriately. She has been increasingly confused over the last 24 hours per the daughter. Currently resting comfortably on 2 L/min nasal cannula. SpO2 reading 97%. She is febrile with a temperature max of 101.3 F. She is tachycardic with heart rate of 133 bpm. Blood pressure is actually hypertensive at the moment. Has not required any fluid boluses or pressors. According to the daughter, she has no prior history of DVT or PE. No t on any anticoagulants. Repeat labs at our facility showing a WBC count of 1.7, hemoglobin 11, hematocrit 31.8, platelets 118. CMP: Sodium 134, potassium 4.4, chloride 101, serum bicarb 14, BUN 20, creatinine 0.74, glucose 409. Lactic 1.1. Troponins 0.14, and 0.14 respectively. NT proBNP was elevated 8250. Currently continued on IV heparin per protocol. Follow-up echocardiogram is ordered. Cardiovascular surgery is on for possible intervention. Review of Systems ROS unobtainable: due to mental status Past Medical History Past Medical History: Diabetes Mellitus, Hypertension, Myocardial Infarction ([place]) Last Myocardial Infarction Date:: 11/19/2007 History of Any Multi-Drug Resistant Organisms: None Reported Past Surgical History: Orthopedic Surgery, Tubal Ligation Additional Past Surgical History / Comment(s): bilateral knee replacement Past Psychological History: Anxiety Smoking Status: Former smoker Past Alcohol Use History: None Reported Past Drug Use History: None Reported Medications and Allergies Home Medications Medication Instructions Recorded Confirmed Type Acetaminophen [Tylenol Arthritis] 1,300 mg PO Q8H PRN MDD 4000mg 07/08/2407/08 History Dulaglutide [Trulicity] 1.5 mg SQ WEEKLY 07/08/24 07/08/24 History Insulin Glargine,Hum.rec.anlog 25 units SQ BID 07/08/24 07/08/24 History [Lantus Solostar Pen] Insulin Lispro [humaLOG Kwikpen] 8 - 10 unit SQ AC-TID 07/08/24 07/08/24 History Metoprolol Tartrate [Lopressor] 12.5 mg PO BID 07/08/24 07/08/24 History Nystatin 100,000 Unit/gm Powd 1 applic TOPICAL TID 07/08/24 07/08/24 History [Mycostatin Powder] lisinopriL [Zestril] 5 mg PO DAILY 07/08/24 07/08/24 History Allergies Allergy/AdvReac Type Severity Reaction Status Date / Time codeine Allergy Unknown Verified 07/08/24 06:38 glucagon Allergy Unknown Verified 07/08/24 06:38 glucosamine Allergy Unknown Verified 07/08/24 06:38 Latex, Natural Rubber Allergy Swelling Verified 07/08/24 06:38 metformin Allergy Unknown Verified 07/08/24 06:38 morphine Allergy Nausea & Verified 07/08/24 06:38 Vomiting sulfamethoxazole Allergy Nausea & Verified 07/08/24 06:38 [From Bactrim] Vomiting trimethoprim [From Bactrim] Allergy Nausea & Verified 07/08/24 06:38 Vomiting flu shot (unknown) Allergy Unknown Uncoded 07/08/24 06:38 Physical Exam Vitals: Vital Signs Temp Pulse Resp BP Pulse Ox 07/08/24 06:13 131 H 24 138/90 97 07/08/24 04:33 101.3 F H 133 H 18 155/95 98 07/08/24 02:37 100.6 F H 137 H 30 H 144/83 98 Intake and Output 07/07/24 07/08/24 07/08/24 22:59 06:59 14:59 Other: Weight 114.475 kg GENERAL EXAM: Alert, 69-year-old obese female, follows commands, poor historian, comfortable in no apparent distress. HEAD: Normocephalic and atraumatic EYES: Normal reaction of pupils, equal size. NOSE: Clear with pink turbinates. THROAT: No erythema or exudates. NECK: No masses, no JVD. CHEST: No chest wall deformity. LUNGS: Equal air entry with no crackles, wheeze, rhonchi or dullness. On 2 L/min nasal cannula. No conversational dyspnea or accessory muscle use. CVS: S1 and S2 normal with no audible murmur, regular rhythm. No extra heart sounds. Tachycardic ABDOMEN: No hepatosplenomegaly, active bowel sounds, no guarding or rigidity. Colostomy with pink and viable stoma. SPINE: No scoliosis or deformity SKIN: No rashes CENTRAL NERVOUS SYSTEM: No focal deficits, tone is normal in all 4 extremities. EXTREMITIES: There is no peripheral edema, clubbing, or cyanosis. Peripheral pulses are intact. Results - Laboratory Findings CBC and BMP: 07/08/24 02:46 07/08/24 02:46 PT/INR, D-dimer PT 12.0 sec (10.0-12.5) 07/08/24 02:46 INR 1.1 (<1.2) 07/08/24 02:46 Abnormal lab findings: Abnormal Labs 07/08/24 07/08/24 07/08/24 02:46 02:46 02:46 WBC 1.75 L RBC 3.71 L Hgb 11.0 L Hct 31.8 L Plt Count 118 L Neutrophils # (Manual) 1.29 L Lymphocytes # (Manual) 0.39 L Nucleated RBCs 2 H APTT 36.0 H Sodium 134 L Carbon Dioxide 14 L BUN 20 H Glucose 409 H POC Glucose (mg/dL) Troponin I Albumin 3.4 L 07/08/24 07/08/24 07/08/24 02:46 05:41 06:41 WBC RBC Hgb Hct Plt Count Neutrophils # (Manual) Lymphocytes # (Manual) Nucleated RBCs APTT Sodium Carbon Dioxide BUN Glucose POC Glucose (mg/dL) 435 H Troponin I 0.138 H* 0.143 H* Albumin - Diagnostic Findings CT scan - chest: image reviewed Assessment and Plan Assessment: Bilateral saddle PE, with CT evidence of right-sided heart strain, submassive Acute hypoxemic respiratory failure, secondary to above 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 Altered mental status, under investigation Insulin-dependent diabetes mellitus, with hyperglycemia Hypertension Morbid obesity, with a BMI of 42 kg/m Plan: Patient's medications, labs, and CT angio of the chest from outside facility reviewed. Submassive bilateral saddle PE noted with CT evidence of right-sided heart strain. Follow-up echocardiogram is ordered Blood pressure has remained normotensive Not requiring any fluid boluses or vasopressors Currently on 2 L/min nasal cannula Currently on IV heparin protocol Cardiovascular surgery consulted for possible intervention including suction thrombectomy or EKOS Obtain urinalysis, blood cultures, and start the patient on empiric antibiotics Control hyperglycemia; start patient on sliding scale insulin coverage and continue Lantus Patient is going to be admitted to the intensive care unit, additional recommendations are forthcoming I have personally seen and examined the patient, performed the documentation and the assessment and plan as written. Number of minutes spent on the visit:20 Time with Patient: Greater than 30
[2024-07-08] MEDS: ACETAMINOPHEN IV (For NPO) 1,000 MG in EMPTY BAG 1 BAG IVPB ONE (07:39)
--- NOTE | 2024-07-08 07:44 | P.CRDCN ---
History of Present Illness Consult date: 07/08/24 History of present illness: History of Present Illness: The patient is a 69-year-old female who was transferred from [place] with evidence of saddle pulmonary embolism, change in mental status and febrile episode. She has a history of omental malignancy, has been receiving chemotherapy by Dr. Palacios at [place]. She has a history of diabetes and hypertension. She is awake but not able to answer many questions. She had a change in mental status worsening than her baseline. According to the notes she has been feeling progressively fatigued vomiting and not eating. Her D-dimer in [place] was elevated and subsequently her CT scan showed saddle pulmonary em bolism. She had mild elevation of the troponin and NT proBNP. She denies any chest discomfort at the time of my evaluation. She is on 2 L oxygen, her blood pressure is stable and she is sinus tachycardia. She had no evidence of arrhythmia. Her echocardiogram in 2022 showed a preserved systolic function. She denies any history of PND, orthopnea or syncope although the history is quite limited from her. Medications: IV heparin, atenolol 25 mg twice a day, losartan HCT 50-12-1/2 mg daily, insulin Review of Systems: Limited because of mental status Physical Examination: 69-year-old female, opening eyes and following commands but not able to answer many questions,Blood pressure 141/88, Heart rate 120, temperature axillary 101.4 Head: Normocephalic. Eyes: Sclerae nonicteric. Neck: Good carotid upstroke, no bruit, no jugular venous distention. Lungs: Clear to auscultation. Heart: Regular rate and rhythm, S1-S2, no S3, no rub. Systolic ejection murmur. Abdomen: Soft nontender, positive bowel sounds no organomegaly. Extremities: +1 edema, intact distal pulses. Labs: White blood cell 1.75, hemoglobin 11, platelets 118, potassium 4.4, BUN 20, creatinine 0.74, glucose 409. Troponin 0.138 and 0.143. NT proBNP 8250. EKG: Sinus tachycardia with nonspecific ST-T wave changes Impression: 1. Saddle pulmonary embolism in a patient with known history of malignancy, receiving chemotherapy 2. Febrile episode, source unclear in an immunocompromised patient 3. Peritoneal malignancy, could be primary 4. History of hypertension 5. History of diabetes, apparently uncontrolled 6. Change in mental status Plan: 1. Obtain an echocardiogram with Doppler 2. Continue anticoagulation 3. Oncology consultation regarding overall prognosis 4. Depending on her progress decision will be made regarding the need to receive thrombolytics or thrombectomy 5. Thank you for this consult, we will follow with you. Prognosis is guarded. Past Medical History Past Medical History: Diabetes Mellitus, Hypertension, Myocardial Infarction ([place]) Last Myocardial Infarction Date:: 11/19/2007 History of Any Multi-Drug Resistant Organisms: None Reported Past Surgical History: Orthopedic Surgery, Tubal Ligation Additional Past Surgical History / Comment(s): bilateral knee replacement Past Psychological History: Anxiety Smoking Status: Former smoker Past Alcohol Use History: None Reported Past Drug Use History: None Reported Medications and Allergies Home Medications Medication Instructions Recorded Confirmed Type Acetaminophen [Tylenol Arthritis] 1,300 mg PO Q8H PRN MDD 4000mg 07/08/24 07/08/24 History Dulaglutide [Trulicity] 1.5 mg SQ WEEKLY 07/08/24 07/08/24 History Insulin Glargine,Hum.rec.anlog 25 units SQ BID 07/08/24 07/08/24 History [Lantus Solostar Pen] Insulin Lispro [humaLOG Kwikpen] 8 - 10 unit SQ AC-TID 07/08/24 07/08/24 History Metoprolol Tartrate [Lopressor] 12.5 mg PO BID 07/08/24 07/08/24 History Nystatin 100,000 Unit/gm Powd 1 applic TOPICAL TID 07/08/24 07/08/24 History [Mycostatin Powder] lisinopriL [Zestril] 5 mg PO DAILY 07/08/24 07/08/24 History Allergies Allergy/AdvReac Type Severity Reaction Status Date / Time codeine Allergy Unknown Verified 07/08/24 06:38 glucagon Allergy Unknown Verified 07/08/24 06:38 glucosamine Allergy Unknown Verified 07/08/24 06:38 Latex, Natural Rubber Allergy Swelling Verified 07/08/24 06:38 metformin Allergy Unknown Verified 07/08/24 06:38 morphine Allergy Nausea & Verified 07/08/24 06:38 Vomiting sulfamethoxazole Allergy Nausea & Verified 07/08/24 06:38 [From Bactrim] Vomiting trimethoprim [From Bactrim] Allergy Nausea & Verified 07/08/24 06:38 Vomiting flu shot (unknown) Allergy Unknown Uncoded 07/08/24 06:38 Physical Exam Vitals: Vital Signs Temp Pulse Resp BP Pulse Ox 07/08/24 07:00 125 H 25 H 141/88 88 L 07/08/24 06:50 101.4 F H 128 H 31 H 141/88 95 07/08/24 06:43 141/88 07/08/24 06:13 131 H 24 138/90 97 07/08/24 04:33 101.3 F H 133 H 18 155/95 98 07/08/24 02:37 100.6 F H 137 H 30 H 144/83 98 Intake and Output 07/07/24 07/08/24 07/08/24 22:59 06:59 14:59 Other: Weight 114.475 kg Results 07/08/24 02:46 07/08/24 02:46 Cardiac Enzymes 07/08/24 07/08/24 07/08/24 Range/Units 02:46 02:46 05:41 AST 21 (14-36) U/L Troponin I 0.138 H* 0.143 H* (0.000-0.034) ng/mL Coagulation 07/08/24 Range/Units 02:46 PT 12.0 (10.0-12.5) sec APTT 36.0 H (22.0-30.0) sec CBC 07/08/24 Range/Units 02:46 WBC 1.75 L (4.50-10.00) 10*3/uL RBC 3.71 L (4.10-5.20) 10*6/uL Hgb 11.0 L (12.0-15.0) g/dL Hct 31.8 L (37.2-46.3) % Plt Count 118 L (140-440) 10*3/uL Comprehensive Metabolic Panel 07/08/24 Range/Units 02:46 Sodium 134 L (137-145) mmol/L Potassium 4.4 (3.5-5.1) mmol/L Chloride 101 (98-107) mmol/L Carbon Dioxide 14 L (22-30) mmol/L BUN 20 H (7-17) mg/dL Creatinine 0.74 (0.52-1.04) mg/dL Glucose 409 H (74-99) mg/dL Calcium 8.7 (8.4-10.2) mg/dL AST 21 (14-36) U/L ALT 19 (4-34) U/L Alkaline Phosphatase 106 (38-126) U/L Total Protein 6.6 (6.3-8.2) g/dL Albumin 3.4 L (3.5-5.0) g/dL Current Medications Generic Name Dose Route Start Last Admin Trade Name Freq PRN Reason Stop Dose Admin Hydrocodone Bitart/Acetaminophen 1 each 07/08/24 05:36 Hydrocodone/Apap 5-325mg 1 Each Tab PO Q4HR PRN Pain Albuterol/Ipratropium 3 ml 07/08/24 08:00 Ipratropium-Albuterol 3 Ml Neb INHALATION RT-QID [facility] Aspirin 81 mg 07/09/24 09:00 Aspirin 325 Mg Tab PO DAILY [facility] Atenolol 25 mg 07/08/24 09:00 Atenolol 25 Mg Tab PO BID [facility] Budesonide 0.5 mg 07/08/24 08:00 Budesonide 0.5 Mg/2 Ml Nebu INHALATION RT-BID [facility] Dextrose/Water 25 ml 07/08/24 07:29 Dextrose 50% Syringe 50 Ml IVP PER PROTOCOL PRN Hypoglycemia Protocol Dextrose/Water 50 ml 07/08/24 07:29 Dextrose 50% Syringe 50 Ml IVP PER PROTOCOL PRN Hypoglycemia Protocol Famotidine 20 mg 07/08/24 09:00 Famotidine 20 Mg/2 Ml Vial IV Q12HR [facility] HCTZ/Losartan Potassium 1 each 07/08/24 09:00 Losartan-Hctz 50-12.5 Mg 1 Each Tab PO DAILY [facility] Heparin Sodium (Porcine) 0 unit 07/08/24 03:43 Heparin Sodium 1,000 Un/Ml (10ml Vl) IV PER PROTOCOL PRN Low PTT Protocol Heparin Sodium/Sodium Chloride 250 mls @ 20.605 mls/hr 07/08/24 03:45 07/08/24 04:28 25,000 unit/ Sodium Chloride IV 18 units/kg/hr .Q12H8M [facility] 20.605 mls/hr Administration Protocol 18 UNITS/KG/HR Ceftriaxone Sodium 1 gm/ 50 mls @ 100 mls/hr 07/08/24 09:00 Sodium Chloride IVPB Q24HR [facility] Protocol Insulin Glargine 15 unit 07/08/24 07:00 Insulin Glargine (Lantus) 100 Unit/Ml Syr SQ BID@0700,2100 [facility] Insulin Human Lispro 0 unit 07/08/24 07:30 Insulin Lispro (Humalog) 100 Unit/Ml 10 Ml Vl SQ ACHS [facility] Protocol Lactulose 20 gm 07/08/24 09:00 Lactulose 20 Gm/30 Ml Cup PO DAILY [facility] Nitroglycerin 0.4 mg 07/08/24 05:32 Nitroglycerin Sl Tabs 0.4 Mg Tab SUBLINGUAL Q5M PRN Chest Pain Intake and Output 07/07/24 07/08/24 07/08/24 22:59 06:59 14:59 Other: Weight 114.475 kg 07/08/24 02:46 07/08/24 02:46
[2024-07-08] MEDS: BUDESONIDE 0.5 MG/2 ML NEBU INHALATION SCH (07:54)
[2024-07-08] MEDS: IPRATROPIUM-ALBUTEROL 3 ML NEB INHALATION SCH (07:54)
[2024-07-08] MEDS: INSULIN GLARGINE (LANTUS) 100 UNIT/ML SYR SQ SCH ×2 (08:10→21:33)
[2024-07-08] MEDS: INSULIN LISPRO (HumaLOG) 100 UNIT/ML 10 mL VL SQ SCH (08:10)
[2024-07-08 08:11] LABS: Glucose,Whole Blood 447 mg/dL (70-110)
[2024-07-08] MEDS: LOSARTAN-HCTZ 50-12.5 MG 1 EACH TAB PO SCH (08:14)
[2024-07-08] MEDS: FAMOTIDINE 20 MG/2 ML VIAL IV SCH (08:15)
[2024-07-08] MEDS: LACTULOSE 20 GM/30 ML CUP PO SCH (08:15)
[2024-07-08] MEDS: atenoloL 25 MG TAB PO SCH (08:41)
--- NOTE | 2024-07-08 08:52 | P.HPIM ---
History of Present Illness This is a pleasant 69 years old female who [facility] Patient presents initially because of generalized weakness. She has a significant history of ovarian cancer she follow-up with Dr. Osman and she got chemotherapy last dose was on 06/29. For 1 week patient is not eating and drinking and with fatigue. On presentation she had CT of the chest which showing saddle pulmonary embolism with right ventricular strain and elevated troponin. Patient was started on a heparin drip and transferred to this facility. Before transport patient was found to have fever suspected to have UTI and received 1 dose of ceftriaxone. Patient currently admitted to the ICU. Patient is mildly confused. She is tir ed and cannot provide information and was obtained with the help of daughter Rhina at bedside. Patient cannot recognize her daughter and she knows she is in hospital but thought that this is more related and she could not tell the time. As per daughter patient found by son lying in couch cannot get up and they called the sister and then brought her to the emergency room. At that time patient was not answering questions appropriately. Patient at baseline lives alone. S she is mildly tachypnei. She has little chest pain central currently 0/10. Also complained from left lower quadrant abdominal pain. As per daughter they cleaned her colostomy bag this morning and it looks loose to her but without smell. Also there was little bit vomiting as per daughter. Maria catheter in place and urine sample was sent looks cloudy. Labs reviewed showing fever of 101.4, tachycardia 125 and EKG showing sinus tachycardia and tachypnea with breathing rate 25, blood pressure is stable she is saturating 88% on room air and 95 on 2 L oxygen. Labs showing pancytopenia with WBC 1.7, hemoglobin 11 and platelet count 118, BMP and LFT unremarkable Glucose elevated 435 Troponin is stable but elevated 0.23 and 0.14 EKG showing sinus tachycardia at 135 BNP is elevated at 330 with baseline 0-99 Review of Systems Review of systems CONSTITUTIONAL: No fever, no malaise, no fatigue. HEENT: No recent visual problems or hearing problems. Denied any sore throat. CARDIOVASCULAR: No orthopnea, PND, no palpitations, no syncope. PULMONARY: no cough, no hemoptysis. GASTROINTESTINAL: No constipation. Normoactive bowel sounds. NEUROLOGICAL: No headaches, no weakness, no numbness. HEMATOLOGICAL: Denies any bleeding or petechiae. GENITOURINARY: Denies any burning micturition, frequency, or urgency. MUSCULOSKELETAL/RHEUMATOLOGICAL: Denies any joint pain, swelling, or any muscle pain. ENDOCRINE: Denies any polyuria or polydipsia. Past Medical History Past Medical History: Diabetes Mellitus, Hypertension, Myocardial Infarction ([place]) Last Myocardial Infarction Date:: 11/19/2007 History of Any Multi-Drug Resistant Organisms: None Reported Past Surgical History: Orthopedic Surgery, Tubal Ligation Additional Past Surgical History / Comment(s): bilateral knee replacement Past Psychological History: Anxiety Smoking Status: Former smoker Past Alcohol Use History: None Reported Past Drug Use History: None Reported Medications and Allergies Home Medications Medication Instructions Recorded Confirmed Type Acetaminophen [Tylenol Arthritis] 1,300 mg PO Q8H PRN MDD 4000mg 07/08/24 07/08/24 History Dulaglutide [Trulicity] 1.5 mg SQ WEEKLY 07/08/24 07/08/24 History Insulin Glargine,Hum.rec.anlog 25 units SQ BID 07/08/24 07/08/24 History [Lantus Solostar Pen] Insulin Lispro [humaLOG Kwikpen] 8 - 10 unit SQ AC-TID 07/08/24 07/08/24 History Metoprolol Tartrate [Lopressor] 12.5 mg PO BID 07/08/24 07/08/24 History RX: Nystatin 100,000 Unit/gm Powd 1 applic TOPICAL TID 07/08/24 07/08/24 History [Mycostatin Powder] lisinopriL [Zestril] 5 mg PO DAILY 07/08/24 07/08/24 History Allergies Allergy/AdvReac Type Severity Reaction Status Date / Time codeine Allergy Unknown Verified 07/08/24 06:38 glucagon Allergy Unknown Verified 07/08/24 06:38 glucosamine Allergy Unknown Verified 07/08/24 06:38 Latex, Natural Rubber Allergy Swelling Verified 07/08/24 06:38 metformin Allergy Unknown Verified 07/08/24 06:38 morphine Allergy Nausea & Verified 07/08/24 06:38 Vomiting sulfamethoxazole Allergy Nausea & Verified 07/08/24 06:38 [From Bactrim] Vomiting trimethoprim [From Bactrim] Allergy Nausea & Verified 07/08/24 06:38 Vomiting flu shot (unknown) Allergy Unknown Uncoded 07/08/24 06:38 Physical Exam Vitals: Vital Signs Temp Pulse Resp BP Pulse Ox 07/08/24 07:00 125 H 25 H 141/88 88 L 07/08/24 06:50 101.4 F H 128 H 31 H 141/88 95 07/08/24 06:43 141/88 07/08/24 06:13 131 H 24 138/90 97 07/08/24 04:33 101.3 F H 133 H 18 155/95 98 07/08/24 02:37 100.6 F H 137 H 30 H 144/83 98 Intake and Output 07/07/24 07/08/24 07/08/24 22:59 06:59 14:59 Other: Weight 114.475 kg -GENERAL: The patient is alert and oriented x1-2 partial, not in any acute distress. Well developed, well nourished. Tired and lethargic. Obese HEENT: Pupils are round and equally reacting to light. EOMI. No scleral icterus. No conjunctival pallor. Normocephalic, atraumatic. No pharyngeal erythema. No thyromegaly. CARDIOVASCULAR: S1 and S2 present. No murmurs, rubs, or gallops. PULMONARY: Chest is clear to auscultation, no wheezing , no crackles. -ABDOMEN: Soft, nontender, nondistended, normoactive bowel sounds. No palpable organomegaly. LLQ colostomy with surrounding tenderness, no guarding or rebound tenderness MUSCULOSKELETAL: No joint swelling or deformity. EXTREMITIES: No cyanosis, clubbing, or pedal edema. NEUROLOGICAL: Gross neurological examination did not reveal any focal deficits. SKIN: No rashes. no petechiae. Results CBC & Chem 7: 07/08/24 02:46 07/08/24 02:46 Labs: Abnormal Lab Results - Last 24 Hours (Table) 07/08/24 07/08/24 07/08/24 Range/Units 02:46 02:46 02:46 WBC 1.75 L (4.50-10.00) 10*3/uL RBC 3.71 L (4.10-5.20) 10*6/uL Hgb 11.0 L (12.0-15.0) g/dL Hct 31.8 L (37.2-46.3) % Plt Count 118 L (140-440) 10*3/uL Neutrophils # (Manual) 1.29 L (1.3-7.7) k/uL Lymphocytes # (Manual) 0.39 L (1.0-4.8) k/uL Nucleated RBCs 2 H (0-0) /100 WBC APTT 36.0 H (22.0-30.0) sec Sodium 134 L (137-145) mmol/L Carbon Dioxide 14 L (22-30) mmol/L BUN 20 H (7-17) mg/dL Glucose 409 H (74-99) mg/dL POC Glucose (mg/dL) (70-110) mg/dL Troponin I (0.000-0.034) ng/mL Albumin 3.4 L (3.5-5.0) g/dL 07/08/24 07/08/24 07/08/24 Range/Units 02:46 05:41 06:41 WBC (4.50-10.00) 10*3/uL RBC (4.10-5.20) 10*6/uL Hgb (12.0-15.0) g/dL Hct (37.2-46.3) % Plt Count (140-440) 10*3/uL Neutrophils # (Manual) (1.3-7.7) k/uL Lymphocytes # (Manual) (1.0-4.8) k/uL Nucleated RBCs (0-0) /100 WBC APTT (22.0-30.0) sec Sodium (137-145) mmol/L Carbon Dioxide (22-30) mmol/L BUN (7-17) mg/dL Glucose (74-99) mg/dL POC Glucose (mg/dL) 435 H (70-110) mg/dL Troponin I 0.138 H* 0.143 H* (0.000-0.034) ng/mL Albumin (3.5-5.0) g/dL Assessment and Plan Assessment: Acute saddle pulmonary embolism with R ventricular strain Elevated troponin secondary to above Acute hypoxic respiratory failure Sepsis Acute UTI suspected Left lower quadrant tenderness around colostomy bag Pancytopenia secondary to chemotherapy Metabolic/toxic encephalopathy Ovarian cancer status postchemotherapy Plan: Continue with heparin drip Follow-up chest x-ray Follow-up urine analysis and urine culture Follow-up blood culture Follow-up echocardiogram Pulmonary team consult Cardiology team consult Start antibiotics Check CT of the abdomen without IV contrast Nutrition consult and speech consult for swallow evaluation Labs and medication were reviewed.. Continue same treatment. Continue with symptomatic treatment. Resume home medication. Monitor labs and vitals. DVT and GI prophylaxis. Further recommendations as per clinical course of the patient DVT prophylaxis: heparin GI Prophylaxis: Pepcid PT/OT: Pending Prognosis is guarded Full code as per family
[2024-07-08 09:00] LABS: VBG PH 7.4 (7.31-7.41)
[2024-07-08] MEDS: HEPARIN SODIUM 1,000 UN/ML (10ML VL) IV PRN (09:43)
[2024-07-08 11:21] LABS: Appearance,Urine Cloudy (Clear); Bilirubin,Urine Negative (Negative); Blood,Urine Moderate (Negative); Color,Urine Light Yellow; Glucose,Urine (UA) 4+ (Negative); Leukocyte Esterase,Urine Large (Negative); Mucus,Urine Rare /hpf; Nitrite,Urine Negative (Negative); PH, Urine 5.5 (5.0-8.0); Protein,Urine 1+ (Negative); RBC,Urine 22 /hpf (0-5); Specific Gravity,Urine 1.034 (1.001-1.035); Squamous Epithelial Cell,Urine 1 /hpf (0-4); Urobilinogen,Urine <2.0 mg/dL (<2.0); WBC,Urine >182 /hpf (0-5)
[2024-07-08 11:26] LABS: Ketones,Urine 3+ (Negative)
[2024-07-08] MEDS: IOPAMIDOL CONTRAST (ORAL USE) VIAL PO PRN (11:33)
[2024-07-08] MEDS: ONDANSETRON 4 MG/2 ML VIAL IVP PRN (11:34)
[2024-07-08] MEDS ORDERED: Potassium Replacement Protocol 1 EACH MISC MISCELLANE PRN (11:37)
[2024-07-08] MEDS ORDERED: Magnesium Replacement Protocol 1 EACH MISC MISCELLANE PRN (11:37)
[2024-07-08 11:52] LABS: Glucose,Whole Blood 462 mg/dL (70-110)
[2024-07-08] MEDS: SODIUM CHLORIDE 0.9% 1,000 ML IV SCH (11:53)
[2024-07-08] MEDS: INSULIN REGULAR 100 UNIT in SODIUM CHLORIDE 0.9% 100 ML IV SCH (12:13)
--- NOTE | 2024-07-08 12:38 | CA ---
Transthoracic Echo Report Name: Alannah Galloway Age: 69 Gender: F : 1955 Exam Date: 07/08/2024 08:47 Exam Location: [facility] Ht (in): 65 Wt (lb): 252 Ordering Physician: Nicolas Hyman Attending/Referring Phys: Psychotherapist Counselor Esme Rivera RDCS Procedure CPT: Indications: saddle PE; evaluate for RV strain Cardiac Hx: Technical Quality: Poor, Technically difficult study Contrast 1: Definity Total Dose (mL): 2 Contrast 2: Total Dose (mL): MEASUREMENTS (Male / Female) Normal Values 2D ECHO LV Diastolic Diameter PLAX 4.6 cm 4.2 - 5.9 / 3.9 - 5.3 cm LV Systolic Diameter PLAX 2.5 cm IVS Diastolic Thickness 1.2 cm 0.6 - 1.0 / 0.6 - 0.9 cm LVPW Diastolic Thickness 1.2 cm 0.6 - 1.0 / 0.6 - 0.9 cm LV Relative Wall Thickness 0.5 RV Internal Dim ED PLAX 1.6 cm LA Systolic Diameter LX 3.1 cm 3.0 - 4.0 / 2.7 - 3.8 cm LA Volume 33.3 cm??? 18 - 58 / 22 - 52 cm??? LA Volume Index 14.2 cm???/m??? 16 - 28 cm???/m??? M-MODE Aortic Root Diameter MM 3.2 cm LA Systolic Diameter MM 2.7 cm LA Ao Ratio MM 0.9 AV Cusp Separation MM 1.7 cm DOPPLER TR Peak Velocity 358.5 cm/s TR Peak Gradient 51.4 mmHg Right Ventricular Systolic Press 55.8 mmHg FINDINGS Left Ventricle Left ventricular ejection fraction is estimated at 60-65 %. Mildly increased septal wall thickness. Mildly increased posterior wall thickness. Normal left ventricular systolic function with no obvious regional wall motion abnormalities. Left ventricular cavity size normal. Right Ventricle Mild right ventricular dilatation. Reduced right ventricular global systolic function. Moderate to severe pulmonary hypertension. Right Atrium Mild right atrial dilatation. Left Atrium Mild left atrial dilatation. Mitral Valve Structurally normal mitral valve. Trace to mild mitral regurgitation. No mitral stenosis. Aortic Valve Diffuse thickening (sclerosis) of the aortic valve cusps without reduced excursion. No aortic stenosis. No aortic regurgitation. Tricuspid Valve Structurally normal tricuspid valve. Moderate tricuspid regurgitation. No tricuspid stenosis. Pulmonic Valve Structurally normal pulmonic valve. Trace pulmonic regurgitation. No pulmonic stenosis. Pericardium No pericardial or pleural effusion. Aorta Normal size aortic root and proximal ascending aorta. CONCLUSIONS Technically difficult study for interpretation because of poorly visualized endocardium and tachycardia Hyperdynamic LV with EF between 60 to 65% Poorly visualized intracardiac valves Aortic sclerosis Moderate pulmonary hypertension Dilated RV Previewed by: Dr. Maged Potts MD (Electronically Signed) Final Date: 08 July 2024 12:37
[2024-07-08 13:12] LABS: Glucose,Whole Blood 414 mg/dL (70-110)
[2024-07-08 13:28] LABS: African American GFR (CKD) 62 (>60 ml/min/1.73 sqM); Anion Gap 13 mmol/L; Blood Urea Nitrogen 28 mg/dL (7-17); Carbon Dioxide 20 mmol/L (22-30); Chloride 103 mmol/L (98-107); Glucose 425 mg/dL (74-99); Non-African American GFR(CKD) 54 (>60 ml/min/1.73 sqM); Potassium 4.2 mmol/L (3.5-5.1); Sodium 136 mmol/L (137-145)
[2024-07-08 14:14] LABS: Glucose,Whole Blood 375 mg/dL (70-110)
[2024-07-08 14:18] LABS: HGB 10.5 g/dL (12.0-15.0); MCH 29.5 pg (27.0-32.0); MCHC 32.8 g/dL (32.0-37.0); MCV 89.9 fL (80.0-97.0); Mean Platelet Volume 10.8 fL (9.5-12.2); Platelet Count 145 10*3/uL (140-440); RBC 3.56 10*6/uL (4.10-5.20); RDW 17.7 % (11.5-14.5); WBC 2.37 10*3/uL (4.50-10.00)
--- NOTE | 2024-07-08 14:42 | CT ---
EXAMINATION TYPE: CT abdomen pelvis wo con DATE OF EXAM: 07/08/2024 COMPARISON: CT chest abdomen pelvis dated 12/19/2022 CLINICAL INDICATION: Female, 69 years old with history of pain and tenderness; PHH, pain and tenderne ss TECHNIQUE: CT scan of the abdomen and pelvis is performed without oral or IV contrast. CT DLP: 1352.[address] CTDI: mGy Automated exposure control for dose reduction was used. FINDINGS: Within the limitations of a non-contrast study, the following observations are made. The lungs are clear. Gallbladder is normal and there is no gallstone, wall thickening, pericholecystic fluid or distention . There is no biliary ductal dilatation. There is no organomegaly of the liver, pancreas, spleen or adrenal glands. There is amorphous ill-defined increased density within the posterior aspect of the mid right kidney consistent with acute hemorrhage. Small degree of hemorrhage is suspected within the right renal ceferino ecting system as well. In the distal right ureter at the pelvic inlet there is a 15 mm soft tissue ma ss possibly related to the right ureter. Just distal to the mass is a 5 mm calcific density possibly a right ureteral calculus. There is no definite hydronephrosis of the right kidney. There are a few t iny nonobstructing left renal calcifications. The caliber of the abdominal aorta is normal and there is no retroperitoneal adenopathy or hemorrhage . The bowel loops are normal in caliber is no evidence of obstruction. No inflammatory changes are iden tified in the mesentery and there is no free intraperitoneal air or fluid. There is a left lower quad rant ostomy with normal appearing bowel. There is a small periumbilical hernia containing single loop of nondilated non strangulated loop of small bowel. There is no pelvic mass, free fluid, abscess or adenopathy. There is a Maria catheter in a nondistend ed urinary bladder The osseous structures and soft tissues are unremarkable. IMPRESSION: 1. Acute hemorrhage within the right renal parenchyma and within the proximal right renal collecting system. 2. Questionable 15 mm mass of the distal third of the right ureter and possible 5 mm distal rig ht ureteral calculus. There is no right hydronephrosis. 3. Small periumbilical hernia. 4. Normal-appearing left lower quadrant ostomy.. 5 few tiny nonobstructing left renal calcifications [facility], , 07/08/2024 2:39 PM
[2024-07-08 15:09] LABS: Glucose,Whole Blood 313 mg/dL (70-110)
--- NOTE | 2024-07-08 15:55 | US ---
EXAMINATION TYPE: US venous doppler duplex LE BI DATE OF EXAM: 07/08/2024 3:33 PM COMPARISON: Prior ultrasound October 29, 2022 CLINICAL INDICATION: Female, 69 years old with history of PE, baseline; PE, Pain TECHNIQUE: The lower extremity deep venous system is examined utilizing real time linear array sonog david with graded compression, color doppler sonography, and spectral doppler. SIDE PERFORMED: bilateral FINDINGS: VESSELS IMAGED: Common Femoral Vein Deep Femoral Vein Greater Saphenous Vein * Femoral Vein Popliteal Vein Small Saphenous Vein * Proximal Calf Veins (* superficial vessels) Limitations due to patient's body habitus Right Leg: *Positive for DVT. right CFV extending into popliteal vein, Color Doppler imaging shows p atency of the vessels. Spectral waveforms are within normal limits. Left Leg: no evidence of DVT as visualized, Color Doppler imaging shows patency of the vessels. Spec tral waveforms are within normal limits. IMPRESSION: Suboptimal study with now long segment acute DVT in the right lower extremity present . [facility], , 07/08/2024 3:53 PM
[2024-07-08 16:10] LABS: Glucose,Whole Blood 248 mg/dL (70-110)
[2024-07-08 16:14] LABS: Band Neutrophils % 7 %; Large Platelets Present; Lymphocytes # (M) 0.43 k/uL (1.0-4.8); Monocytes # (M) 0.26 k/uL (0-1.0); Neutrophils # (M) 1.68 k/uL (1.3-7.7); Neutrophils % (M) 64 %; Nucleated Red Blood Cells 0 /100 WBC (0-0); Total Cells Counted 100
[2024-07-08 16:15] LABS: Polychromasia Present
[2024-07-08 17:11] LABS: Glucose,Whole Blood 206 mg/dL (70-110)
[2024-07-08 17:29] LABS: African American GFR (CKD) 52 (>60 ml/min/1.73 sqM); Anion Gap 8 mmol/L; Blood Urea Nitrogen 29 mg/dL (7-17); Carbon Dioxide 21 mmol/L (22-30); Chloride 104 mmol/L (98-107); Glucose 253 mg/dL (74-99); Non-African American GFR(CKD) 45 (>60 ml/min/1.73 sqM); Potassium 3.9 mmol/L (3.5-5.1); Sodium 133 mmol/L (137-145)
--- NOTE | 2024-07-08 17:30 | P.GSCN ---
History of Present Illness Consult date: 07/08/24 History of present illness: Alannah is a 69-year-old female who was a transfer from [place] for saddle pulmonary embolism and mental status changes. She initially presented due to generalized weakness. She has a history of omental cancer and peritoneal cance r, it is uncertain if this is metastatic or this is the primary. She gets chemotherapy from Dr. Box. On presentation she had a CT scan of the chest showing a saddle pulmonary embolism with elevated troponins and evidence of right heart strain on the CT. She was transferred here after being started on a heparin drip. She was seen this morning by cardiology and was confused at that time and unable to fully provide information. The discussion was had with cardiology in regards to possible plan going forward. Unfortunately she then developed a parenchymal bleed in her right kidney and are unable to continue anticoagulation. We are asked to place a filter. Discussion was had with car diology, the echo does show evidence of right heart strain with a dilated right ventricle and evidence of moderate to severe pulmonary hypertension with reduced right ventricular global systolic function RVSP of 55.8 mmHg. Due to these findings I did ask the group contract analyst if they were planning to go forward with intervention as if I place a filter they will not any longer be able to access from this area. In discussion with Dr. Yee he was amenable to us going forward with intervention and thrombectomy if that is that the patient desired at the time of our filter placement. After my review of the patient I do believe this is recommended given her findings and significant thrombus noted in saddle position. A long discussion was had with the patient and her family regarding the options including IVC filter placement along with suction thrombectomy of the pulmonary arteries versus IVC opposed or placement alone versus no intervention and turning towards comfort care. Through this di scussion with the family the patient desires to be more aggressive and does wish to go forward with intervention. I do believe at this time given her findings and overall clinical picture she would likely benefit from suction thrombectomy as well given the thrombus burden. Risks and benefits of the procedures were discussed with the patient and family including but not limited to bleeding, infection, injury to the surrounding structures and . She seemed understood and was willing to proceed. Will plan to do this once Clay Miner is available this evening Past Medical History Past Medical History: Cancer, Diabetes Mellitus, Deep Vein Thrombosis (DVT), Hypertension, Myocardial Infarction ([place]), Pulmonary Embolus (PE) Additional Past Medical History / Comment(s): peritoneal cancer, DVT, PE Last Myocardial Infarction Date:: 11/19/2007 History of Any Multi-Drug Resistant Organisms: None Reported Past Surgical History: Orthopedic Surgery, Tubal Ligation Additional Past Surgical History / Comment(s): bilateral knee replacement Smoking Status: Former smoker Medications and Allergies Home Medications Medication Instructions Recorded Confirmed Type Acetaminophen [Tylenol Arthritis] 1,300 mg PO Q8H PRN MDD 4000mg 07/08/24 07/08/24 History Dulaglutide [Trulicity] 1.5 mg SQ WEEKLY 07/08/24 07/08/24 History Insulin Glargine,Hum.rec.anlog 25 units SQ BID 07/08/24 07/08/24 History [Lantus Solostar Pen] Insulin Lispro [humaLOG Kwikpen] 8 - 10 unit SQ AC-TID 07/08/24 07/08/24 History Metoprolol Tartrate [Lopressor] 12.5 mg PO BID 07/08/24 07/08/24 History Nystatin 100,000 Unit/gm Powd 1 applic TOPICAL TID 07/08/24 07/08/24 History [Mycostatin Powder] lisinopriL [Zestril] 5 mg PO DAILY 07/08/24 07/08/24 History Allergies Allergy/AdvReac Type Severity Reaction Status Date / Time codeine Allergy Unknown Verified 07/08/24 06:38 glucagon Allergy Unknown Verified 07/08/24 06:38 glucosamine Allergy Unknown Verified 07/08/24 06:38 Latex, Natural Rubber Allergy Swelling Verified 07/08/24 06:38 metformin Allergy Unknown Verified 07/08/24 06:38 morphine Allergy Nausea & Verified 07/08/24 06:38 Vomiting sulfamethoxazole Allergy Nausea & Verified 07/08/24 06:38 [From Bactrim] Vomiting trimethoprim [From Bactrim] Allergy Nausea & Verified 07/08/24 06:38 Vomiting flu shot (unknown) Allergy Unknown Uncoded 07/08/24 06:38 Surgical - Exam Vital Signs Temp Pulse Resp BP Pulse Ox 100.6 F H 137 H 30 H 144/83 98 07/08/24 02:37 07/08/24 02:37 07/08/24 02:37 07/08/24 02:37 07/08/24 02:37 General is a pleasant cooperative female in mild respiratory distress. Thinning hair. Obese. On O2 per nasal cannula 2 L. Abdomen is soft. Colostomy patent. Bilateral lower extremities are warm and dry. Mild swelling throughout. Results - Labs 07/08/24 11:57 07/08/24 11:57 Abnormal Lab Results - Last 24 Hours (Table) 07/08/24 07/08/24 07/08/24 Range/Units 02:46 02:46 02:46 WBC 1.75 L (4.50-10.00) 10*3/uL RBC 3.71 L (4.10-5.20) 10*6/uL Hgb 11.0 L (12.0-15.0) g/dL Hct 31.8 L (37.2-46.3) % Plt Count 118 L (140-440) 10*3/uL Neutrophils # (Manual) 1.29 L (1.3-7.7) k/uL Lymphocytes # (Manual) 0.39 L (1.0-4.8) k/uL Nucleated RBCs 2 H (0-0) /100 WBC APTT 36.0 H (22.0-30.0) sec VBG pCO2 (37-51) mmHg VBG HCO3 (24-28) mmol/L Sodium 134 L (137-145) mmol/L Carbon Dioxide 14 L (22-30) mmol/L BUN 20 H (7-17) mg/dL Creatinine (0.52-1.04) mg/dL Glucose 409 H (74-99) mg/dL POC Glucose (mg/dL) (70-110) mg/dL Hemoglobin A1c (<=6.0) % Phosphorus (2.5-4.5) mg/dL Troponin I (0.000-0.034) ng/mL Albumin 3.4 L (3.5-5.0) g/dL Urine Appearance (Clear) Urine Protein (Negative) Urine Glucose (UA) (Negative) Urine Ketones (Negative) Urine Blood (Negative) Ur Leukocyte Esterase (Negative) Urine RBC (0-5) /hpf Urine WBC (0-5) /hpf Urine WBC Clumps (None) /hpf Urine Mucus (None) /hpf 07/08/24 07/08/24 07/08/24 Range/Units 02:46 02:46 05:41 WBC (4.50-10.00) 10*3/uL RBC (4.10-5.20) 10*6/uL Hgb (12.0-15.0) g/dL Hct (37.2-46.3) % Plt Count (140-440) 10*3/uL Neutrophils # (Manual) (1.3-7.7) k/uL Lymphocytes # (Manual) (1.0-4.8) k/uL Nucleated RBCs (0-0) /100 WBC APTT (22.0-30.0) sec VBG pCO2 (37-51) mmHg VBG HCO3 (24-28) mmol/L Sodium (137-145) mmol/L Carbon Dioxide (22-30) mmol/L BUN (7-17) mg/dL Creatinine (0.52-1.04) mg/dL Glucose (74-99) mg/dL POC Glucose (mg/dL) (70-110) mg/dL Hemoglobin A1c 13.3 H (<=6.0) % Phosphorus (2.5-4.5) mg/dL Troponin I 0.138 H* 0.143 H* (0.000-0.034) ng/mL Albumin (3.5-5.0) g/dL Urine Appearance (Clear) Urine Protein (Negative) Urine Glucose (UA) (Negative) Urine Ketones (Negative) Urine Blood (Negative) Ur Leukocyte Esterase (Negative) Urine RBC (0-5) /hpf Urine WBC (0-5) /hpf Urine WBC Clumps (None) /hpf Urine Mucus (None) /hpf 07/08/24 07/08/24 07/08/24 Range/Units 06:41 07:20 08:09 WBC (4.50-10.00) 10*3/uL RBC (4.10-5.20) 10*6/uL Hgb (12.0-15.0) g/dL Hct (37.2-46.3) % Plt Count (140-440) 10*3/uL Neutrophils # (Manual) (1.3-7.7) k/uL Lymphocytes # (Manual) (1.0-4.8) k/uL Nucleated RBCs (0-0) /100 WBC APTT (22.0-30.0) sec VBG pCO2 (37-51) mmHg VBG HCO3 (24-28) mmol/L Sodium (137-145) mmol/L Carbon Dioxide (22-30) mmol/L BUN (7-17) mg/dL Creatinine (0.52-1.04) mg/dL Glucose (74-99) mg/dL POC Glucose (mg/dL) 435 H 447 H (70-110) mg/dL Hemoglobin A1c (<=6.0) % Phosphorus (2.5-4.5) mg/dL Troponin I (0.000-0.034) ng/mL Albumin (3.5-5.0) g/dL Urine Appearance Cloudy H (Clear) Urine Protein 1+ H (Negative) Urine Glucose (UA) 4+ H (Negative) Urine Ketones 3+ H (Negative) Urine Blood Moderate H (Negative) Ur Leukocyte Esterase Large H (Negative) Urine RBC 22 H (0-5) /hpf Urine WBC >182 H (0-5) /hpf Urine WBC Clumps Moderate H (None) /hpf Urine Mucus Rare H (None) /hpf 07/08/24 07/08/24 07/08/24 Range/Units 08:39 08:39 11:50 WBC (4.50-10.00) 10*3/uL RBC (4.10-5.20) 10*6/uL Hgb (12.0-15.0) g/dL Hct (37.2-46.3) % Plt Count (140-440) 10*3/uL Neutrophils # (Manual) (1.3-7.7) k/uL Lymphocytes # (Manual) (1.0-4.8) k/uL Nucleated RBCs (0-0) /100 WBC APTT (22.0-30.0) sec VBG pCO2 27 L (37-51) mmHg VBG HCO3 17 L (24-28) mmol/L Sodium (137-145) mmol/L Carbon Dioxide (22-30) mmol/L BUN (7-17) mg/dL Creatinine (0.52-1.04) mg/dL Glucose (74-99) mg/dL POC Glucose (mg/dL) 462 H (70-110) mg/dL Hemoglobin A1c (<=6.0) % Phosphorus (2.5-4.5) mg/dL Troponin I 0.134 H* (0.000-0.034) ng/mL Albumin (3.5-5.0) g/dL Urine Appearance (Clear) Urine Protein (Negative) Urine Glucose (UA) (Negative) Urine Ketones (Negative) Urine Blood (Negative) Ur Leukocyte Esterase (Negative) Urine RBC (0-5) /hpf Urine WBC (0-5) /hpf Urine WBC Clumps (None) /hpf Urine Mucus (None) /hpf 07/08/24 07/08/24 07/08/24 Range/Units 11:57 11:57 11:57 WBC 2.37 L (4.50-10.00) 10*3/uL RBC 3.56 L (4.10-5.20) 10*6/uL Hgb 10.5 L (12.0-15.0) g/dL Hct 32.0 L (37.2-46.3) % Plt Count (140-440) 10*3/uL Neutrophils # (Manual) (1.3-7.7) k/uL Lymphocytes # (Manual) 0.43 L (1.0-4.8) k/uL Nucleated RBCs (0-0) /100 WBC APTT (22.0-30.0) sec VBG pCO2 (37-51) mmHg VBG HCO3 (24-28) mmol/L Sodium 136 L (137-145) mmol/L Carbon Dioxide 20 L (22-30) mmol/L BUN 28 H (7-17) mg/dL Creatinine 1.07 H (0.52-1.04) mg/dL Glucose 425 H (74-99) mg/dL POC Glucose (mg/dL) (70-110) mg/dL Hemoglobin A1c (<=6.0) % Phosphorus 5.0 H (2.5-4.5) mg/dL Troponin I (0.000-0.034) ng/mL Albumin (3.5-5.0) g/dL Urine Appearance (Clear) Urine Protein (Negative) Urine Glucose (UA) (Negative) Urine Ketones (Negative) Urine Blood (Negative) Ur Leukocyte Esterase (Negative) Urine RBC (0-5) /hpf Urine WBC (0-5) /hpf Urine WBC Clumps (None) /hpf Urine Mucus (None) /hpf 07/08/24 07/08/24 07/08/24 Range/Units 13:11 14:12 15:08 WBC (4.50-10.00) 10*3/uL RBC (4.10-5.20) 10*6/uL Hgb (12.0-15.0) g/dL Hct (37.2-46.3) % Plt Count (140-440) 10*3/uL Neutrophils # (Manual) (1.3-7.7) k/uL Lymphocytes # (Manual) (1.0-4.8) k/uL Nucleated RBCs (0-0) /100 WBC APTT (22.0-30.0) sec VBG pCO2 (37-51) mmHg VBG HCO3 (24-28) mmol/L Sodium (137-145) mmol/L Carbon Dioxide (22-30) mmol/L BUN (7-17) mg/dL Creatinine (0.52-1.04) mg/dL Glucose (74-99) mg/dL POC Glucose (mg/dL) 414 H 375 H 313 H (70-110) mg/dL Hemoglobin A1c (<=6.0) % Phosphorus (2.5-4.5) mg/dL Troponin I (0.000-0.034) ng/mL Albumin (3.5-5.0) g/dL Urine Appearance (Clear) Urine Protein (Negative) Urine Glucose (UA) (Negative) Urine Ketones (Negative) Urine Blood (Negative) Ur Leukocyte Esterase (Negative) Urine RBC (0-5) /hpf Urine WBC (0-5) /hpf Urine WBC Clumps (None) /hpf Urine Mucus (None) /hpf 07/08/24 07/08/24 07/08/24 Range/Units 16:08 16:18 17:09 WBC (4.50-10.00) 10*3/uL RBC (4.10-5.20) 10*6/uL Hgb (12.0-15.0) g/dL Hct (37.2-46.3) % Plt Count (140-440) 10*3/uL Neutrophils # (Manual) (1.3-7.7) k/uL Lymphocytes # (Manual) (1.0-4.8) k/uL Nucleated RBCs (0-0) /100 WBC APTT 54.4 H (22.0-30.0) sec VBG pCO2 (37-51) mmHg VBG HCO3 (24-28) mmol/L Sodium (137-145) mmol/L Carbon Dioxide (22-30) mmol/L BUN (7-17) mg/dL Creatinine (0.52-1.04) mg/dL Glucose (74-99) mg/dL POC Glucose (mg/dL) 248 H 206 H (70-110) mg/dL Hemoglobin A1c (<=6.0) % Phosphorus (2.5-4.5) mg/dL Troponin I (0.000-0.034) ng/mL Albumin (3.5-5.0) g/dL Urine Appearance (Clear) Urine Protein (Negative) Urine Glucose (UA) (Negative) Urine Ketones (Negative) Urine Blood (Negative) Ur Leukocyte Esterase (Negative) Urine RBC (0-5) /hpf Urine WBC (0-5) /hpf Urine WBC Clumps (None) /hpf Urine Mucus (None) /hpf Diabetes panel 07/08/24 07/08/24 07/08/24 Range/Units 02:46 02:46 11:57 Sodium 134 L 136 L (137-145) mmol/L Potassium 4.4 4.2 (3.5-5.1) mmol/L Chloride 101 103 (98-107) mmol/L Carbon Dioxide 14 L 20 L (22-30) mmol/L BUN 20 H 28 H (7-17) mg/dL Creatinine 0.74 1.07 H (0.52-1.04) mg/dL Glucose 409 H 425 H (74-99) mg/dL Hemoglobin A1c 13.3 H (<=6.0) % Calcium 8.7 (8.4-10.2) mg/dL AST 21 (14-36) U/L ALT 19 (4-34) U/L Alkaline Phosphatase 106 (38-126) U/L Total Protein 6.6 (6.3-8.2) g/dL Albumin 3.4 L (3.5-5.0) g/dL Calcium panel 07/08/24 07/08/24 Range/Units 02:46 11:57 Calcium 8.7 (8.4-10.2) mg/dL Phosphorus 5.0 H (2.5-4.5) mg/dL Albumin 3.4 L (3.5-5.0) g/dL Pituitary panel 07/08/24 07/08/24 Range/Units 02:46 11:57 Sodium 134 L 136 L (137-145) mmol/L Potassium 4.4 4.2 (3.5-5.1) mmol/L Chloride 101 103 (98-107) mmol/L Carbon Dioxide 14 L 20 L (22-30) mmol/L BUN 20 H 28 H (7-17) mg/dL Creatinine 0.74 1.07 H (0.52-1.04) mg/dL Glucose 409 H 425 H (74-99) mg/dL Calcium 8.7 (8.4-10.2) mg/dL Adrenal panel 07/08/24 07/08/24 Range/Units 02:46 11:57 Sodium 134 L 136 L (137-145) mmol/L Potassium 4.4 4.2 (3.5-5.1) mmol/L Chloride 101 103 (98-107) mmol/L Carbon Dioxide 14 L 20 L (22-30) mmol/L BUN 20 H 28 H (7-17) mg/dL Creatinine 0.74 1.07 H (0.52-1.04) mg/dL Glucose 409 H 425 H (74-99) mg/dL Calcium 8.7 (8.4-10.2) mg/dL Total Bilirubin 0.9 (0.2-1.3) mg/dL AST 21 (14-36) U/L ALT 19 (4-34) U/L Alkaline Phosphatase 106 (38-126) U/L Total Protein 6.6 (6.3-8.2) g/dL Albumin 3.4 L (3.5-5.0) g/dL Assessment and Plan Assessment: Submassive pulmonary embolism Parenchymal hemorrhage Inability to tolerate anticoagulation Cancer on chemotherapy Plan: See HPI, plan for suction thrombectomy with placement of IVC filter. Long discussion had with family and patient about risks and benefits and they are willing and desirous of proceeding.
[2024-07-08] MEDS: D5-0.45% NACL WITH KCL 20MEQ/L 1,000 ML IV SCH (18:08)
[2024-07-08 18:11] LABS: Glucose,Whole Blood 238 mg/dL (70-110)
[2024-07-08] MEDS: IV FLUID CONTINUATION 1,000 ML IV ONE (18:55)
[2024-07-08 19:04] LABS: Glucose,Whole Blood 162 mg/dL (70-110)
[2024-07-08] MEDS: LIDOCAINE 1% INJ 10MG/ML (20 ML MDV) SQ ONE (19:09)
[2024-07-08] MEDS: MIDAZOLAM 2 MG/2 ML VIAL IVP ONE (19:09)
[2024-07-08] MEDS: fentaNYL (PF) 50 MCG/1 ML VIAL IVP ONE (19:23)
[2024-07-08] MEDS: IOPAMIDOL-370 100ML BTL INJ ONE (20:10)
[2024-07-08] MEDS: HEPARIN SODIUM 1,000 UN/ML (10ML VL) IVP ONE (20:10)
[2024-07-08 20:15] LABS: Glucose,Whole Blood 161 mg/dL (70-110)
[2024-07-08] MEDS: HEPARIN SODIUM,PORCINE 10,000 UNIT in SODIUM CHLORIDE 0.9% 1,000 ML IRRIGATION ONE (20:26)
--- NOTE | 2024-07-08 20:47 | P.OP ---
Date of Procedure: 07/08/24 Description of Procedure: Preoperative diagnosis: Submassive pulmonary embolism with evidence of right heart strain, inability to anticoagulate Post operative diagnosis: Same Procedure: Ultrasound-guided right common femoral vein access Introduction of catheter into the inferior vena cava Introduction of catheter into the main pulmonary artery Primary percutaneous transluminal mechanical thrombectomy of the main pulmonary artery Percutaneous transluminal mechanical thrombectomy of the left pulmonary artery, left interlobar artery Percutaneous transluminal mechanical thrombectomy of the inferior vena cava Moderate conscious sedation x 66 minutes Inferior venacavogram Pulmonary angiogram Placement of IVC filter Surgeon: Crow Anesthesia: Moderate conscious sedation, personally monitored qualified RN with patient monitoring History and indications: The patient is a 69-year-old with evidence of submassive pulmonary embolism confirmed by imaging. She also has evidence of potential renal intraparenchymal hemorrhage on recent CT with an inability to anticoagulate and due to this the recommendation was made for an IVC filter. Due to these findings, discussion was had with cardiology in regards to her echocardiogram, per our discussion she does have evidence of right heart strain and the submassive PE. From their standpoint was recommended to have intervention which was performed at the same time of this procedure. Risks and benefits of going forward with all modes of intervention were discussed and it was decided upon mechanical thrombectomy. Procedure in detail: Patient was brought to the special suite and placed in supine position. The bilateral groins were prepped and draped in usual sterile fashion. A preprocedural timeout was performed, all parties were in agreement. Using ultrasound, the common femoral vein was identified. There appeared to be adequate compression without evidence of thrombus. Under ultrasound guidance, a micropuncture needle was utilized to access the vein and Seldinger technique was used to place a 7 Filipino sheath. Guidewires and catheters were then used to access the pulmonary artery. An Amplatz wire was then left in place and the pulmonary artery. The femoral sheath was exchanged for the Inari 24F sheath. The thrombectomy catheter was then advanced over the Amplatz wire and mechanical thrombectomy was performed aspirating significant thrombus that appeared more organized. There was successful extirpation of matter via mechanical thrombectomy within the pulmonary artery. A pulmonary angiogram was performed, there was some further visualization of left pulmonary artery thrombus, multiple attempts were made to try to thrombectomy this portion without any significant benefit, it is not certain whether this area had some degree of more chronic findings. The catheter was left on aspiration and removed without any sign ificant return of thrombus. The sheath did have some degree of thrombus at the level of the wire therefore aspiration of the inferior vena cava was performed. At that point decision was made to conclude with the procedure of the thrombectomy and move towards IVC filter placement. Due to the thrombus in the sheath, the sheath was exchanged for a 20 Filipino [place] dry seal. An inferior venacavogram was performed to identify the renal vein. The Shira filter was placed in standard fashion and a repeat image was performed showing good deployment. Catheters and wires were then removed. The sheath was removed and manual compression was performed along with a [id number] suture. Hemostasis appeared adequate.
[2024-07-08 21:56] LABS: African American GFR (CKD) 50 (>60 ml/min/1.73 sqM); Anion Gap 8 mmol/L; Blood Urea Nitrogen 32 mg/dL (7-17); Calcium 7.5 mg/dL (8.4-10.2); Carbon Dioxide 20 mmol/L (22-30); Chloride 105 mmol/L (98-107); Glucose 106 mg/dL (74-99); Non-African American GFR(CKD) 44 (>60 ml/min/1.73 sqM); Sodium 133 mmol/L (137-145)
[2024-07-08 22:01] LABS: Potassium 4.2 mmol/L (3.5-5.1)
--- NOTE | 2024-07-08 22:14 | P.CONS ---
History of Present Illness - Reason for Consult Consult date: 07/08/24 peritoneal carcinomatosis Requesting physician: Chevy Onofre - Chief Complaint AMS - History of Present Illness Mrs. Galloway is a 69-year-old female admitted as a transfer, from [facility]. She was taken there with altered mental status. Family reporting that patient had been vomiting for a few days prior to admission. She was found to have an elevated D-dimer there of 16.8. CTA of the chest showed saddle PE. Blood glucose was 398. On admission here she was found to have a BUN of 29 and a creatinine of 1.23. On her second lab draw, WBC 2.3, hemoglobin 10.5, platelets 145,000. Patient was admitted to ICU, assessed by Critical Care/Pulmonary, acute hypoxic respiratory failure, hyperglycemia. She was placed on a insulin drip and heparin drip. She was assessed by Cardiology. Echo showed moderate pulmonary hypertension with a dilated right ventricle, some right ventricular heart strain. CT AP reporting acute hemorrhage in the right renal parenchyma within the proximal right renal system. A 15 mm mass at the distal third of the right ureter and possible 5 mm distal right ureteral calculus, no hydronephrosis. No inflammatory changes in the mesentery, no free intraperitoneal air or fluid. We ordered Doppler of the bilateral lower extremities for baseline, right lower extremity is positive for DVT in the right common femoral vein extending into the popliteal vein. Left lower extremity negative for DVT. She was taken to surgery by Vascular. Patient had thrombectomy, IVC filter placement. Patient was off the unit for these procedures, daughter was at the bedside. All the medical information taken from the chart Malignancy history: Initial presentation [facility] 10/16/2022 with 4 days abdominal pain and nausea. This was not associated with any bloating, vaginal discharge or bleeding. CTAP noted diverticulitis with fistula formation from the descending colon to the adjuvant loop of the proximal small bowel and developing abscess within the wall of the small bowel. She was transferred to [facility]. Small bowel x-ray 10/19/2022 noted high-grade small bowel obstruction at the proximal jejunum with dilation of the duodenum and jejunum up to 6 cm. Exploratory laparotomy with partial colectomy and end colostomy with small bowel resection, drainage of abscess and mobilization of the splenic flexure was per formed on 10/20/2022. Operative report noted small 5 mm nodules on the peritoneal surface of the descending colon, suspicious for malignancy. Pathology revealed metastatic adenocarcinoma with extensive calcifications consistent with nonmucinous ovarian/malarian origin malignancy. CTAP 10/30/2022 noted surgical changes, small bilateral pleural effusions, no ovarian or adnexal masses were noted. CTA of the chest 10/28/2022 revealed no evidence of PE, small pleural effusions. Patient was diagnosed with stage IV ovarian carcinoma. CA125 was within normal limits. Molecular profiling reported ER/CO positive, HRD negative, NORMA. Transvaginal ultrasound 03/22/2023 revealed overlying bowel gas obscuring the right and left ovaries, slightly thickened endometrium. MRI of the pelvis 05/14/2023 thickened endometrium, no evidence of pelvic mass, no lymphadenopathy. Patient following with Dr. East [employer] oncologist. She continued on follow-up, CT imaging in July showed slight nodularity in the anterior omentum that appeared more prominent. 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 This appeared resectable but patient's blood sugar was not able to be controlled so there were concerns regarding safely pursuing surgery. It was recommended neoadjuvant chemotherapy. Patient is status post 3 carboplatin/Taxol cycles on 06/28, no G-CSF was given. S Review of Systems Reviewed patient history with daughter at bedside, she reported that patient was doing better since admission Past Medical History Past Medical History: Diabetes Mellitus, Hypertension, Myocardial Infarction ([place]) Last Myocardial Infarction Date:: 11/19/2007 History of Any Multi-Drug Resistant Organisms: None Reported Past Surgical History: Orthopedic Surgery, Tubal Ligation Additional Past Surgical History / Comment(s): bilateral knee replacement Past Psychological History: Anxiety Smoking Status: Former smoker Past Alcohol Use History: None Reported Past Drug Use History: None Reported Medications and Allergies Home Medications Medication Instructions Recorded Confirmed Type Acetaminophen [Tylenol Arthritis] 1,300 mg PO Q8H PRN MDD 4000mg 07/08/24 07/08/24 History Dulaglutide [Trulicity] 1.5 mg SQ WEEKLY 07/08/24 07/08/24 History Insulin Glargine,Hum.rec.anlog 25 units SQ BID 07/08/24 07/08/24 History [Lantus Solostar Pen] Insulin Lispro [humaLOG Kwikpen] 8 - 10 unit SQ AC-TID 07/08/24 07/08/24 History Metoprolol Tartrate [Lopressor] 12.5 mg PO BID 07/08/24 07/08/24 History Nystatin 100,000 Unit/gm Powd 1 applic TOPICAL TID 07/08/24 07/08/24 History [Mycostatin Powder] lisinopriL [Zestril] 5 mg PO DAILY 07/08/24 07/08/24 History Allergies Allergy/AdvReac Type Severity Reaction Status Date / Time codeine Allergy Unknown Verified 07/08/24 06:38 glucagon Allergy Unknown Verified 07/08/24 06:38 glucosamine Allergy Unknown Verified 07/08/24 06:38 Latex, Natural Rubber Allergy Swelling Verified 07/08/24 06:38 metformin Allergy Unknown Verified 07/08/24 06:38 morphine Allergy Nausea & Verified 07/08/24 06:38 Vomiting sulfamethoxazole Allergy Nausea & Verified 07/08/24 06:38 [From Bactrim] Vomiting trimethoprim [From Bactrim] Allergy Nausea & Verified 07/08/24 06:38 Vomiting flu shot (unknown) Allergy Unknown Uncoded 07/08/24 06:38 Physical Exam Vitals: Vital Signs Temp Pulse Resp BP Pulse Ox 07/08/24 07:54 118 H 18 07/08/24 07:00 125 H 25 H 141/88 88 L 07/08/24 06:50 101.4 F H 128 H 31 H 141/88 95 07/08/24 06:43 141/88 07/08/24 06:13 131 H 24 138/90 97 07/08/24 04:33 101.3 F H 133 H 18 155/95 98 07/08/24 02:37 100.6 F H 137 H 30 H 144/83 98 Intake and Output 07/07/24 07/08/24 07/08/24 22:59 06:59 14:59 Other: Weight 114.475 kg Deferred as patient was off unit for procedure Results CBC & Chem 7: 07/08/24 11:57 07/08/24 16:18 Labs: Abnormal Lab Results - Last 24 Hours (Table) 07/08/24 07/08/24 07/08/24 Range/Units 02:46 02:46 02:46 WBC 1.75 L (4.50-10.00) 10*3/uL RBC 3.71 L (4.10-5.20) 10*6/uL Hgb 11.0 L (12.0-15.0) g/dL Hct 31.8 L (37.2-46.3) % Plt Count 118 L (140-440) 10*3/uL Neutrophils # (Manual) 1.29 L (1.3-7.7) k/uL Lymphocytes # (Manual) 0.39 L (1.0-4.8) k/uL Nucleated RBCs 2 H (0-0) /100 WBC APTT 36.0 H (22.0-30.0) sec Sodium 134 L (137-145) mmol/L Carbon Dioxide 14 L (22-30) mmol/L BUN 20 H (7-17) mg/dL Glucose 409 H (74-99) mg/dL POC Glucose (mg/dL) (70-110) mg/dL Troponin I (0.000-0.034) ng/mL Albumin 3.4 L (3.5-5.0) g/dL 07/08/24 07/08/24 07/08/24 Range/Units 02:46 05:41 06:41 WBC (4.50-10.00) 10*3/uL RBC (4.10-5.20) 10*6/uL Hgb (12.0-15.0) g/dL Hct (37.2-46.3) % Plt Count (140-440) 10*3/uL Neutrophils # (Manual) (1.3-7.7) k/uL Lymphocytes # (Manual) (1.0-4.8) k/uL Nucleated RBCs (0-0) /100 WBC APTT (22.0-30.0) sec Sodium (137-145) mmol/L Carbon Dioxide (22-30) mmol/L BUN (7-17) mg/dL Glucose (74-99) mg/dL POC Glucose (mg/dL) 435 H (70-110) mg/dL Troponin I 0.138 H* 0.143 H* (0.000-0.034) ng/mL Albumin (3.5-5.0) g/dL 07/08/24 Range/Units 08:09 WBC (4.50-10.00) 10*3/uL RBC (4.10-5.20) 10*6/uL Hgb (12.0-15.0) g/dL Hct (37.2-46.3) % Plt Count (140-440) 10*3/uL Neutrophils # (Manual) (1.3-7.7) k/uL Lymphocytes # (Manual) (1.0-4.8) k/uL Nucleated RBCs (0-0) /100 WBC APTT (22.0-30.0) sec Sodium (137-145) mmol/L Carbon Dioxide (22-30) mmol/L BUN (7-17) mg/dL Glucose (74-99) mg/dL POC Glucose (mg/dL) 447 H (70-110) mg/dL Troponin I (0.000-0.034) ng/mL Albumin (3.5-5.0) g/dL CT scan - abdomen: report reviewed CT scan - chest: report reviewed CT scan - pelvis: report reviewed Venous US: report reviewed Assessment and Plan (1) Pulmonary embolism Current Visit: Yes Status: Acute Priority: High Code(s): I26.99 - OTHER PULMONARY EMBOLISM WITHOUT ACUTE COR PULMONALE SNOMED Code(s): 51295532 (2) Ovarian papillary adenocarcinoma Current Visit: Yes Status: Acute Priority: High Code(s): C56.9 - MALIGNANT NEOPLASM OF UNSPECIFIED OVARY SNOMED Code(s): 284208691 (3) Antineoplastic chemotherapy induced pancytopenia Current Visit: Yes Status: Acute Code(s): D61.810 - ANTINEOPLASTIC CHEMOTHERAPY INDUCED PANCYTOPENIA; T45.1X5A - ADVERSE EFFECT OF ANTINEOPLASTIC AND IMMUNOSUP DRUGS, INIT SNOMED Code(s): 342412335855621 Plan: Pulmonary embolism, right lower extremity DVT -Presentation, workup and treatment as described in HPI. -Provoked, malignancy, treatment of malignancy, dehydration from vomiting for several days, decreased activity - Anticoagulation held because of renal hemorrhage. This will be followed up -Patient has had thrombectomy and placement of an IVC filter by Vascular. - Hemoglobin 11, slight decrease to 10.5 on admission. As would be expected secondary to chemotherapy, patient is entering manpreet at this time. Continue you to monitor hemoglobin. Transfuse for hemoglobin less than 7 or if symptomatic Ovarian carcinoma - Diagnosis and treatment as needed in HPI - Currently patient is receiving neoadjuvant chemotherapy, plans to be reassessed by surgeon in the future to see if she is a possible candidate for resection of recurrent disease Chemo induced pancytopenia -ANC adequate, no G-CSF at this time. Hemoglobin 10.5, mild anemia. Continue to monitor especially with the renal hemorrhage. Transfuse for hemoglobin less than 7 or if patient is symptomatic. On laboratory recheck, patient's platelet count was stable and within normal limits at 145,000. Continue to monitor CBC.
[2024-07-09 00:11] LABS: Glucose,Whole Blood 194 mg/dL (70-110)
[2024-07-09] MEDS: INSULIN LISPRO (HumaLOG) 100 UNIT/ML 10 mL VL SQ SCH ×2 (00:11→12:29)
[2024-07-09 00:41] LABS: HCT 25.4 % (37.2-46.3); MCH 29.7 pg (27.0-32.0); MCHC 33.5 g/dL (32.0-37.0); MCV 88.8 fL (80.0-97.0); Mean Platelet Volume 10.3 fL (9.5-12.2); Platelet Count 106 10*3/uL (140-440); RBC 2.86 10*6/uL (4.10-5.20); RDW 17.7 % (11.5-14.5); WBC 1.74 10*3/uL (4.50-10.00)
[2024-07-09 00:53] LABS: HGB 8.5 g/dL (12.0-15.0)
[2024-07-09 04:43] LABS: African American GFR (CKD) 55 (>60 ml/min/1.73 sqM); Anion Gap 9 mmol/L; Blood Urea Nitrogen 34 mg/dL (7-17); Calcium 7.7 mg/dL (8.4-10.2); Carbon Dioxide 16 mmol/L (22-30); Chloride 106 mmol/L (98-107); Glucose 168 mg/dL (74-99); Non-African American GFR(CKD) 48 (>60 ml/min/1.73 sqM); Potassium 3.9 mmol/L (3.5-5.1); Sodium 131 mmol/L (137-145)
[2024-07-09] MEDS: HYDROcodone/APAP 5-325MG 1 EACH TAB PO PRN (05:05)
[2024-07-09 06:25] LABS: Glucose,Whole Blood 219 mg/dL (70-110)
--- NOTE | 2024-07-09 07:18 | P.PN ---
Subjective Progress Note Date: 07/09/24 PROGRESS NOTE The patient is a 69-year-old female who was transferred from [place] with evidence of saddle pulmonary embolism, change in mental status and febrile episode. She has a history of omental malignancy, has been receiving chemotherapy by Dr. Palacios at [place]. She has a history of diabetes and hypertension. She is awake but not able to answer many questions. She had a change in mental status worsening than her baseline. According to the notes she has been feeling progressively fatigued vomiting and not eating. Her D-dimer in [place] was elevated and subsequently her CT scan showed saddle pulmonary embolism. She had mild elevation of the troponin and NT proBNP. She denies any chest discomfort at the time of my evaluation. She is on 2 L oxygen, her blood pressure is stable and she is sinus tachycardia. She had no evidence of arrhythmia. Her echocardiogram in 2022 showed a preserved systolic function. She denies any history of PND, orthopnea or syncope although the history is quite limited from her. July 09: The patient is more awake and alert today. Yesterday she underwent an abdominal CT scan and was found to have right renal parenchymal bleed. She was also found to have evidence of right DVT. Because of her bleed and her presentation with submassive pulmonary embolism she underwent thrombectomy and subsequently placement of a inferior vena cava filter. She continues to be in sinus mechanism, her blood pressure is on the low side. She has no evidence of malignant arrhythmia. Her oxygenation is stable. She is receiving 1 unit of blood. Her echocardiogram revealed a normal low ventricular systolic function with moderate pulmonary hypertension and dilated RV. Medications: Atenolol 25 mg twice a day, Pepcid, aspirin 81 mg daily, losartan 50-12-1/2 mg daily, Zofran, insulin PHYSICAL EXAMINATION: Blood pressure 99/50, heart rate 97, more awake and alert compared to yesterday LUNGS: Clear to auscultation HEART: Regular rate and rhythm, S1, S2. No S3. Systolic ejection murmur ABDOMEN: Soft, mild tenderness, no organomegaly EXTREMETIES: No edema LAB: Hemoglobin 8.5, BUN 34, creatinine 1.17, potassium 3.9 IMPRESSION: 1. Submassive pulmonary embolism status post thrombectomy and IVC filter placement because of parenchymal renal bleed 2. Anemia, receiving transfusion 3. History of omental malignancy, receiving chemotherapy 4. History of diabetes 5. Pulmonary hypertension most likely related to her pulmonary embolism 6. Change in mental status, improving 7. Acute renal injury improving PLAN: 1. Stop losartan for now 2. Transfuse as needed 3. Repeat CT scan to evaluate the bleed and make a decision about anticoagulation 4. Depending on her progress further recommendations will be made Objective - Vital Signs Vital signs: Vital Signs Temp 98.6 F 07/09/24 06:20 Pulse 97 07/09/24 07:00 Resp 29 H 07/09/24 07:00 BP 99/55 07/09/24 07:00 Pulse Ox 97 07/09/24 07:00 FiO2 Intake & Output 07/08/24 07/09/24 07/09/24 18:59 06:59 18:59 Intake Total 2419.432 1041 50 Output Total 265 690 50 Balance 2154.432 351 0 Weight 114.475 kg 117.7 kg Intake: IV 2090 501 50 0.9 40 ACETAMINOPHEN IV (For NPO 100 ) 1,000 mg In Empty Bag 1 bag @ 400 mls/hr IVPB ONCE ONE Rx#:[id number] D5-0.45% NaCl with KCl 150 500 50 20Meq/l 1,000 ml @ 50 mls /hr IV .Q20H [facility] Rx#: [id number] Sodium Chloride 0.9% 1, 1600 000 ml @ 200 mls/hr IV . Q5H [place] Rx#:[id number] cefTRIAXone 1 gm In 50 Sodium Chloride 0.9% 50 ml @ 100 mls/hr IVPB Q24HR [facility] Rx#:[id number] Intake, IV Titration 329.432 Amount Heparin Sod,Pork in 0.45% 257.555 NaCl 25,000 unit In 0.45 % NaCl 1 250ml.bag @ 18 UNITS/KG/HR 20.605 mls/hr IV .Q12H8M [facility] Rx#: [id number] Insulin Regular 100 unit 71.877 In Sodium Chloride 0.9% 100 ml @ 0.1 UNITS/KG/HR 11.562 mls/hr IV .Q8H45M [facility] Rx#:[id number] Oral 540 Blood Product 0 Rc Pheresis As-3 Unit 0 [id number] Output: Urine 265 590 50 Stool 100 Other: Voiding Method Indwelling Catheter Indwelling Catheter - Labs CBC & Chem 7: 07/08/24 23:51 07/09/24 04:11 Labs: Abnormal Lab Results - Last 24 Hours (Table) 07/08/24 07/08/24 07/08/24 Range/Units 02:46 07:20 08:09 WBC (4.50-10.00) 10*3/uL RBC (4.10-5.20) 10*6/uL Hgb (12.0-15.0) g/dL Hct (37.2-46.3) % Plt Count (140-440) 10*3/uL Lymphocytes # (Manual) (1.0-4.8) k/uL APTT (22.0-30.0) sec VBG pCO2 (37-51) mmHg VBG HCO3 (24-28) mmol/L Sodium (137-145) mmol/L Carbon Dioxide (22-30) mmol/L BUN (7-17) mg/dL Creatinine (0.52-1.04) mg/dL Glucose (74-99) mg/dL POC Glucose (mg/dL) 447 H (70-110) mg/dL Hemoglobin A1c 13.3 H (<=6.0) % Calcium (8.4-10.2) mg/dL Phosphorus (2.5-4.5) mg/dL Troponin I (0.000-0.034) ng/mL Urine Appearance Cloudy H (Clear) Urine Protein 1+ H (Negative) Urine Glucose (UA) 4+ H (Negative) Urine Ketones 3+ H (Negative) Urine Blood Moderate H (Negative) Ur Leukocyte Esterase Large H (Negative) Urine RBC 22 H (0-5) /hpf Urine WBC >182 H (0-5) /hpf Urine WBC Clumps Moderate H (None) /hpf Urine Mucus Rare H (None) /hpf Crossmatch 07/08/24 07/08/24 07/08/24 Range/Units 08:39 08:39 11:50 WBC (4.50-10.00) 10*3/uL RBC (4.10-5.20) 10*6/uL Hgb (12.0-15.0) g/dL Hct (37.2-46.3) % Plt Count (140-440) 10*3/uL Lymphocytes # (Manual) (1.0-4.8) k/uL APTT (22.0-30.0) sec VBG pCO2 27 L (37-51) mmHg VBG HCO3 17 L (24-28) mmol/L Sodium (137-145) mmol/L Carbon Dioxide (22-30) mmol/L BUN (7-17) mg/dL Creatinine (0.52-1.04) mg/dL Glucose (74-99) mg/dL POC Glucose (mg/dL) 462 H (70-110) mg/dL Hemoglobin A1c (<=6.0) % Calcium (8.4-10.2) mg/dL Phosphorus (2.5-4.5) mg/dL Troponin I 0.134 H* (0.000-0.034) ng/mL Urine Appearance (Clear) Urine Protein (Negative) Urine Glucose (UA) (Negative) Urine Ketones (Negative) Urine Blood (Negative) Ur Leukocyte Esterase (Negative) Urine RBC (0-5) /hpf Urine WBC (0-5) /hpf Urine WBC Clumps (None) /hpf Urine Mucus (None) /hpf Crossmatch 07/08/24 07/08/24 07/08/24 Range/Units 11:57 11:57 11:57 WBC 2.37 L (4.50-10.00) 10*3/uL RBC 3.56 L (4.10-5.20) 10*6/uL Hgb 10.5 L (12.0-15.0) g/dL Hct 32.0 L (37.2-46.3) % Plt Count (140-440) 10*3/uL Lymphocytes # (Manual) 0.43 L (1.0-4.8) k/uL APTT (22.0-30.0) sec VBG pCO2 (37-51) mmHg VBG HCO3 (24-28) mmol/L Sodium 136 L (137-145) mmol/L Carbon Dioxide 20 L (22-30) mmol/L BUN 28 H (7-17) mg/dL Creatinine 1.07 H (0.52-1.04) mg/dL Glucose 425 H (74-99) mg/dL POC Glucose (mg/dL) (70-110) mg/dL Hemoglobin A1c (<=6.0) % Calcium (8.4-10.2) mg/dL Phosphorus 5.0 H (2.5-4.5) mg/dL Troponin I (0.000-0.034) ng/mL Urine Appearance (Clear) Urine Protein (Negative) Urine Glucose (UA) (Negative) Urine Ketones (Negative) Urine Blood (Negative) Ur Leukocyte Esterase (Negative) Urine RBC (0-5) /hpf Urine WBC (0-5) /hpf Urine WBC Clumps (None) /hpf Urine Mucus (None) /hpf Crossmatch 07/08/24 07/08/24 07/08/24 Range/Units 13:11 14:12 15:08 WBC (4.50-10.00) 10*3/uL RBC (4.10-5.20) 10*6/uL Hgb (12.0-15.0) g/dL Hct (37.2-46.3) % Plt Count (140-440) 10*3/uL Lymphocytes # (Manual) (1.0-4.8) k/uL APTT (22.0-30.0) sec VBG pCO2 (37-51) mmHg VBG HCO3 (24-28) mmol/L Sodium (137-145) mmol/L Carbon Dioxide (22-30) mmol/L BUN (7-17) mg/dL Creatinine (0.52-1.04) mg/dL Glucose (74-99) mg/dL POC Glucose (mg/dL) 414 H 375 H 313 H (70-110) mg/dL Hemoglobin A1c (<=6.0) % Calcium (8.4-10.2) mg/dL Phosphorus (2.5-4.5) mg/dL Troponin I (0.000-0.034) ng/mL Urine Appearance (Clear) Urine Protein (Negative) Urine Glucose (UA) (Negative) Urine Ketones (Negative) Urine Blood (Negative) Ur Leukocyte Esterase (Negative) Urine RBC (0-5) /hpf Urine WBC (0-5) /hpf Urine WBC Clumps (None) /hpf Urine Mucus (None) /hpf Crossmatch 07/08/24 07/08/24 07/08/24 Range/Units 16:08 16:18 16:18 WBC (4.50-10.00) 10*3/uL RBC (4.10-5.20) 10*6/uL Hgb (12.0-15.0) g/dL Hct (37.2-46.3) % Plt Count (140-440) 10*3/uL Lymphocytes # (Manual) (1.0-4.8) k/uL APTT 54.4 H (22.0-30.0) sec VBG pCO2 (37-51) mmHg VBG HCO3 (24-28) mmol/L Sodium 133 L (137-145) mmol/L Carbon Dioxide 21 L (22-30) mmol/L BUN 29 H (7-17) mg/dL Creatinine 1.23 H (0.52-1.04) mg/dL Glucose 253 H (74-99) mg/dL POC Glucose (mg/dL) 248 H (70-110) mg/dL Hemoglobin A1c (<=6.0) % Calcium (8.4-10.2) mg/dL Phosphorus (2.5-4.5) mg/dL Troponin I (0.000-0.034) ng/mL Urine Appearance (Clear) Urine Protein (Negative) Urine Glucose (UA) (Negative) Urine Ketones (Negative) Urine Blood (Negative) Ur Leukocyte Esterase (Negative) Urine RBC (0-5) /hpf Urine WBC (0-5) /hpf Urine WBC Clumps (None) /hpf Urine Mucus (None) /hpf Crossmatch 07/08/24 07/08/24 07/08/24 Range/Units 17:09 18:10 19:03 WBC (4.50-10.00) 10*3/uL RBC (4.10-5.20) 10*6/uL Hgb (12.0-15.0) g/dL Hct (37.2-46.3) % Plt Count (140-440) 10*3/uL Lymphocytes # (Manual) (1.0-4.8) k/uL APTT (22.0-30.0) sec VBG pCO2 (37-51) mmHg VBG HCO3 (24-28) mmol/L Sodium (137-145) mmol/L Carbon Dioxide (22-30) mmol/L BUN (7-17) mg/dL Creatinine (0.52-1.04) mg/dL Glucose (74-99) mg/dL POC Glucose (mg/dL) 206 H 238 H 162 H (70-110) mg/dL Hemoglobin A1c (<=6.0) % Calcium (8.4-10.2) mg/dL Phosphorus (2.5-4.5) mg/dL Troponin I (0.000-0.034) ng/mL Urine Appearance (Clear) Urine Protein (Negative) Urine Glucose (UA) (Negative) Urine Ketones (Negative) Urine Blood (Negative) Ur Leukocyte Esterase (Negative) Urine RBC (0-5) /hpf Urine WBC (0-5) /hpf Urine WBC Clumps (None) /hpf Urine Mucus (None) /hpf Crossmatch 07/08/24 07/08/24 07/08/24 Range/Units 20:13 21:25 23:51 WBC 1.74 L (4.50-10.00) 10*3/uL RBC 2.86 L (4.10-5.20) 10*6/uL Hgb 8.5 L D (12.0-15.0) g/dL Hct 25.4 L (37.2-46.3) % Plt Count 106 L (140-440) 10*3/uL Lymphocytes # (Manual) (1.0-4.8) k/uL APTT (22.0-30.0) sec VBG pCO2 (37-51) mmHg VBG HCO3 (24-28) mmol/L Sodium 133 L (137-145) mmol/L Carbon Dioxide 20 L (22-30) mmol/L BUN 32 H (7-17) mg/dL Creatinine 1.27 H (0.52-1.04) mg/dL Glucose 106 H (74-99) mg/dL POC Glucose (mg/dL) 161 H (70-110) mg/dL Hemoglobin A1c (<=6.0) % Calcium 7.5 L (8.4-10.2) mg/dL Phosphorus (2.5-4.5) mg/dL Troponin I (0.000-0.034) ng/mL Urine Appearance (Clear) Urine Protein (Negative) Urine Glucose (UA) (Negative) Urine Ketones (Negative) Urine Blood (Negative) Ur Leukocyte Esterase (Negative) Urine RBC (0-5) /hpf Urine WBC (0-5) /hpf Urine WBC Clumps (None) /hpf Urine Mucus (None) /hpf Crossmatch 07/09/24 07/09/24 07/09/24 Range/Units 00:09 01:28 04:11 WBC (4.50-10.00) 10*3/uL RBC (4.10-5.20) 10*6/uL Hgb (12.0-15.0) g/dL Hct (37.2-46.3) % Plt Count (140-440) 10*3/uL Lymphocytes # (Manual) (1.0-4.8) k/uL APTT (22.0-30.0) sec VBG pCO2 (37-51) mmHg VBG HCO3 (24-28) mmol/L Sodium 131 L (137-145) mmol/L Carbon Dioxide 16 L (22-30) mmol/L BUN 34 H (7-17) mg/dL Creatinine 1.17 H (0.52-1.04) mg/dL Glucose 168 H (74-99) mg/dL POC Glucose (mg/dL) 194 H (70-110) mg/dL Hemoglobin A1c (<=6.0) % Calcium 7.7 L (8.4-10.2) mg/dL Phosphorus (2.5-4.5) mg/dL Troponin I (0.000-0.034) ng/mL Urine Appearance (Clear) Urine Protein (Negative) Urine Glucose (UA) (Negative) Urine Ketones (Negative) Urine Blood (Negative) Ur Leukocyte Esterase (Negative) Urine RBC (0-5) /hpf Urine WBC (0-5) /hpf Urine WBC Clumps (None) /hpf Urine Mucus (None) /hpf Crossmatch See Detail 07/09/24 Range/Units 06:23 WBC (4.50-10.00) 10*3/uL RBC (4.10-5.20) 10*6/uL Hgb (12.0-15.0) g/dL Hct (37.2-46.3) % Plt Count (140-440) 10*3/uL Lymphocytes # (Manual) (1.0-4.8) k/uL APTT (22.0-30.0) sec VBG pCO2 (37-51) mmHg VBG HCO3 (24-28) mmol/L Sodium (137-145) mmol/L Carbon Dioxide (22-30) mmol/L BUN (7-17) mg/dL Creatinine (0.52-1.04) mg/dL Glucose (74-99) mg/dL POC Glucose (mg/dL) 219 H (70-110) mg/dL Hemoglobin A1c (<=6.0) % Calcium (8.4-10.2) mg/dL Phosphorus (2.5-4.5) mg/dL Troponin I (0.000-0.034) ng/mL Urine Appearance (Clear) Urine Protein (Negative) Urine Glucose (UA) (Negative) Urine Ketones (Negative) Urine Blood (Negative) Ur Leukocyte Esterase (Negative) Urine RBC (0-5) /hpf Urine WBC (0-5) /hpf Urine WBC Clumps (None) /hpf Urine Mucus (None) /hpf Crossmatch
--- NOTE | 2024-07-09 07:42 | US ---
EXAMINATION TYPE: US kidneys/renal and bladder DATE OF EXAM: 07/09/2024 COMPARISON: CT 07/08/2024 CLINICAL INDICATION: Female, 69 years old with history of known right renal hemorrhage; TECHNIQUE: Grayscale imaging of the bilateral kidneys and urinary bladder: FINDINGS: EXAM MEASUREMENTS: Right Kidney: 11.1 x 6.0 x 4.8 cm Left Kidney: 11.7 x 5.8 x 5.6 cm Post Void Residual Volume: NA mL Right Kidney: Limited visualization due to patient body habitus, ?WNL as visualized Left Kidney: Limited visualization due to patient body habitus, ?WNL as visualized Bladder: Not distended, hudson noted within Bilateral Jets seen: Not able to assess Normal Post Void Residual: Not able to assess IMPRESSION: 1. Renal ultrasound as visualized appears normal. There is some limitation on this exam. [facility], , 07/09/2024 7:40 AM
[2024-07-09] MEDS ORDERED: ASPIRIN 325 MG TAB PO SCH (09:00)
[2024-07-09 09:11] LABS: LDL Cholesterol,Calculated 94.8 mg/dL (0.0-131.0)
[2024-07-09] MEDS: ASPIRIN 81 MG PO SCH (09:11)
--- NOTE | 2024-07-09 10:24 | P.PN ---
Subjective This is a pleasant 69 years old female who [facility] Patient presents initially because of generalized weakness. She has a significant history of ovarian cancer she follow-up with Dr. Osman and she got chemotherapy last dose was on 06/29. For 1 week patient is not eating and drinking and with fatigue. On presentation she had CT of the chest which showing saddle pulmonary embolism with right ventricular strain and elevated troponin. Patient was started on a heparin drip and transferred to this facility. Before transport patient was found to have fever suspected to have UTI and received 1 dose of ceftriaxone. Patient currently admitted to the ICU. Patient is mildly confused. She is tired and cannot provide information and was obtained with the help of daughter Rhina at bedside. Patient cannot recognize her daughter and she knows she is in hospital but thought that this is more related and she could not tell the time. As per daughter patient found by son lying in couch cannot get up and they called the sister and then brought her to the emergency room. At that time patient was not answering questions appropriately. Patient at baseline lives alone. S she is mildly tachypnei. She has little chest pain central currently 0/10. Also complained from left lower quadrant abdominal pain. As per daughter they cleaned her colostomy bag this morning and it looks loose to her but without smell. Also there was little bit vomiting as per daughter. Maria catheter in place and urine sample was sent looks cloudy. Labs reviewed showing fever of 101.4, tachycardia 125 and EKG showing sinus tachycardia and tachypnea with breathing rate 25, blood pressure is stable she is saturating 88% on room air and 95 on 2 L oxygen. Labs showing pancytopenia with WBC 1.7, hemoglobin 11 and platelet count 118, BMP and LFT unremarkable Glucose elevated 435 Troponin is stable but elevated 0.23 and 0.14 EKG showing sinus tachycardia at 135 BNP is elevated at 330 with baseline 0-99 4/10 Patient CAT scan from yesterday showing possible hemorrhage in the right kidney and distal ureteral mass, urology team were consulted. Patient abdominal pain and tenderness looks better today Because of the hemorrhage and because of the burden from her PE on the right heart, vascular surgery evaluated the patient patient is s/p thrombectomy of her both bilateral pulmonary arteries and for vena cava status post IVC filter placement. This morning she is more awake although she still mildly confused, she is breathing better on 2 L oxygen via nasal cannula. Denies chest pain or significant dyspnea. Still looks tired but definitely better than yesterday. Complains from simple headache Tylenol is provided. She tolerates diet well. We can discontinue IV fluid and switch her Accu-Cheks to ACHS. She remains on aspirin 81 mg, Pepcid No anticoagulation because of her bleeding problem Active Medications Generic Name Dose Route Start Last Admin Trade Name Freq PRN Reason Stop Dose Admin Acetaminophen 325 mg 07/09/24 10:19 Acetaminophen Tab 325 Mg Tab PO Q6HR PRN Fever and/ or Pain Hydrocodone Bitart/Acetaminophen 1 each 07/08/24 05:36 07/09/24 05:05 Hydrocodone/Apap 5-325mg 1 Each Tab PO 1 each Q4HR PRN Administration Pain Albuterol/Ipratropium 3 ml 07/08/24 08:00 07/09/24 08:18 Ipratropium-Albuterol 3 Ml Neb INHALATION 3 ml RT-QID [facility] Administration Aspirin 81 mg 07/09/24 09:00 07/09/24 09:11 Aspirin 81 Mg PO 81 mg DAILY [facility] Administration Atenolol 25 mg 07/08/24 09:00 07/09/24 09:12 Atenolol 25 Mg Tab PO 25 mg BID [facility] Administration Budesonide 0.5 mg 07/08/24 08:00 07/09/24 08:18 Budesonide 0.5 Mg/2 Ml Nebu INHALATION 0.5 mg RT-BID [facility] Administration Dextrose/Water 25 ml 07/08/24 07:29 Dextrose 50% Syringe 50 Ml IVP PER PROTOCOL PRN Hypoglycemia Protocol Dextrose/Water 50 ml 07/08/24 07:29 Dextrose 50% Syringe 50 Ml IVP PER PROTOCOL PRN Hypoglycemia Protocol Famotidine 20 mg 07/08/24 09:00 07/09/24 09:12 Famotidine 20 Mg/2 Ml Vial IV 20 mg Q12HR [facility] Administration Ceftriaxone Sodium 1 gm/ 50 mls @ 100 mls/hr 07/08/24 09:00 07/09/24 09:12 Sodium Chloride IVPB 100 mls/hr Q24HR [facility] Administration Protocol Insulin Glargine 15 unit 07/08/24 18:14 07/08/24 21:33 Insulin Glargine (Lantus) 100 Unit/Ml Syr SQ 15 unit HS [facility] Administration Insulin Human Lispro 0 unit 07/09/24 00:00 07/09/24 06:24 Insulin Lispro (Humalog) 100 Unit/Ml 10 Ml Vl SQ 6 unit Q6H [facility] Administration Protocol Lactulose 20 gm 07/08/24 09:00 07/09/24 09:12 Lactulose 20 Gm/30 Ml Cup PO 20 gm DAILY [facility] Administration Miscellaneous Information 1 each 07/08/24 11:37 Magnesium Replacement Protocol 1 Each Misc MISCELLANE DAILY PRN Per Protocol Protocol Miscellaneous Information 1 each 07/08/24 11:37 Potassium Replacement Protocol 1 Each Misc MISCELLANE DAILY PRN Per Protocol Nitroglycerin 0.4 mg 07/08/24 05:32 Nitroglycerin Sl Tabs 0.4 Mg Tab SUBLINGUAL Q5M PRN Chest Pain Ondansetron HCl 4 mg 07/08/24 09:04 07/08/24 11:34 Ondansetron 4 Mg/2 Ml Vial IVP 4 mg Q6HR PRN Administration Nausea And Vomiting Objective - Vital Signs Vital signs: Vital Signs Temp 97.9 F 07/09/24 07:49 Pulse 90 07/09/24 08:32 Resp 15 07/09/24 07:49 BP 117/58 07/09/24 07:49 Pulse Ox 97 07/09/24 08:24 FiO2 Intake & Output 07/08/24 07/09/24 07/09/24 18:59 06:59 18:59 Intake Total 2419.432 1041 329 Output Total 265 690 50 Balance 2154.432 351 279 Weight 114.475 kg 117.7 kg Intake: IV 2090 501 50 0.9 40 ACETAMINOPHEN IV (For NPO 100 ) 1,000 mg In Empty Bag 1 bag @ 400 mls/hr IVPB ONCE ONE Rx#:[id number] D5-0.45% NaCl with KCl 150 500 50 20Meq/l 1,000 ml @ 50 mls /hr IV .Q20H [facility] Rx#: [id number] Sodium Chloride 0.9% 1, 1600 000 ml @ 200 mls/hr IV . Q5H [facility] Rx#:[id number] cefTRIAXone 1 gm In 50 Sodium Chloride 0.9% 50 ml @ 100 mls/hr IVPB Q24HR [facility] Rx#:[id number] Intake, IV Titration 329.432 Amount Heparin Sod,Pork in 0.45% 257.555 NaCl 25,000 unit In 0.45 % NaCl 1 250ml.bag @ 18 UNITS/KG/HR 20.605 mls/hr IV .Q12H8M [facility] Rx#: [id number] Insulin Regular 100 unit 71.877 In Sodium Chloride 0.9% 100 ml @ 0.1 UNITS/KG/HR 11.562 mls/hr IV .Q8H45M [facility] Rx#:[id number] Oral 540 Blood Product 0 279 Rc Pheresis As-3 Unit 0 279 [id number] Output: Urine 265 590 50 Stool 100 Other: Voiding Method Indwelling Catheter Indwelling Catheter - Exam -GENERAL: The patient is alert and oriented x2-3 partial, not in any acute distress. Well developed, well nourished. Tired and lethargic. Obese HEENT: Pupils are round and equally reacting to light. EOMI. No scleral icterus. No conjunctival pallor. Normocephalic, atraumatic. No pharyngeal erythema. No thyromegaly. CARDIOVASCULAR: S1 and S2 present. No murmurs, rubs, or gallops. PULMONARY: Chest is clear to auscultation, no wheezing , no crackles. -ABDOMEN: Soft, nontender, nondistended, normoactive bowel sounds. No palpable organomegaly. LLQ colostomy with surrounding tenderness improved, almost nontender today MUSCULOSKELETAL: No joint swelling or deformity. EXTREMITIES: No cyanosis, clubbing, or pedal edema. NEUROLOGICAL: Gross neurological examination did not reveal any focal deficits. SKIN: No rashes. no petechiae. - Labs CBC & Chem 7: 07/08/24 23:51 07/09/24 04:11 Labs: Abnormal Lab Results - Last 24 Hours (Table) 07/08/24 07/08/24 07/08/24 Range/Units 02:46 07:20 11:50 WBC (4.50-10.00) 10*3/uL RBC (4.10-5.20) 10*6/uL Hgb (12.0-15.0) g/dL Hct (37.2-46.3) % Plt Count (140-440) 10*3/uL Lymphocytes # (Manual) (1.0-4.8) k/uL APTT (22.0-30.0) sec Sodium (137-145) mmol/L Carbon Dioxide (22-30) mmol/L BUN (7-17) mg/dL Creatinine (0.52-1.04) mg/dL Glucose (74-99) mg/dL POC Glucose (mg/dL) 462 H (70-110) mg/dL Hemoglobin A1c 13.3 H (<=6.0) % Calcium (8.4-10.2) mg/dL Phosphorus (2.5-4.5) mg/dL Triglycerides (0.00-149.00) mg/dL HDL Cholesterol (40.00-60.00) mg/dL Cortisol (3.1-22.4) UG/DL Urine Appearance Cloudy H (Clear) Urine Protein 1+ H (Negative) Urine Glucose (UA) 4+ H (Negative) Urine Ketones 3+ H (Negative) Urine Blood Moderate H (Negative) Ur Leukocyte Esterase Large H (Negative) Urine RBC 22 H (0-5) /hpf Urine WBC >182 H (0-5) /hpf Urine WBC Clumps Moderate H (None) /hpf Urine Mucus Rare H (None) /hpf Crossmatch 07/08/24 07/08/24 07/08/24 Range/Units 11:57 11:57 11:57 WBC 2.37 L (4.50-10.00) 10*3/uL RBC 3.56 L (4.10-5.20) 10*6/uL Hgb 10.5 L (12.0-15.0) g/dL Hct 32.0 L (37.2-46.3) % Plt Count (140-440) 10*3/uL Lymphocytes # (Manual) 0.43 L (1.0-4.8) k/uL APTT (22.0-30.0) sec Sodium 136 L (137-145) mmol/L Carbon Dioxide 20 L (22-30) mmol/L BUN 28 H (7-17) mg/dL Creatinine 1.07 H (0.52-1.04) mg/dL Glucose 425 H (74-99) mg/dL POC Glucose (mg/dL) (70-110) mg/dL Hemoglobin A1c (<=6.0) % Calcium (8.4-10.2) mg/dL Phosphorus 5.0 H (2.5-4.5) mg/dL Triglycerides (0.00-149.00) mg/dL HDL Cholesterol (40.00-60.00) mg/dL Cortisol (3.1-22.4) UG/DL Urine Appearance (Clear) Urine Protein (Negative) Urine Glucose (UA) (Negative) Urine Ketones (Negative) Urine Blood (Negative) Ur Leukocyte Esterase (Negative) Urine RBC (0-5) /hpf Urine WBC (0-5) /hpf Urine WBC Clumps (None) /hpf Urine Mucus (None) /hpf Crossmatch 07/08/24 07/08/24 07/08/24 Range/Units 13:11 14:12 15:08 WBC (4.50-10.00) 10*3/uL RBC (4.10-5.20) 10*6/uL Hgb (12.0-15.0) g/dL Hct (37.2-46.3) % Plt Count (140-440) 10*3/uL Lymphocytes # (Manual) (1.0-4.8) k/uL APTT (22.0-30.0) sec Sodium (137-145) mmol/L Carbon Dioxide (22-30) mmol/L BUN (7-17) mg/dL Creatinine (0.52-1.04) mg/dL Glucose (74-99) mg/dL POC Glucose (mg/dL) 414 H 375 H 313 H (70-110) mg/dL Hemoglobin A1c (<=6.0) % Calcium (8.4-10.2) mg/dL Phosphorus (2.5-4.5) mg/dL Triglycerides (0.00-149.00) mg/dL HDL Cholesterol (40.00-60.00) mg/dL Cortisol (3.1-22.4) UG/DL Urine Appearance (Clear) Urine Protein (Negative) Urine Glucose (UA) (Negative) Urine Ketones (Negative) Urine Blood (Negative) Ur Leukocyte Esterase (Negative) Urine RBC (0-5) /hpf Urine WBC (0-5) /hpf Urine WBC Clumps (None) /hpf Urine Mucus (None) /hpf Crossmatch 07/08/24 07/08/24 07/08/24 Range/Units 16:08 16:18 16:18 WBC (4.50-10.00) 10*3/uL RBC (4.10-5.20) 10*6/uL Hgb (12.0-15.0) g/dL Hct (37.2-46.3) % Plt Count (140-440) 10*3/uL Lymphocytes # (Manual) (1.0-4.8) k/uL APTT 54.4 H (22.0-30.0) sec Sodium 133 L (137-145) mmol/L Carbon Dioxide 21 L (22-30) mmol/L BUN 29 H (7-17) mg/dL Creatinine 1.23 H (0.52-1.04) mg/dL Glucose 253 H (74-99) mg/dL POC Glucose (mg/dL) 248 H (70-110) mg/dL Hemoglobin A1c (<=6.0) % Calcium (8.4-10.2) mg/dL Phosphorus (2.5-4.5) mg/dL Triglycerides (0.00-149.00) mg/dL HDL Cholesterol (40.00-60.00) mg/dL Cortisol (3.1-22.4) UG/DL Urine Appearance (Clear) Urine Protein (Negative) Urine Glucose (UA) (Negative) Urine Ketones (Negative) Urine Blood (Negative) Ur Leukocyte Esterase (Negative) Urine RBC (0-5) /hpf Urine WBC (0-5) /hpf Urine WBC Clumps (None) /hpf Urine Mucus (None) /hpf Crossmatch 07/08/24 07/08/24 07/08/24 Range/Units 17:09 18:10 19:03 WBC (4.50-10.00) 10*3/uL RBC (4.10-5.20) 10*6/uL Hgb (12.0-15.0) g/dL Hct (37.2-46.3) % Plt Count (140-440) 10*3/uL Lymphocytes # (Manual) (1.0-4.8) k/uL APTT (22.0-30.0) sec Sodium (137-145) mmol/L Carbon Dioxide (22-30) mmol/L BUN (7-17) mg/dL Creatinine (0.52-1.04) mg/dL Glucose (74-99) mg/dL POC Glucose (mg/dL) 206 H 238 H 162 H (70-110) mg/dL Hemoglobin A1c (<=6.0) % Calcium (8.4-10.2) mg/dL Phosphorus (2.5-4.5) mg/dL Triglycerides (0.00-149.00) mg/dL HDL Cholesterol (40.00-60.00) mg/dL Cortisol (3.1-22.4) UG/DL Urine Appearance (Clear) Urine Protein (Negative) Urine Glucose (UA) (Negative) Urine Ketones (Negative) Urine Blood (Negative) Ur Leukocyte Esterase (Negative) Urine RBC (0-5) /hpf Urine WBC (0-5) /hpf Urine WBC Clumps (None) /hpf Urine Mucus (None) /hpf Crossmatch 07/08/24 07/08/24 07/08/24 Range/Units 20:13 21:25 23:51 WBC 1.74 L (4.50-10.00) 10*3/uL RBC 2.86 L (4.10-5.20) 10*6/uL Hgb 8.5 L D (12.0-15.0) g/dL Hct 25.4 L (37.2-46.3) % Plt Count 106 L (140-440) 10*3/uL Lymphocytes # (Manual) (1.0-4.8) k/uL APTT (22.0-30.0) sec Sodium 133 L (137-145) mmol/L Carbon Dioxide 20 L (22-30) mmol/L BUN 32 H (7-17) mg/dL Creatinine 1.27 H (0.52-1.04) mg/dL Glucose 106 H (74-99) mg/dL POC Glucose (mg/dL) 161 H (70-110) mg/dL Hemoglobin A1c (<=6.0) % Calcium 7.5 L (8.4-10.2) mg/dL Phosphorus (2.5-4.5) mg/dL Triglycerides (0.00-149.00) mg/dL HDL Cholesterol (40.00-60.00) mg/dL Cortisol (3.1-22.4) UG/DL Urine Appearance (Clear) Urine Protein (Negative) Urine Glucose (UA) (Negative) Urine Ketones (Negative) Urine Blood (Negative) Ur Leukocyte Esterase (Negative) Urine RBC (0-5) /hpf Urine WBC (0-5) /hpf Urine WBC Clumps (None) /hpf Urine Mucus (None) /hpf Crossmatch 07/09/24 07/09/24 07/09/24 Range/Units 00:09 01:28 04:11 WBC (4.50-10.00) 10*3/uL RBC (4.10-5.20) 10*6/uL Hgb (12.0-15.0) g/dL Hct (37.2-46.3) % Plt Count (140-440) 10*3/uL Lymphocytes # (Manual) (1.0-4.8) k/uL APTT (22.0-30.0) sec Sodium 131 L (137-145) mmol/L Carbon Dioxide 16 L (22-30) mmol/L BUN 34 H (7-17) mg/dL Creatinine 1.17 H (0.52-1.04) mg/dL Glucose 168 H (74-99) mg/dL POC Glucose (mg/dL) 194 H (70-110) mg/dL Hemoglobin A1c (<=6.0) % Calcium 7.7 L (8.4-10.2) mg/dL Phosphorus (2.5-4.5) mg/dL Triglycerides (0.00-149.00) mg/dL HDL Cholesterol (40.00-60.00) mg/dL Cortisol (3.1-22.4) UG/DL Urine Appearance (Clear) Urine Protein (Negative) Urine Glucose (UA) (Negative) Urine Ketones (Negative) Urine Blood (Negative) Ur Leukocyte Esterase (Negative) Urine RBC (0-5) /hpf Urine WBC (0-5) /hpf Urine WBC Clumps (None) /hpf Urine Mucus (None) /hpf Crossmatch See Detail 07/09/24 07/09/24 07/09/24 Range/Units 04:11 04:11 06:23 WBC (4.50-10.00) 10*3/uL RBC (4.10-5.20) 10*6/uL Hgb (12.0-15.0) g/dL Hct (37.2-46.3) % Plt Count (140-440) 10*3/uL Lymphocytes # (Manual) (1.0-4.8) k/uL APTT (22.0-30.0) sec Sodium (137-145) mmol/L Carbon Dioxide (22-30) mmol/L BUN (7-17) mg/dL Creatinine (0.52-1.04) mg/dL Glucose (74-99) mg/dL POC Glucose (mg/dL) 219 H (70-110) mg/dL Hemoglobin A1c (<=6.0) % Calcium (8.4-10.2) mg/dL Phosphorus (2.5-4.5) mg/dL Triglycerides 197.00 H (0.00-149.00) mg/dL HDL Cholesterol 25.80 L (40.00-60.00) mg/dL Cortisol 30.1 H (3.1-22.4) UG/DL Urine Appearance (Clear) Urine Protein (Negative) Urine Glucose (UA) (Negative) Urine Ketones (Negative) Urine Blood (Negative) Ur Leukocyte Esterase (Negative) Urine RBC (0-5) /hpf Urine WBC (0-5) /hpf Urine WBC Clumps (None) /hpf Urine Mucus (None) /hpf Crossmatch Assessment and Plan Assessment: Acute saddle pulmonary embolism with R ventricular strain. S/p thrombectomy and IVC filter on 07/09 Elevated troponin secondary to above Acute hypoxic respiratory failure, improving Acute hemorrhage within the right renal parenchyma and within the proximal right renal collecting system. With associated questionable 15 mm mass of the distal third of the right ureter and possible 5 mm right ureteral calculus Sepsis Acute UTI Left lower quadrant tenderness around colostomy bag Pancytopenia secondary to chemotherapy Metabolic/toxic encephalopathy Ovarian cancer status postchemotherapy Plan: heparin drip is discontinued now Continue with ceftriaxone Follow-up urine culture Follow-up blood culture Follow-up echocardiogram Pulmonary team consult Cardiology team consult Start antibiotics, currently on ceftriaxone Check CT of the abdomen without IV contrast reviewed Urology team consult Vascular surgery team consult Nutrition consult and speech consult for swallow evaluation Labs and medication were reviewed.. Continue same treatment. Continue with symptomatic treatment. Resume home medication. Monitor labs and vitals. DVT and GI prophylaxis. Further recommendations as per clinical course of the patient DVT prophylaxis: heparin discontinued. Continue with mechanical GI Prophylaxis: Pepcid PT/OT: Pending Prognosis is guarded Full code as per family
--- NOTE | 2024-07-09 10:32 | P.GSCN ---
History of Present Illness Consult date: 07/09/24 History of present illness: 69 yo female with advanced ovarian ca transferred to [facility] for pulmonary embolus and further treatment for mental status changes. SHe has been on chemo for the ca. SHe developed mental status changes. SHe had a ct scan identifying a pulmonary embolus. In [facility] she had a ct scan of the abdomen that showed a possible right kidney leed and possible ureteral mass on the right. There are obvious renal masses. There is no hydronephrosis. SHe can give no history. From the chart there is no urologic history. The ct scan was reviewed by me. It was done without contrast. SHe has been anticoagulated due to the pe. SHe is pancytopenic due to the chemo. SHe had a thrombectomy and ivc filter placed last night. She denies incontinence previous urologic procedures previous urologic care. Review of Systems ROS unobtainable: due to mental status Past Medical History Past Medical History: Diabetes Mellitus, Hypertension, Myocardial Infarction ([place]) Additional Past Medical History / Comment(s): peritoneal cancer, DVT, PE Last Myocardial Infarction Date:: 11/19/2007 History of Any Multi-Drug Resistant Organisms: None Reported Past Surgical History: Orthopedic Surgery, Tubal Ligation Additional Past Surgical History / Comment(s): bilateral knee replacement Past Psychological History: Anxiety Smoking Status: Former smoker Past Alcohol Use History: None Reported Past Drug Use History: None Reported Medications and Allergies Home Medications Medication Instructions Recorded Confirmed Type Acetaminophen [Tylenol Arthritis] 1,300 mg PO Q8H PRN MDD 4000mg 07/08/24 07/08/24 History Dulaglutide [Trulicity] 1.5 mg SQ WEEKLY 07/08/24 07/08/24 History Insulin Glargine,Hum.rec.anlog 25 units SQ BID 07/08/24 07/08/24 History [Lantus Solostar Pen] Insulin Lispro [humaLOG Kwikpen] 8 - 10 unit SQ AC-TID 07/08/24 07/08/24 History Metoprolol Tartrate [Lopressor] 12.5 mg PO BID 07/08/24 07/08/24 History Nystatin 100,000 Unit/gm Powd 1 applic TOPICAL TID 07/08/24 07/08/24 History [Mycostatin Powder] lisinopriL [Zestril] 5 mg PO DAILY 07/08/24 07/08/24 History Allergies Allergy/AdvReac Type Severity Reaction Status Date / Time codeine Allergy Unknown Verified 07/08/24 06:38 glucagon Allergy Unknown Verified 07/08/24 06:38 glucosamine Allergy Unknown Verified 07/08/24 06:38 Latex, Natural Rubber Allergy Swelling Verified 07/08/24 06:38 metformin Allergy Unknown Verified 07/08/24 06:38 morphine Allergy Nausea & Verified 07/08/24 06:38 Vomiting sulfamethoxazole Allergy Nausea & Verified 07/08/24 06:38 [From Bactrim] Vomiting trimethoprim [From Bactrim] Allergy Nausea & Verified 07/08/24 06:38 Vomiting flu shot (unknown) Allergy Unknown Uncoded 07/08/24 06:38 Surgical - Exam Vital Signs Temp Pulse Resp BP Pulse Ox 100.6 F H 137 H 30 H 144/83 98 07/08/24 02:37 07/08/24 02:37 07/08/24 02:37 07/08/24 02:37 07/08/24 02:37 - General well developed, well nourished, moderate distress, chronically ill - Eyes normal ocular movement - ENT no hearing loss, no congestion - Neck no masses, trachea midline - Respiratory normal respiratory effort, clear to auscultation - Cardiovascular Rhythm: regular - Abdomen Abdomen: soft, non tender, no guarding, no rigid, no rebound - Genitourinary Indwelling catheter with slightly cloudy urine. No evidence of blood. - Integumentary no rash, no abnormal pigmentation - Neurologic disoriented - Psychiatric disoriented other Results - Labs 07/08/24 23:51 07/09/24 04:11 Abnormal Lab Results - Last 24 Hours (Table) 07/08/24 07/08/24 07/08/24 Range/Units 02:46 05:41 06:41 WBC (4.50-10.00) 10*3/uL RBC (4.10-5.20) 10*6/uL Hgb (12.0-15.0) g/dL Hct (37.2-46.3) % Plt Count (140-440) 10*3/uL Lymphocytes # (Manual) (1.0-4.8) k/uL APTT (22.0-30.0) sec VBG pCO2 (37-51) mmHg VBG HCO3 (24-28) mmol/L Sodium (137-145) mmol/L Carbon Dioxide (22-30) mmol/L BUN (7-17) mg/dL Creatinine (0.52-1.04) mg/dL Glucose (74-99) mg/dL POC Glucose (mg/dL) 435 H (70-110) mg/dL Hemoglobin A1c 13.3 H (<=6.0) % Calcium (8.4-10.2) mg/dL Phosphorus (2.5-4.5) mg/dL Troponin I 0.143 H* (0.000-0.034) ng/mL Urine Appearance (Clear) Urine Protein (Negative) Urine Glucose (UA) (Negative) Urine Ketones (Negative) Urine Blood (Negative) Ur Leukocyte Esterase (Negative) Urine RBC (0-5) /hpf Urine WBC (0-5) /hpf Urine WBC Clumps (None) /hpf Urine Mucus (None) /hpf Crossmatch 07/08/24 07/08/24 07/08/24 Range/Units 07:20 08:09 08:39 WBC (4.50-10.00) 10*3/uL RBC (4.10-5.20) 10*6/uL Hgb (12.0-15.0) g/dL Hct (37.2-46.3) % Plt Count (140-440) 10*3/uL Lymphocytes # (Manual) (1.0-4.8) k/uL APTT (22.0-30.0) sec VBG pCO2 27 L (37-51) mmHg VBG HCO3 17 L (24-28) mmol/L Sodium (137-145) mmol/L Carbon Dioxide (22-30) mmol/L BUN (7-17) mg/dL Creatinine (0.52-1.04) mg/dL Glucose (74-99) mg/dL POC Glucose (mg/dL) 447 H (70-110) mg/dL Hemoglobin A1c (<=6.0) % Calcium (8.4-10.2) mg/dL Phosphorus (2.5-4.5) mg/dL Troponin I (0.000-0.034) ng/mL Urine Appearance Cloudy H (Clear) Urine Protein 1+ H (Negative) Urine Glucose (UA) 4+ H (Negative) Urine Ketones 3+ H (Negative) Urine Blood Moderate H (Negative) Ur Leukocyte Esterase Large H (Negative) Urine RBC 22 H (0-5) /hpf Urine WBC >182 H (0-5) /hpf Urine WBC Clumps Moderate H (None) /hpf Urine Mucus Rare H (None) /hpf Crossmatch 07/08/24 07/08/24 07/08/24 Range/Units 08:39 11:50 11:57 WBC 2.37 L (4.50-10.00) 10*3/uL RBC 3.56 L (4.10-5.20) 10*6/uL Hgb 10.5 L (12.0-15.0) g/dL Hct 32.0 L (37.2-46.3) % Plt Count (140-440) 10*3/uL Lymphocytes # (Manual) 0.43 L (1.0-4.8) k/uL APTT (22.0-30.0) sec VBG pCO2 (37-51) mmHg VBG HCO3 (24-28) mmol/L Sodium (137-145) mmol/L Carbon Dioxide (22-30) mmol/L BUN (7-17) mg/dL Creatinine (0.52-1.04) mg/dL Glucose (74-99) mg/dL POC Glucose (mg/dL) 462 H (70-110) mg/dL Hemoglobin A1c (<=6.0) % Calcium (8.4-10.2) mg/dL Phosphorus (2.5-4.5) mg/dL Troponin I 0.134 H* (0.000-0.034) ng/mL Urine Appearance (Clear) Urine Protein (Negative) Urine Glucose (UA) (Negative) Urine Ketones (Negative) Urine Blood (Negative) Ur Leukocyte Esterase (Negative) Urine RBC (0-5) /hpf Urine WBC (0-5) /hpf Urine WBC Clumps (None) /hpf Urine Mucus (None) /hpf Crossmatch 07/08/24 07/08/24 07/08/24 Range/Units 11:57 11:57 13:11 WBC (4.50-10.00) 10*3/uL RBC (4.10-5.20) 10*6/uL Hgb (12.0-15.0) g/dL Hct (37.2-46.3) % Plt Count (140-440) 10*3/uL Lymphocytes # (Manual) (1.0-4.8) k/uL APTT (22.0-30.0) sec VBG pCO2 (37-51) mmHg VBG HCO3 (24-28) mmol/L Sodium 136 L (137-145) mmol/L Carbon Dioxide 20 L (22-30) mmol/L BUN 28 H (7-17) mg/dL Creatinine 1.07 H (0.52-1.04) mg/dL Glucose 425 H (74-99) mg/dL POC Glucose (mg/dL) 414 H (70-110) mg/dL Hemoglobin A1c (<=6.0) % Calcium (8.4-10.2) mg/dL Phosphorus 5.0 H (2.5-4.5) mg/dL Troponin I (0.000-0.034) ng/mL Urine Appearance (Clear) Urine Protein (Negative) Urine Glucose (UA) (Negative) Urine Ketones (Negative) Urine Blood (Negative) Ur Leukocyte Esterase (Negative) Urine RBC (0-5) /hpf Urine WBC (0-5) /hpf Urine WBC Clumps (None) /hpf Urine Mucus (None) /hpf Crossmatch 07/08/24 07/08/24 07/08/24 Range/Units 14:12 15:08 16:08 WBC (4.50-10.00) 10*3/uL RBC (4.10-5.20) 10*6/uL Hgb (12.0-15.0) g/dL Hct (37.2-46.3) % Plt Count (140-440) 10*3/uL Lymphocytes # (Manual) (1.0-4.8) k/uL APTT (22.0-30.0) sec VBG pCO2 (37-51) mmHg VBG HCO3 (24-28) mmol/L Sodium (137-145) mmol/L Carbon Dioxide (22-30) mmol/L BUN (7-17) mg/dL Creatinine (0.52-1.04) mg/dL Glucose (74-99) mg/dL POC Glucose (mg/dL) 375 H 313 H 248 H (70-110) mg/dL Hemoglobin A1c (<=6.0) % Calcium (8.4-10.2) mg/dL Phosphorus (2.5-4.5) mg/dL Troponin I (0.000-0.034) ng/mL Urine Appearance (Clear) Urine Protein (Negative) Urine Glucose (UA) (Negative) Urine Ketones (Negative) Urine Blood (Negative) Ur Leukocyte Esterase (Negative) Urine RBC (0-5) /hpf Urine WBC (0-5) /hpf Urine WBC Clumps (None) /hpf Urine Mucus (None) /hpf Crossmatch 07/08/24 07/08/24 07/08/24 Range/Units 16:18 16:18 17:09 WBC (4.50-10.00) 10*3/uL RBC (4.10-5.20) 10*6/uL Hgb (12.0-15.0) g/dL Hct (37.2-46.3) % Plt Count (140-440) 10*3/uL Lymphocytes # (Manual) (1.0-4.8) k/uL APTT 54.4 H (22.0-30.0) sec VBG pCO2 (37-51) mmHg VBG HCO3 (24-28) mmol/L Sodium 133 L (137-145) mmol/L Carbon Dioxide 21 L (22-30) mmol/L BUN 29 H (7-17) mg/dL Creatinine 1.23 H (0.52-1.04) mg/dL Glucose 253 H (74-99) mg/dL POC Glucose (mg/dL) 206 H (70-110) mg/dL Hemoglobin A1c (<=6.0) % Calcium (8.4-10.2) mg/dL Phosphorus (2.5-4.5) mg/dL Troponin I (0.000-0.034) ng/mL Urine Appearance (Clear) Urine Protein (Negative) Urine Glucose (UA) (Negative) Urine Ketones (Negative) Urine Blood (Negative) Ur Leukocyte Esterase (Negative) Urine RBC (0-5) /hpf Urine WBC (0-5) /hpf Urine WBC Clumps (None) /hpf Urine Mucus (None) /hpf Crossmatch 07/08/24 07/08/24 07/08/24 Range/Units 18:10 19:03 20:13 WBC (4.50-10.00) 10*3/uL RBC (4.10-5.20) 10*6/uL Hgb (12.0-15.0) g/dL Hct (37.2-46.3) % Plt Count (140-440) 10*3/uL Lymphocytes # (Manual) (1.0-4.8) k/uL APTT (22.0-30.0) sec VBG pCO2 (37-51) mmHg VBG HCO3 (24-28) mmol/L Sodium (137-145) mmol/L Carbon Dioxide (22-30) mmol/L BUN (7-17) mg/dL Creatinine (0.52-1.04) mg/dL Glucose (74-99) mg/dL POC Glucose (mg/dL) 238 H 162 H 161 H (70-110) mg/dL Hemoglobin A1c (<=6.0) % Calcium (8.4-10.2) mg/dL Phosphorus (2.5-4.5) mg/dL Troponin I (0.000-0.034) ng/mL Urine Appearance (Clear) Urine Protein (Negative) Urine Glucose (UA) (Negative) Urine Ketones (Negative) Urine Blood (Negative) Ur Leukocyte Esterase (Negative) Urine RBC (0-5) /hpf Urine WBC (0-5) /hpf Urine WBC Clumps (None) /hpf Urine Mucus (None) /hpf Crossmatch 07/08/24 07/08/24 07/09/24 Range/Units 21:25 23:51 00:09 WBC 1.74 L (4.50-10.00) 10*3/uL RBC 2.86 L (4.10-5.20) 10*6/uL Hgb 8.5 L D (12.0-15.0) g/dL Hct 25.4 L (37.2-46.3) % Plt Count 106 L (140-440) 10*3/uL Lymphocytes # (Manual) (1.0-4.8) k/uL APTT (22.0-30.0) sec VBG pCO2 (37-51) mmHg VBG HCO3 (24-28) mmol/L Sodium 133 L (137-145) mmol/L Carbon Dioxide 20 L (22-30) mmol/L BUN 32 H (7-17) mg/dL Creatinine 1.27 H (0.52-1.04) mg/dL Glucose 106 H (74-99) mg/dL POC Glucose (mg/dL) 194 H (70-110) mg/dL Hemoglobin A1c (<=6.0) % Calcium 7.5 L (8.4-10.2) mg/dL Phosphorus (2.5-4.5) mg/dL Troponin I (0.000-0.034) ng/mL Urine Appearance (Clear) Urine Protein (Negative) Urine Glucose (UA) (Negative) Urine Ketones (Negative) Urine Blood (Negative) Ur Leukocyte Esterase (Negative) Urine RBC (0-5) /hpf Urine WBC (0-5) /hpf Urine WBC Clumps (None) /hpf Urine Mucus (None) /hpf Crossmatch 07/09/24 07/09/24 Range/Units 01:28 04:11 WBC (4.50-10.00) 10*3/uL RBC (4.10-5.20) 10*6/uL Hgb (12.0-15.0) g/dL Hct (37.2-46.3) % Plt Count (140-440) 10*3/uL Lymphocytes # (Manual) (1.0-4.8) k/uL APTT (22.0-30.0) sec VBG pCO2 (37-51) mmHg VBG HCO3 (24-28) mmol/L Sodium 131 L (137-145) mmol/L Carbon Dioxide 16 L (22-30) mmol/L BUN 34 H (7-17) mg/dL Creatinine 1.17 H (0.52-1.04) mg/dL Glucose 168 H (74-99) mg/dL POC Glucose (mg/dL) (70-110) mg/dL Hemoglobin A1c (<=6.0) % Calcium 7.7 L (8.4-10.2) mg/dL Phosphorus (2.5-4.5) mg/dL Troponin I (0.000-0.034) ng/mL Urine Appearance (Clear) Urine Protein (Negative) Urine Glucose (UA) (Negative) Urine Ketones (Negative) Urine Blood (Negative) Ur Leukocyte Esterase (Negative) Urine RBC (0-5) /hpf Urine WBC (0-5) /hpf Urine WBC Clumps (None) /hpf Urine Mucus (None) /hpf Crossmatch See Detail Diabetes panel 07/08/24 07/08/24 07/08/24 Range/Units 02:46 11:57 16:18 Sodium 136 L 133 L (137-145) mmol/L Potassium 4.2 3.9 (3.5-5.1) mmol/L Chloride 103 104 (98-107) mmol/L Carbon Dioxide 20 L 21 L (22-30) mmol/L BUN 28 H 29 H (7-17) mg/dL Creatinine 1.07 H 1.23 H (0.52-1.04) mg/dL Glucose 425 H 253 H (74-99) mg/dL Hemoglobin A1c 13.3 H (<=6.0) % Calcium (8.4-10.2) mg/dL 07/08/24 07/09/24 Range/Units 21:25 04:11 Sodium 133 L 131 L (137-145) mmol/L Potassium 4.2 3.9 (3.5-5.1) mmol/L Chloride 105 106 (98-107) mmol/L Carbon Dioxide 20 L 16 L (22-30) mmol/L BUN 32 H 34 H (7-17) mg/dL Creatinine 1.27 H 1.17 H (0.52-1.04) mg/dL Glucose 106 H 168 H (74-99) mg/dL Hemoglobin A1c (<=6.0) % Calcium 7.5 L 7.7 L (8.4-10.2) mg/dL Calcium panel 07/08/24 07/08/24 07/08/24 Range/Units 11:57 16:18 21:25 Calcium 7.5 L (8.4-10.2) mg/dL Phosphorus 5.0 H 4.0 (2.5-4.5) mg/dL 07/09/24 Range/Units 04:11 Calcium 7.7 L (8.4-10.2) mg/dL Phosphorus (2.5-4.5) mg/dL Pituitary panel 07/08/24 07/08/24 07/08/24 Range/Units 11:57 16:18 21:25 Sodium 136 L 133 L 133 L (137-145) mmol/L Potassium 4.2 3.9 4.2 (3.5-5.1) mmol/L Chloride 103 104 105 (98-107) mmol/L Carbon Dioxide 20 L 21 L 20 L (22-30) mmol/L BUN 28 H 29 H 32 H (7-17) mg/dL Creatinine 1.07 H 1.23 H 1.27 H (0.52-1.04) mg/dL Glucose 425 H 253 H 106 H (74-99) mg/dL Calcium 7.5 L (8.4-10.2) mg/dL 07/09/24 Range/Units 04:11 Sodium 131 L (137-145) mmol/L Potassium 3.9 (3.5-5.1) mmol/L Chloride 106 (98-107) mmol/L Carbon Dioxide 16 L (22-30) mmol/L BUN 34 H (7-17) mg/dL Creatinine 1.17 H (0.52-1.04) mg/dL Glucose 168 H (74-99) mg/dL Calcium 7.7 L (8.4-10.2) mg/dL Adrenal panel 07/08/24 07/08/24 07/08/24 Range/Units 11:57 16:18 21:25 Sodium 136 L 133 L 133 L (137-145) mmol/L Potassium 4.2 3.9 4.2 (3.5-5.1) mmol/L Chloride 103 104 105 (98-107) mmol/L Carbon Dioxide 20 L 21 L 20 L (22-30) mmol/L BUN 28 H 29 H 32 H (7-17) mg/dL Creatinine 1.07 H 1.23 H 1.27 H (0.52-1.04) mg/dL Glucose 425 H 253 H 106 H (74-99) mg/dL Calcium 7.5 L (8.4-10.2) mg/dL 07/09/24 Range/Units 04:11 Sodium 131 L (137-145) mmol/L Potassium 3.9 (3.5-5.1) mmol/L Chloride 106 (98-107) mmol/L Carbon Dioxide 16 L (22-30) mmol/L BUN 34 H (7-17) mg/dL Creatinine 1.17 H (0.52-1.04) mg/dL Glucose 168 H (74-99) mg/dL Calcium 7.7 L (8.4-10.2) mg/dL - Imaging CT scan - abdomen: report reviewed, image reviewed CT scan - pelvis: report reviewed, image reviewed Assessment and Plan Assessment: Impression: This patient has advanced ovarian ca. SHe has pancytopenia due to chemo therapy. SHe developed a pe and was anticoagulated. The ct scan may show a small right posterior renal hemorrhage and a possible rt distal ureteral mass without hydronephrosis Recommendations. Since the ct scan has been done without contrast it is diifficult to corroborate these findings. I have reviewed the ct scan my self and see the noted findings. If there is bleeding from the kidney it is very small and the hgb is stable. With regards to the ureteral mass without contrast it is very difficult to assess the "mass" in the ureter wihtout contrast. there is no hydronephrosis. THeere is no obvious gross hematuria. The patient will eventually need cysto with retrograde or ct urogram to further assess these issues. Her creatinine is normal. This has been discussed with the patient who is somewhat drowsy and the daughter who is at the bedside. Time with Patient: Greater than 30
--- NOTE | 2024-07-09 11:41 | P.PN ---
Subjective Progress Note Date: 07/09/24 Principal diagnosis: Acute submassive pulmonary embolism Patient is 69-year-old female transferred from [facility] after being found to have saddle PE with CT evidence of right-sided heart strain. Previously started on IV heparin per protocol. Patient is currently confused and is a poor historian, her daughter is at bedside and supplements information. 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 Previously underwent bowel resection and has colostomy. Currently undergoing chemotherapy, and her last treatment on June 29rs. Reportedly follows with Dr. Isidro. Increased generalized weakness and fatigue at home. Also, noted to be short of breath. D-dimer was elevated outside facility. CT angio of the chest noted to have large saddle PE with CT evidence of right-sided heart strain. She is currently being evaluated emergency department. She is alert but does not answer questions appropriately. She has been increasingly confused over the last 24 hours per the daughter. Currently resting comfortably on 2 L/min nasal cannula. SpO2 reading 97%. She is febrile with a temperature max of 101.3 F. She is tachycardic with heart rate of 133 bpm. Blood pressure is actually hypertensive at the moment. Has not required any fluid boluses or pressors. According to the daughter, she has no prior history of DVT or PE. Not on any anticoagulants. Repeat labs at our facility showing a WBC count of 1.7, hemoglobin 11, hematocrit 31.8, platelets 118. CMP: Sodium 134, potassium 4.4, chloride 101, serum bicarb 14, BUN 20, creatinine 0.74, glucose 409. Lactic 1.1. Troponins 0.14, and 0.14 respectively. NT proBNP was elevated 8250. Currently continued on IV heparin per protocol. Follow-up echocardiogram is ordered. Cardiovascular surgery is on for possible intervention. Patient was seen today on 07/09/2024, remains in the ICU, yesterday the patient developed some retroperitoneal bleed and urology was consulted and we discontinued her heparin recommended vascular surgery evaluation who performed primary percutaneous transluminal mechanical thrombectomy of the left and main pulmonary artery as well as left interlobar artery patient also underwent mechanical thrombectomy of the inferior vena cava and IVC filter placement because of apathy cannot indication to anticoagulation therapy. Patient remains in the ICU today, on 3 L nasal cannula not in any distress, being followed by many consultants including cardiology, urology, and vascular surgery. Does not seem to be in any form of distress. Labs were reviewed WBC count is 1.74 hemoglobin 8.5 electrolytes showed low sodium low bicarb of 16 BUN of 34 creat 1.17. Objective - Vital Signs Vital signs: Vital Signs Temp 97.9 F 07/09/24 08:00 Pulse 90 07/09/24 11:00 Resp 12 07/09/24 11:00 BP 109/61 07/09/24 11:00 Pulse Ox 98 07/09/24 11:00 FiO2 Intake & Output 07/08/24 07/09/24 07/09/24 18:59 06:59 18:59 Intake Total 2419.432 1041 479 Output Total 265 690 150 Balance 2154.432 351 329 Weight 114.475 kg 117.7 kg Intake: IV 2090 501 200 0.9 40 ACETAMINOPHEN IV (For NPO 100 ) 1,000 mg In Empty Bag 1 bag @ 400 mls/hr IVPB ONCE ONE Rx#:[id number] D5-0.45% NaCl with KCl 150 500 150 20Meq/l 1,000 ml @ 50 mls /hr IV .Q20H [facility] Rx#: [id number] Sodium Chloride 0.9% 1, 1600 000 ml @ 200 mls/hr IV . Q5H [facility] Rx#:[id number] cefTRIAXone 1 gm In 50 50 Sodium Chloride 0.9% 50 ml @ 100 mls/hr IVPB Q24HR [facility] Rx#:[id number] Intake, IV Titration 329.432 Amount Heparin Sod,Pork in 0.45% 257.555 NaCl 25,000 unit In 0.45 % NaCl 1 250ml.bag @ 18 UNITS/KG/HR 20.605 mls/hr IV .Q12H8M [facility] Rx#: [id number] Insulin Regular 100 unit 71.877 In Sodium Chloride 0.9% 100 ml @ 0.1 UNITS/KG/HR 11.562 mls/hr IV .Q8H45M [facility] Rx#:[id number] Oral 540 Blood Product 0 279 Rc Pheresis As-3 Unit 0 279 [id number] Output: Urine 265 590 150 Stool 100 Other: Voiding Method Indwelling Catheter Indwelling Catheter - Exam GENERAL EXAM: Reveals 69-year-old female in no distress, definitely more awake today and less confused. HEAD: Normocephalic and atraumatic EYES: Normal reaction of pupils, equal size. NOSE: Clear with pink turbinates. THROAT: No erythema or exudates. NECK: No masses, no JVD. CHEST: No chest wall deformity. LUNGS: Equal air entry with no crackles, wheeze, rhonchi or dullness. On 2 L/min nasal cannula. No conversational dyspnea or accessory muscle use. CVS: S1 and S2 normal with no audible murmur, regular rhythm. No extra heart sounds. Tachycardic ABDOMEN: No hepatosplenomegaly, active bowel sounds, no guarding or rigidity. Colostomy with pink and viable stoma. SKIN: No rashes CENTRAL NERVOUS SYSTEM: No focal deficits, tone is normal in all 4 extremities. EXTREMITIES: There is no peripheral edema, clubbing, or cyanosis. Peripheral pulses are intact. - Labs CBC & Chem 7: 07/08/24 23:51 07/09/24 04:11 Labs: Abnormal Lab Results - Last 24 Hours (Table) 07/08/24 07/08/24 07/08/24 Range/Units 11:50 11:57 11:57 WBC 2.37 L (4.50-10.00) 10*3/uL RBC 3.56 L (4.10-5.20) 10*6/uL Hgb 10.5 L (12.0-15.0) g/dL Hct 32.0 L (37.2-46.3) % Plt Count (140-440) 10*3/uL Lymphocytes # (Manual) 0.43 L (1.0-4.8) k/uL APTT (22.0-30.0) sec Sodium (137-145) mmol/L Carbon Dioxide (22-30) mmol/L BUN (7-17) mg/dL Creatinine (0.52-1.04) mg/dL Glucose (74-99) mg/dL POC Glucose (mg/dL) 462 H (70-110) mg/dL Calcium (8.4-10.2) mg/dL Phosphorus 5.0 H (2.5-4.5) mg/dL Triglycerides (0.00-149.00) mg/dL HDL Cholesterol (40.00-60.00) mg/dL Cortisol (3.1-22.4) UG/DL Crossmatch 07/08/24 07/08/24 07/08/24 Range/Units 11:57 13:11 14:12 WBC (4.50-10.00) 10*3/uL RBC (4.10-5.20) 10*6/uL Hgb (12.0-15.0) g/dL Hct (37.2-46.3) % Plt Count (140-440) 10*3/uL Lymphocytes # (Manual) (1.0-4.8) k/uL APTT (22.0-30.0) sec Sodium 136 L (137-145) mmol/L Carbon Dioxide 20 L (22-30) mmol/L BUN 28 H (7-17) mg/dL Creatinine 1.07 H (0.52-1.04) mg/dL Glucose 425 H (74-99) mg/dL POC Glucose (mg/dL) 414 H 375 H (70-110) mg/dL Calcium (8.4-10.2) mg/dL Phosphorus (2.5-4.5) mg/dL Triglycerides (0.00-149.00) mg/dL HDL Cholesterol (40.00-60.00) mg/dL Cortisol (3.1-22.4) UG/DL Crossmatch 07/08/24 07/08/24 07/08/24 Range/Units 15:08 16:08 16:18 WBC (4.50-10.00) 10*3/uL RBC (4.10-5.20) 10*6/uL Hgb (12.0-15.0) g/dL Hct (37.2-46.3) % Plt Count (140-440) 10*3/uL Lymphocytes # (Manual) (1.0-4.8) k/uL APTT 54.4 H (22.0-30.0) sec Sodium (137-145) mmol/L Carbon Dioxide (22-30) mmol/L BUN (7-17) mg/dL Creatinine (0.52-1.04) mg/dL Glucose (74-99) mg/dL POC Glucose (mg/dL) 313 H 248 H (70-110) mg/dL Calcium (8.4-10.2) mg/dL Phosphorus (2.5-4.5) mg/dL Triglycerides (0.00-149.00) mg/dL HDL Cholesterol (40.00-60.00) mg/dL Cortisol (3.1-22.4) UG/DL Crossmatch 07/08/24 07/08/24 07/08/24 Range/Units 16:18 17:09 18:10 WBC (4.50-10.00) 10*3/uL RBC (4.10-5.20) 10*6/uL Hgb (12.0-15.0) g/dL Hct (37.2-46.3) % Plt Count (140-440) 10*3/uL Lymphocytes # (Manual) (1.0-4.8) k/uL APTT (22.0-30.0) sec Sodium 133 L (137-145) mmol/L Carbon Dioxide 21 L (22-30) mmol/L BUN 29 H (7-17) mg/dL Creatinine 1.23 H (0.52-1.04) mg/dL Glucose 253 H (74-99) mg/dL POC Glucose (mg/dL) 206 H 238 H (70-110) mg/dL Calcium (8.4-10.2) mg/dL Phosphorus (2.5-4.5) mg/dL Triglycerides (0.00-149.00) mg/dL HDL Cholesterol (40.00-60.00) mg/dL Cortisol (3.1-22.4) UG/DL Crossmatch 07/08/24 07/08/24 07/08/24 Range/Units 19:03 20:13 21:25 WBC (4.50-10.00) 10*3/uL RBC (4.10-5.20) 10*6/uL Hgb (12.0-15.0) g/dL Hct (37.2-46.3) % Plt Count (140-440) 10*3/uL Lymphocytes # (Manual) (1.0-4.8) k/uL APTT (22.0-30.0) sec Sodium 133 L (137-145) mmol/L Carbon Dioxide 20 L (22-30) mmol/L BUN 32 H (7-17) mg/dL Creatinine 1.27 H (0.52-1.04) mg/dL Glucose 106 H (74-99) mg/dL POC Glucose (mg/dL) 162 H 161 H (70-110) mg/dL Calcium 7.5 L (8.4-10.2) mg/dL Phosphorus (2.5-4.5) mg/dL Triglycerides (0.00-149.00) mg/dL HDL Cholesterol (40.00-60.00) mg/dL Cortisol (3.1-22.4) UG/DL Crossmatch 07/08/24 07/09/24 07/09/24 Range/Units 23:51 00:09 01:28 WBC 1.74 L (4.50-10.00) 10*3/uL RBC 2.86 L (4.10-5.20) 10*6/uL Hgb 8.5 L D (12.0-15.0) g/dL Hct 25.4 L (37.2-46.3) % Plt Count 106 L (140-440) 10*3/uL Lymphocytes # (Manual) (1.0-4.8) k/uL APTT (22.0-30.0) sec Sodium (137-145) mmol/L Carbon Dioxide (22-30) mmol/L BUN (7-17) mg/dL Creatinine (0.52-1.04) mg/dL Glucose (74-99) mg/dL POC Glucose (mg/dL) 194 H (70-110) mg/dL Calcium (8.4-10.2) mg/dL Phosphorus (2.5-4.5) mg/dL Triglycerides (0.00-149.00) mg/dL HDL Cholesterol (40.00-60.00) mg/dL Cortisol (3.1-22.4) UG/DL Crossmatch See Detail 07/09/24 07/09/24 07/09/24 Range/Units 04:11 04:11 04:11 WBC (4.50-10.00) 10*3/uL RBC (4.10-5.20) 10*6/uL Hgb (12.0-15.0) g/dL Hct (37.2-46.3) % Plt Count (140-440) 10*3/uL Lymphocytes # (Manual) (1.0-4.8) k/uL APTT (22.0-30.0) sec Sodium 131 L (137-145) mmol/L Carbon Dioxide 16 L (22-30) mmol/L BUN 34 H (7-17) mg/dL Creatinine 1.17 H (0.52-1.04) mg/dL Glucose 168 H (74-99) mg/dL POC Glucose (mg/dL) (70-110) mg/dL Calcium 7.7 L (8.4-10.2) mg/dL Phosphorus (2.5-4.5) mg/dL Triglycerides 197.00 H (0.00-149.00) mg/dL HDL Cholesterol 25.80 L (40.00-60.00) mg/dL Cortisol 30.1 H (3.1-22.4) UG/DL Crossmatch 07/09/24 Range/Units 06:23 WBC (4.50-10.00) 10*3/uL RBC (4.10-5.20) 10*6/uL Hgb (12.0-15.0) g/dL Hct (37.2-46.3) % Plt Count (140-440) 10*3/uL Lymphocytes # (Manual) (1.0-4.8) k/uL APTT (22.0-30.0) sec Sodium (137-145) mmol/L Carbon Dioxide (22-30) mmol/L BUN (7-17) mg/dL Creatinine (0.52-1.04) mg/dL Glucose (74-99) mg/dL POC Glucose (mg/dL) 219 H (70-110) mg/dL Calcium (8.4-10.2) mg/dL Phosphorus (2.5-4.5) mg/dL Triglycerides (0.00-149.00) mg/dL HDL Cholesterol (40.00-60.00) mg/dL Cortisol (3.1-22.4) UG/DL Crossmatch Assessment and Plan Assessment: Impression: Status post Primary percutaneous transluminal mechanical thrombectomy of the main pulmonary artery Percutaneous transluminal mechanical thrombectomy of the left pulmonary artery, left interlobar artery Percutaneous transluminal mechanical thrombectomy of the inferior vena cava Bilateral saddle PE, with CT evidence of right-sided heart strain, submassive Acute hypoxemic respiratory failure, secondary to above Retroperitoneal bleed, CT of the abdomen showed small right posterior and renal hemorrhage and possibly right distal ureteral mass without hydronephrosis. Hence patient has absolute current indication to anticoagulation therapy. 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 Altered mental status, under investigation, improved, patient has acute metabolic encephalopathy Insulin-dependent diabetes mellitus, with hyperglycemia Hypertension Morbid obesity, with a BMI of 42 kg/m Recommendation: Continue to monitor in the ICU Continue present supportive care measures Continue to hold all anticoagulants Reviewed the results of renal ultrasound this morning Prognosis is definitely poor and guarded Discussed case with other consultants Will continue to follow follow Time with Patient: Less than 30 (1111)
[2024-07-09 11:48] LABS: HGB 9.6 g/dL (12.0-15.0); MCH 29.4 pg (27.0-32.0); MCHC 33.1 g/dL (32.0-37.0); MCV 88.7 fL (80.0-97.0); Mean Platelet Volume 10.2 fL (9.5-12.2); RBC 3.27 10*6/uL (4.10-5.20); RDW 17.3 % (11.5-14.5); WBC 1.79 10*3/uL (4.50-10.00)
[2024-07-09 12:11] LABS: Glucose,Whole Blood 314 mg/dL (70-110)
[2024-07-09 13:03] LABS: Eosinophils # (M) 0.02 k/uL (0-0.7); Metamyelocytes # (M) 0.07 k/uL (0); Metamyelocytes % 4 %; Monocytes # (M) 0.21 k/uL (0-1.0); Myelocytes # (M) 0.02 k/uL (0); Myelocytes % 1 %; Neutrophils # (M) 0.98 k/uL (1.3-7.7); Neutrophils % (M) 55 %; Nucleated Red Blood Cells 0 /100 WBC (0-0); Total Cells Counted 200
[2024-07-09 13:04] LABS: Anisocytosis (M) Present
[2024-07-09 13:06] LABS: Platelet Count 89 10*3/uL (140-440)
--- NOTE | 2024-07-09 13:32 | P.PN ---
Subjective Progress Note Date: 07/09/24 Principal diagnosis: Submassive pulmonary embolism, unable to be anticoagulated Patient seen and examined today as a follow-up. She denies any bleeding from her right groin. No significant pain. States breathing is improved and easier. Patient did have a drop in her hemoglobin to 8.5. Was given a unit of blood. Objective - Vital Signs Vital signs: Vital Signs Temp 97.9 F 07/09/24 07:49 Pulse 90 07/09/24 08:32 Resp 15 07/09/24 07:49 BP 117/58 07/09/24 07:49 Pulse Ox 97 07/09/24 08:24 FiO2 Intake & Output 07/08/24 07/09/24 07/09/24 18:59 06:59 18:59 Intake Total 2419.432 1041 329 Output Total 265 690 50 Balance 2154.432 351 279 Weight 114.475 kg 117.7 kg Intake: IV 2090 501 50 0.9 40 ACETAMINOPHEN IV (For NPO 100 ) 1,000 mg In Empty Bag 1 bag @ 400 mls/hr IVPB ONCE ONE Rx#:[id number] D5-0.45% NaCl with KCl 150 500 50 20Meq/l 1,000 ml @ 50 mls /hr IV .Q20H [facility] Rx#: [id number] Sodium Chloride 0.9% 1, 1600 000 ml @ 200 mls/hr IV . Q5H [facility] Rx#:[id number] cefTRIAXone 1 gm In 50 Sodium Chloride 0.9% 50 ml @ 100 mls/hr IVPB Q24HR [facility] Rx#:[id number] Intake, IV Titration 329.432 Amount Heparin Sod,Pork in 0.45% 257.555 NaCl 25,000 unit In 0.45 % NaCl 1 250ml.bag @ 18 UNITS/KG/HR 20.605 mls/hr IV .Q12H8M [facility] Rx#: [id number] Insulin Regular 100 unit 71.877 In Sodium Chloride 0.9% 100 ml @ 0.1 UNITS/KG/HR 11.562 mls/hr IV .Q8H45M [facility] Rx#:[id number] Oral 540 Blood Product 0 279 Rc Pheresis As-3 Unit 0 279 [id number] Output: Urine 265 590 50 Stool 100 Other: Voiding Method Indwelling Catheter Indwelling Catheter - Exam General appearance: The patient is alert, oriented, appears in no acute distress. HET: Head is normocephalic and atraumatic. Pupils are equal and reactive. Neck: Supple. Heart: Regular. Lungs: Equal expansion, normal respiratory effort. Abdomen: Soft, morbidly obese, nontender, nondistended. Extremities: Normal skin color and turgor. Lower extremity swelling. Right groin with suture in place no active bleeding no palpable hematoma. Palpable femoral pulse. Neurological: No focal deficits. S - Labs CBC & Chem 7: 07/09/24 10:46 07/09/24 04:11 Labs: Abnormal Lab Results - Last 24 Hours (Table) 07/08/24 07/08/24 07/08/24 Range/Units 02:46 07:20 11:50 WBC (4.50-10.00) 10*3/uL RBC (4.10-5.20) 10*6/uL Hgb (12.0-15.0) g/dL Hct (37.2-46.3) % Plt Count (140-440) 10*3/uL Lymphocytes # (Manual) (1.0-4.8) k/uL APTT (22.0-30.0) sec Sodium (137-145) mmol/L Carbon Dioxide (22-30) mmol/L BUN (7-17) mg/dL Creatinine (0.52-1.04) mg/dL Glucose (74-99) mg/dL POC Glucose (mg/dL) 462 H (70-110) mg/dL Hemoglobin A1c 13.3 H (<=6.0) % Calcium (8.4-10.2) mg/dL Phosphorus (2.5-4.5) mg/dL Triglycerides (0.00-149.00) mg/dL HDL Cholesterol (40.00-60.00) mg/dL Cortisol (3.1-22.4) UG/DL Urine Appearance Cloudy H (Clear) Urine Protein 1+ H (Negative) Urine Glucose (UA) 4+ H (Negative) Urine Ketones 3+ H (Negative) Urine Blood Moderate H (Negative) Ur Leukocyte Esterase Large H (Negative) Urine RBC 22 H (0-5) /hpf Urine WBC >182 H (0-5) /hpf Urine WBC Clumps Moderate H (None) /hpf Urine Mucus Rare H (None) /hpf Crossmatch 07/08/24 07/08/24 07/08/24 Range/Units 11:57 11:57 11:57 WBC 2.37 L (4.50-10.00) 10*3/uL RBC 3.56 L (4.10-5.20) 10*6/uL Hgb 10.5 L (12.0-15.0) g/dL Hct 32.0 L (37.2-46.3) % Plt Count (140-440) 10*3/uL Lymphocytes # (Manual) 0.43 L (1.0-4.8) k/uL APTT (22.0-30.0) sec Sodium 136 L (137-145) mmol/L Carbon Dioxide 20 L (22-30) mmol/L BUN 28 H (7-17) mg/dL Creatinine 1.07 H (0.52-1.04) mg/dL Glucose 425 H (74-99) mg/dL POC Glucose (mg/dL) (70-110) mg/dL Hemoglobin A1c (<=6.0) % Calcium (8.4-10.2) mg/dL Phosphorus 5.0 H (2.5-4.5) mg/dL Triglycerides (0.00-149.00) mg/dL HDL Cholesterol (40.00-60.00) mg/dL Cortisol (3.1-22.4) UG/DL Urine Appearance (Clear) Urine Protein (Negative) Urine Glucose (UA) (Negative) Urine Ketones (Negative) Urine Blood (Negative) Ur Leukocyte Esterase (Negative) Urine RBC (0-5) /hpf Urine WBC (0-5) /hpf Urine WBC Clumps (None) /hpf Urine Mucus (None) /hpf Crossmatch 07/08/24 07/08/24 07/08/24 Range/Units 13:11 14:12 15:08 WBC (4.50-10.00) 10*3/uL RBC (4.10-5.20) 10*6/uL Hgb (12.0-15.0) g/dL Hct (37.2-46.3) % Plt Count (140-440) 10*3/uL Lymphocytes # (Manual) (1.0-4.8) k/uL APTT (22.0-30.0) sec Sodium (137-145) mmol/L Carbon Dioxide (22-30) mmol/L BUN (7-17) mg/dL Creatinine (0.52-1.04) mg/dL Glucose (74-99) mg/dL POC Glucose (mg/dL) 414 H 375 H 313 H (70-110) mg/dL Hemoglobin A1c (<=6.0) % Calcium (8.4-10.2) mg/dL Phosphorus (2.5-4.5) mg/dL Triglycerides (0.00-149.00) mg/dL HDL Cholesterol (40.00-60.00) mg/dL Cortisol (3.1-22.4) UG/DL Urine Appearance (Clear) Urine Protein (Negative) Urine Glucose (UA) (Negative) Urine Ketones (Negative) Urine Blood (Negative) Ur Leukocyte Esterase (Negative) Urine RBC (0-5) /hpf Urine WBC (0-5) /hpf Urine WBC Clumps (None) /hpf Urine Mucus (None) /hpf Crossmatch 07/08/24 07/08/24 07/08/24 Range/Units 16:08 16:18 16:18 WBC (4.50-10.00) 10*3/uL RBC (4.10-5.20) 10*6/uL Hgb (12.0-15.0) g/dL Hct (37.2-46.3) % Plt Count (140-440) 10*3/uL Lymphocytes # (Manual) (1.0-4.8) k/uL APTT 54.4 H (22.0-30.0) sec Sodium 133 L (137-145) mmol/L Carbon Dioxide 21 L (22-30) mmol/L BUN 29 H (7-17) mg/dL Creatinine 1.23 H (0.52-1.04) mg/dL Glucose 253 H (74-99) mg/dL POC Glucose (mg/dL) 248 H (70-110) mg/dL Hemoglobin A1c (<=6.0) % Calcium (8.4-10.2) mg/dL Phosphorus (2.5-4.5) mg/dL Triglycerides (0.00-149.00) mg/dL HDL Cholesterol (40.00-60.00) mg/dL Cortisol (3.1-22.4) UG/DL Urine Appearance (Clear) Urine Protein (Negative) Urine Glucose (UA) (Negative) Urine Ketones (Negative) Urine Blood (Negative) Ur Leukocyte Esterase (Negative) Urine RBC (0-5) /hpf Urine WBC (0-5) /hpf Urine WBC Clumps (None) /hpf Urine Mucus (None) /hpf Crossmatch 07/08/24 07/08/24 07/08/24 Range/Units 17:09 18:10 19:03 WBC (4.50-10.00) 10*3/uL RBC (4.10-5.20) 10*6/uL Hgb (12.0-15.0) g/dL Hct (37.2-46.3) % Plt Count (140-440) 10*3/uL Lymphocytes # (Manual) (1.0-4.8) k/uL APTT (22.0-30.0) sec Sodium (137-145) mmol/L Carbon Dioxide (22-30) mmol/L BUN (7-17) mg/dL Creatinine (0.52-1.04) mg/dL Glucose (74-99) mg/dL POC Glucose (mg/dL) 206 H 238 H 162 H (70-110) mg/dL Hemoglobin A1c (<=6.0) % Calcium (8.4-10.2) mg/dL Phosphorus (2.5-4.5) mg/dL Triglycerides (0.00-149.00) mg/dL HDL Cholesterol (40.00-60.00) mg/dL Cortisol (3.1-22.4) UG/DL Urine Appearance (Clear) Urine Protein (Negative) Urine Glucose (UA) (Negative) Urine Ketones (Negative) Urine Blood (Negative) Ur Leukocyte Esterase (Negative) Urine RBC (0-5) /hpf Urine WBC (0-5) /hpf Urine WBC Clumps (None) /hpf Urine Mucus (None) /hpf Crossmatch 07/08/24 07/08/24 07/08/24 Range/Units 20:13 21:25 23:51 WBC 1.74 L (4.50-10.00) 10*3/uL RBC 2.86 L (4.10-5.20) 10*6/uL Hgb 8.5 L D (12.0-15.0) g/dL Hct 25.4 L (37.2-46.3) % Plt Count 106 L (140-440) 10*3/uL Lymphocytes # (Manual) (1.0-4.8) k/uL APTT (22.0-30.0) sec Sodium 133 L (137-145) mmol/L Carbon Dioxide 20 L (22-30) mmol/L BUN 32 H (7-17) mg/dL Creatinine 1.27 H (0.52-1.04) mg/dL Glucose 106 H (74-99) mg/dL POC Glucose (mg/dL) 161 H (70-110) mg/dL Hemoglobin A1c (<=6.0) % Calcium 7.5 L (8.4-10.2) mg/dL Phosphorus (2.5-4.5) mg/dL Triglycerides (0.00-149.00) mg/dL HDL Cholesterol (40.00-60.00) mg/dL Cortisol (3.1-22.4) UG/DL Urine Appearance (Clear) Urine Protein (Negative) Urine Glucose (UA) (Negative) Urine Ketones (Negative) Urine Blood (Negative) Ur Leukocyte Esterase (Negative) Urine RBC (0-5) /hpf Urine WBC (0-5) /hpf Urine WBC Clumps (None) /hpf Urine Mucus (None) /hpf Crossmatch 07/09/24 07/09/24 07/09/24 Range/Units 00:09 01:28 04:11 WBC (4.50-10.00) 10*3/uL RBC (4.10-5.20) 10*6/uL Hgb (12.0-15.0) g/dL Hct (37.2-46.3) % Plt Count (140-440) 10*3/uL Lymphocytes # (Manual) (1.0-4.8) k/uL APTT (22.0-30.0) sec Sodium 131 L (137-145) mmol/L Carbon Dioxide 16 L (22-30) mmol/L BUN 34 H (7-17) mg/dL Creatinine 1.17 H (0.52-1.04) mg/dL Glucose 168 H (74-99) mg/dL POC Glucose (mg/dL) 194 H (70-110) mg/dL Hemoglobin A1c (<=6.0) % Calcium 7.7 L (8.4-10.2) mg/dL Phosphorus (2.5-4.5) mg/dL Triglycerides (0.00-149.00) mg/dL HDL Cholesterol (40.00-60.00) mg/dL Cortisol (3.1-22.4) UG/DL Urine Appearance (Clear) Urine Protein (Negative) Urine Glucose (UA) (Negative) Urine Ketones (Negative) Urine Blood (Negative) Ur Leukocyte Esterase (Negative) Urine RBC (0-5) /hpf Urine WBC (0-5) /hpf Urine WBC Clumps (None) /hpf Urine Mucus (None) /hpf Crossmatch See Detail 07/09/24 07/09/24 07/09/24 Range/Units 04:11 04:11 06:23 WBC (4.50-10.00) 10*3/uL RBC (4.10-5.20) 10*6/uL Hgb (12.0-15.0) g/dL Hct (37.2-46.3) % Plt Count (140-440) 10*3/uL Lymphocytes # (Manual) (1.0-4.8) k/uL APTT (22.0-30.0) sec Sodium (137-145) mmol/L Carbon Dioxide (22-30) mmol/L BUN (7-17) mg/dL Creatinine (0.52-1.04) mg/dL Glucose (74-99) mg/dL POC Glucose (mg/dL) 219 H (70-110) mg/dL Hemoglobin A1c (<=6.0) % Calcium (8.4-10.2) mg/dL Phosphorus (2.5-4.5) mg/dL Triglycerides 197.00 H (0.00-149.00) mg/dL HDL Cholesterol 25.80 L (40.00-60.00) mg/dL Cortisol 30.1 H (3.1-22.4) UG/DL Urine Appearance (Clear) Urine Protein (Negative) Urine Glucose (UA) (Negative) Urine Ketones (Negative) Urine Blood (Negative) Ur Leukocyte Esterase (Negative) Urine RBC (0-5) /hpf Urine WBC (0-5) /hpf Urine WBC Clumps (None) /hpf Urine Mucus (None) /hpf Crossmatch Assessment and Plan Assessment: Submassive pulmonary embolism status post percutaneous pulmonary thrombectomy Status post IVC filter placement Parenchymal hemorrhage Inability to tolerate anticoagulation Cancer on chemotherapy Plan: Right groin suture removed. Monitor site for bleeding. No further indication for any vascular surgical intervention. Continue rest of medical management per primary medical team and multiple consultants. Thank you for this consultation, we will sign off at this time. The impression and plan of care has been dictated as directed. Dr. Rodríguez I performed a history and examination of this patient, discussed the same with the dictator. I agree with the dictator's note ,documented as a scribe. Any additional findings or plans will be noted.
[2024-07-09] MEDS: ACETAMINOPHEN TAB 325 MG TAB PO PRN (14:11)
[2024-07-09 16:19] LABS: Glucose,Whole Blood 358 mg/dL (70-110)
--- NOTE | 2024-07-09 17:26 | CDI ---
Documentation Clarification Form Date: 07/09/2024 05:01:26 PM From: Carla Pan RN CCDS Phone: [phone] Admit Date: 07/08/2024 05:34:00 AM Patient Name: Alannah Galloway Visit Number: [id number] Discharge Date: ATTENTION: The Clinical Documentation Specialists (CDI) and [facility] Coding Staff appreciate your assistance in clarifying documentation. Please respond to the clarification below the line at the bottom and electronically sign. The CDI & [facility] Coding staff will review the response and follow-up if needed. Please note: Queries are made part of the Legal Health Record. If you have any questions, please contact the author of this message via ITS. Doctor: Afsaneh Zhou Bilateral saddle PE, with CT evidence of right sided heart strain, sub massive. is documented 07/18, Pulmonary consult. Additional clarification regarding the Right sided Heart strain is requested. History/Risk Factors: 69 year old female presents as a transfer from [facility] after being found to have saddle PE with CT evidence of right sided heart strain. 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 Bowel resection with colostomy. Chemotherapy last treatment 06/29; DVT, DM, HTN and MT 07/08, Pulmonary Consult. Clinical Indicators: BNP, 07/08: 8250 Echo results, 07/08: Dilated RV, Moderate pulmonary hypertension Radiology results: CT [facility] 07/08, Pulmonary consult: Transferred from [facility] after being found to have saddle PE with CT evidence of right sided heart strain. CXR, 07/08: No acute pulmonary process. Heart size normal. The pulmonary Vasculature is normal. The lungs are clear. Treatment: Primary percutaneous transluminal mechanical thrombectomy of the main pulmonary artery Percutaneous transluminal mechanical thrombectomy of the left pulmonary artery, left interlobar artery Percutaneous transluminal mechanical thrombectomy of the inferior vena cava. Please clarify the acuity and etiology of Cor pulmonale, if known: [ x] Acute Cor pulmonale due to pulmonary embolism [ ] Acute Cor pulmonale due to (please specify) [ ] Acute Cor pulmonale ruled out [ ] Unable to determine [ ] Other, please specify Template Last Revised: May 2020) MTDD
[2024-07-09] MEDS: INSULIN GLARGINE (LANTUS) 100 UNIT/ML SYR SQ ONE (17:47)
--- NOTE | 2024-07-09 18:44 | P.PN ---
Subjective Progress Note Date: 07/09/24 Principal diagnosis: ovarian carcinoma In f/u pt is difficult to arouse, daughter at bedside states patient is doing well this morning, she was alert, having a conversation with her, nursing reports patient ate about 75% of her breakfast. Since that time, she has been very drowsy and mostly sleeping. Objective - Vital Signs Vital signs: Vital Signs Temp 97.9 F 07/09/24 12:00 Pulse 82 07/09/24 15:33 Resp 15 07/09/24 15:30 BP 96/57 07/09/24 15:30 Pulse Ox 98 07/09/24 15:30 FiO2 Intake & Output 07/08/24 07/09/24 07/09/24 18:59 06:59 18:59 Intake Total 2419.432 1041 1679 Output Total 265 690 345 Balance 2154.567 118 5745 Weight 114.475 kg 117.7 kg 117.7 kg Intake: IV 2090 501 200 0.9 40 ACETAMINOPHEN IV (For NPO 100 ) 1,000 mg In Empty Bag 1 bag @ 400 mls/hr IVPB ONCE ONE Rx#:[id number] D5-0.45% NaCl with KCl 150 500 150 20Meq/l 1,000 ml @ 50 mls /hr IV .Q20H [facility] Rx#: [id number] Sodium Chloride 0.9% 1, 1600 000 ml @ 200 mls/hr IV . Q5H [facility] Rx#:[id number] cefTRIAXone 1 gm In 50 50 Sodium Chloride 0.9% 50 ml @ 100 mls/hr IVPB Q24HR [facility] Rx#:[id number] Intake, IV Titration 329.432 Amount Heparin Sod,Pork in 0.45% 257.555 NaCl 25,000 unit In 0.45 % NaCl 1 250ml.bag @ 18 UNITS/KG/HR 20.605 mls/hr IV .Q12H8M [facility] Rx#: [id number] Insulin Regular 100 unit 71.877 In Sodium Chloride 0.9% 100 ml @ 0.1 UNITS/KG/HR 11.562 mls/hr IV .Q8H45M [facility] Rx#:[id number] Oral 540 1200 Blood Product 0 279 Rc Pheresis As-3 Unit 0 279 [id number] Output: Urine 265 590 345 Stool 100 Other: Voiding Method Indwelling Catheter Indwelling Catheter Indwelling Catheter - Constitutional General appearance: Present: no acute distress, obese - Respiratory Respiratory: bilateral: CTA - Cardiovascular Rhythm: regular Heart sounds: normal: S1, S2 - Peripheral edema leg Peripheral Edema: bilateral: Trace - Gastrointestinal General gastrointestinal: Present: tenderness (RLQ) - Musculoskeletal Musculoskeletal: Present: generalized weakness - Psychiatric Psychiatric: Absent: A&O x's 3, appropriate affect, intact judgment & insight - Labs CBC & Chem 7: 07/09/24 10:46 07/09/24 04:11 Labs: Abnormal Lab Results - Last 24 Hours (Table) 07/08/24 07/08/24 07/08/24 Range/Units 11:57 16:08 16:18 WBC (4.50-10.00) 10*3/uL RBC (4.10-5.20) 10*6/uL Hgb (12.0-15.0) g/dL Hct (37.2-46.3) % Plt Count (140-440) 10*3/uL Immature Gran # (0.00-0.04) 10*3/uL Neutrophils # (Manual) (1.3-7.7) k/uL Lymphocytes # (Manual) 0.43 L (1.0-4.8) k/uL Metamyelocytes # (Man) (0) k/uL Myelocytes # (Manual) (0) k/uL APTT 54.4 H (22.0-30.0) sec Sodium (137-145) mmol/L Carbon Dioxide (22-30) mmol/L BUN (7-17) mg/dL Creatinine (0.52-1.04) mg/dL Glucose (74-99) mg/dL POC Glucose (mg/dL) 248 H (70-110) mg/dL Calcium (8.4-10.2) mg/dL Triglycerides (0.00-149.00) mg/dL HDL Cholesterol (40.00-60.00) mg/dL Cortisol (3.1-22.4) UG/DL Crossmatch 07/08/24 07/08/24 07/08/24 Range/Units 16:18 17:09 18:10 WBC (4.50-10.00) 10*3/uL RBC (4.10-5.20) 10*6/uL Hgb (12.0-15.0) g/dL Hct (37.2-46.3) % Plt Count (140-440) 10*3/uL Immature Gran # (0.00-0.04) 10*3/uL Neutrophils # (Manual) (1.3-7.7) k/uL Lymphocytes # (Manual) (1.0-4.8) k/uL Metamyelocytes # (Man) (0) k/uL Myelocytes # (Manual) (0) k/uL APTT (22.0-30.0) sec Sodium 133 L (137-145) mmol/L Carbon Dioxide 21 L (22-30) mmol/L BUN 29 H (7-17) mg/dL Creatinine 1.23 H (0.52-1.04) mg/dL Glucose 253 H (74-99) mg/dL POC Glucose (mg/dL) 206 H 238 H (70-110) mg/dL Calcium (8.4-10.2) mg/dL Triglycerides (0.00-149.00) mg/dL HDL Cholesterol (40.00-60.00) mg/dL Cortisol (3.1-22.4) UG/DL Crossmatch 07/08/24 07/08/24 07/08/24 Range/Units 19:03 20:13 21:25 WBC (4.50-10.00) 10*3/uL RBC (4.10-5.20) 10*6/uL Hgb (12.0-15.0) g/dL Hct (37.2-46.3) % Plt Count (140-440) 10*3/uL Immature Gran # (0.00-0.04) 10*3/uL Neutrophils # (Manual) (1.3-7.7) k/uL Lymphocytes # (Manual) (1.0-4.8) k/uL Metamyelocytes # (Man) (0) k/uL Myelocytes # (Manual) (0) k/uL APTT (22.0-30.0) sec Sodium 133 L (137-145) mmol/L Carbon Dioxide 20 L (22-30) mmol/L BUN 32 H (7-17) mg/dL Creatinine 1.27 H (0.52-1.04) mg/dL Glucose 106 H (74-99) mg/dL POC Glucose (mg/dL) 162 H 161 H (70-110) mg/dL Calcium 7.5 L (8.4-10.2) mg/dL Triglycerides (0.00-149.00) mg/dL HDL Cholesterol (40.00-60.00) mg/dL Cortisol (3.1-22.4) UG/DL Crossmatch 07/08/24 07/09/24 07/09/24 Range/Units 23:51 00:09 01:28 WBC 1.74 L (4.50-10.00) 10*3/uL RBC 2.86 L (4.10-5.20) 10*6/uL Hgb 8.5 L D (12.0-15.0) g/dL Hct 25.4 L (37.2-46.3) % Plt Count 106 L (140-440) 10*3/uL Immature Gran # (0.00-0.04) 10*3/uL Neutrophils # (Manual) (1.3-7.7) k/uL Lymphocytes # (Manual) (1.0-4.8) k/uL Metamyelocytes # (Man) (0) k/uL Myelocytes # (Manual) (0) k/uL APTT (22.0-30.0) sec Sodium (137-145) mmol/L Carbon Dioxide (22-30) mmol/L BUN (7-17) mg/dL Creatinine (0.52-1.04) mg/dL Glucose (74-99) mg/dL POC Glucose (mg/dL) 194 H (70-110) mg/dL Calcium (8.4-10.2) mg/dL Triglycerides (0.00-149.00) mg/dL HDL Cholesterol (40.00-60.00) mg/dL Cortisol (3.1-22.4) UG/DL Crossmatch See Detail 07/09/24 07/09/24 07/09/24 Range/Units 04:11 04:11 04:11 WBC (4.50-10.00) 10*3/uL RBC (4.10-5.20) 10*6/uL Hgb (12.0-15.0) g/dL Hct (37.2-46.3) % Plt Count (140-440) 10*3/uL Immature Gran # (0.00-0.04) 10*3/uL Neutrophils # (Manual) (1.3-7.7) k/uL Lymphocytes # (Manual) (1.0-4.8) k/uL Metamyelocytes # (Man) (0) k/uL Myelocytes # (Manual) (0) k/uL APTT (22.0-30.0) sec Sodium 131 L (137-145) mmol/L Carbon Dioxide 16 L (22-30) mmol/L BUN 34 H (7-17) mg/dL Creatinine 1.17 H (0.52-1.04) mg/dL Glucose 168 H (74-99) mg/dL POC Glucose (mg/dL) (70-110) mg/dL Calcium 7.7 L (8.4-10.2) mg/dL Triglycerides 197.00 H (0.00-149.00) mg/dL HDL Cholesterol 25.80 L (40.00-60.00) mg/dL Cortisol 30.1 H (3.1-22.4) UG/DL Crossmatch 07/09/24 07/09/24 07/09/24 Range/Units 06:23 10:46 12:09 WBC 1.79 L (4.50-10.00) 10*3/uL RBC 3.27 L (4.10-5.20) 10*6/uL Hgb 9.6 L (12.0-15.0) g/dL Hct 29.0 L (37.2-46.3) % Plt Count 89 L (140-440) 10*3/uL Immature Gran # 0.09 H (0.00-0.04) 10*3/uL Neutrophils # (Manual) 0.98 L (1.3-7.7) k/uL Lymphocytes # (Manual) 0.50 L (1.0-4.8) k/uL Metamyelocytes # (Man) 0.07 H (0) k/uL Myelocytes # (Manual) 0.02 H (0) k/uL APTT (22.0-30.0) sec Sodium (137-145) mmol/L Carbon Dioxide (22-30) mmol/L BUN (7-17) mg/dL Creatinine (0.52-1.04) mg/dL Glucose (74-99) mg/dL POC Glucose (mg/dL) 219 H 314 H (70-110) mg/dL Calcium (8.4-10.2) mg/dL Triglycerides (0.00-149.00) mg/dL HDL Cholesterol (40.00-60.00) mg/dL Cortisol (3.1-22.4) UG/DL Crossmatch Assessment and Plan (1) Pulmonary embolism Current Visit: Yes Status: Acute Priority: High Code(s): I26.99 - OTHER PULMONARY EMBOLISM WITHOUT ACUTE COR PULMONALE SNOMED Code(s): 01810004 (2) Ovarian papillary adenocarcinoma Current Visit: Yes Status: Acute Priority: High Code(s): C56.9 - MALIGNANT NEOPLASM OF UNSPECIFIED OVARY SNOMED Code(s): 744046611 (3) Antineoplastic chemotherapy induced pancytopenia Current Visit: Yes Status: Acute Code(s): D61.810 - ANTINEOPLASTIC CHEMOTHERAPY INDUCED PANCYTOPENIA; T45.1X5A - ADVERSE EFFECT OF ANTINEOPLASTIC AND IMMUNOSUP DRUGS, INIT SNOMED Code(s): 661090834098991 Plan: Pulmonary embolism, right lower extremity DVT -Presentation, workup and treatment plans described in consult. -Provoked, malignancy, treatment of malignancy, dehydration from vomiting for several days, decreased activity -Patient has had thrombectomy and placement of an IVC filter by [facility]. - Anticoagulation not given because of suspected renal hemorrhage on CT. F/U US is not reporting renal hemorrhage. Recommend CT without contrast to confirm or refute renal hemorrhage. If pt is not bleeding, she may be able to placed on anticoagulation. Hgb lability is multifactotrial including chemo effects, recent procedures, dilution after dehydration. Cont to monitor Hgb for progressive downward trend or precipitous drop over the next few days. Ovarian carcinoma - Diagnosis and treatment as needed in consult - Currently patient is receiving neoadjuvant chemotherapy, plans to be reassessed by surgeon in the future to see if she is a possible candidate for resection of recurrent disease Chemo induced pancytopenia -ANC 980, no fevers, tender abd. G-CSF ordered. -Hemoglobin 9.6. Pt was dehydrated on admit and she is near her chemo manpreet. There are suspicions for renal hemorrhage. -Plt 89,000 today. No acute intervention. -There have been 4 CBCs in 2 days with some large variations in numbers. Have ordered CBC daily for now, unless concerns otherwise, no need to draw CBC multiple times a day. Diff has been ordered daily to monitor ANC and need for GCSF. Tender RLQ -may be related to low ANC -diet reduced to clear liquids only
[2024-07-09 20:33] LABS: Glucose,Whole Blood 372 mg/dL (70-110)
[2024-07-09] MEDS: FILGRASTIM-SNDZ 480 MCG/0.8 ML SYRINGE SQ SCH (20:40)
[2024-07-09] MEDS: INSULIN GLARGINE (LANTUS) 100 UNIT/ML SYR SQ SCH (20:42)
[2024-07-10 03:34] LABS: HCT 25.9 % (37.2-46.3); HGB 8.6 g/dL (12.0-15.0); MCH 29.4 pg (27.0-32.0); MCHC 33.2 g/dL (32.0-37.0); MCV 88.4 fL (80.0-97.0); Mean Platelet Volume 10.4 fL (9.5-12.2); RBC 2.93 10*6/uL (4.10-5.20); RDW 17.4 % (11.5-14.5)
[2024-07-10 03:52] LABS: African American GFR (CKD) >90 (>60 ml/min/1.73 sqM); Anion Gap 8 mmol/L; Blood Urea Nitrogen 23 mg/dL (7-17); Calcium 7.6 mg/dL (8.4-10.2); Carbon Dioxide 20 mmol/L (22-30); Chloride 104 mmol/L (98-107); Glucose 142 mg/dL (74-99); Non-African American GFR(CKD) 89 (>60 ml/min/1.73 sqM); Potassium 3.6 mmol/L (3.5-5.1); Sodium 132 mmol/L (137-145)
--- NOTE | 2024-07-10 07:28 | P.PN ---
Subjective Progress Note Date: 07/10/24 PROGRESS NOTE The patient is a 69-year-old female who was transferred from [place] with evidence of saddle pulmonary embolism, change in mental status and febrile episode. She has a history of omental malignancy, has been receiving chemotherapy by Dr. Palacios at [place]. She has a history of diabetes and hypertension. She is awake but not able to answer many questions. She had a change in mental status worsening than her baseline. According to the notes she has been feeling progressively fatigued vomiting and not eating. Her D-dimer in [place] was elevated and subsequently her CT scan showed saddle pulmonary embolism. She had mild elevation of the troponin and NT proBNP. She denies any chest discomfort at the time of my evaluation. She is on 2 L oxygen, her blood pressure is stable and she is sinus tachycardia. She had no evidence of arrhythmia. Her echocardiogram in 2022 showed a preserved systolic function. She denies any history of PND, orthopnea or syncope although the history is quite limited from her. July 09: The patient is more awake and alert today. Yesterday she underwent an abdominal CT scan and was found to have right renal parenchymal bleed. She was also found to have evidence of right DVT. Because of her bleed and her presentation with submassive pulmonary embolism she underwent thrombectomy and subsequently placement of a inferior vena cava filter. She continues to be in sinus mechanism, her blood pressure is on the low side. She has no evidence of malignant arrhythmia. Her oxygenation is stable. She is receiving 1 unit of blood. Her echocardiogram revealed a normal low ventricular systolic function with moderate pulmonary hypertension and dilated RV. July 10: The patient feels better overall, she has respirophasic left-sided chest dis comfort but otherwise feels that her breathing is better. She continues to be on oxygen supplementation. She is in sinus mechanism with no evidence of malignant arrhythmia. She denies any dizziness or palpitations. She has no nausea. She was seen by Dr. Jordan who felt that there is no acute urological issue at this point. Her urinary output has been stable. Medications: Atenolol 25 mg twice a day, Pepcid, aspirin 81 mg daily, losartan 50-12-1/2 mg daily, Zofran, insulin PHYSICAL EXAMINATION: Blood pressure 113/58, heart rate 89 LUNGS: Clear to auscultation HEART: Regular rate and rhythm, S1, S2. No S3. Systolic ejection murmur, chest wall tenderness ABDOMEN: Soft, nontender, no organomegaly EXTREMETIES: No edema LAB: Hemoglobin 8.6, BUN 23, creatinine 0.70, potassium 3.6 IMPRESSION: 1. Submassive pulmonary embolism status post thrombectomy and IVC filter placement because of parenchymal renal bleed 2. Anemia, receiving transfusion, stable 3. History of omental malignancy, receiving chemotherapy 4. History of diabetes 5. Pulmonary hypertension most likely related to her pulmonary embolism 6. Change in mental status, improving 7. Acute renal injury, resolved PLAN: 1. Continue present therapy 2. Referral hemoglobin is stable consider initiating anticoagulation 3. Follow blood pressure and depending on trend reinitiate losartan. Objective - Vital Signs Vital signs: Vital Signs Temp 98.5 F 07/10/24 04:00 Pulse 89 07/10/24 07:00 Resp 16 07/10/24 07:00 BP 113/58 07/10/24 07:00 Pulse Ox 95 07/10/24 07:00 FiO2 Intake & Output 07/09/24 07/10/24 07/10/24 18:59 06:59 18:59 Intake Total 1679 Output Total 810 1085 65 Balance 869 -1085 -65 Weight 117.7 kg Intake: IV 200 D5-0.45% NaCl with KCl 150 20Meq/l 1,000 ml @ 50 mls /hr IV .Q20H [facility] Rx#: [id number] cefTRIAXone 1 gm In 50 Sodium Chloride 0.9% 50 ml @ 100 mls/hr IVPB Q24HR [facility] Rx#:[id number] Oral 1200 Blood Product 279 Rc Pheresis As-3 Unit 279 [id number] Output: Urine 510 585 65 Stool 300 500 Other: Voiding Method Indwelling Catheter Indwelling Catheter - Labs CBC & Chem 7: 07/10/24 03:09 07/10/24 03:09 Labs: Abnormal Lab Results - Last 24 Hours (Table) 07/09/24 07/09/24 07/09/24 Range/Units 01:28 04:11 04:11 WBC (4.50-10.00) 10*3/uL RBC (4.10-5.20) 10*6/uL Hgb (12.0-15.0) g/dL Hct (37.2-46.3) % Plt Count (140-440) 10*3/uL Immature Gran # (0.00-0.04) 10*3/uL Neutrophils # (Manual) (1.3-7.7) k/uL Lymphocytes # (Manual) (1.0-4.8) k/uL Metamyelocytes # (Man) (0) k/uL Myelocytes # (Manual) (0) k/uL Sodium (137-145) mmol/L Carbon Dioxide (22-30) mmol/L BUN (7-17) mg/dL Glucose (74-99) mg/dL POC Glucose (mg/dL) (70-110) mg/dL Calcium (8.4-10.2) mg/dL Triglycerides 197.00 H (0.00-149.00) mg/dL HDL Cholesterol 25.80 L (40.00-60.00) mg/dL Cortisol 30.1 H (3.1-22.4) UG/DL Crossmatch See Detail 07/09/24 07/09/24 07/09/24 Range/Units 10:46 12:09 16:17 WBC 1.79 L (4.50-10.00) 10*3/uL RBC 3.27 L (4.10-5.20) 10*6/uL Hgb 9.6 L (12.0-15.0) g/dL Hct 29.0 L (37.2-46.3) % Plt Count 89 L (140-440) 10*3/uL Immature Gran # 0.09 H (0.00-0.04) 10*3/uL Neutrophils # (Manual) 0.98 L (1.3-7.7) k/uL Lymphocytes # (Manual) 0.50 L (1.0-4.8) k/uL Metamyelocytes # (Man) 0.07 H (0) k/uL Myelocytes # (Manual) 0.02 H (0) k/uL Sodium (137-145) mmol/L Carbon Dioxide (22-30) mmol/L BUN (7-17) mg/dL Glucose (74-99) mg/dL POC Glucose (mg/dL) 314 H 358 H (70-110) mg/dL Calcium (8.4-10.2) mg/dL Triglycerides (0.00-149.00) mg/dL HDL Cholesterol (40.00-60.00) mg/dL Cortisol (3.1-22.4) UG/DL Crossmatch 07/09/24 07/10/24 07/10/24 Range/Units 20:31 03:09 03:09 WBC 2.20 L (4.50-10.00) 10*3/uL RBC 2.93 L (4.10-5.20) 10*6/uL Hgb 8.6 L (12.0-15.0) g/dL Hct 25.9 L (37.2-46.3) % Plt Count 82 L (140-440) 10*3/uL Immature Gran # (0.00-0.04) 10*3/uL Neutrophils # (Manual) (1.3-7.7) k/uL Lymphocytes # (Manual) (1.0-4.8) k/uL Metamyelocytes # (Man) (0) k/uL Myelocytes # (Manual) (0) k/uL Sodium 132 L (137-145) mmol/L Carbon Dioxide 20 L (22-30) mmol/L BUN 23 H (7-17) mg/dL Glucose 142 H (74-99) mg/dL POC Glucose (mg/dL) 372 H (70-110) mg/dL Calcium 7.6 L (8.4-10.2) mg/dL Triglycerides (0.00-149.00) mg/dL HDL Cholesterol (40.00-60.00) mg/dL Cortisol (3.1-22.4) UG/DL Crossmatch Microbiology - Last 24 Hours (Table) 07/08/24 07:20 Urine Culture - Preliminary Urine,Voided Gram Neg Bacilli 07/08/24 08:39 Blood Culture - Preliminary Blood
[2024-07-10] MEDS: FAMOTIDINE 20 MG/2 ML VIAL IV SCH (07:52)
[2024-07-10] MEDS: POTASSIUM CHLORIDE ER 20 MEQ TAB.ER PO SCH (07:55)
[2024-07-10 07:56] LABS: Glucose,Whole Blood 142 mg/dL (70-110)
[2024-07-10 08:15] LABS: Band Neutrophils % 3 %; Eosinophils # (M) 0.04 k/uL (0-0.7); Lymphocytes # (M) 0.73 k/uL (1.0-4.8); Monocytes # (M) 0.18 k/uL (0-1.0); Myelocytes # (M) 0.02 k/uL (0); Myelocytes % 1 %; Neutrophils # (M) 1.23 k/uL (1.3-7.7); Neutrophils % (M) 53 %; Nucleated Red Blood Cells 0 /100 WBC (0-0); Total Cells Counted 100
[2024-07-10 08:16] LABS: Platelet Count 82 10*3/uL (140-440)
--- NOTE | 2024-07-10 09:32 | P.PN ---
Subjective Progress Note Date: 07/10/24 Principal diagnosis: Submassive pulmonary embolism, unable to be anticoagulated Patient seen and examined today as a follow-up. She states her breathing seems to be better, has a little discomfort in the left side of her chest with deep breaths. No bleeding from the right groin access site. Dr. Jordan with urology feels that there is no acute urological issue as hemoglobin is stable, no gross he hematuria and CT scan was done without contrast. Hemoglobin stable 8.6 Objective - Vital Signs Vital signs: Vital Signs Temp 98.5 F 07/10/24 04:00 Pulse 88 07/10/24 07:55 Resp 16 07/10/24 07:00 BP 113/58 07/10/24 07:00 Pulse Ox 94 L 07/10/24 07:45 FiO2 Intake & Output 07/09/24 07/10/24 07/10/24 18:59 06:59 18:59 Intake Total 1679 Output Total 810 1085 65 Balance 869 -1085 -65 Weight 117.7 kg Intake: IV 200 D5-0.45% NaCl with KCl 150 20Meq/l 1,000 ml @ 50 mls /hr IV .Q20H [facility] Rx#: [id number] cefTRIAXone 1 gm In 50 Sodium Chloride 0.9% 50 ml @ 100 mls/hr IVPB Q24HR [facility] Rx#:[id number] Oral 1200 Blood Product 279 Rc Pheresis As-3 Unit 279 [id number] Output: Urine 510 585 65 Stool 300 500 Other: Voiding Method Indwelling Catheter Indwelling Catheter - Exam General appearance: The patient is alert, oriented, appears in no acute distress. HET: Head is normocephalic and atraumatic. Pupils are equal and reactive. Neck: Supple. Heart: Regular. Lungs: Equal expansion, normal respiratory effort. Abdomen: Soft, morbidly obese, nontender, nondistended. Extremities: Normal skin color and turgor. Lower extremity swelling. Right groin with dressing clean dry and intact. No bleeding from access site. No hematoma noted. Palpable bilateral DP pulses. Neurological: No focal deficits. S - Labs CBC & Chem 7: 07/10/24 03:09 07/10/24 03:09 Labs: Abnormal Lab Results - Last 24 Hours (Table) 07/09/24 07/09/24 07/09/24 Range/Units 04:11 04:11 10:46 WBC 1.79 L (4.50-10.00) 10*3/uL RBC 3.27 L (4.10-5.20) 10*6/uL Hgb 9.6 L (12.0-15.0) g/dL Hct 29.0 L (37.2-46.3) % Plt Count 89 L (140-440) 10*3/uL Immature Gran # 0.09 H (0.00-0.04) 10*3/uL Neutrophils # (Manual) 0.98 L (1.3-7.7) k/uL Lymphocytes # (Manual) 0.50 L (1.0-4.8) k/uL Metamyelocytes # (Man) 0.07 H (0) k/uL Myelocytes # (Manual) 0.02 H (0) k/uL Sodium (137-145) mmol/L Carbon Dioxide (22-30) mmol/L BUN (7-17) mg/dL Glucose (74-99) mg/dL POC Glucose (mg/dL) (70-110) mg/dL Calcium (8.4-10.2) mg/dL Triglycerides 197.00 H (0.00-149.00) mg/dL HDL Cholesterol 25.80 L (40.00-60.00) mg/dL Cortisol 30.1 H (3.1-22.4) UG/DL 07/09/24 07/09/24 07/09/24 Range/Units 12:09 16:17 20:31 WBC (4.50-10.00) 10*3/uL RBC (4.10-5.20) 10*6/uL Hgb (12.0-15.0) g/dL Hct (37.2-46.3) % Plt Count (140-440) 10*3/uL Immature Gran # (0.00-0.04) 10*3/uL Neutrophils # (Manual) (1.3-7.7) k/uL Lymphocytes # (Manual) (1.0-4.8) k/uL Metamyelocytes # (Man) (0) k/uL Myelocytes # (Manual) (0) k/uL Sodium (137-145) mmol/L Carbon Dioxide (22-30) mmol/L BUN (7-17) mg/dL Glucose (74-99) mg/dL POC Glucose (mg/dL) 314 H 358 H 372 H (70-110) mg/dL Calcium (8.4-10.2) mg/dL Triglycerides (0.00-149.00) mg/dL HDL Cholesterol (40.00-60.00) mg/dL Cortisol (3.1-22.4) UG/DL 07/10/24 07/10/24 07/10/24 Range/Units 03:09 03:09 07:55 WBC 2.20 L (4.50-10.00) 10*3/uL RBC 2.93 L (4.10-5.20) 10*6/uL Hgb 8.6 L (12.0-15.0) g/dL Hct 25.9 L (37.2-46.3) % Plt Count 82 L (140-440) 10*3/uL Immature Gran # (0.00-0.04) 10*3/uL Neutrophils # (Manual) (1.3-7.7) k/uL Lymphocytes # (Manual) (1.0-4.8) k/uL Metamyelocytes # (Man) (0) k/uL Myelocytes # (Manual) (0) k/uL Sodium 132 L (137-145) mmol/L Carbon Dioxide 20 L (22-30) mmol/L BUN 23 H (7-17) mg/dL Glucose 142 H (74-99) mg/dL POC Glucose (mg/dL) 142 H (70-110) mg/dL Calcium 7.6 L (8.4-10.2) mg/dL Triglycerides (0.00-149.00) mg/dL HDL Cholesterol (40.00-60.00) mg/dL Cortisol (3.1-22.4) UG/DL Microbiology - Last 24 Hours (Table) 07/08/24 07:20 Urine Culture - Preliminary Urine,Voided Gram Neg Bacilli 07/08/24 08:39 Blood Culture - Preliminary Blood Assessment and Plan Assessment: Submassive pulmonary embolism status post percutaneous pulmonary thrombectomy Status post IVC filter placement Possible parenchymal hemorrhage on a noncontrast CAT scan Inability to tolerate anticoagulation Cancer on chemotherapy Plan: Incentive spirometer to bedside No further indication for any vascular surgical intervention Cardiology recommending consideration of initiating anticoagulation. Will defer that to oncology/hematology. Continue rest of medical management per primary medical team and multiple consultants. Thank you for this consultation, we will sign off at this time. The impression and plan of care has been dictated as directed. Dr. Rodríguez I performed a history and examination of this patient, discussed the same with the dictator. I agree with the dictator's note ,documented as a scribe. Any additional findings or plans will be noted.
[2024-07-10 11:37] LABS: Glucose,Whole Blood 272 mg/dL (70-110)
--- NOTE | 2024-07-10 12:04 | P.PN ---
Subjective Progress Note Date: 07/10/24 Principal diagnosis: Acute submassive pulmonary embolism Patient is 69-year-old female transferred from [facility] after being found to have saddle PE with CT evidence of right-sided heart strain. Previously started on IV heparin per protocol. Patient is currently confused and is a poor historian, her daughter is at bedside and supplements information. 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 Previously underwent bowel resection and has colostomy. Currently undergoing chemotherapy, and her last treatment on June 29rs. Reportedly follows with Dr. Isidro. Increased generalized weakness and fatigue at home. Also, noted to be short of breath. D-dimer was elevated outside facility. CT angio of the chest noted to have large saddle PE with CT evidence of right-sided heart strain. She is currently being evaluated emergency department. She is alert but does not answer questions appropriately. She has been increasingly confused over the last 24 hours per the daughter. Currently resting comfortably on 2 L/min nasal cannula. SpO2 reading 97%. She is febrile with a temperature max of 101.3 F. She is tachycardic with heart rate of 133 bpm. Blood pressure is actually hypertensive at the moment. Has not required any fluid boluses or pressors. According to the daughter, she has no prior history of DVT or PE. Not on any anticoagulants. Repeat labs at our facility showing a WBC count of 1.7, hemoglobin 11, hematocrit 31.8, platelets 118. CMP: Sodium 134, potassium 4.4, chloride 101, serum bicarb 14, BUN 20, creatinine 0.74, glucose 409. Lactic 1.1. Troponins 0.14, and 0.14 respectively. NT proBNP was elevated 8250. Currently continued on IV heparin per protocol. Follow-up echocardiogram is ordered. Cardiovascular surgery is on for possible intervention. Patient was seen today on 07/09/2024, remains in the ICU, yesterday the patient developed some retroperitoneal bleed and urology was consulted and we discontinued her heparin recommended vascular surgery evaluation who performed primary percutaneous transluminal mechanical thrombectomy of the left and main pulmonary artery as well as left interlobar artery patient also underwent mechanical thrombectomy of the inferior vena cava and IVC filter placement because of apathy cannot indication to anticoagulation therapy. Patient remains in the ICU today, on 3 L nasal cannula not in any distress, being followed by many consultants including cardiology, urology, and vascular surgery. Does not seem to be in any form of distress. Labs were reviewed WBC count is 1.74 hemoglobin 8.5 electrolytes showed low sodium low bicarb of 16 BUN of 34 creat 1.17. Patient was seen today on 07/10/2024, remains in the ICU, patient is on 2 L nasal cannula, she is receiving clear liquids, does not seem to be in any distress, seen by many consultants including vascular surgery, urology, cardiology, oncology, and I am planning to transfer the patient out of the ICU to a monitored bed and selective. Briefly discussed CODE STATUS with the patient today, undecided yet on CODE STATUS. She would like to discuss this with her family. WBC count is 2.2 hemoglobin is 8.6 electrolytes are normal renal profile is normal, reviewed the note from urology, recommended basically a CT of the chest with contrast and this is referring to the small bleed in the kidney, also a questionable mass in the ureter. No hydronephrosis, no gross hematuria, he recommended eventual cystoscopy and retrograde CT with urogram to assess these issues. Objective - Vital Signs Vital signs: Vital Signs Temp 98.5 F 07/10/24 08:00 Pulse 96 07/10/24 10:00 Resp 15 07/10/24 10:00 BP 86/55 07/10/24 10:00 Pulse Ox 93 L 07/10/24 10:00 FiO2 Intake & Output 07/09/24 07/10/24 07/10/24 18:59 06:59 18:59 Intake Total 1679 Output Total 810 1085 190 Balance 869 -1085 -190 Weight 117.7 kg Intake: IV 200 D5-0.45% NaCl with KCl 150 20Meq/l 1,000 ml @ 50 mls /hr IV .Q20H [facility] Rx#: [id number] cefTRIAXone 1 gm In 50 Sodium Chloride 0.9% 50 ml @ 100 mls/hr IVPB Q24HR [facility] Rx#:[id number] Oral 1200 Blood Product 279 Rc Pheresis As-3 Unit 279 [id number] Output: Urine 510 585 190 Stool 300 500 Other: Voiding Method Indwelling Catheter Indwelling Catheter Indwelling Catheter - Exam GENERAL EXAM: Reveals 69-year-old female in no distress, awake, not confused today. HEAD: Normocephalic and atraumatic EYES: Normal reaction of pupils, equal size. NOSE: Clear with pink turbinates. THROAT: No erythema or exudates. NECK: No masses, no JVD. CHEST: No chest wall deformity. LUNGS: Equal air entry with no crackles, wheeze, rhonchi or dullness. CVS: S1 and S2 normal with no audible murmur, regular rhythm. No extra heart sounds. Tachycardic ABDOMEN: No hepatosplenomegaly, active bowel sounds, no guarding or rigidity. Colostomy with pink and viable stoma. SKIN: No rashes CENTRAL NERVOUS SYSTEM: No focal deficits, tone is normal in all 4 extremities. EXTREMITIES: There is no peripheral edema, clubbing, or cyanosis. Peripheral pulses are intact. - Labs CBC & Chem 7: 07/10/24 03:09 07/10/24 03:09 Labs: Abnormal Lab Results - Last 24 Hours (Table) 07/09/24 07/09/24 07/09/24 Range/Units 10:46 12:09 16:17 WBC 1.79 L (4.50-10.00) 10*3/uL RBC 3.27 L (4.10-5.20) 10*6/uL Hgb 9.6 L (12.0-15.0) g/dL Hct 29.0 L (37.2-46.3) % Plt Count 89 L (140-440) 10*3/uL Immature Gran # 0.09 H (0.00-0.04) 10*3/uL Neutrophils # (Manual) 0.98 L (1.3-7.7) k/uL Lymphocytes # (Manual) 0.50 L (1.0-4.8) k/uL Metamyelocytes # (Man) 0.07 H (0) k/uL Myelocytes # (Manual) 0.02 H (0) k/uL Sodium (137-145) mmol/L Carbon Dioxide (22-30) mmol/L BUN (7-17) mg/dL Glucose (74-99) mg/dL POC Glucose (mg/dL) 314 H 358 H (70-110) mg/dL Calcium (8.4-10.2) mg/dL 07/09/24 07/10/24 07/10/24 Range/Units 20:31 03:09 03:09 WBC 2.20 L (4.50-10.00) 10*3/uL RBC 2.93 L (4.10-5.20) 10*6/uL Hgb 8.6 L (12.0-15.0) g/dL Hct 25.9 L (37.2-46.3) % Plt Count 82 L (140-440) 10*3/uL Immature Gran # (0.00-0.04) 10*3/uL Neutrophils # (Manual) 1.23 L (1.3-7.7) k/uL Lymphocytes # (Manual) 0.73 L (1.0-4.8) k/uL Metamyelocytes # (Man) (0) k/uL Myelocytes # (Manual) 0.02 H (0) k/uL Sodium 132 L (137-145) mmol/L Carbon Dioxide 20 L (22-30) mmol/L BUN 23 H (7-17) mg/dL Glucose 142 H (74-99) mg/dL POC Glucose (mg/dL) 372 H (70-110) mg/dL Calcium 7.6 L (8.4-10.2) mg/dL 07/10/24 07/10/24 Range/Units 07:55 11:36 WBC (4.50-10.00) 10*3/uL RBC (4.10-5.20) 10*6/uL Hgb (12.0-15.0) g/dL Hct (37.2-46.3) % Plt Count (140-440) 10*3/uL Immature Gran # (0.00-0.04) 10*3/uL Neutrophils # (Manual) (1.3-7.7) k/uL Lymphocytes # (Manual) (1.0-4.8) k/uL Metamyelocytes # (Man) (0) k/uL Myelocytes # (Manual) (0) k/uL Sodium (137-145) mmol/L Carbon Dioxide (22-30) mmol/L BUN (7-17) mg/dL Glucose (74-99) mg/dL POC Glucose (mg/dL) 142 H 272 H (70-110) mg/dL Calcium (8.4-10.2) mg/dL Microbiology - Last 24 Hours (Table) 07/08/24 07:20 Urine Culture - Preliminary Urine,Voided Gram Neg Bacilli 07/08/24 08:39 Blood Culture - Preliminary Blood Assessment and Plan Assessment: Impression: Status post Primary percutaneous transluminal mechanical thrombectomy of the main pulmonary artery Percutaneous transluminal mechanical thrombectomy of the left pulmonary artery, left interlobar artery Percutaneous transluminal mechanical thrombectomy of the inferior vena cava, and placement of IVC filter Bilateral saddle PE, with CT evidence of right-sided heart strain, submassive Acute hypoxemic respiratory failure, secondary to above Retroperitoneal bleed, CT of the abdomen showed small right posterior and renal hemorrhage and possibly right distal ureteral mass without hydronephrosis. Hence patient has absolute current indication to anticoagulation therapy. 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 Altered mental status, under investigation, improved, patient has acute metabolic encephalopathy Insulin-dependent diabetes mellitus, with hyperglycemia Hypertension Morbid obesity, with a BMI of 42 kg/m Recommendation: Transfer patient to monitored bed and selective Continue present supportive care measures Continue to hold all anticoagulants unless cleared to go back on anticoagulation therapy by urology or hematology/oncology. Patient is undecided regarding CODE STATUS, would like to discuss this with her family members Will continue to follow prognosis is relatively guarded. Time with Patient: Less than 30
[2024-07-10 16:42] LABS: Glucose,Whole Blood 268 mg/dL (70-110)
[2024-07-10] MEDS ORDERED: FILGRASTIM-SNDZ 480 MCG/0.8 ML SYRINGE SQ SCH (18:00)
[2024-07-10 20:03] LABS: Glucose,Whole Blood 304 mg/dL (70-110)
[2024-07-10] MEDS: LORATADINE 10 MG TAB PO SCH (20:54)
[2024-07-10] MEDS: FLUTICASONE NASAL 50MCG/SPRAY 16GM BTL EA NOSTRIL SCH (20:54)
--- NOTE | 2024-07-10 21:00 | P.PN ---
Subjective Progress Note Date: 07/10/24 Pt seen in ICU at todays visit, c/o fatigue. Breathing unchanged. Feels better when she gets breathing treatments. WBC 2.2, ANC 1.2, hgb 8.6, plt 82 Objective - Vital Signs Vital signs: Vital Signs Temp 98.1 F 07/10/24 16:00 Pulse 105 H 07/10/24 16:30 Resp 23 07/10/24 16:30 BP 132/118 07/10/24 16:30 Pulse Ox 91 L 07/10/24 16:30 FiO2 Intake & Output 07/09/24 07/10/24 07/10/24 18:59 06:59 18:59 Intake Total 1679 240 Output Total 810 1085 1190 Balance 869 -1085 -950 Weight 117.7 kg Intake: IV 200 D5-0.45% NaCl with KCl 150 20Meq/l 1,000 ml @ 50 mls /hr IV .Q20H [facility] Rx#: [id number] cefTRIAXone 1 gm In 50 Sodium Chloride 0.9% 50 ml @ 100 mls/hr IVPB Q24HR [facility] Rx#:[id number] Oral 1200 240 Blood Product 279 Rc Pheresis As-3 Unit 279 [id number] Output: Urine 510 585 690 Stool 300 500 500 Other: Voiding Method Indwelling Catheter Indwelling Catheter Indwelling Catheter - Constitutional General appearance: Present: no acute distress - EENT Eyes: Present: anicteric sclerae, EOMI ENT: Present: hearing grossly normal - Respiratory Details: breathing even and unlabored - Cardiovascular Details: skin warm and dry - Gastrointestinal Gastrointestinal Comment(s): mild RLQ pain, no rebound tenderness noted General gastrointestinal: Present: soft, tenderness - Integumentary Integumentary: Absent: cyanotic, jaundiced - Musculoskeletal Musculoskeletal: Present: generalized weakness - Psychiatric Psychiatric: Present: A&O x's 3 - Labs CBC & Chem 7: 07/10/24 03:09 07/10/24 03:09 Labs: Abnormal Lab Results - Last 24 Hours (Table) 07/09/24 07/10/24 07/10/24 Range/Units 20:31 03:09 03:09 WBC 2.20 L (4.50-10.00) 10*3/uL RBC 2.93 L (4.10-5.20) 10*6/uL Hgb 8.6 L (12.0-15.0) g/dL Hct 25.9 L (37.2-46.3) % Plt Count 82 L (140-440) 10*3/uL Neutrophils # (Manual) 1.23 L (1.3-7.7) k/uL Lymphocytes # (Manual) 0.73 L (1.0-4.8) k/uL Myelocytes # (Manual) 0.02 H (0) k/uL Sodium 132 L (137-145) mmol/L Carbon Dioxide 20 L (22-30) mmol/L BUN 23 H (7-17) mg/dL Glucose 142 H (74-99) mg/dL POC Glucose (mg/dL) 372 H (70-110) mg/dL Calcium 7.6 L (8.4-10.2) mg/dL 07/10/24 07/10/24 07/10/24 Range/Units 07:55 11:36 16:40 WBC (4.50-10.00) 10*3/uL RBC (4.10-5.20) 10*6/uL Hgb (12.0-15.0) g/dL Hct (37.2-46.3) % Plt Count (140-440) 10*3/uL Neutrophils # (Manual) (1.3-7.7) k/uL Lymphocytes # (Manual) (1.0-4.8) k/uL Myelocytes # (Manual) (0) k/uL Sodium (137-145) mmol/L Carbon Dioxide (22-30) mmol/L BUN (7-17) mg/dL Glucose (74-99) mg/dL POC Glucose (mg/dL) 142 H 272 H 268 H (70-110) mg/dL Calcium (8.4-10.2) mg/dL Microbiology - Last 24 Hours (Table) 07/08/24 08:39 Blood Culture - Preliminary Blood 07/08/24 07:20 Urine Culture - Preliminary Urine,Voided Gram Neg Bacilli Assessment and Plan (1) Antineoplastic chemotherapy induced pancytopenia Current Visit: Yes Status: Acute Code(s): D61.810 - ANTINEOPLASTIC CHEMOTHERAPY INDUCED PANCYTOPENIA; T45.1X5A - ADVERSE EFFECT OF ANTINEOPLASTIC AND IMMUNOSUP DRUGS, INIT SNOMED Code(s): 195791069674138 (2) Ovarian papillary adenocarcinoma Current Visit: Yes Status: Acute Priority: High Code(s): C56.9 - MALIGNANT NEOPLASM OF UNSPECIFIED OVARY SNOMED Code(s): 092572197 (3) Pulmonary embolism Current Visit: Yes Status: Acute Priority: High Code(s): I26.99 - OTHER PULMONARY EMBOLISM WITHOUT ACUTE COR PULMONALE SNOMED Code(s): 22327509 Plan: Pulmonary embolism, right lower extremity DVT -Presentation, workup and treatment plans described in consult. -Provoked, malignancy, treatment of malignancy, dehydration from vomiting for several days, decreased activity -Patient has had thrombectomy and placement of an IVC filter by [facility]. - Anticoagulation not given because of suspected renal hemorrhage on CT. F/U US is not reporting renal hemorrhage. Recommend CT without contrast to confirm or refute renal hemorrhage. If pt is not bleeding, she may be able to placed on anticoagulation. Hgb lability is multifactotrial including chemo effects, recent procedures, dilution after dehydration. Cont to monitor Hgb for progressive downward trend or precipitous drop over the next few days. -Renal US reports right kidney appears normal -Once stable will murillo for repeat CT to evaluate reported renal hemorrhage Ovarian carcinoma - Diagnosis and treatment as needed in consult - Currently patient is receiving neoadjuvant chemotherapy, plans to be reassessed by surgeon in the future to see if she is a possible candidate for resection of recurrent disease Chemo induced pancytopenia -ANC 980, no fevers, tender abd. G-CSF ordered. Today WBC 2.2, ANC 1.2 -Hemoglobin 8.6. Pt was dehydrated on admit and she is near her chemo manpreet. There are suspicions for renal hemorrhage. -Plt 82,000 today. No acute intervention. -There have been 4 CBCs in 2 days with some large variations in numbers. Have ordered CBC daily for now, unless concerns otherwise, no need to draw CBC multiple times a day. Diff has been ordered daily to monitor ANC and need for GCSF. Tender RLQ -May be related to low ANC -Diet reduced to clear liquids only -Once ANC recovered and symptoms improved, will slowly advance diet attests: I have performed H&P and developed impression and plan of care for patient, discussed with dictator. I agree with dictated noted, documented as a scribe
[2024-07-11 05:51] LABS: Glucose,Whole Blood 79 mg/dL (70-110)
[2024-07-11 07:49] LABS: HCT 30.5 % (37.2-46.3); HGB 10.2 g/dL (12.0-15.0); MCH 29.3 pg (27.0-32.0); MCHC 33.4 g/dL (32.0-37.0); MCV 87.6 fL (80.0-97.0); Mean Platelet Volume 10.9 fL (9.5-12.2); Platelet Count 109 10*3/uL (140-440); RBC 3.48 10*6/uL (4.10-5.20); RDW 17.4 % (11.5-14.5); WBC 6.42 10*3/uL (4.50-10.00)
[2024-07-11 09:00] LABS: Band Neutrophils % 2 %; Lymphocytes # (M) 1.86 k/uL (1.0-4.8); Metamyelocytes # (M) 0.06 k/uL (0); Metamyelocytes % 1 %; Monocytes # (M) 1.16 k/uL (0-1.0); Myelocytes # (M) 0.06 k/uL (0); Myelocytes % 1 %; Neutrophils # (M) 3.33 k/uL (1.3-7.7); Neutrophils % (M) 50 %; Nucleated Red Blood Cells 0 /100 WBC (0-0); Total Cells Counted 200
--- NOTE | 2024-07-11 10:28 | P.PN ---
Subjective Progress Note Date: 07/11/24 The patient who has metastatic ovarian cancer was transferred from [place] with mental status changes. She is found to have a pulmonary embolus. There was a question of a renal hemorrhage as well as a possible ureteral mass on the right side for which we are asked to see the patient. She is now out of the ICU and doing better. She is not having any particular pain. Her hemoglobin is stable. The patient gives no history of voiding dysfunction blood in the urine kidney stones or urologic issues. She has never seen a urologist. Objective - Vital Signs Vital signs: Vital Signs Temp 98.3 F 07/11/24 08:40 Pulse 76 07/11/24 08:48 Resp 18 07/11/24 08:40 BP 129/69 07/11/24 08:40 Pulse Ox 96 07/11/24 08:40 FiO2 Intake & Output 07/10/24 07/11/24 07/11/24 18:59 06:59 18:59 Intake Total 240 Output Total 1190 280 Balance -950 -280 Weight 119 kg Intake: Oral 240 Output: Urine 690 280 Stool 500 Other: Voiding Method Indwelling Catheter Indwelling Catheter Indwelling Catheter - Labs CBC & Chem 7: 07/11/24 06:35 07/10/24 03:09 Labs: Abnormal Lab Results - Last 24 Hours (Table) 07/10/24 07/10/24 07/10/24 Range/Units 11:36 16:40 20:01 RBC (4.10-5.20) 10*6/uL Hgb (12.0-15.0) g/dL Hct (37.2-46.3) % Plt Count (140-440) 10*3/uL Immature Gran # (0.00-0.04) 10*3/uL Monocytes # (Manual) (0-1.0) k/uL Metamyelocytes # (Man) (0) k/uL Myelocytes # (Manual) (0) k/uL POC Glucose (mg/dL) 272 H 268 H 304 H (70-110) mg/dL 07/11/24 Range/Units 06:35 RBC 3.48 L (4.10-5.20) 10*6/uL Hgb 10.2 L (12.0-15.0) g/dL Hct 30.5 L (37.2-46.3) % Plt Count 109 L (140-440) 10*3/uL Immature Gran # 1.01 H (0.00-0.04) 10*3/uL Monocytes # (Manual) 1.16 H (0-1.0) k/uL Metamyelocytes # (Man) 0.06 H (0) k/uL Myelocytes # (Manual) 0.06 H (0) k/uL POC Glucose (mg/dL) (70-110) mg/dL Microbiology - Last 24 Hours (Table) 07/08/24 07:20 Urine Culture - Final Urine,Voided Enterobacter cloacae 07/08/24 08:39 Blood Culture - Preliminary Blood Assessment and Plan Assessment: Impression: Possible renal hemorrhage right. Possible ureteral abnormality on the right side. Recommendations: Upon reviewing the CAT scan initially it is uncertain as to whether she had a hemorrhage from the right kidney let alone an abnormality in the right ureter. The patient would need a CT urogram at some point in time to reassess those 2 abnormalities. This has been discussed with the patient.
[2024-07-11 11:28] LABS: Glucose,Whole Blood 233 mg/dL (70-110)
--- NOTE | 2024-07-11 13:19 | P.PN ---
Subjective Progress Note Date: 07/11/24 Principal diagnosis: Acute submassive pulmonary embolism Patient is 69-year-old female transferred from [facility] after being found to have saddle PE with CT evidence of right-sided heart strain. Previously started on IV heparin per protocol. Patient is currently confused and is a poor historian, her daughter is at bedside and supplements information. 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 Previously underwent bowel resection and has colostomy. Currently undergoing chemotherapy, and her last treatment on June 29rs. Reportedly follows with Dr. Isidro. Increased generalized weakness and fatigue at home. Also, noted to be short of breath. D-dimer was elevated outside facility. CT angio of the chest noted to have large saddle PE with CT evidence of right-sided heart strain. She is currently being evaluated emergency department. She is alert but does not answer questions appropriately. She has been increasingly confused over the last 24 hours per the daughter. Currently resting comfortably on 2 L/min nasal cannula. SpO2 reading 97%. She is febrile with a temperature max of 101.3 F. She is tachycardic with heart rate of 133 bpm. Blood pressure is actually hypertensive at the moment. Has not required any fluid boluses or pressors. According to the daughter, she has no prior history of DVT or PE. Not on any anticoagulants. Repeat labs at our facility showing a WBC count of 1.7, hemoglobin 11, hematocrit 31.8, platelets 118. CMP: Sodium 134, potassium 4.4, chloride 101, serum bicarb 14, BUN 20, creatinine 0.74, glucose 409. Lactic 1.1. Troponins 0.14, and 0.14 respectively. NT proBNP was elevated 8250. Currently continued on IV heparin per protocol. Follow-up echocardiogram is ordered. Cardiovascular surgery is on for possible intervention. Patient was seen today on 07/09/2024, remains in the ICU, yesterday the patient developed some retroperitoneal bleed and urology was consulted and we discontinued her heparin recommended vascular surgery evaluation who performed primary percutaneous transluminal mechanical thrombectomy of the left and main pulmonary artery as well as left interlobar artery patient also underwent mechanical thrombectomy of the inferior vena cava and IVC filter placement because of apathy cannot indication to anticoagulation therapy. Patient remains in the ICU today, on 3 L nasal cannula not in any distress, being followed by many consultants including cardiology, urology, and vascular surgery. Does not seem to be in any form of distress. Labs were reviewed WBC count is 1.74 hemoglobin 8.5 electrolytes showed low sodium low bicarb of 16 BUN of 34 creat 1.17. Patient was seen today on 07/10/2024, remains in the ICU, patient is on 2 L nasal cannula, she is receiving clear liquids, does not seem to be in any distress, seen by many consultants including vascular surgery, urology, cardiology, oncology, and I am planning to transfer the patient out of the ICU to a monitored bed and selective. Briefly discussed CODE STATUS with the patient today, undecided yet on CODE STATUS. She would like to discuss this with her family. WBC count is 2.2 hemoglobin is 8.6 electrolytes are normal renal profile is normal, reviewed the note from urology, recommended basically a CT of the chest with contrast and this is referring to the small bleed in the kidney, also a questionable mass in the ureter. No hydronephrosis, no gross hematuria, he recommended eventual cystoscopy and retrograde CT with urogram to assess these issues. Seen today on 07/11/2024, patient seems to be doing fairly well, does not seem to be short of breath, does not seem to be labored in breathing, on 2 L nasal cannula with O2 sats of 96%. WBC count 6.4 hemoglobin 10.2. Seen by urology for renal hemorrhage on the right side, and possible ureteral abnormality, and recommending CT urogram at some time in the near future. Patient is being followed by oncology for her ovarian cancer and for her chemo induced pancytopenia Objective - Vital Signs Vital signs: Vital Signs Temp 98.3 F 07/11/24 08:40 Pulse 76 07/11/24 08:48 Resp 18 07/11/24 08:40 BP 129/69 07/11/24 08:40 Pulse Ox 96 07/11/24 08:40 FiO2 Intake & Output 07/10/24 07/11/24 07/11/24 18:59 06:59 18:59 Intake Total 240 Output Total 1190 280 Balance -950 -280 Weight 119 kg Intake: Oral 240 Output: Urine 690 280 Stool 500 Other: Voiding Method Indwelling Catheter Indwelling Catheter Indwelling Catheter - Exam GENERAL EXAM: Reveals 69-year-old female in no distress, awake, on 2 L nasal cannula HEAD: Normocephalic and atraumatic EYES: Normal reaction of pupils, equal size. NOSE: Clear with pink turbinates. THROAT: No erythema or exudates. NECK: No masses, no JVD. CHEST: No chest wall deformity. LUNGS: Equal air entry with no crackles, wheeze, rhonchi or dullness. CVS: S1 and S2 normal with no audible murmur, regular rhythm. No extra heart sounds. Tachycardic ABDOMEN: No hepatosplenomegaly, active bowel sounds, no guarding or rigidity. Colostomy with pink and viable stoma. SKIN: No rashes CENTRAL NERVOUS SYSTEM: No focal deficits, tone is normal in all 4 extremities. EXTREMITIES: There is no peripheral edema, clubbing, or cyanosis. Peripheral pulses are intact. - Labs CBC & Chem 7: 07/11/24 06:35 07/10/24 03:09 Labs: Abnormal Lab Results - Last 24 Hours (Table) 07/10/24 07/10/24 07/11/24 Range/Units 16:40 20:01 06:35 RBC 3.48 L (4.10-5.20) 10*6/uL Hgb 10.2 L (12.0-15.0) g/dL Hct 30.5 L (37.2-46.3) % Plt Count 109 L (140-440) 10*3/uL Immature Gran # 1.01 H (0.00-0.04) 10*3/uL Monocytes # (Manual) 1.16 H (0-1.0) k/uL Metamyelocytes # (Man) 0.06 H (0) k/uL Myelocytes # (Manual) 0.06 H (0) k/uL POC Glucose (mg/dL) 268 H 304 H (70-110) mg/dL 07/11/24 Range/Units 11:27 RBC (4.10-5.20) 10*6/uL Hgb (12.0-15.0) g/dL Hct (37.2-46.3) % Plt Count (140-440) 10*3/uL Immature Gran # (0.00-0.04) 10*3/uL Monocytes # (Manual) (0-1.0) k/uL Metamyelocytes # (Man) (0) k/uL Myelocytes # (Manual) (0) k/uL POC Glucose (mg/dL) 233 H (70-110) mg/dL Microbiology - Last 24 Hours (Table) 07/08/24 07:20 Urine Culture - Final Urine,Voided Enterobacter cloacae 07/08/24 08:39 Blood Culture - Preliminary Blood Assessment and Plan Assessment: Impression: Status post Primary percutaneous transluminal mechanical thrombecto my of the main pulmonary artery Percutaneous transluminal mechanical thrombectomy of the left pulmonary artery, left interlobar artery Percutaneous transluminal mechanical thrombectomy of the inferior vena cava, and placement of IVC filter Bilateral saddle PE, with CT evidence of right-sided heart strain, submassive Acute hypoxemic respiratory failure, secondary to above Retroperitoneal bleed, CT of the abdomen showed small right posterior and renal hemorrhage and possibly right distal ureteral mass without hydronephrosis. Hence patient has absolute current indication to anticoagulation therapy. 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 Altered mental status, under investigation, improved, patient has acute metabolic encephalopathy Insulin-dependent diabetes mellitus, with hyperglycemia Hypertension Morbid obesity, with a BMI of 42 kg/m Recommendation: Continue present supportive care measures Continue to hold all anticoagulants unless cleared to go back on anticoagulation therapy by urology or hematology/oncology. Overall long-term prognosis remains extremely poor and guarded Will continue to follow Time with Patient: Less than 30
--- NOTE | 2024-07-11 13:59 | P.PN ---
Subjective HISTORY OF PRESENT ILLNESS: The patient is a 69-year-old female who was transferred from [place] with evidence of saddle pulmonary embolism, change in mental status and febrile episode. She has a history of omental malignancy, has been receiving chemotherapy by Dr. Palacios at [place]. She has a history of diabetes and hypertension. She is awake but not able to answer many questions. She had a change in mental status worsening than her baseline. According to the notes she has been feeling progressively fatigued vomiting and not eating. Her D-dimer in [place] was elevated and subsequently her CT scan showed saddle pulmonary embolism. She had mild elevation of the troponin and NT proBNP. She denies any chest discomfort at the time of my evaluation. She is on 2 L oxygen, her blood pressure is stable and she is sinus tachycardia. She had no evidence of arrhythmia. Her echocardiogram in 2022 showed a preserved systolic function. She denies any history of PND, orthopnea or syncope although the history is quite limited from her. July 09: The patient is more awake and alert today. Yesterday she underwent an abdominal CT scan and was found to have right renal parenchymal bleed. She was also found to have evidence of right DVT. Because of her bleed and her presentation with submassive pulmonary embolism she underwent thrombectomy and subsequently placement of a inferior vena cava filter. She continues to be in sinus mechanism, her blood pressure is on the low side. She has no evidence of malignant arrhythmia. Her oxygenation is stable. She is receiving 1 unit of blood. Her echocardiogram revealed a normal low ventricular systolic function with moderate pulmonary hypertension and dilated RV. July 10: The patient feels better overall, she has respirophasic left-sided chest discomfort but otherwise feels that her breathing is better. She continues to be on oxygen supplementation. She is in sinus mechanism with no evidence of malignant arrhythmia. She denies any dizziness or palpitations. She has no nausea. She was seen by Dr. Jordan who felt that there is no acute urological issue at this point. Her urinary output has been stable. 07/11/2024 Patient examined this morning at bedside. Patient currently denies any chest pain or pressure. She reports improvement in her shortness of breath. Telemetry reveals sinus mechanism. Blood pressure stable. 129/69. Is currently on 2 L nasal cannula with oxygen saturations greater than 92%. PHYSICAL EXAM: VITAL SIGNS: Reviewed. GENERAL: Well-developed in no acute distress. NECK: Supple. No JVD or thyromegaly LUNGS: Respirations even and unlabored. Lungs essentially clear to auscultation bilaterally. HEART: Regular rate and rhythm. S1 and S2 heard. EXTREMITIES: Normal range of motion. No clubbing or cyanosis. Peripheral pulses intact. No lower extremity edema ASSESSMENT: 1. Submassive pulmonary embolism status post thrombectomy and IVC filter placement because of parenchymal renal bleed 2. Anemia, receiving transfusion, stable 3. History of omental malignancy, receiving chemotherapy 4. History of diabetes 5. Pulmonary hypertension most likely related to her pulmonary embolism 6. Change in mental status, improving 7. Acute renal injury, resolved PLAN: Continue current cardiac medications including aspirin and atenolol From a cardiology perspective, patient needs to be resumed on anticoagulation when cleared by urology/hematology Continue telemetry monitoring Further recommendations pending patient course Nurse practitioner note has been reviewed by physician. Signing provider agrees with the documented findings, assessment, and plan of care documented by S[employer]IOR [employer] as a scribe. Objective - Vital Signs Vital signs: Vital Signs Temp 98.3 F 07/11/24 08:40 Pulse 76 07/11/24 08:48 Resp 18 07/11/24 08:40 BP 129/69 07/11/24 08:40 Pulse Ox 96 07/11/24 08:40 FiO2 Intake & Output 07/10/24 07/11/24 07/11/24 18:59 06:59 18:59 Intake Total 240 Output Total 1190 280 Balance -950 -280 Weight 119 kg Intake: Oral 240 Output: Urine 690 280 Stool 500 Other: Voiding Method Indwelling Catheter Indwelling Catheter Indwelling Catheter - Labs CBC & Chem 7: 07/11/24 06:35 07/10/24 03:09 Labs: Abnormal Lab Results - Last 24 Hours (Table) 07/10/24 07/10/24 07/11/24 Range/Units 16:40 20:01 06:35 RBC 3.48 L (4.10-5.20) 10*6/uL Hgb 10.2 L (12.0-15.0) g/dL Hct 30.5 L (37.2-46.3) % Plt Count 109 L (140-440) 10*3/uL Immature Gran # 1.01 H (0.00-0.04) 10*3/uL Monocytes # (Manual) 1.16 H (0-1.0) k/uL Metamyelocytes # (Man) 0.06 H (0) k/uL Myelocytes # (Manual) 0.06 H (0) k/uL POC Glucose (mg/dL) 268 H 304 H (70-110) mg/dL 07/11/24 Range/Units 11:27 RBC (4.10-5.20) 10*6/uL Hgb (12.0-15.0) g/dL Hct (37.2-46.3) % Plt Count (140-440) 10*3/uL Immature Gran # (0.00-0.04) 10*3/uL Monocytes # (Manual) (0-1.0) k/uL Metamyelocytes # (Man) (0) k/uL Myelocytes # (Manual) (0) k/uL POC Glucose (mg/dL) 233 H (70-110) mg/dL Microbiology - Last 24 Hours (Table) 07/08/24 07:20 Urine Culture - Final Urine,Voided Enterobacter cloacae 07/08/24 08:39 Blood Culture - Preliminary Blood
[2024-07-11 16:17] LABS: Glucose,Whole Blood 256 mg/dL (70-110)
--- NOTE | 2024-07-11 18:27 | P.PN ---
Subjective Progress Note Date: 07/10/24 69 years old female who [facility] Patient presents initially because of generalized weakness. She has a significant history of ovarian cancer she follow-up with Dr. Osman and she got chemotherapy last dose was on 06/29. For 1 week patient is not eating and drinking and with fatigue. On presentation she had CT of the chest which showing saddle pulmonary embolism with right ventricular strain and elevated troponin. Patient was started on a heparin drip and transferred to this facility. Before transport patient was found to have fever suspected to have UTI and received 1 dose of ceftriaxone. Patient currently admitted to the ICU. Patient is mildly confused. She is tired and cannot provide information and was obtained with the help of daughter Rhina at bedside. Patient cannot recognize her daughter and she knows she is in hospital but thought that this is more related and she could not tell the time. As per daughter patient found by son lying in couch cannot get up and they called the sister and then brought her to the emergency room. At that time patient was not answering questions appropriately. Patient at baseline lives alone. S she is mildly tachypnei. She has little chest pain central currently 0/10. Also complained from left lower quadrant abdominal pain. As per daughter they cleaned her colostomy bag this morning and it looks loose to her but without smell. Also there was little bit vomiting as per daughter. Maria catheter in place and urine sample was sent looks cloudy. Labs reviewed showing fever of 101.4, tachycardia 125 and EKG showing sinus tachycardia and tachypnea with breathing rate 25, blood pressure is stable she is saturating 88% on room air and 95 on 2 L oxygen. Labs showing pancytopenia with WBC 1.7, hemoglobin 11 and platelet count 118, BMP and LFT unremarkable Glucose elevated 435 Troponin is stable but elevated 0.23 and 0.14 EKG showing sinus tachycardia at 135 BNP is elevated at 330 with baseline 0-99 Objective - Vital Signs Vital signs: Vital Signs Temp 98.5 F 07/10/24 08:00 Pulse 96 07/10/24 10:00 Resp 15 07/10/24 10:00 BP 86/55 07/10/24 10:00 Pulse Ox 93 L 07/10/24 10:00 FiO2 Intake & Output 07/09/24 07/10/24 07/10/24 18:59 06:59 18:59 Intake Total 1679 Output Total 810 1085 190 Balance 869 -1085 -190 Weight 117.7 kg Intake: IV 200 D5-0.45% NaCl with KCl 150 20Meq/l 1,000 ml @ 50 mls /hr IV .Q20H [facility] Rx#: [id number] cefTRIAXone 1 gm In 50 Sodium Chloride 0.9% 50 ml @ 100 mls/hr IVPB Q24HR [facility] Rx#:[id number] Oral 1200 Blood Product 279 Rc Pheresis As-3 Unit 279 [id number] Output: Urine 510 585 190 Stool 300 500 Other: Voiding Method Indwelling Catheter Indwelling Catheter Indwelling Catheter - Exam -GENERAL: The patient is alert and oriented x2-3 partial, not in any acute distress. Well developed, well nourished. Tired and lethargic. Obese HEENT: Pupils are round and equally reacting to light. EOMI. No scleral icterus. No conjunctival pallor. Normocephalic, atraumatic. No pharyngeal erythema. No thyromegaly. CARDIOVASCULAR: S1 and S2 present. No murmurs, rubs, or gallops. PULMONARY: Chest is clear to auscultation, no wheezing , no crackles. -ABDOMEN: Soft, nontender, nondistended, normoactive bowel sounds. No palpable organomegaly. LLQ colostomy with surrounding tenderness improved, almost nontender today MUSCULOSKELETAL: No joint swelling or deformity. EXTREMITIES: No cyanosis, clubbing, or pedal edema. NEUROLOGICAL: Gross neurological examination did not reveal any focal deficits. SKIN: No rashes. no petechiae. - Labs CBC & Chem 7: 07/11/24 06:35 07/10/24 03:09 Labs: Abnormal Lab Results - Last 24 Hours (Table) 07/09/24 07/09/24 07/09/24 Range/Units 10:46 12:09 16:17 WBC 1.79 L (4.50-10.00) 10*3/uL RBC 3.27 L (4.10-5.20) 10*6/uL Hgb 9.6 L (12.0-15.0) g/dL Hct 29.0 L (37.2-46.3) % Plt Count 89 L (140-440) 10*3/uL Immature Gran # 0.09 H (0.00-0.04) 10*3/uL Neutrophils # (Manual) 0.98 L (1.3-7.7) k/uL Lymphocytes # (Manual) 0.50 L (1.0-4.8) k/uL Metamyelocytes # (Man) 0.07 H (0) k/uL Myelocytes # (Manual) 0.02 H (0) k/uL Sodium (137-145) mmol/L Carbon Dioxide (22-30) mmol/L BUN (7-17) mg/dL Glucose (74-99) mg/dL POC Glucose (mg/dL) 314 H 358 H (70-110) mg/dL Calcium (8.4-10.2) mg/dL 07/09/24 07/10/24 07/10/24 Range/Units 20:31 03:09 03:09 WBC 2.20 L (4.50-10.00) 10*3/uL RBC 2.93 L (4.10-5.20) 10*6/uL Hgb 8.6 L (12.0-15.0) g/dL Hct 25.9 L (37.2-46.3) % Plt Count 82 L (140-440) 10*3/uL Immature Gran # (0.00-0.04) 10*3/uL Neutrophils # (Manual) 1.23 L (1.3-7.7) k/uL Lymphocytes # (Manual) 0.73 L (1.0-4.8) k/uL Metamyelocytes # (Man) (0) k/uL Myelocytes # (Manual) 0.02 H (0) k/uL Sodium 132 L (137-145) mmol/L Carbon Dioxide 20 L (22-30) mmol/L BUN 23 H (7-17) mg/dL Glucose 142 H (74-99) mg/dL POC Glucose (mg/dL) 372 H (70-110) mg/dL Calcium 7.6 L (8.4-10.2) mg/dL 07/10/24 07/10/24 Range/Units 07:55 11:36 WBC (4.50-10.00) 10*3/uL RBC (4.10-5.20) 10*6/uL Hgb (12.0-15.0) g/dL Hct (37.2-46.3) % Plt Count (140-440) 10*3/uL Immature Gran # (0.00-0.04) 10*3/uL Neutrophils # (Manual) (1.3-7.7) k/uL Lymphocytes # (Manual) (1.0-4.8) k/uL Metamyelocytes # (Man) (0) k/uL Myelocytes # (Manual) (0) k/uL Sodium (137-145) mmol/L Carbon Dioxide (22-30) mmol/L BUN (7-17) mg/dL Glucose (74-99) mg/dL POC Glucose (mg/dL) 142 H 272 H (70-110) mg/dL Calcium (8.4-10.2) mg/dL Microbiology - Last 24 Hours (Table) 07/08/24 07:20 Urine Culture - Preliminary Urine,Voided Gram Neg Bacilli 07/08/24 08:39 Blood Culture - Preliminary Blood Assessment and Plan Assessment: Acute saddle pulmonary embolism with R ventricular strain. S/p thrombectomy and IVC filter on 07/09 Elevated troponin secondary to above Acute hypoxic respiratory failure, improving Acute hemorrhage within the right renal parenchyma and within the proximal right renal collecting system. With associated questionable 15 mm mass of the distal third of the right ureter and possible 5 mm right ureteral calculus Sepsis Acute UTI Left lower quadrant tenderness around colostomy bag Pancytopenia secondary to chemotherapy Metabolic/toxic encephalopathy Ovarian cancer status postchemotherapy heparin drip is discontinued now Continue with ceftriaxone Follow-up urine culture Follow-up blood culture Follow-up echocardiogram Pulmonary team consult Cardiology team consult Start antibiotics, currently on ceftriaxone Check CT of the abdomen without IV contrast reviewed Urology team consult Vascular surgery team consult Nutrition consult and speech consult for swallow evaluation Labs and medication were reviewed.. Continue same treatment. Continue with symptomatic treatment. Resume home medication. Monitor labs and vitals. DVT and GI prophylaxis. Further recommendations as per clinical course of the patient DVT prophylaxis: heparin discontinued. Continue with mechanical GI Prophylaxis: Pepcid PT/OT: Pending Prognosis is guarded Full code as per family
--- NOTE | 2024-07-11 18:30 | P.PN ---
Subjective Progress Note Date: 07/11/24 69 years old female who [facility] Patient presents initially because of generalized weakness. She has a significant history of ovarian cancer she follow-up with Dr. Osman and she got chemotherapy last dose was on 06/29. For 1 week patient is not eating and drinking and with fatigue. On presentation she had CT of the chest which showing saddle pulmonary embolism with right ventricular strain and elevated troponin. Patient was started on a heparin drip and transferred to this facility. Before transport patient was found to have fever suspected to have UTI and received 1 dose of ceftriaxone. Patient currently admitted to the ICU. Patient is mildly confused. She is tired and cannot provide information and was obtained with the help of daughter Rhina at bedside. Patient cannot recognize her daughter and she knows she is in hospital but thought that this is more related and she could not tell the time. As per daughter patient found by son lying in couch cannot get up and they called the sister and then brought her to the emergency room. At that time patient was not answering questions appropriately. Patient at baseline lives alone. S she is mildly tachypnei. She has little chest pain central currently 0/10. Also complained from left lower quadrant abdominal pain. As per daughter they cleaned her colostomy bag this morning and it looks loose to her but without smell. Also there was little bit vomiting as per daughter. Maria catheter in place and urine sample was sent looks cloudy. Labs reviewed showing fever of 101.4, tachycardia 125 and EKG showing sinus tachycardia and tachypnea with breathing rate 25, blood pressure is stable she is saturating 88% on room air and 95 on 2 L oxygen. Labs showing pancytopenia with WBC 1.7, hemoglobin 11 and platelet count 118, BMP and LFT unremarkable Glucose elevated 435 Troponin is stable but elevated 0.23 and 0.14 EKG showing sinus tachycardia at 135 BNP is elevated at 330 with baseline 0-99 07/11/2024 -- patient is seen and evaluated in room at bedside; family is present in the room; patient seems to be doing fairly well, does not seem to be short of breath, does not seem to be labored in breathing, on 2 L nasal cannula with O2 sats of 96%. Lab review shows WBC count 6.[address] of the abdomen shows acute hemorrhage within the right renal parenchyma within the proximal right renal collecting system. Questionable 15 mm mass of the distal third of right ureter and possible 5 mm distal right ureteral calculus without any hydronephrosis - Patient has been seen by urology for renal hemorrhage on the right side, and possible ureteral abnormality, and recommending CT urogram at some time in the near future. - Patient is being followed by oncology for her ovarian cancer and for her chemo induced pancytopenia - Anticoagulation therapy remains on hold; patient will need clearance from all the consultants before anticoagulation could be resumed - Will continue to monitor H&H closely Objective - Vital Signs Vital signs: Vital Signs Temp 98.3 F 07/11/24 08:40 Pulse 76 07/11/24 08:48 Resp 18 07/11/24 08:40 BP 129/69 07/11/24 08:40 Pulse Ox 96 07/11/24 08:40 FiO2 Intake & Output 07/10/24 07/11/24 07/11/24 18:59 06:59 18:59 Intake Total 240 Output Total 1190 280 Balance -950 -280 Weight 119 kg Intake: Oral 240 Output: Urine 690 280 Stool 500 Other: Voiding Method Indwelling Catheter Indwelling Catheter Indwelling Catheter - Exam -GENERAL: The patient is alert and oriented x2-3 partial, not in any acute distress. Well developed, well nourished. Tired and lethargic. Obese HEENT: Pupils are round and equally reacting to light. EOMI. No scleral icterus. No conjunctival pallor. Normocephalic, atraumatic. No pharyngeal erythema. No thyromegaly. CARDIOVASCULAR: S1 and S2 present. No murmurs, rubs, or gallops. PULMONARY: Chest is clear to auscultation, no wheezing , no crackles. -ABDOMEN: Soft, nontender, nondistended, normoactive bowel sounds. No palpable organomegaly. LLQ colostomy with surrounding tenderness improved, almost nontender today MUSCULOSKELETAL: No joint swelling or deformity. EXTREMITIES: No cyanosis, clubbing, or pedal edema. NEUROLOGICAL: Gross neurological examination did not reveal any focal deficits. SKIN: No rashes. no petechiae. - Labs CBC & Chem 7: 07/11/24 06:35 07/10/24 03:09 Labs: Abnormal Lab Results - Last 24 Hours (Table) 07/10/24 07/10/24 07/11/24 Range/Units 16:40 20:01 06:35 RBC 3.48 L (4.10-5.20) 10*6/uL Hgb 10.2 L (12.0-15.0) g/dL Hct 30.5 L (37.2-46.3) % Plt Count 109 L (140-440) 10*3/uL Immature Gran # 1.01 H (0.00-0.04) 10*3/uL Monocytes # (Manual) 1.16 H (0-1.0) k/uL Metamyelocytes # (Man) 0.06 H (0) k/uL Myelocytes # (Manual) 0.06 H (0) k/uL POC Glucose (mg/dL) 268 H 304 H (70-110) mg/dL 07/11/24 Range/Units 11:27 RBC (4.10-5.20) 10*6/uL Hgb (12.0-15.0) g/dL Hct (37.2-46.3) % Plt Count (140-440) 10*3/uL Immature Gran # (0.00-0.04) 10*3/uL Monocytes # (Manual) (0-1.0) k/uL Metamyelocytes # (Man) (0) k/uL Myelocytes # (Manual) (0) k/uL POC Glucose (mg/dL) 233 H (70-110) mg/dL Microbiology - Last 24 Hours (Table) 07/08/24 07:20 Urine Culture - Final Urine,Voided Enterobacter cloacae 07/08/24 08:39 Blood Culture - Preliminary Blood Assessment and Plan Assessment: Acute saddle pulmonary embolism with R ventricular strain. S/p thrombectomy and IVC filter on 07/09 Elevated troponin secondary to above Acute hypoxic respiratory failure, improving Acute hemorrhage within the right renal parenchyma and within the proximal right renal collecting system. With associated questionable 15 mm mass of the distal third of the right ureter and possible 5 mm right ureteral calculus Sepsis Acute UTI Left lower quadrant tenderness around colostomy bag Pancytopenia secondary to chemotherapy Metabolic/toxic encephalopathy Ovarian cancer status postchemotherapy heparin drip is discontinued now Continue with ceftriaxone Follow-up urine culture Follow-up blood culture Follow-up echocardiogram Pulmonary team consult Cardiology team consult Start antibiotics, currently on ceftriaxone Check CT of the abdomen without IV contrast reviewed Urology team consult Vascular surgery team consult Nutrition consult and speech consult for swallow evaluation Labs and medication were reviewed.. Continue same treatment. Continue with symptomatic treatment. Resume home medication. Monitor labs and vitals. DVT and GI prophylaxis. Further recommendations as per clinical course of the patient DVT prophylaxis: heparin discontinued. Continue with mechanical GI Prophylaxis: Pepcid PT/OT: Pending Prognosis is guarded Full code as per family
[2024-07-11 20:06] LABS: Glucose,Whole Blood 200 mg/dL (70-110)
[2024-07-12 06:04] LABS: Glucose,Whole Blood 157 mg/dL (70-110)
[2024-07-12 07:47] LABS: African American GFR (CKD) >90 (>60 ml/min/1.73 sqM); Anion Gap 4 mmol/L; Blood Urea Nitrogen 9 mg/dL (7-17); Calcium 8.2 mg/dL (8.4-10.2); Carbon Dioxide 25 mmol/L (22-30); Chloride 107 mmol/L (98-107); Glucose 132 mg/dL (74-99); Non-African American GFR(CKD) >90 (>60 ml/min/1.73 sqM); Sodium 136 mmol/L (137-145)
[2024-07-12 08:52] LABS: Basophils # (A) 0.01 10*3/uL (0.00-0.10); Basophils % (A) 0.1 %; Eosinophils # (A) 0.01 10*3/uL (0.04-0.35); Eosinophils % (A) 0.1 %; HCT 28.8 % (37.2-46.3); HGB 9.4 g/dL (12.0-15.0); Lymphocytes # (A) 1.91 10*3/uL (0.90-5.00); MCH 28.7 pg (27.0-32.0); MCHC 32.6 g/dL (32.0-37.0); MCV 87.8 fL (80.0-97.0); Mean Platelet Volume 10.5 fL (9.5-12.2); Monocytes # (A) 0.95 10*3/uL (0.20-1.00); Monocytes % (A) 8.5 %; Neutrophils # (A) 7.57 10*3/uL (1.80-7.70); Neutrophils % (A) 67.4 %; Platelet Count 136 10*3/uL (140-440); RBC 3.28 10*6/uL (4.10-5.20); RDW 17.3 % (11.5-14.5); WBC 11.22 10*3/uL (4.50-10.00)
[2024-07-12 11:32] LABS: Glucose,Whole Blood 201 mg/dL (70-110)
--- NOTE | 2024-07-12 12:01 | P.PN ---
Subjective Progress Note Date: 07/12/24 Principal diagnosis: Acute submassive pulmonary embolism Patient is 69-year-old female transferred from [facility] after being found to have saddle PE with CT evidence of right-sided heart strain. Previously started on IV heparin per protocol. Patient is currently confused and is a poor historian, her daughter is at bedside and supplements information. 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 Previously underwent bowel resection and has colostomy. Currently undergoing chemotherapy, and her last treatment on June 29rs. Reportedly follows with Dr. Isidro. Increased generalized weakness and fatigue at home. Also, noted to be short of breath. D-dimer was elevated outside facility. CT angio of the chest noted to have large saddle PE with CT evidence of right-sided heart strain. She is currently being evaluated emergency department. She is alert but does not answer questions appropriately. She has been increasingly confused over the last 24 hours per the daughter. Currently resting comfortably on 2 L/min nasal cannula. SpO2 reading 97%. She is febrile with a temperature max of 101.3 F. She is tachycardic with heart rate of 133 bpm. Blood pressure is actually hypertensive at the moment. Has not required any fluid boluses or pressors. According to the daughter, she has no prior history of DVT or PE. Not on any anticoagulants. Repeat labs at our facility showing a WBC count of 1.7, hemoglobin 11, hematocrit 31.8, platelets 118. CMP: Sodium 134, potassium 4.4, chloride 101, serum bicarb 14, BUN 20, creatinine 0.74, glucose 409. Lactic 1.1. Troponins 0.14, and 0.14 respectively. NT proBNP was elevated 8250. Currently continued on IV heparin per protocol. Follow-up echocardiogram is ordered. Cardiovascular surgery is on for possible intervention. Patient was seen today on 07/09/2024, remains in the ICU, yesterday the patient developed some retroperitoneal bleed and urology was consulted and we discontinued her heparin recommended vascular surgery evaluation who performed primary percutaneous transluminal mechanical thrombectomy of the left and main pulmonary artery as well as left interlobar artery patient also underwent mechanical thrombectomy of the inferior vena cava and IVC filter placement because of apathy cannot indication to anticoagulation therapy. Patient remains in the ICU today, on 3 L nasal cannula not in any distress, being followed by many consultants including cardiology, urology, and vascular surgery. Does not seem to be in any form of distress. Labs were reviewed WBC count is 1.74 hemoglobin 8.5 electrolytes showed low sodium low bicarb of 16 BUN of 34 creat 1.17. Patient was seen today on 07/10/2024, remains in the ICU, patient is on 2 L nasal cannula, she is receiving clear liquids, does not seem to be in any distress, seen by many consultants including vascular surgery, urology, cardiology, oncology, and I am planning to transfer the patient out of the ICU to a monitored bed and selective. Briefly discussed CODE STATUS with the patient today, undecided yet on CODE STATUS. She would like to discuss this with her family. WBC count is 2.2 hemoglobin is 8.6 electrolytes are normal renal profile is normal, reviewed the note from urology, recommended basically a CT of the chest with contrast and this is referring to the small bleed in the kidney, also a questionable mass in the ureter. No hydronephrosis, no gross hematuria, he recommended eventual cystoscopy and retrograde CT with urogram to assess these issues. Seen today on 07/11/2024, patient seems to be doing fairly well, does not seem to be short of breath, does not seem to be labored in breathing, on 2 L nasal cannula with O2 sats of 96%. WBC count 6.4 hemoglobin 10.2. Seen by urology for renal hemorrhage on the right side, and possible ureteral abnormality, and recommending CT urogram at some time in the near future. Patient is being followed by oncology for her ovarian cancer and for her chemo induced pancytopenia Patient was seen today on 07/12/2024, doing well, relatively asymptomatic, resting in bed, on 2 L nasal cannula, O2 sats are 95%. Still being followed by many consultants including cardiology, hematology, urology, and vascular surgery. Remains off anticoagulation mostly because of contraindication to anticoagulation considering the patient developed kidney bleed after starting on anticoagulation there. Patient required IVC filter placement and in the meantime we will continue to hold anticoagulation. Patient needs to be cleared for restarting anticoagulation by urology and by hematology. At this point it is best to continue to hold. WBC is 11.2 hemoglobin 9.4 electrolytes are normal renal profile is normal Objective - Vital Signs Vital signs: Vital Signs Temp 97.3 F L 07/12/24 07:38 Pulse 75 07/12/24 11:57 Resp 18 07/12/24 11:57 BP 114/63 07/12/24 11:57 Pulse Ox 95 07/12/24 11:57 FiO2 Intake & Output 07/11/24 07/12/24 07/12/24 18:59 06:59 18:59 Intake Total 480 780 Output Total 9193 524 4818 Balance -570 -650 -420 Weight 121 kg Intake: Oral 480 780 Output: Urine 550 650 700 Stool 500 500 Other: Voiding Method Indwelling Catheter Indwelling Catheter Indwelling Catheter - Exam GENERAL EXAM: Reveals 69-year-old female in no distress, awake, on 2 L nasal cannula HEAD: Normocephalic and atraumatic EYES: Normal reaction of pupils, equal size. NOSE: Clear with pink turbinates. THROAT: No erythema or exudates. NECK: No masses, no JVD. CHEST: No chest wall deformity. LUNGS: Equal air entry with no crackles, wheeze, rhonchi or dullness. CVS: S1 and S2 normal with no audible murmur, regular rhythm. No extra heart sounds. Tachycardic ABDOMEN: No hepatosplenomegaly, active bowel sounds, no guarding or rigidity. Colostomy with pink and viable stoma. SKIN: No rashes CENTRAL NERVOUS SYSTEM: No focal deficits, tone is normal in all 4 extremities. EXTREMITIES: There is no peripheral edema, clubbing, or cyanosis. Peripheral pulses are intact. - Labs CBC & Chem 7: 07/12/24 06:36 07/12/24 06:36 Labs: Abnormal Lab Results - Last 24 Hours (Table) 07/11/24 07/11/24 07/12/24 Range/Units 16:15 20:05 06:02 WBC (4.50-10.00) 10*3/uL RBC (4.10-5.20) 10*6/uL Hgb (12.0-15.0) g/dL Hct (37.2-46.3) % Plt Count (140-440) 10*3/uL Immature Gran # (0.00-0.04) 10*3/uL Eosinophils # (0.04-0.35) 10*3/uL Sodium (137-145) mmol/L Glucose (74-99) mg/dL POC Glucose (mg/dL) 256 H 200 H 157 H (70-110) mg/dL Calcium (8.4-10.2) mg/dL 07/12/24 07/12/24 07/12/24 Range/Units 06:36 06:36 11:30 WBC 11.22 H (4.50-10.00) 10*3/uL RBC 3.28 L (4.10-5.20) 10*6/uL Hgb 9.4 L (12.0-15.0) g/dL Hct 28.8 L (37.2-46.3) % Plt Count 136 L (140-440) 10*3/uL Immature Gran # 0.77 H (0.00-0.04) 10*3/uL Eosinophils # 0.01 L (0.04-0.35) 10*3/uL Sodium 136 L (137-145) mmol/L Glucose 132 H (74-99) mg/dL POC Glucose (mg/dL) 201 H (70-110) mg/dL Calcium 8.2 L (8.4-10.2) mg/dL Microbiology - Last 24 Hours (Table) 07/08/24 08:39 Blood Culture - Preliminary Blood Assessment and Plan Assessment: Impression: Status post Primary percutaneous transluminal mechanical thrombectomy of the main pulmonary artery Percutaneous transluminal mechanical thrombectomy of the left pulmonary artery, left interlobar artery Percutaneous transluminal mechanical thrombectomy of the inferior vena cava, and placement of IVC filter Bilateral saddle PE, with CT evidence of right-sided heart strain, submassive Acute hypoxemic respiratory failure, secondary to above Retroperitoneal bleed, CT of the abdomen showed small right posterior and renal hemorrhage and possibly right distal ureteral mass without hydronephrosis. Hence patient has absolute current indication to anticoagulation therapy. 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 Altered mental status, under investigation, improved, patient has acute metabolic encephalopathy Insulin-dependent diabetes mellitus, with hyperglycemia Hypertension Morbid obesity, with a BMI of 42 kg/m Recommendation: Continue present supportive care measures Continue to hold all anticoagulants Overall long-term prognosis remains extremely poor and guarded Will continue to follow Time with Patient: Less than 30
--- NOTE | 2024-07-12 12:38 | P.PN ---
Subjective HISTORY OF PRESENT ILLNESS: The patient is a 69-year-old female who was transferred from [place] with evidence of saddle pulmonary embolism, change in mental status and febrile episode. She has a history of omental malignancy, has been receiving chemotherapy by Dr. Palacios at [place]. She has a history of diabetes and hypertension. She is awake but not able to answer many questions. She had a change in mental status worsening than her baseline. According to the notes she has been feeling progressively fatigued vomiting and not eating. Her D-dimer in [place] was elevated and subsequently her CT scan showed saddle pulmonary embolism. She had mild elevation of the troponin and NT proBNP. She denies any chest discomfort at the time of my evaluation. She is on 2 L oxygen, her blood pressure is stable and she is sinus tachycardia. She had no evidence of arrhythmia. Her echocardiogram in 2022 showed a preserved systolic function. She denies any history of PND, orthopnea or syncope although the history is quite limited from her. July 09: The patient is more awake and alert today. Yesterday she underwent an abdominal CT scan and was found to have right renal parenchymal bleed. She was also found to have evidence of right DVT. Because of her bleed and her presentation with submassive pulmonary embolism she underwent thrombectomy and subsequently placement of a inferior vena cava filter. She continues to be in sinus mechanism, her blood pressure is on the low side. She has no evidence of malignant arrhythmia. Her oxygenation is stable. She is receiving 1 unit of blood. Her echocardiogram revealed a normal low ventricular systolic function with moderate pulmonary hypertension and dilated RV. July 10: The patient feels better overall, she has respirophasic left-sided chest discomfort but otherwise feels that her breathing is better. She continues to be on oxygen supplementation. She is in sinus mechanism with no evidence of malignant arrhythmia. She denies any dizziness or palpitations. She has no nausea. She was seen by Dr. Jordan who felt that there is no acute urological issue at this point. Her urinary output has been stable. 07/11/2024 Patient examined this morning at bedside. Patient currently denies any chest pain or pressure. She reports improvement in her shortness of breath. Telemetry reveals sinus mechanism. Blood pressure stable. 129/69. Is currently on 2 L nasal cannula with oxygen saturations greater than 92%. 07/11/2024 Patient examined this morning. She is sitting up in the chair. No family is present. She denies chest pain or pressure. She reports improvement in her shortness of breath. PHYSICAL EXAM: VITAL SIGNS: Reviewed. GENERAL: Well-developed in no acute distress. NECK: Supple. No JVD or thyromegaly LUNGS: Respirations even and unlabored. Lungs essentially clear to auscultation bilaterally. HEART: Regular rate and rhythm. S1 and S2 heard. EXTREMITIES: Normal range of motion. No clubbing or cyanosis. Peripheral pulses intact. No lower extremity edema ASSESSMENT: 1. Submassive pulmonary embolism status post thrombectomy and IVC filter placement because of parenchymal renal bleed 2. Anemia, receiving transfusion, stable 3. History of omental malignancy, receiving chemotherapy 4. History of diabetes 5. Pulmonary hypertension most likely related to her pulmonary embolism 6. Change in mental status, improving 7. Acute renal injury, resolved PLAN: Continue current cardiac medications including aspirin and atenolol From a cardiology perspective, patient needs to be resumed on anticoagulation when cleared by urology/hematology Continue telemetry monitoring Further recommendations pending patient course Nurse practitioner note has been reviewed by physician. Signing provider agrees with the documented findings, assessment, and plan of care documented by [employer] as a scribe. Objective - Vital Signs Vital signs: Vital Signs Temp 97.3 F L 07/12/24 07:38 Pulse 75 07/12/24 11:57 Resp 18 07/12/24 11:57 BP 114/63 07/12/24 11:57 Pulse Ox 95 07/12/24 11:57 FiO2 Intake & Output 07/11/24 07/12/24 07/12/24 18:59 06:59 18:59 Intake Total 480 780 Output Total 6983 328 3556 Balance -570 -650 -420 Weight 121 kg Intake: Oral 480 780 Output: Urine 550 650 700 Stool 500 500 Other: Voiding Method Indwelling Catheter Indwelling Catheter Indwelling Catheter - Labs CBC & Chem 7: 07/12/24 06:36 07/12/24 06:36 Labs: Abnormal Lab Results - Last 24 Hours (Table) 07/11/24 07/11/24 07/12/24 Range/Units 16:15 20:05 06:02 WBC (4.50-10.00) 10*3/uL RBC (4.10-5.20) 10*6/uL Hgb (12.0-15.0) g/dL Hct (37.2-46.3) % Plt Count (140-440) 10*3/uL Immature Gran # (0.00-0.04) 10*3/uL Eosinophils # (0.04-0.35) 10*3/uL Sodium (137-145) mmol/L Glucose (74-99) mg/dL POC Glucose (mg/dL) 256 H 200 H 157 H (70-110) mg/dL Calcium (8.4-10.2) mg/dL 07/12/24 07/12/24 07/12/24 Range/Units 06:36 06:36 11:30 WBC 11.22 H (4.50-10.00) 10*3/uL RBC 3.28 L (4.10-5.20) 10*6/uL Hgb 9.4 L (12.0-15.0) g/dL Hct 28.8 L (37.2-46.3) % Plt Count 136 L (140-440) 10*3/uL Immature Gran # 0.77 H (0.00-0.04) 10*3/uL Eosinophils # 0.01 L (0.04-0.35) 10*3/uL Sodium 136 L (137-145) mmol/L Glucose 132 H (74-99) mg/dL POC Glucose (mg/dL) 201 H (70-110) mg/dL Calcium 8.2 L (8.4-10.2) mg/dL Microbiology - Last 24 Hours (Table) 07/08/24 08:39 Blood Culture - Preliminary Blood
[2024-07-12] MEDS ORDERED: NYSTATIN 100,000 UNIT/GM POWD 15 GM TOPICAL PRN (14:34)
--- NOTE | 2024-07-12 15:08 | P.PN ---
Subjective Progress Note Date: 07/12/24 69 years old female who [facility] Patient presents initially because of generalized weakness. She has a significant history of ovarian cancer she follow-up with Dr. Osman and she got chemotherapy last dose was on 06/29. For 1 week patient is not eating and drinking and with fatigue. On presentation she had CT of the chest which showing saddle pulmonary embolism with right ventricular strain and elevated troponin. Patient was started on a heparin drip and transferred to this facility. Before transport patient was found to have fever suspected to have UTI and received 1 dose of ceftriaxone. Patient currently admitted to the ICU. Patient is mildly confused. She is tired and cannot provide information and was obtained with the help of daughter Rhina at bedside. Patient cannot recognize her daughter and she knows she is in hospital but thought that this is more related and she could not tell the time. As per daughter patient found by son lying in couch cannot get up and they called the sister and then brought her to the emergency room. At that time patient was not answering questions appropriately. Patient at baseline lives alone. S she is mildly tachypnei. She has little chest pain central currently 0/10. Also complained from left lower quadrant abdominal pain. As per daughter they cleaned her colostomy bag this morning and it looks loose to her but without smell. Also there was little bit vomiting as per daughter. Maria catheter in place and urine sample was sent looks cloudy. Labs reviewed showing fever of 101.4, tachycardia 125 and EKG showing sinus tachycardia and tachypnea with breathing rate 25, blood pressure is stable she is saturating 88% on room air and 95 on 2 L oxygen. Labs showing pancytopenia with WBC 1.7, hemoglobin 11 and platelet count 118, BMP and LFT unremarkable Glucose elevated 435 Troponin is stable but elevated 0.23 and 0.14 EKG showing sinus tachycardia at 135 BNP is elevated at 330 with baseline 0-99 07/11/2024 -- patient is seen and evaluated in room at bedside; family is present in the room; patient seems to be doing fairly well, does not seem to be short of breath, does not seem to be labored in breathing, on 2 L nasal cannula with O2 sats of 96%. Lab review shows WBC count 6.[address] of the abdomen shows acute hemorrhage within the right renal parenchyma within the proximal right renal collecting system. Questionable 15 mm mass of the distal third of right ureter and possible 5 mm distal right ureteral calculus without any hydronephrosis - Patient has been seen by urology for renal hemorrhage on the right side, and possible ureteral abnormality, and recommending CT urogram at some time in the near future. - Patient is being followed by oncology for her ovarian cancer and for her chemo induced pancytopenia - Anticoagulation therapy remains on hold; patient will need clearance from all the consultants before anticoagulation could be resumed - Will continue to monitor H&H closely 07/12/2024 -- Patient is seen and evaluated in room at bedside, relatively asymptomatic, resting in bed, on 2 L nasal cannula, O2 sats are 95%. - Remains off anticoagulation mostly because of contraindication to anticoagulation considering the patient developed kidney bleed after starting on anticoagulation there. Patient required IVC filter placement and in the meantime we will continue to hold anticoagulation. Patient needs to be cleared for restarting anticoagulation by urology and by hematology. At this point it is best to continue to hold. - WBC is 11.2 hemoglobin 9.4 electrolytes are normal renal profile is normal Objective - Vital Signs Vital signs: Vital Signs Temp 97.3 F L 07/12/24 07:38 Pulse 83 07/12/24 07:38 Resp 18 07/12/24 07:38 BP 127/75 07/12/24 07:38 Pulse Ox 94 L 07/12/24 07:38 FiO2 Intake & Output 07/11/24 07/12/24 07/12/24 18:59 06:59 18:59 Intake Total 480 780 Output Total 1050 650 700 Balance -570 -650 80 Weight 121 kg Intake: Oral 480 780 Output: Urine 550 650 700 Stool 500 Other: Voiding Method Indwelling Catheter Indwelling Catheter - Exam -GENERAL: The patient is alert and oriented x2-3 partial, not in any acute distress. Well developed, well nourished. Tired and lethargic. Obese HEENT: Pupils are round and equally reacting to light. EOMI. No scleral icterus. No conjunctival pallor. Normocephalic, atraumatic. No pharyngeal erythema. No thyromegaly. CARDIOVASCULAR: S1 and S2 present. No murmurs, rubs, or gallops. PULMONARY: Chest is clear to auscultation, no wheezing , no crackles. -ABDOMEN: Soft, nontender, nondistended, normoactive bowel sounds. No palpable organomegaly. LLQ colostomy with surrounding tenderness improved, almost nontender today MUSCULOSKELETAL: No joint swelling or deformity. EXTREMITIES: No cyanosis, clubbing, or pedal edema. NEUROLOGICAL: Gross neurological examination did not reveal any focal deficits. SKIN: No rashes. no petechiae. - Labs CBC & Chem 7: 07/12/24 06:36 07/12/24 06:36 Labs: Abnormal Lab Results - Last 24 Hours (Table) 07/11/24 07/11/24 07/11/24 Range/Units 11:27 16:15 20:05 Sodium (137-145) mmol/L Glucose (74-99) mg/dL POC Glucose (mg/dL) 233 H 256 H 200 H (70-110) mg/dL Calcium (8.4-10.2) mg/dL 07/12/24 07/12/24 Range/Units 06:02 06:36 Sodium 136 L (137-145) mmol/L Glucose 132 H (74-99) mg/dL POC Glucose (mg/dL) 157 H (70-110) mg/dL Calcium 8.2 L (8.4-10.2) mg/dL Microbiology - Last 24 Hours (Table) 07/08/24 08:39 Blood Culture - Preliminary Blood Assessment and Plan Assessment: Acute saddle pulmonary embolism with R ventricular strain. S/p thrombectomy and IVC filter on 07/09 Elevated troponin secondary to above Acute hypoxic respiratory failure, improving Acute hemorrhage within the right renal parenchyma and within the proximal right renal collecting system. With associated questionable 15 mm mass of the distal third of the right ureter and possible 5 mm right ureteral calculus Sepsis Acute UTI Left lower quadrant tenderness around colostomy bag Pancytopenia secondary to chemotherapy Metabolic/toxic encephalopathy Ovarian cancer status postchemotherapy heparin drip is discontinued now Continue with ceftriaxone Follow-up urine culture Follow-up blood culture Follow-up echocardiogram Pulmonary team consult Cardiology team consult Start antibiotics, currently on ceftriaxone Check CT of the abdomen without IV contrast reviewed Urology team consult Vascular surgery team consult Nutrition consult and speech consult for swallow evaluation Labs and medication were reviewed.. Continue same treatment. Continue with symptomatic treatment. Resume home medication. Monitor labs and vitals. DVT and GI prophylaxis. Further recommendations as per clinical course of the patient DVT prophylaxis: heparin discontinued. Continue with mechanical GI Prophylaxis: Pepcid PT/OT: Pending Prognosis is guarded Full code as per family
[2024-07-12 16:42] LABS: Glucose,Whole Blood 194 mg/dL (70-110)
[2024-07-12 20:31] LABS: Glucose,Whole Blood 202 mg/dL (70-110)
[2024-07-13 06:21] LABS: Glucose,Whole Blood 185 mg/dL (70-110)
[2024-07-13 06:40] LABS: HGB 9.6 g/dL (12.0-15.0); MCH 29.4 pg (27.0-32.0); MCHC 33.1 g/dL (32.0-37.0); MCV 88.7 fL (80.0-97.0); Mean Platelet Volume 9.8 fL (9.5-12.2); Platelet Count 127 10*3/uL (140-440); RBC 3.27 10*6/uL (4.10-5.20); RDW 17.6 % (11.5-14.5)
[2024-07-13 07:00] LABS: Band Neutrophils % 25 %; Lymphocytes # (M) 1.38 k/uL (1.0-4.8); Metamyelocytes # (M) 0.24 k/uL (0); Metamyelocytes % 3 %; Monocytes # (M) 0.49 k/uL (0-1.0); Neutrophils % (M) 49 %; Nucleated Red Blood Cells 2 /100 WBC (0-0); Total Cells Counted 200; WBC 8.12 10*3/uL (4.50-10.00)
[2024-07-13 07:17] LABS: African American GFR (CKD) >90 (>60 ml/min/1.73 sqM); Anion Gap 3 mmol/L; Blood Urea Nitrogen 10 mg/dL (7-17); Calcium 7.9 mg/dL (8.4-10.2); Carbon Dioxide 24 mmol/L (22-30); Chloride 109 mmol/L (98-107); Glucose 168 mg/dL (74-99); Non-African American GFR(CKD) >90 (>60 ml/min/1.73 sqM); Potassium 3.8 mmol/L (3.5-5.1); Sodium 136 mmol/L (137-145)
[2024-07-13 11:42] LABS: Glucose,Whole Blood 230 mg/dL (70-110)
--- NOTE | 2024-07-13 13:18 | P.PN ---
Subjective HISTORY OF PRESENT ILLNESS: The patient is a 69-year-old female who was transferred from [place] with evidence of saddle pulmonary embolism, change in mental status and febrile episode. She has a history of omental malignancy, has been receiving chemotherapy by Dr. Palacios at [facility]. She has a history of diabetes and hypertension. She is awake but not able to answer many questions. She had a change in mental status worsening than her baseline. According to the notes she has been feeling progressively fatigued vomiting and not eating. Her D-dimer in [facility] was elevated and subsequently her CT scan showed saddle pulmonary embolism. She had mild elevation of the troponin and NT proBNP. She denies any chest discomfort at the time of my evaluation. She is on 2 L oxygen, her blood pressure is stable and she is sinus tachycardia. She had no evidence of arrhythmia. Her echocardiogram in 2022 showed a preserved systolic function. She denies any history of PND, orthopnea or syncope although the history is quite limited from her. July 09: The patient is more awake and alert today. Yesterday she underwent an abdominal CT scan and was found to have right renal parenchymal bleed. She was also found to have evidence of right DVT. Because of her bleed and her presentation with submassive pulmonary embolism she underwent thrombectomy and subsequently placement of a inferior vena cava filter. She continues to be in sinus mechanism, her blood pressure is on the low side. She has no evidence of malignant arrhythmia. Her oxygenation is stable. She is receiving 1 unit of blood. Her echocardiogram revealed a normal low ventricular systolic function with moderate pulmonary hypertension and dilated RV. July 10: The patient feels better overall, she has respirophasic left-sided chest discomfort but otherwise feels that her breathing is better. She continues to be on oxygen supplementation. She is in sinus mechanism with no evidence of malignant arrhythmia. She denies any dizziness or palpitations. She has no nausea. She was seen by Dr. Jordan who felt that there is no acute urological issue at this point. Her urinary output has been stable. 07/11/2024 Patient examined this morning at bedside. Patient currently denies any chest pain or pressure. She reports improvement in her shortness of breath. Telemetry reveals sinus mechanism. Blood pressure stable. 129/69. Is currently on 2 L nasal cannula with oxygen saturations greater than 92%. 07/12/2024 Patient examined this morning. She is sitting up in the chair. No family is present. She denies chest pain or pressure. She reports improvement in her shortness of breath. 07/13/2024 Patient examined this morning at the bedside. Patient denies chest pain or pressure. Denies SOB. Vital signs stable. PHYSICAL EXAM: VITAL SIGNS: Reviewed. GENERAL: Well-developed in no acute distress. NECK: Supple. No JVD or thyromegaly LUNGS: Respirations even and unlabored. Lungs essentially clear to auscultation bilaterally. HEART: Regular rate and rhythm. S1 and S2 heard. EXTREMITIES: Normal range of motion. No clubbing or cyanosis. Peripheral pulses intact. No lower extremity edema ASSESSMENT: 1. Submassive pulmonary embolism status post thrombectomy and IVC filter placement because of parenchymal renal bleed 2. Anemia, receiving transfusion, stable 3. History of omental malignancy, receiving chemotherapy 4. History of diabetes 5. Pulmonary hypertension most likely related to her pulmonary embolism 6. Change in mental status, improving 7. Acute renal injury, resolved PLAN: Continue current cardiac medications including aspirin and atenolol From a cardiology perspective, patient needs to be resumed on anticoagulation w hen cleared by urology/hematology No further inpatient recommendations from a cardiac standpoint. We will sign off. Nurse practitioner note has been reviewed by physician. Signing provider agrees with the documented findings, assessment, and plan of care documented by SENIOR CLINICAL STUDY MANAGER as a scribe. Objective - Vital Signs Vital signs: Vital Signs Temp 97.9 F 07/13/24 09:14 Pulse 84 07/13/24 09:15 Resp 16 07/13/24 09:14 BP 118/80 07/13/24 09:14 Pulse Ox 95 07/13/24 09:14 FiO2 Intake & Output 07/12/24 07/13/24 07/13/24 18:59 06:59 18:59 Intake Total 1800 240 Output Total 2024 1250 500 Balance -225 -1250 -260 Weight 118 kg Intake: Oral 1800 240 Output: Urine 1525 1250 Stool 500 500 Other: Voiding Method Indwelling Catheter Indwelling Catheter External Catheter - Labs CBC & Chem 7: 07/13/24 06:22 07/13/24 06:22 Labs: Abnormal Lab Results - Last 24 Hours (Table) 07/12/24 07/12/24 07/12/24 Range/Units 11:30 16:41 20:29 RBC (4.10-5.20) 10*6/uL Hgb (12.0-15.0) g/dL Hct (37.2-46.3) % Plt Count (140-440) 10*3/uL Immature Gran # (0.00-0.04) 10*3/uL Metamyelocytes # (Man) (0) k/uL Nucleated RBCs (0-0) /100 WBC Sodium (137-145) mmol/L Chloride (98-107) mmol/L Glucose (74-99) mg/dL POC Glucose (mg/dL) 201 H 194 H 202 H (70-110) mg/dL Calcium (8.4-10.2) mg/dL 07/13/24 07/13/24 07/13/24 Range/Units 06:19 06:22 06:22 RBC 3.27 L (4.10-5.20) 10*6/uL Hgb 9.6 L (12.0-15.0) g/dL Hct 29.0 L (37.2-46.3) % Plt Count 127 L (140-440) 10*3/uL Immature Gran # 0.86 H (0.00-0.04) 10*3/uL Metamyelocytes # (Man) 0.24 H (0) k/uL Nucleated RBCs 2 H (0-0) /100 WBC Sodium 136 L (137-145) mmol/L Chloride 109 H (98-107) mmol/L Glucose 168 H (74-99) mg/dL POC Glucose (mg/dL) 185 H (70-110) mg/dL Calcium 7.9 L (8.4-10.2) mg/dL
--- NOTE | 2024-07-13 14:23 | P.PN ---
Subjective Progress Note Date: 07/13/24 Principal diagnosis: Pulmonary embolism. Patient is 69-year-old female transferred from [facility] after being found to have saddle PE with CT evidence of right-sided heart strain. Previously started on IV heparin per protocol. Patient is currently confused and is a poor historian, her daughter is at bedside and supplements information. 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 Previously underwent bowel resection and has colostomy. Currently undergoing chemotherapy, and her last treatment on June 29rst. Reportedly follows with Dr. Isidro. Increased generalized weakness and fatigue at home. Also, noted to be short of breath. D-dimer was elevated outside facility. CT angio of the chest noted to have large saddle PE with CT evidence of right-sided heart strain. She is currently being evaluated emergency department. She is alert but does not answer questions appropriately. She has been increasingly confused over the last 24 hours per the daughter. Currently resting comfortably on 2 L/min nasal cannula. SpO2 reading 97%. She is febrile with a temperature max of 101.3 F. She is tachycardic with heart rate of 133 bpm. Blood pressure is actually hypertensive at the moment. Has not required any fluid boluses or pressors. According to the daughter, she has no prior history of DVT or PE. Not on any anticoagulants. Repeat labs at our facility showing a WBC count of 1.7, hemoglobin 11, hematocrit 31.8, platelets 118. CMP: Sodium 134, potassium 4.4, chloride 101, serum bicarb 14, BUN 20, creatinine 0.74, glucose 409. Lactic 1.1. Troponins 0.14, and 0.14 respectively. NT proBNP was elevated 82 50. Currently continued on IV heparin per protocol. Follow-up echocardiogram is ordered. Cardiovascular surgery is on for possible intervention. Patient was seen today on 07/09/2024, remains in the ICU, yesterday the patient developed some retroperitoneal bleed and urology was consulted and we di scontinued her heparin recommended vascular surgery evaluation who performed primary percutaneous transluminal mechanical thrombectomy of the left and main pulmonary artery as well as left interlobar artery patient also underwent mechanical thrombectomy of the inferior vena cava and IVC filter placement because of apathy cannot indication to anticoagulation therapy. Patient remains in the ICU today, on 3 L nasal cannula not in any distress, being followed by many consultants including cardiology, urology, and vascular surgery. Does not seem to be in any form of distress. Labs were reviewed WBC count is 1.74 hemoglobin 8.5 electrolytes showed low sodium low bicarb of 16 BUN of 34 creat 1.17. Patient was seen today on 07/10/2024, remains in the ICU, patient is on 2 L nasal cannula, she is receiving clear liquids, does not seem to be in any distress, seen by many consultants including vascular surgery, urology, cardiology, oncology, and I am planning to transfer the patient out of the ICU to a monitored bed and selective. Briefly discussed CODE STATUS with the patient today, undecided yet on CODE STATUS. She would like to discuss this with her family. WBC count is 2.2 hemoglobin is 8.6 electrolytes are normal renal profile is normal, reviewed the note from urology, recommended basically a CT of the chest with contrast and this is referring to the small bleed in the kidney, also a questionable mass in the ureter. No hydronephrosis, no gross hematuria, he recommended eventual cystoscopy and retrograde CT with urogram to assess these issues. Seen today on 07/11/2024, patient seems to be doing fairly well, does not seem to be short of breath, does not seem to be labored in breathing, on 2 L nasal cannula with O2 sats of 96%. WBC count 6.4 hemoglobin 10.2. Seen by urology for renal hemorrhage on the right side, and possible ureteral abnormality, and recommending CT urogram at some time in the near future. Patient is being followed by oncology for her ovarian cancer and for her chemo induced pancytopenia Patient was seen today on 07/12/2024, doing well, relatively asymptomatic, resting in bed, on 2 L nasal cannula, O2 sats are 95%. Still being followed by many consultants including cardiology, hematology, urology, and vascular surgery. Remains off anticoagulation mostly because of contraindication to anticoagulation considering the patient developed kidney bleed after starting on anticoagulation there. Patient required IVC filter placement and in the m eantime we will continue to hold anticoagulation. Patient needs to be cleared for restarting anticoagulation by urology and by hematology. At this point it is best to continue to hold. WBC is 11.2 hemoglobin 9.4 electrolytes are normal renal profile is normal Progress note dated July 13, 2024. 69-year-old female seen today in room 375. The patient continues on nasal O2 at 2 L. She sitting in a chair next to the hospital bed. She is awake and alert. The patient has a history of pulmonary embolism, ovarian cancer, and is currently receiving saline at 25 cc an hour. In addition, because of bleeding concerns, the patient had a [place] filter placed. The patient has no complaints at the current time. Current laboratory data includes a white count 8.12, hemoglobin 9.6, hematocrit 29, and a platelet count of 127,000. Sodium 136, potassium 3.8, chlorides 109, CO2 24, BUN 10, and creatinine is 0.61. Glucose is 230. Calcium is 7.9. Urine culture from July 08 shows evidence of Enterobacter cloacae infection. Objective - Vital Signs Vital signs: Vital Signs Temp 97.9 F 07/13/24 09:14 Pulse 75 07/13/24 13:15 Resp 16 07/13/24 11:26 BP 111/74 07/13/24 11:26 Pulse Ox 96 07/13/24 11:26 FiO2 Intake & Output 07/12/24 07/13/24 07/13/24 18:59 06:59 18:59 Intake Total 1800 620 Output Total 2024 1250 700 Balance -225 -1250 -80 Weight 118 kg Intake: Oral 1800 620 Output: Urine 1525 1250 Stool 500 700 Other: Voiding Method Indwelling Catheter Indwelling Catheter Toilet Diaper # Voids 1 - Exam No acute distress, oriented 3. The patient is currently on 2 L of oxygen. No respiratory distress. HEENT examination is grossly unremarkable. Mucous membranes are moist. No oral lesions. Neck supple. Full range of motion. No adenopathy thyromegaly or neck vein distention. Cardiovascular examination reveals regular rhythm rate. S1-S2 normal. No S3 or S4. No discernible murmur noted. Lungs reveal clear breath sounds. Breath sounds are equal bilaterally. No adv entitious lung sounds including wheezes rhonchi or crackles. Abdomen soft bowel sounds are heard. No masses or tenderness. Colostomy with viable stoma noted. Extremities are intact. No cyanosis clubbing or edema. Skin is without rash or lesion. Neurologic examination is brief but nonfocal. - Labs CBC & Chem 7: 07/13/24 06:22 07/13/24 06:22 Labs: Abnormal Lab Results - Last 24 Hours (Table) 07/12/24 07/12/24 07/13/24 Range/Units 16:41 20:29 06:19 RBC (4.10-5.20) 10*6/uL Hgb (12.0-15.0) g/dL Hct (37.2-46.3) % Plt Count (140-440) 10*3/uL Immature Gran # (0.00-0.04) 10*3/uL Metamyelocytes # (Man) (0) k/uL Nucleated RBCs (0-0) /100 WBC Sodium (137-145) mmol/L Chloride (98-107) mmol/L Glucose (74-99) mg/dL POC Glucose (mg/dL) 194 H 202 H 185 H (70-110) mg/dL Calcium (8.4-10.2) mg/dL 07/13/24 07/13/24 07/13/24 Range/Units 06:22 06:22 11:40 RBC 3.27 L (4.10-5.20) 10*6/uL Hgb 9.6 L (12.0-15.0) g/dL Hct 29.0 L (37.2-46.3) % Plt Count 127 L (140-440) 10*3/uL Immature Gran # 0.86 H (0.00-0.04) 10*3/uL Metamyelocytes # (Man) 0.24 H (0) k/uL Nucleated RBCs 2 H (0-0) /100 WBC Sodium 136 L (137-145) mmol/L Chloride 109 H (98-107) mmol/L Glucose 168 H (74-99) mg/dL POC Glucose (mg/dL) 230 H (70-110) mg/dL Calcium 7.9 L (8.4-10.2) mg/dL Assessment and Plan Assessment: S/P primary percutaneous transluminal mechanical thrombectomy of the main pulmonary artery. S/ P placement of an IVC filter. Percutaneous transluminal mechanical thrombectomy of the inferior vena cava. Bilateral saddle pulmonary embolism, with CT evidence of right sided heart strain. Acute hypoxemic respiratory failure. Retroperitoneal bleed, S/P IVC filter. 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 Pancytopenia. Anion gap metabolic acidosis. Acute mental status changes. Insulin-dependent diabetes mellitus. Hypertension. Morbid obesity. Plan: Plan dated July 13, 2024. The patient appears to be doing relatively well. She continues on nasal O2 at 2 L. She is not receiving any fluids other than saline at 25 cc an hour. She has had a refill filter placed. She does have a history of ovarian cancer, and retroperitoneal hemorrhage. The patient is status post pulmonary embolism. We will continue to follow the patient, make recommendations along the way. All labs, x-rays, and medications are reviewed. The patient's overall prognosis rem ains guarded. Dictation was produced using babberlyation software. Please excuse any grammatical, word or spelling errors. Time with Patient: Less than 30
[2024-07-13 16:28] LABS: Glucose,Whole Blood 216 mg/dL (70-110)
--- NOTE | 2024-07-13 20:07 | P.PN ---
Subjective Progress Note Date: 07/13/24 Principal diagnosis: ovarian carcinoma Saddle PE, RLE DVT. Ovarian carcinoma, on treatment for the same Objective - Vital Signs Vital signs: Vital Signs Temp 97.9 F 07/13/24 09:14 Pulse 75 07/13/24 11:26 Resp 16 07/13/24 11:26 BP 111/74 07/13/24 11:26 Pulse Ox 96 07/13/24 11:26 FiO2 Intake & Output 07/12/24 07/13/24 07/13/24 18:59 06:59 18:59 Intake Total 1800 240 Output Total 2024 1250 500 Balance -225 -1250 -260 Weight 118 kg Intake: Oral 1800 240 Output: Urine 1525 1250 Stool 500 500 Other: Voiding Method Indwelling Catheter Indwelling Catheter External Catheter - Constitutional General appearance: Present: cooperative, no acute distress, obese - EENT Eyes: Present: anicteric sclerae, EOMI ENT: Present: hearing grossly normal - Respiratory Details: resp unlabored at rest - Cardiovascular Details: skin warm, well perfused - Peripheral edema leg Peripheral Edema: bilateral: Trace - Neurologic Neurologic: Present: CNII-XII intact - Musculoskeletal Musculoskeletal: Present: generalized weakness - Psychiatric Psychiatric Comment(s): flat affect, understands most of her situation, relies on others for decisions at times Psychiatric: Present: A&O x's 3 - Labs CBC & Chem 7: 07/13/24 06:22 07/13/24 06:22 Labs: Abnormal Lab Results - Last 24 Hours (Table) 07/12/24 07/12/24 07/13/24 Range/Units 16:41 20:29 06:19 RBC (4.10-5.20) 10*6/uL Hgb (12.0-15.0) g/dL Hct (37.2-46.3) % Plt Count (140-440) 10*3/uL Immature Gran # (0.00-0.04) 10*3/uL Metamyelocytes # (Man) (0) k/uL Nucleated RBCs (0-0) /100 WBC Sodium (137-145) mmol/L Chloride (98-107) mmol/L Glucose (74-99) mg/dL POC Glucose (mg/dL) 194 H 202 H 185 H (70-110) mg/dL Calcium (8.4-10.2) mg/dL 07/13/24 07/13/24 07/13/24 Range/Units 06:22 06:22 11:40 RBC 3.27 L (4.10-5.20) 10*6/uL Hgb 9.6 L (12.0-15.0) g/dL Hct 29.0 L (37.2-46.3) % Plt Count 127 L (140-440) 10*3/uL Immature Gran # 0.86 H (0.00-0.04) 10*3/uL Metamyelocytes # (Man) 0.24 H (0) k/uL Nucleated RBCs 2 H (0-0) /100 WBC Sodium 136 L (137-145) mmol/L Chloride 109 H (98-107) mmol/L Glucose 168 H (74-99) mg/dL POC Glucose (mg/dL) 230 H (70-110) mg/dL Calcium 7.9 L (8.4-10.2) mg/dL Assessment and Plan (1) Pulmonary embolism Current Visit: Yes Status: Acute Priority: High Code(s): I26.99 - OTHER PULMONARY EMBOLISM WITHOUT ACUTE COR PULMONALE SNOMED Code(s): 34431650 (2) Ovarian papillary adenocarcinoma Current Visit: Yes Status: Acute Priority: High Code(s): C56.9 - MALIGNANT NEOPLASM OF UNSPECIFIED OVARY SNOMED Code(s): 732753623 (3) Antineoplastic chemotherapy induced pancytopenia Current Visit: Yes Status: Acute Code(s): D61.810 - ANTINEOPLASTIC CHEMOTHERAPY INDUCED PANCYTOPENIA; T45.1X5A - ADVERSE EFFECT OF ANTINEOPLASTIC AND IMMUNOSUP DRUGS, INIT SNOMED Code(s): 208023763674483 Plan: Pulmonary embolism, right lower extremity DVT -Presentation, workup and treatment plans described in consult. -Provoked, malignancy, treatment of malignancy, dehydration from vomiting for several days, decreased activity -Patient has had thrombectomy and placement of an IVC filter by Vascular. - Anticoagulation not given because of suspected renal hemorrhage on CT. F/U US is not reporting renal hemorrhage. Urology notes reviewed, recs for CT urogram to confirm or refute renal hemorrhage. If pt is not bleeding, she may be able to placed on anticoagulation. Hgb lability is multifactotrial including chemo effects, recent procedures, dilution after dehydration. Cont to monitor Hgb for progressive downward trend or precipitous drop over the next few days. Hgb stable at this time Ovarian carcinoma - Diagnosis and treatment as documented in consult - Currently patient is receiving neoadjuvant chemotherapy. Primary Medical Oncologist wants to reimage in the near future and discuss with Threading Machine Operator Surgeon to see if she is a possible candidate for resection of recurrent disease, sooner than later Chemo induced pancytopenia -ANC normal at 6000, WBCs 8.1, patient did receive a dose of G-CSF. This has now been discontinued -Platelets up to 127,000. -Hemoglobin 9.6 which is stable at this time -Patient should be recovering from manpreet at this time. Doctor attests: I performed a history and physical examination of this patient, developed impression and plan of care. Discussed with dictator. I agree with dictators note, documented as a scribe.
[2024-07-13 20:11] LABS: Glucose,Whole Blood 166 mg/dL (70-110)
--- NOTE | 2024-07-13 22:11 | P.PN ---
Subjective Progress Note Date: 07/13/24 69 years old female who [facility] Patient presents initially because of generalized weakness. She has a significant history of ovarian cancer she follow-up with Dr. Osman and she got chemotherapy last dose was on 06/29. For 1 week patient is not eating and drinking and with fatigue. On presentation she had CT of the chest which showing saddle pulmonary embolism with right ventricular strain and elevated troponin. Patient was started on a heparin drip and transferred to this facility. Before transport patient was found to have fever suspected to have UTI and received 1 dose of ceftriaxone. Patient currently admitted to the ICU. Patient is mildly confused. She is tired and cannot provide information and was obtained with the help of daughter Rhina at bedside. Patient cannot recognize her daughter and she knows she is in hospital but thought that this is more related and she could not tell the time. As per daughter patient found by son lying in couch cannot get up and they called the sister and then brought her to the emergency room. At that time patient was not answering questions appropriately. Patient at baseline lives alone. S she is mildly tachypnei. She has little chest pain central currently 0/10. Also complained from left lower quadrant abdominal pain. As per daughter they cleaned her colostomy bag this morning and it looks loose to her but without smell. Also there was little bit vomiting as per daughter. Maria catheter in place and urine sample was sent looks cloudy. Labs reviewed showing fever of 101.4, tachycardia 125 and EKG showing sinus tachycardia and tachypnea with breathing rate 25, blood pressure is stable she is saturating 88% on room air and 95 on 2 L oxygen. Labs showing pancytopenia with WBC 1.7, hemoglobin 11 and platelet count 118, BMP and LFT unremarkable Glucose elevated 435 Troponin is stable but elevated 0.23 and 0.14 EKG showing sinus tachycardia at 135 BNP is elevated at 330 with baseline 0-99 07/11/2024 -- patient is seen and evaluated in room at bedside; family is present in the room; patient seems to be doing fairly well, does not seem to be short of breath, does not seem to be labored in breathing, on 2 L nasal cannula with O2 sats of 96%. Lab review shows WBC count 6.[address] of the abdomen shows acute hemorrhage within the right renal parenchyma within the proximal right renal collecting system. Questionable 15 mm mass of the distal third of right ureter and possible 5 mm distal right ureteral calculus without any hydronephrosis - Patient has been seen by urology for renal hemorrhage on the right side, and possible ureteral abnormality, and recommending CT urogram at some time in the near future. - Patient is being followed by oncology for her ovarian cancer and for her chemo induced pancytopenia - Anticoagulation therapy remains on hold; patient will need clearance from all the consultants before anticoagulation could be resumed - Will continue to monitor H&H closely 07/12/2024 -- Patient is seen and evaluated in room at bedside, relatively asymptomatic, resting in bed, on 2 L nasal cannula, O2 sats are 95%. - Remains off anticoagulation mostly because of contraindication to anticoagulation considering the patient developed kidney bleed after starting on anticoagulation there. Patient required IVC filter placement and in the meantime we will continue to hold anticoagulation. Patient needs to be cleared for restarting anticoagulation by urology and by hematology. At this point it is best to continue to hold. - WBC is 11.2 hemoglobin 9.4 electrolytes are normal renal profile is normal 07/13/2024 Patient is sitting on side of bed. Awake alert and oriented. Requiring 2 L oxygen via nasal cannula. Patient is status post Yahaira IVC filter placement due to bleeding issues. Anticoagulation is on hold.. Patient does have a history of ovarian cancer.. Laboratory data showed WBC 8.1 hemoglobin 9.6 and platelets 127 sodium 136 potassium 3.8 chloride 109 BUN 10 and creatinin e 0.61 and blood sugar 168. Current medications reviewed. Objective - Vital Signs Vital signs: Vital Signs Temp 97.9 F 07/13/24 09:14 Pulse 84 07/13/24 09:15 Resp 16 07/13/24 09:14 BP 118/80 07/13/24 09:14 Pulse Ox 95 07/13/24 09:14 FiO2 Intake & Output 07/12/24 07/13/24 07/13/24 18:59 06:59 18:59 Intake Total 1800 240 Output Total 2024 1250 500 Balance -225 -1250 -260 Weight 118 kg Intake: Oral 1800 240 Output: Urine 1525 1250 Stool 500 500 Other: Voiding Method Indwelling Catheter Indwelling Catheter External Catheter - Exam - Exam -GENERAL: The patient is alert and oriented x2-3 partial, not in any acute distress. Well developed, well nourished. Tired and lethargic. Obese HEENT: Pupils are round and equally reacting to light. EOMI. No scleral icterus. No conjunctival pallor. Normocephalic, atraumatic. No pharyngeal erythema. No thyromegaly. CARDIOVASCULAR: S1 and S2 present. No murmurs, rubs, or gallops. PULMONARY: Chest is clear to auscultation, no wheezing , no crackles. -ABDOMEN: Soft, nontender, nondistended, normoactive bowel sounds. No palpable organomegaly. LLQ colostomy with surrounding tenderness improved, almost nontender today MUSCULOSKELETAL: No joint swelling or deformity. EXTREMITIES: No cyanosis, clubbing, or pedal edema. NEUROLOGICAL: Gross neurological examination did not reveal any focal deficits. SKIN: No rashes. no petechiae. - Labs CBC & Chem 7: 07/14/24 06:03 07/14/24 06:03 Labs: Abnormal Lab Results - Last 24 Hours (Table) 07/12/24 07/12/24 07/12/24 Range/Units 06:36 11:30 16:41 RBC (4.10-5.20) 10*6/uL Hgb (12.0-15.0) g/dL Hct (37.2-46.3) % Plt Count (140-440) 10*3/uL Immature Gran # (0.00-0.04) 10*3/uL Eosinophils # 0.01 L (0.04-0.35) 10*3/uL Metamyelocytes # (Man) (0) k/uL Nucleated RBCs (0-0) /100 WBC Sodium (137-145) mmol/L Chloride (98-107) mmol/L Glucose (74-99) mg/dL POC Glucose (mg/dL) 201 H 194 H (70-110) mg/dL Calcium (8.4-10.2) mg/dL 07/12/24 07/13/24 07/13/24 Range/Units 20:29 06:19 06:22 RBC 3.27 L (4.10-5.20) 10*6/uL Hgb 9.6 L (12.0-15.0) g/dL Hct 29.0 L (37.2-46.3) % Plt Count 127 L (140-440) 10*3/uL Immature Gran # 0.86 H (0.00-0.04) 10*3/uL Eosinophils # (0.04-0.35) 10*3/uL Metamyelocytes # (Man) 0.24 H (0) k/uL Nucleated RBCs 2 H (0-0) /100 WBC Sodium (137-145) mmol/L Chloride (98-107) mmol/L Glucose (74-99) mg/dL POC Glucose (mg/dL) 202 H 185 H (70-110) mg/dL Calcium (8.4-10.2) mg/dL 07/13/24 Range/Units 06:22 RBC (4.10-5.20) 10*6/uL Hgb (12.0-15.0) g/dL Hct (37.2-46.3) % Plt Count (140-440) 10*3/uL Immature Gran # (0.00-0.04) 10*3/uL Eosinophils # (0.04-0.35) 10*3/uL Metamyelocytes # (Man) (0) k/uL Nucleated RBCs (0-0) /100 WBC Sodium 136 L (137-145) mmol/L Chloride 109 H (98-107) mmol/L Glucose 168 H (74-99) mg/dL POC Glucose (mg/dL) (70-110) mg/dL Calcium 7.9 L (8.4-10.2) mg/dL Assessment and Plan Assessment: Acute saddle pulmonary embolism with R ventricular strain. S/p thrombectomy and IVC filter on 07/09. Antibiotic on hold due to parenchymal hemorrhage. Renal Right lower extremity DVT Elevated troponin secondary to above Acute hypoxic respiratory failure, improving Acute hemorrhage within the right renal parenchyma and within the proximal right renal collecting system. With associated questionable 15 mm mass of the distal third of the right ureter and possible 5 mm right ureteral calculus Sepsis Acute UTI with Enterobacter [place] Left lower quadrant tenderness around colostomy bag Pancytopenia secondary to chemotherapy Metabolic/toxic encephalopathy Ovarian cancer status postchemotherapy heparin drip is discontinued now Continue with ceftriaxone Urine culture showed Enterobacter cloacae. Continue with ceftriaxone. Follow-up echocardiogram Patient was seen by urology and vascular surgery. Nutrition consult and speech consult for swallow evaluation Labs and medication were reviewed. Monitor labs and vitals. DVT and GI prophylaxis. Further recommendations as per clinical course of the patient DVT prophylaxis: heparin discontinued. Continue with mechanical GI Prophylaxis: Pepcid PT/OT: Pending Prognosis is guarded Full code as per family Time with Patient: Greater than 30
[2024-07-14 06:29] LABS: Glucose,Whole Blood 148 mg/dL (70-110)
[2024-07-14 06:55] LABS: HCT 27.4 % (37.2-46.3); HGB 8.7 g/dL (12.0-15.0); MCH 28.6 pg (27.0-32.0); MCHC 31.8 g/dL (32.0-37.0); MCV 90.1 fL (80.0-97.0); Platelet Count 123 10*3/uL (140-440); RBC 3.04 10*6/uL (4.10-5.20); RDW 17.8 % (11.5-14.5)
[2024-07-14 07:13] LABS: African American GFR (CKD) >90 (>60 ml/min/1.73 sqM); Anion Gap 5 mmol/L; Blood Urea Nitrogen 9 mg/dL (7-17); Calcium 8.1 mg/dL (8.4-10.2); Carbon Dioxide 25 mmol/L (22-30); Chloride 108 mmol/L (98-107); Glucose 122 mg/dL (74-99); Non-African American GFR(CKD) >90 (>60 ml/min/1.73 sqM); Potassium 3.9 mmol/L (3.5-5.1); Sodium 138 mmol/L (137-145)
[2024-07-14] MEDS: IPRATROPIUM-ALBUTEROL 3 ML NEB INHALATION PRN (08:45)
[2024-07-14 09:01] LABS: Band Neutrophils % 5 %; Monocytes # (M) 0.36 k/uL (0-1.0); Neutrophils # (M) 4.37 k/uL (1.3-7.7); Neutrophils % (M) 67 %; Nucleated Red Blood Cells 1 /100 WBC (0-0); Total Cells Counted 200; WBC 6.08 10*3/uL (4.50-10.00)
[2024-07-14 09:05] LABS: RBC Morphology Normal
[2024-07-14 11:52] LABS: Glucose,Whole Blood 207 mg/dL (70-110)
--- NOTE | 2024-07-14 12:48 | P.PN ---
Subjective Progress Note Date: 07/14/24 Principal diagnosis: Pulmonary embolism. Patient is 69-year-old female transferred from [facility] after being found to have saddle PE with CT evidence of right-sided heart strain. Previously started on IV heparin per protocol. Patient is currently confused and is a poor historian, her daughter is at bedside and supplements information. 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 Previously underwent bowel resection and has colostomy. Currently undergoing chemotherapy, and her last treatment on June 29rst. Reportedly follows with Dr. Isidro. Increased generalized weakness and fatigue at home. Also, noted to be short of breath. D-dimer was elevated outside facility. CT angio of the chest noted to have large saddle PE with CT evidence of right-sided heart strain. She is currently being evaluated emergency department. She is alert but does not answer questions appropriately. She has been increasingly confused over the last 24 hours per the daughter. Currently resting comfortably on 2 L/min nasal cannula. SpO2 reading 97%. She is febrile with a temperature max of 101.3 F. She is tachycardic with heart rate of 133 bpm. Blood pressure is actually hypertensive at the moment. Has not required any fluid boluses or pressors. According to the daughter, she has no prior history of DVT or PE. Not on any anticoagulants. Repeat labs at our facility showing a WBC count of 1.7, hemoglobin 11, hematocrit 31.8, platelets 118. CMP: Sodium 134, potassium 4.4, chloride 101, serum bicarb 14, BUN 20, creatinine 0.74, glucose 409. Lactic 1.1. Troponins 0.14, and 0.14 respectively. NT proBNP was elevated 82 50. Currently continued on IV heparin per protocol. Follow-up echocardiogram is ordered. Cardiovascular surgery is on for possible intervention. Patient was seen today on 07/09/2024, remains in the ICU, yesterday the patient developed some retroperitoneal bleed and urology was consulted and we di scontinued her heparin recommended vascular surgery evaluation who performed primary percutaneous transluminal mechanical thrombectomy of the left and main pulmonary artery as well as left interlobar artery patient also underwent mechanical thrombectomy of the inferior vena cava and IVC filter placement because of apathy cannot indication to anticoagulation therapy. Patient remains in the ICU today, on 3 L nasal cannula not in any distress, being followed by many consultants including cardiology, urology, and vascular surgery. Does not seem to be in any form of distress. Labs were reviewed WBC count is 1.74 hemoglobin 8.5 electrolytes showed low sodium low bicarb of 16 BUN of 34 creat 1.17. Patient was seen today on 07/10/2024, remains in the ICU, patient is on 2 L nasal cannula, she is receiving clear liquids, does not seem to be in any distress, seen by many consultants including vascular surgery, urology, cardiology, oncology, and I am planning to transfer the patient out of the ICU to a monitored bed and selective. Briefly discussed CODE STATUS with the patient today, undecided yet on CODE STATUS. She would like to discuss this with her family. WBC count is 2.2 hemoglobin is 8.6 electrolytes are normal renal profile is normal, reviewed the note from urology, recommended basically a CT of the chest with contrast and this is referring to the small bleed in the kidney, also a questionable mass in the ureter. No hydronephrosis, no gross hematuria, he recommended eventual cystoscopy and retrograde CT with urogram to assess these issues. Seen today on 07/11/2024, patient seems to be doing fairly well, does not seem to be short of breath, does not seem to be labored in breathing, on 2 L nasal cannula with O2 sats of 96%. WBC count 6.4 hemoglobin 10.2. Seen by urology for renal hemorrhage on the right side, and possible ureteral abnormality, and recommending CT urogram at some time in the near future. Patient is being followed by oncology for her ovarian cancer and for her chemo induced pancytopenia Patient was seen today on 07/12/2024, doing well, relatively asymptomatic, resting in bed, on 2 L nasal cannula, O2 sats are 95%. Still being followed by many consultants including cardiology, hematology, urology, and vascular surgery. Remains off anticoagulation mostly because of contraindication to anticoagulation considering the patient developed kidney bleed after starting on anticoagulation there. Patient required IVC filter placement and in the m eantime we will continue to hold anticoagulation. Patient needs to be cleared for restarting anticoagulation by urology and by hematology. At this point it is best to continue to hold. WBC is 11.2 hemoglobin 9.4 electrolytes are normal renal profile is normal Progress note dated July 13, 2024. 69-year-old female seen today in room 375. The patient continues on nasal O2 at 2 L. She sitting in a chair next to the hospital bed. She is awake and alert. The patient has a history of pulmonary embolism, ovarian cancer, and is currently receiving saline at 25 cc an hour. In addition, because of bleeding concerns, the patient had a Yahaira filter placed. The patient has no complaints at the current time. Current laboratory data includes a white count 8.12, hemoglobin 9.6, hematocrit 29, and a platelet count of 127,000. Sodium 136, potassium 3.8, chlorides 109, CO2 24, BUN 10, and creatinine is 0.61. Glucose is 230. Calcium is 7.9. Urine culture from July 08 shows evidence of Enterobacter cloacae infection. Progress note dated July 14, 2024. 69-year-old female seen again in room 375. The patient continues on nasal O2 at 2 L. She is not receiving any IV fluids. She seems to be resting comfortably in bed. She is hoping to be discharged soon. Current laboratory data includes a white count of 6.1, hemoglobin 8.7, hematocrit 27.4, and a platelet count of 123,000. Sodium 138, potassium 3.9, chlorides 108, CO2 25, BUN 9, creatinine 0.61. Glucose is 207. Calcium is 8.1. Urine from July 08 shows evidence of Enterobacter. The patient continues on Rocephin. Objective - Vital Signs Vital signs: Vital Signs Temp 97.9 F 07/14/24 11:44 Pulse 78 07/14/24 12:34 Resp 18 07/14/24 11:44 BP 115/67 07/14/24 11:44 Pulse Ox 95 07/14/24 11:44 FiO2 Intake & Output 07/13/24 07/14/24 07/14/24 18:59 06:59 18:59 Intake Total 738 Output Total 700 50 Balance 38 -50 Weight 119.7 kg Intake: Oral 738 Output: Stool 700 50 Other: Voiding Method Toilet Toilet Toilet Diaper Diaper Diaper # Voids 1 1 1 - Exam No acute distress, oriented 3. The patient is currently on 2 L of oxygen. No respiratory distress. HEENT examination is grossly unremarkable. Mucous membranes are moist. No oral lesions. Neck supple. Full range of motion. No adenopathy thyromegaly or neck vein distention. Cardiovascular examination reveals regular rhythm rate. S1-S2 normal. No S3 or S4. No discernible murmur noted. Lungs reveal clear breath sounds. Breath sounds are equal bilaterally. No adventitious lung sounds including wheezes rhonchi or crackles. Abdomen soft bowel sounds are heard. No masses or tenderness. Colostomy with viable stoma noted. Extremities are intact. No cyanosis clubbing or edema. Skin is without rash or lesion. Neurologic examination is brief but nonfocal. - Labs CBC & Chem 7: 07/14/24 06:03 07/14/24 06:03 Labs: Abnormal Lab Results - Last 24 Hours (Table) 07/13/24 07/13/24 07/14/24 Range/Units 16:26 20:10 06:03 RBC 3.04 L (4.10-5.20) 10*6/uL Hgb 8.7 L (12.0-15.0) g/dL Hct 27.4 L (37.2-46.3) % MCHC 31.8 L (32.0-37.0) g/dL Plt Count 123 L (140-440) 10*3/uL Immature Gran # 0.72 H (0.00-0.04) 10*3/uL Nucleated RBCs 1 H (0-0) /100 WBC Chloride (98-107) mmol/L Glucose (74-99) mg/dL POC Glucose (mg/dL) 216 H 166 H (70-110) mg/dL Calcium (8.4-10.2) mg/dL 07/14/24 07/14/24 07/14/24 Range/Units 06:03 06:27 11:51 RBC (4.10-5.20) 10*6/uL Hgb (12.0-15.0) g/dL Hct (37.2-46.3) % MCHC (32.0-37.0) g/dL Plt Count (140-440) 10*3/uL Immature Gran # (0.00-0.04) 10*3/uL Nucleated RBCs (0-0) /100 WBC Chloride 108 H (98-107) mmol/L Glucose 122 H (74-99) mg/dL POC Glucose (mg/dL) 148 H 207 H (70-110) mg/dL Calcium 8.1 L (8.4-10.2) mg/dL Microbiology - Last 24 Hours (Table) 07/08/24 08:39 Blood Culture - Final Blood Assessment and Plan Assessment: S/P primary percutaneous transluminal mechanical thrombectomy of the main pulmonary artery. S/ P placement of an IVC filter. Percutaneous transluminal mechanical thrombectomy of the inferior vena cava. Bilateral saddle pulmonary embolism, with CT evidence of right sided heart strain. Acute hypoxemic respiratory failure. Retroperitoneal bleed, S/P IVC filter. 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 Pancytopenia. Anion gap metabolic acidosis. Acute mental status changes. Insulin-dependent diabetes mellitus. Hypertension. Morbid obesity. Plan: Plan dated July 13, 2024. The patient appears to be doing relatively well. She continues on nasal O2 at 2 L. She is not receiving any fluids other than saline at 25 cc an hour. She has had a refill filter placed. She does have a history of ovarian cancer, and r etroperitoneal hemorrhage. The patient is status post pulmonary embolism. We will continue to follow the patient, make recommendations along the way. All labs, x-rays, and medications are reviewed. The patient's overall prognosis remains guarded. Dictation was produced using [employer] software. Please excuse any grammatical, word or spelling errors. Plan dated July 14, 2024. The patient appears to be doing relatively well. She continues on 2 L. Her laboratory data has been reviewed. Everything appears stable. She denies any shortness of breath, cough, wheezing, chest tightness, chest pain, chest pressure, palpitations, or any other complaints for that matter. All labs, x- rays, and medications are reviewed. We will continue to follow the patient, make recommendations along the way. The patient is overall prognosis remains guarded. Dictation was produced using [employer] software. Please excuse any grammatical, word or spelling errors. Time with Patient: Less than 30
[2024-07-14 16:59] LABS: Glucose,Whole Blood 207 mg/dL (70-110)
[2024-07-14 20:19] LABS: Glucose,Whole Blood 235 mg/dL (70-110)
[2024-07-15 06:07] LABS: Glucose,Whole Blood 133 mg/dL (70-110)
[2024-07-15 11:34] LABS: Glucose,Whole Blood 203 mg/dL (70-110)
[2024-07-15 12:00] LABS: HCT 28.7 % (37.2-46.3); HGB 9.3 g/dL (12.0-15.0); MCH 29.5 pg (27.0-32.0); MCHC 32.4 g/dL (32.0-37.0); MCV 91.1 fL (80.0-97.0); Mean Platelet Volume 10.1 fL (9.5-12.2); Platelet Count 134 10*3/uL (140-440); RBC 3.15 10*6/uL (4.10-5.20); RDW 17.9 % (11.5-14.5); WBC 5.21 10*3/uL (4.50-10.00)
[2024-07-15 12:12] LABS: African American GFR (CKD) >90 (>60 ml/min/1.73 sqM); Anion Gap 4 mmol/L; Blood Urea Nitrogen 8 mg/dL (7-17); Calcium 8.3 mg/dL (8.4-10.2); Carbon Dioxide 27 mmol/L (22-30); Chloride 106 mmol/L (98-107); Glucose 182 mg/dL (74-99); Non-African American GFR(CKD) >90 (>60 ml/min/1.73 sqM); Sodium 137 mmol/L (137-145)
--- NOTE | 2024-07-15 13:56 | P.PN ---
Subjective Progress Note Date: 07/15/24 Principal diagnosis: Pulmonary embolism. Patient is 69-year-old female transferred from [facility] after being found to have saddle PE with CT evidence of right-sided heart strain. Previously started on IV heparin per protocol. Patient is currently confused and is a poor historian, her daughter is at bedside and supplements information. 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 Previously underwent bowel resection and has colostomy. Currently undergoing chemotherapy, and her last treatment on June 29rst. Reportedly follows with Dr. Isidro. Increased generalized weakness and fatigue at home. Also, noted to be short of breath. D-dimer was elevated outside facility. CT angio of the chest noted to have large saddle PE with CT evidence of right-sided heart strain. She is currently being evaluated emergency department. She is alert but does not answer questions appropriately. She has been increasingly confused over the last 24 hours per the daughter. Currently resting comfortably on 2 L/min nasal cannula. SpO2 reading 97%. She is febrile with a temperature max of 101.3 F. She is tachycardic with heart rate of 133 bpm. Blood pressure is actually hypertensive at the moment. Has not required any fluid boluses or pressors. According to the daughter, she has no prior history of DVT or PE. Not on any anticoagulants. Repeat labs at our facility showing a WBC count of 1.7, hemoglobin 11, hematocrit 31.8, platelets 118. CMP: Sodium 134, potassium 4.4, chloride 101, serum bicarb 14, BUN 20, creatinine 0.74, glucose 409. Lactic 1.1. Troponins 0.14, and 0.14 respectively. NT proBNP was elevated 82 50. Currently continued on IV heparin per protocol. Follow-up echocardiogram is ordered. Cardiovascular surgery is on for possible intervention. Patient was seen today on 07/09/2024, remains in the ICU, yesterday the patient developed some retroperitoneal bleed and urology was consulted and we di scontinued her heparin recommended vascular surgery evaluation who performed primary percutaneous transluminal mechanical thrombectomy of the left and main pulmonary artery as well as left interlobar artery patient also underwent mechanical thrombectomy of the inferior vena cava and IVC filter placement because of apathy cannot indication to anticoagulation therapy. Patient remains in the ICU today, on 3 L nasal cannula not in any distress, being followed by many consultants including cardiology, urology, and vascular surgery. Does not seem to be in any form of distress. Labs were reviewed WBC count is 1.74 hemoglobin 8.5 electrolytes showed low sodium low bicarb of 16 BUN of 34 creat 1.17. Patient was seen today on 07/10/2024, remains in the ICU, patient is on 2 L nasal cannula, she is receiving clear liquids, does not seem to be in any distress, seen by many consultants including vascular surgery, urology, cardiology, oncology, and I am planning to transfer the patient out of the ICU to a monitored bed and selective. Briefly discussed CODE STATUS with the patient today, undecided yet on CODE STATUS. She would like to discuss this with her family. WBC count is 2.2 hemoglobin is 8.6 electrolytes are normal renal profile is normal, reviewed the note from urology, recommended basically a CT of the chest with contrast and this is referring to the small bleed in the kidney, also a questionable mass in the ureter. No hydronephrosis, no gross hematuria, he recommended eventual cystoscopy and retrograde CT with urogram to assess these issues. Seen today on 07/11/2024, patient seems to be doing fairly well, does not seem to be short of breath, does not seem to be labored in breathing, on 2 L nasal cannula with O2 sats of 96%. WBC count 6.4 hemoglobin 10.2. Seen by urology for renal hemorrhage on the right side, and possible ureteral abnormality, and recommending CT urogram at some time in the near future. Patient is being followed by oncology for her ovarian cancer and for her chemo induced pancytopenia Patient was seen today on 07/12/2024, doing well, relatively asymptomatic, resting in bed, on 2 L nasal cannula, O2 sats are 95%. Still being followed by many consultants including cardiology, hematology, urology, and vascular surgery. Remains off anticoagulation mostly because of contraindication to anticoagulation considering the patient developed kidney bleed after starting on anticoagulation there. Patient required IVC filter placement and in the m eantime we will continue to hold anticoagulation. Patient needs to be cleared for restarting anticoagulation by urology and by hematology. At this point it is best to continue to hold. WBC is 11.2 hemoglobin 9.4 electrolytes are normal renal profile is normal Progress note dated July 13, 2024. 69-year-old female seen today in room 375. The patient continues on nasal O2 at 2 L. She sitting in a chair next to the hospital bed. She is awake and alert. The patient has a history of pulmonary embolism, ovarian cancer, and is currently receiving saline at 25 cc an hour. In addition, because of bleeding concerns, the patient had a Yahaira filter placed. The patient has no complaints at the current time. Current laboratory data includes a white count 8.12, hemoglobin 9.6, hematocrit 29, and a platelet count of 127,000. Sodium 136, potassium 3.8, chlorides 109, CO2 24, BUN 10, and creatinine is 0.61. Glucose is 230. Calcium is 7.9. Urine culture from July 08 shows evidence of Enterobacter cloacae infection. Progress note dated July 14, 2024. 69-year-old female seen again in room 375. The patient continues on nasal O2 at 2 L. She is not receiving any IV fluids. She seems to be resting comfortably in bed. She is hoping to be discharged soon. Current laboratory data includes a white count of 6.1, hemoglobin 8.7, hematocrit 27.4, and a platelet count of 123,000. Sodium 138, potassium 3.9, chlorides 108, CO2 25, BUN 9, creatinine 0.61. Glucose is 207. Calcium is 8.1. Urine from July 08 shows evidence of Enterobacter. The patient continues on Rocephin. Progress note dated 07/15/2024. 69-year-old female seen again in room 375. The patient continues on no supplemental oxygen. She was on 2 L. Room air saturations are 93%. Clinically, the patient is stable. She denies any shortness of breath, cough, wheezing, chest tightness, or phlegm production. Current laboratory data includes a white count 5.21, hemoglobin 9.3, hematocrit 28.7, and a platelet count of 134,000. Sodium 137, potassium 4, chlorides 106, CO2 27, anion gap 8, and creatinine 0.60. Glucose 182. Calcium 8.3. Urine from July 08, was positive for Enterobacter species. Objective - Vital Signs Vital signs: Vital Signs Temp 97.8 F 07/15/24 11:22 Pulse 92 07/15/24 11:22 Resp 17 07/15/24 11:22 BP 110/64 07/15/24 11:22 Pulse Ox 91 L 04/16/25 11:22 FiO2 Intake & Output 07/14/24 07/15/24 07/15/24 18:59 06:59 18:59 Intake Total 240 10 Output Total 50 Balance 190 10 Weight 120 kg Intake: IV 10 Invasive Line 2 10 Oral 240 Output: Stool 50 Other: Voiding Method Toilet Toilet Toilet Diaper Diaper Diaper # Voids 3 1 - Exam No acute distress, oriented 3. The patient is currently on room air. No respiratory distress. HEENT examination is grossly unremarkable. Mucous membranes are moist. No oral lesions. Neck supple. Full range of motion. No adenopathy thyromegaly or neck vein distention. Cardiovascular examination reveals regular rhythm rate. S1-S2 normal. No S3 or S4. No discernible murmur noted. Lungs reveal clear breath sounds. Breath sounds are equal bilaterally. No adventitious lung sounds including wheezes rhonchi or crackles. Abdomen soft bowel sounds are heard. No masses or tenderness. Colostomy with viable stoma noted. Extremities are intact. No cyanosis clubbing or edema. Skin is without rash or lesion. Neurologic examination is brief but nonfocal. - Labs CBC & Chem 7: 07/15/24 11:52 07/15/24 11:52 Labs: Abnormal Lab Results - Last 24 Hours (Table) 07/14/24 07/14/24 07/15/24 Range/Units 16:52 20:18 06:05 RBC (4.10-5.20) 10*6/uL Hgb (12.0-15.0) g/dL Hct (37.2-46.3) % Plt Count (140-440) 10*3/uL Glucose (74-99) mg/dL POC Glucose (mg/dL) 207 H 235 H 133 H (70-110) mg/dL Calcium (8.4-10.2) mg/dL 07/15/24 07/15/24 07/15/24 Range/Units 11:33 11:52 11:52 RBC 3.15 L (4.10-5.20) 10*6/uL Hgb 9.3 L (12.0-15.0) g/dL Hct 28.7 L (37.2-46.3) % Plt Count 134 L (140-440) 10*3/uL Glucose 182 H (74-99) mg/dL POC Glucose (mg/dL) 203 H (70-110) mg/dL Calcium 8.3 L (8.4-10.2) mg/dL Assessment and Plan Assessment: S/P primary percutaneous transluminal mechanical thrombectomy of the main pulmonary artery. S/ P placement of an IVC filter. Percutaneous transluminal mechanical thrombectomy of the inferior vena cava. Bilateral saddle pulmonary embolism, with CT evidence of right sided heart strain. Acute hypoxemic respiratory failure. Retroperitoneal bleed, S/P IVC filter. 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 Pancytopenia. Anion gap metabolic acidosis. Acute mental status changes. Insulin-dependent diabetes mellitus. Hypertension. Morbid obesity. Plan: Plan dated July 13, 2024. The patient appears to be doing relatively well. She continues on nasal O2 at 2 L. She is not receiving any fluids other than saline at 25 cc an hour. She has had a refill filter placed. She does have a history of ovarian cancer, and retroperitoneal hemorrhage. The patient is status post pulmonary embolism. We will continue to follow the patient, make recommendations along the way. All labs, x-rays, and medications are reviewed. The patient's overall prognosis remains guarded. Dictation was produced using Pago[employer]ago software. Please excuse any grammatical, word or spelling errors. Plan dated July 14, 2024. The patient appears to be doing relatively well. She continues on 2 L. Her laboratory data has been reviewed. Everything appears stable. She denies any shortness of breath, cough, wheezing, chest tightness, chest pain, chest pressure, palpitations, or any other complaints for that matter. All labs, x- rays, and medications are reviewed. We will continue to follow the patient, make recommendations along the way. The patient is overall prognosis remains guarded. Dictation was produced using [employer] software. Please excuse any grammatical, word or spelling errors. Plan dated July 15, 2024. The patient appears to be doing relatively well. She was on 2 L. Currently she is on room air. Saturations are 93 to 94%. All labs, x-rays, and medications are reviewed. The patient is hoping to be discharged soon. We will continue to follow make recommendations along the way. Prognosis is certainly guarded. Dictation was produced using [employer] software. Please excuse any grammatical, word or spelling errors. Time with Patient: Less than 30
--- NOTE | 2024-07-15 14:23 | P.PN ---
Subjective Progress Note Date: 07/15/24 Principal diagnosis: Saddle PE, RLE DVT. Ovarian carcinoma, on treatment for the same In f/u today pt reports she is going home under the care of her family. She is weak but thinks that she will do ok at home. No acute physical c/o on a focused ROS Objective - Vital Signs Vital signs: Vital Signs Temp 97.8 F 07/15/24 11:22 Pulse 92 07/15/24 11:22 Resp 17 07/15/24 11:22 BP 110/64 07/15/24 11:22 Pulse Ox 91 L 07/15/24 11:22 FiO2 Intake & Output 07/14/24 07/15/24 07/15/24 18:59 06:59 18:59 Intake Total 240 10 Output Total 50 Balance 190 10 Weight 120 kg Intake: IV 10 Invasive Line 2 10 Oral 240 Output: Stool 50 Other: Voiding Method Toilet Toilet Toilet Diaper Diaper Diaper # Voids 3 1 - Constitutional General appearance: Present: cooperative, no acute distress, obese - EENT Eyes: Present: anicteric sclerae, EOMI ENT: Present: hearing grossly normal - Respiratory Details: resp unlabored - Cardiovascular Details: skin warm, well perfused - Integumentary Integumentary: Present: normal - Neurologic Neurologic: Present: CNII-XII intact - Musculoskeletal Musculoskeletal: Present: generalized weakness - Psychiatric Psychiatric Comment(s): flat affect, pt confused on location Psychiatric: Present: A&O x's 3 - Labs CBC & Chem 7: 07/15/24 11:52 07/15/24 11:52 Labs: Abnormal Lab Results - Last 24 Hours (Table) 07/14/24 07/14/24 07/15/24 Range/Units 16:52 20:18 06:05 RBC (4.10-5.20) 10*6/uL Hgb (12.0-15.0) g/dL Hct (37.2-46.3) % Plt Count (140-440) 10*3/uL Glucose (74-99) mg/dL POC Glucose (mg/dL) 207 H 235 H 133 H (70-110) mg/dL Calcium (8.4-10.2) mg/dL 04/16/25 04/16/25 04/16/25 Range/Units 11:33 11:52 11:52 RBC 3.15 L (4.10-5.20) 10*6/uL Hgb 9.3 L (12.0-15.0) g/dL Hct 28.7 L (37.2-46.3) % Plt Count 134 L (140-440) 10*3/uL Glucose 182 H (74-99) mg/dL POC Glucose (mg/dL) 203 H (70-110) mg/dL Calcium 8.3 L (8.4-10.2) mg/dL Assessment and Plan (1) Pulmonary embolism Current Visit: Yes Status: Acute Priority: High Code(s): I26.99 - OTHER PULMONARY EMBOLISM WITHOUT ACUTE COR PULMONALE SNOMED Code(s): 97581825 (2) Ovarian papillary adenocarcinoma Current Visit: Yes Status: Acute Priority: High Code(s): C56.9 - MALIGNANT NEOPLASM OF UNSPECIFIED OVARY SNOMED Code(s): 177214323 (3) Antineoplastic chemotherapy induced pancytopenia Current Visit: Yes Status: Acute Code(s): D61.810 - ANTINEOPLASTIC CHEMOTHERAPY INDUCED PANCYTOPENIA; T45.1X5A - ADVERSE EFFECT OF ANTINEOPLASTIC AND IMMUNOSUP DRUGS, INIT SNOMED Code(s): 318732142688408 Plan: Pulmonary embolism, right lower extremity DVT -Presentation, workup and treatment plans described in consult. -Provoked venous thrombosis 2/2 malignancy, treatment of malignancy, dehydration from vomiting for several days, decreased activity -Patient has had thrombectomy and placement of an IVC filter by Vascular. - Anticoagulation not given because of suspected renal hemorrhage on CT. F/U US is not reporting renal hemorrhage. Urology notes reviewed, recs for CT urogram to confirm or refute renal hemorrhage. If pt is not bleeding, she may be able to placed on anticoagulation. Hgb lability is multifactotrial including chemo effects, recent procedures, dilution after dehydration. Cont to monitor Hgb for progressive downward trend or precipitous drop over the next few days. Hgb cont to be stable at this time Ovarian carcinoma - Diagnosis and treatment as documented in consult -Currently patient is receiving neoadjuvant chemotherapy. Primary Medical Oncologist wants to hold any further treatment right now, reimage in the near future and discuss with Communications Intern Surgeon to see if she is a possible candidate for resection of recurrent disease, sooner than later. F/U appt in discharge plan Chemo induced pancytopenia -WBC/ANC recovered, patient did receive 1 dose of G-CSF. -Platelets up to 132,000. -Hemoglobin 9.3 which is stable at this time -Patient recovering from manpreet at this time. Doctor attests: I performed a history and physical examination of this patient, developed impression and plan of care. Discussed with dictator. I agree with dictators note, documented as a scribe.
[2024-07-15 16:35] LABS: Glucose,Whole Blood 205 mg/dL (70-110)
[2024-07-15 20:01] LABS: Glucose,Whole Blood 201 mg/dL (70-110)
--- NOTE | 2024-07-15 21:35 | P.PN ---
Subjective Progress Note Date: 07/14/24 69 years old female [facility] Patient presents initially because of generalized weakness. She has a significant history of ovarian cancer she follow-up with Dr. Osman and she got chemotherapy last dose was on 06/29. For 1 week patient is not eating and drinking and with fatigue. On presentation she had CT of the chest which showing saddle pulmonary embolism with right ventricular strain and elevated troponin. Patient was started on a heparin drip and transferred to this facility. Before transport patient was found to have fever suspected to have UTI and received 1 dose of ceftriaxone. Patient currently admitted to the ICU. Patient is mildly confused. She is tired and cannot provide information and was obtained with the help of daughter Rhina at bedside. Patient cannot recognize her daughter and she knows she is in hospital but thought that this is more related and she could not tell the time. As per daughter patient found by son lying in couch cannot get up and they called the sister and then brought her to the emergency room. At that time patient was not answering questions appropriately. Patient at baseline lives alone. S she is mildly tachypnei. She has little chest pain central currently 0/10. Also complained from left lower quadrant abdominal pain. As per daughter they cleaned her colostomy bag this morning and it looks loose to her but without smell. Also there was little bit vomiting as per daughter. Maria catheter in place and urine sample was sent looks cloudy. Labs reviewed showing fever of 101.4, tachycardia 125 and EKG showing sinus tachycardia and tachypnea with breathing rate 25, blood pressure is stable she is saturating 88% on room air and 95 on 2 L oxygen. Labs showing pancytopenia with WBC 1.7, hemoglobin 11 and platelet count 118, BMP and LFT unremarkable Glucose elevated 435 Troponin is stable but elevated 0.23 and 0.14 EKG showing sinus tachycardia at 135 BNP is elevated at 330 with baseline 0-99 07/11/2024 -- patient is seen and evaluated in room at bedside; family is present in the room; patient seems to be doing fairly well, does not seem to be short of breath, does not seem to be labored in breathing, on 2 L nasal cannula with O2 sats of 96%. Lab review shows WBC count 6.[address] of the abdomen shows acute hemorrhage within the right renal parenchyma within the proximal right renal collecting system. Questionable 15 mm mass of the distal third of right ureter and possible 5 mm distal right ureteral calculus without any hydronephrosis - Patient has been seen by urology for renal hemorrhage on the right side, and possible ureteral abnormality, and recommending CT urogram at some time in the near future. - Patient is being followed by oncology for her ovarian cancer and for her chemo induced pancytopenia - Anticoagulation therapy remains on hold; patient will need clearance from all the consultants before anticoagulation could be resumed - Will continue to monitor H&H closely 07/12/2024 -- Patient is seen and evaluated in room at bedside, relatively asymptomatic, resting in bed, on 2 L nasal cannula, O2 sats are 95%. - Remains off anticoagulation mostly because of contraindication to anticoagulation considering the patient developed kidney bleed after starting on anticoagulation there. Patient required IVC filter placement and in the meantime we will continue to hold anticoagulation. Patient needs to be cleared for restarting anticoagulation by urology and by hematology. At this point it is best to continue to hold. - WBC is 11.2 hemoglobin 9.4 electrolytes are normal renal profile is normal 07/13/2024 Patient is sitting on side of bed. Awake alert and oriented. Requiring 2 L oxygen via nasal cannula. Patient is status post Yahaira IVC filter placement due to bleeding issues. Anticoagulation is on hold.. Patient does have a history of ovarian cancer.. Laboratory data showed WBC 8.1 hemoglobin 9.6 and platelets 127 sodium 136 potassium 3.8 chloride 109 BUN 10 and creatinin e 0.61 and blood sugar 168. 07/14/2024 Patient is currently sitting on the side of the bed. Awake alert and oriented. No complaints of chest pain or worsening shortness of breath. Currently requiri ng 2 L oxygen via nasal cannula. Patient is maintained on antibiotics in the form of ceftriaxone for the Enterobacter [place] urinary tract infection Laboratory data showed WBC 6.0 hemoglobin 8.7 and platelets 123 sodium 138 potassium 3.9 chloride 108 bicarb is 25 BUN 9 and creatinine 0.61 and blood sugar 122 and calcium 8.1. Current medications reviewed. Objective - Vital Signs Vital signs: Vital Signs Temp 97.9 F 07/14/24 11:44 Pulse 82 07/14/24 13:08 Resp 18 07/14/24 11:44 BP 115/67 07/14/24 11:44 Pulse Ox 95 07/14/24 11:44 FiO2 Intake & Output 07/13/24 07/14/24 07/14/24 18:59 06:59 18:59 Intake Total 738 Output Total 700 50 Balance 38 -50 Weight 119.7 kg Intake: Oral 738 Output: Stool 700 50 Other: Voiding Method Toilet Toilet Toilet Diaper Diaper Diaper # Voids 1 1 1 - Exam - Exam -GENERAL: The patient is alert and oriented x2-3 partial, not in any acute distress. Well developed, well nourished. Tired and lethargic. Obese HEENT: Pupils are round and equally reacting to light. EOMI. No scleral icterus. No conjunctival pallor. Normocephalic, atraumatic. No pharyngeal erythema. No thyromegaly. CARDIOVASCULAR: S1 and S2 present. No murmurs, rubs, or gallops. PULMONARY: Chest is clear to auscultation, no wheezing , no crackles. -ABDOMEN: Soft, nontender, nondistended, normoactive bowel sounds. No palpable organomegaly. LLQ colostomy with surrounding tenderness improved, almost nontender today MUSCULOSKELETAL: No joint swelling or deformity. EXTREMITIES: No cyanosis, clubbing, or pedal edema. NEUROLOGICAL: Gross neurological examination did not reveal any focal deficits. SKIN: No rashes. no petechiae. - Labs CBC & Chem 7: 07/15/24 11:52 07/15/24 11:52 Labs: Abnormal Lab Results - Last 24 Hours (Table) 07/13/24 07/13/24 07/14/24 Range/Units 16:26 20:10 06:03 RBC 3.04 L (4.10-5.20) 10*6/uL Hgb 8.7 L (12.0-15.0) g/dL Hct 27.4 L (37.2-46.3) % MCHC 31.8 L (32.0-37.0) g/dL Plt Count 123 L (140-440) 10*3/uL Immature Gran # 0.72 H (0.00-0.04) 10*3/uL Nucleated RBCs 1 H (0-0) /100 WBC Chloride (98-107) mmol/L Glucose (74-99) mg/dL POC Glucose (mg/dL) 216 H 166 H (70-110) mg/dL Calcium (8.4-10.2) mg/dL 07/14/24 07/14/24 07/14/24 Range/Units 06:03 06:27 11:51 RBC (4.10-5.20) 10*6/uL Hgb (12.0-15.0) g/dL Hct (37.2-46.3) % MCHC (32.0-37.0) g/dL Plt Count (140-440) 10*3/uL Immature Gran # (0.00-0.04) 10*3/uL Nucleated RBCs (0-0) /100 WBC Chloride 108 H (98-107) mmol/L Glucose 122 H (74-99) mg/dL POC Glucose (mg/dL) 148 H 207 H (70-110) mg/dL Calcium 8.1 L (8.4-10.2) mg/dL Microbiology - Last 24 Hours (Table) 07/08/24 08:39 Blood Culture - Final Blood Assessment and Plan Assessment: Acute saddle pulmonary embolism with R ventricular strain. S/p thrombectomy and IVC filter on 07/09. Antibiotic on hold due to parenchymal hemorrhage. Renal Right lower extremity DVT Elevated troponin secondary to above Acute hypoxic respiratory failure, improving. Titrate down to room air. Acute hemorrhage within the right renal parenchyma and within the proximal right renal collecting system. With associated questionable 15 mm mass of the distal third of the right ureter and possible 5 mm right ureteral calculus Sepsis Acute UTI with Enterobacter [place] Left lower quadrant tenderness around colostomy bag Pancytopenia secondary to chemotherapy Metabolic/toxic encephalopathy Ovarian cancer status postchemotherapy heparin drip is discontinued. Urine culture showed Enterobacter cloacae. Continue with ceftriaxone. Patient was seen by urology and vascular surgery. Nutrition consult and speech consult for swallow evaluation Labs and medication were reviewed. Monitor labs and vitals. DVT and GI prophylaxis. Further recommendations as per clinical course of the patient DVT prophylaxis: heparin discontinued. Continue with mechanical GI Prophylaxis: Pepcid PT/OT: Pending Prognosis is guarded Full code as per family Time with Patient: Greater than 30
--- NOTE | 2024-07-15 21:39 | P.PN ---
Subjective Progress Note Date: 07/15/24 69 years old female [facility] Patient presents initially because of generalized weakness. She has a significant history of ovarian cancer she follow-up with Dr. Osman and she got chemotherapy last dose was on 06/29. For 1 week patient is not eating and drinking and with fatigue. On presentation she had CT of the chest which showing saddle pulmonary embolism with right ventricular strain and elevated troponin. Patient was started on a heparin drip and transferred to this facility. Before transport patient was found to have fever suspected to have UTI and received 1 dose of ceftriaxone. Patient currently admitted to the ICU. Patient is mildly confused. She is tired and cannot provide information and was obtained with the help of daughter Rhina at bedside. Patient cannot recognize her daughter and she knows she is in hospital but thought that this is more related and she could not tell the time. As per daughter patient found by son lying in couch cannot get up and they called the sister and then brought her to the emergency room. At that time patient was not answering questions appropriately. Patient at baseline lives alone. S she is mildly tachypnei. She has little chest pain central currently 0/10. Also complained from left lower quadrant abdominal pain. As per daughter they cleaned her colostomy bag this morning and it looks loose to her but without smell. Also there was little bit vomiting as per daughter. Maria catheter in place and urine sample was sent looks cloudy. Labs reviewed showing fever of 101.4, tachycardia 125 and EKG showing sinus tachycardia and tachypnea with breathing rate 25, blood pressure is stable she is saturating 88% on room air and 95 on 2 L oxygen. Labs showing pancytopenia with WBC 1.7, hemoglobin 11 and platelet count 118, BMP and LFT unremarkable Glucose elevated 435 Troponin is stable but elevated 0.23 and 0.14 EKG showing sinus tachycardia at 135 BNP is elevated at 330 with baseline 0-99 07/11/2024 -- patient is seen and evaluated in room at bedside; family is present in the room; patient seems to be doing fairly well, does not seem to be short of breath, does not seem to be labored in breathing, on 2 L nasal cannula with O2 sats of 96%. Lab review shows WBC count 6.[address] of the abdomen shows acute hemorrhage within the right renal parenchyma within the proximal right renal collecting system. Questionable 15 mm mass of the distal third of right ureter and possible 5 mm distal right ureteral calculus without any hydronephrosis - Patient has been seen by urology for renal hemorrhage on the right side, and possible ureteral abnormality, and recommending CT urogram at some time in the near future. - Patient is being followed by oncology for her ovarian cancer and for her chemo induced pancytopenia - Anticoagulation therapy remains on hold; patient will need clearance from all the consultants before anticoagulation could be resumed - Will continue to monitor H&H closely 07/12/2024 -- Patient is seen and evaluated in room at bedside, relatively asymptomatic, resting in bed, on 2 L nasal cannula, O2 sats are 95%. - Remains off anticoagulation mostly because of contraindication to anticoagulation considering the patient developed kidney bleed after starting on anticoagulation there. Patient required IVC filter placement and in the meantime we will continue to hold anticoagulation. Patient needs to be cleared for restarting anticoagulation by urology and by hematology. At this point it is best to continue to hold. - WBC is 11.2 hemoglobin 9.4 electrolytes are normal renal profile is normal 07/13/2024 Patient is sitting on side of bed. Awake alert and oriented. Requiring 2 L oxygen via nasal cannula. Patient is status post [place] IVC filter placement due to bleeding issues. Anticoagulation is on hold.. Patient does have a history of ovarian cancer.. Laboratory data showed WBC 8.1 hemoglobin 9.6 and platelets 127 sodium 136 potassium 3.8 chloride 109 BUN 10 and creatinin e 0.61 and blood sugar 168. 07/14/2024 Patient is currently sitting on the side of the bed. Awake alert and oriented. No complaints of chest pain or worsening shortness of breath. Currently requiri ng 2 L oxygen via nasal cannula. Patient is maintained on antibiotics in the form of ceftriaxone for the Enterobacter Cadogan urinary tract infection Laboratory data showed WBC 6.0 hemoglobin 8.7 and platelets 123 sodium 138 potassium 3.9 chloride 108 bicarb is 25 BUN 9 and creatinine 0.61 and blood sugar 122 and calcium 8.1. 07/15/2024 Patient is lying in the bed. Awake alert and oriented. Seems to be drowsy this morning. No complaints of chest pain or shortness of breath. Currently on room air. Currently not on anticoagulation due to renal hemorrhage on CT. Status post IVC filter placement. Laboratory data showed WBC 5.2 hemoglobin 9.3 and platelets 134 sodium 137 potassium 4.0 chloride 106 bicarb is 27 BUN 18 creatinine 0.6 and blood sugar 182 and calcium 8.3. Anticipate discharge in the next 24 hours Current medications reviewed. Objective - Vital Signs Vital signs: Vital Signs Temp 97.1 F L 07/15/24 19:53 Pulse 66 07/15/24 19:53 Resp 18 07/15/24 19:53 BP 116/66 07/15/24 19:53 Pulse Ox 94 L 07/15/24 19:53 FiO2 Intake & Output 07/15/24 07/15/24 07/16/24 06:59 18:59 06:59 Intake Total 500 10 Output Total 350 Balance 150 10 Weight 120 kg Intake: IV 20 10 Invasive Line 2 20 10 Oral 480 Output: Urine 350 Other: Voiding Method Toilet Toilet Toilet Diaper Diaper Diaper # Voids 1 3 - Exam - Exam -GENERAL: The patient is alert and oriented x2-3 partial, not in any acute distress. Well developed, well nourished. Tired and lethargic. Obese HEENT: Pupils are round and equally reacting to light. EOMI. No scleral icterus. No conjunctival pallor. Normocephalic, atraumatic. No pharyngeal erythema. No thyromegaly. CARDIOVASCULAR: S1 and S2 present. No murmurs, rubs, or gallops. PULMONARY: Chest is clear to auscultation, no wheezing , no crackles. -ABDOMEN: Soft, nontender, nondistended, normoactive bowel sounds. No palpable organomegaly. LLQ colostomy with surrounding tenderness improved, almost nontender. MUSCULOSKELETAL: No joint swelling or deformity. EXTREMITIES: No cyanosis, clubbing, or pedal edema. NEUROLOGICAL: Gross neurological examination did not reveal any focal deficits. SKIN: No rashes. no petechiae. - Labs CBC & Chem 7: 07/15/24 11:52 07/15/24 11:52 Labs: Abnormal Lab Results - Last 24 Hours (Table) 07/15/24 07/15/24 07/15/24 Range/Units 06:05 11:33 11:52 RBC 3.15 L (4.10-5.20) 10*6/uL Hgb 9.3 L (12.0-15.0) g/dL Hct 28.7 L (37.2-46.3) % Plt Count 134 L (140-440) 10*3/uL Glucose (74-99) mg/dL POC Glucose (mg/dL) 133 H 203 H (70-110) mg/dL Calcium (8.4-10.2) mg/dL 07/15/24 07/15/24 07/15/24 Range/Units 11:52 16:32 19:59 RBC (4.10-5.20) 10*6/uL Hgb (12.0-15.0) g/dL Hct (37.2-46.3) % Plt Count (140-440) 10*3/uL Glucose 182 H (74-99) mg/dL POC Glucose (mg/dL) 205 H 201 H (70-110) mg/dL Calcium 8.3 L (8.4-10.2) mg/dL Assessment and Plan Assessment: Acute saddle pulmonary embolism with R ventricular strain. S/p thrombectomy and IVC filter on 07/09. Antibiotic on hold due to parenchymal hemorrhage renal. Right lower extremity DVT Elevated troponin secondary to above Acute hypoxic respiratory failure, improving. Titrate down to room air. Acute hemorrhage within the right renal parenchyma and within the proximal right renal collecting system. With associated questionable 15 mm mass of the distal third of the right ureter and possible 5 mm right ureteral calculus Sepsis Acute UTI with Enterobacter Cadogan Left lower quadrant tenderness around colostomy bag Pancytopenia secondary to chemotherapy Metabolic/toxic encephalopathy Ovarian cancer status postchemotherapy heparin drip is discontinued. Not on anticoagulation due to right renal parenchymal hemorrhage. Status post IVC filter placement. Urine culture showed Enterobacter cloacae. Continue with ceftriaxone. Patient was seen by urology and vascular surgery. Patient able to tolerate oral diet. Seen by speech pathology. Labs and medication were reviewed. Monitor labs and vitals. DVT and GI prophylaxis. DVT prophylaxis: heparin discontinued. Continue with mechanical compression devices. GI Prophylaxis: Pepcid PT/OT: Pending Prognosis is guarded Full code as per family
[2024-07-15] MEDS: FAMOTIDINE 20 MG/2 ML VIAL IV SCH (21:50)
[2024-07-16 06:20] LABS: Glucose,Whole Blood 126 mg/dL (70-110)
[2024-07-16] MEDS ORDERED: FAMOTIDINE 20 MG/2 ML VIAL IV SCH (09:00)
[2024-07-16 11:21] LABS: Glucose,Whole Blood 163 mg/dL (70-110)
--- NOTE | 2024-07-16 11:26 | P.PN ---
Subjective Progress Note Date: 07/16/24 Principal diagnosis: Pulmonary embolism. Patient is 69-year-old female transferred from [facility] after being found to have saddle PE with CT evidence of right-sided heart strain. Previously started on IV heparin per protocol. Patient is currently confused and is a poor historian, her daughter is at bedside and supplements information. 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 Previously underwent bowel resection and has colostomy. Currently undergoing chemotherapy, and her last treatment on June 29rst. Reportedly follows with Dr. Isidro. Increased generalized weakness and fatigue at home. Also, noted to be short of breath. D-dimer was elevated outside facility. CT angio of the chest noted to have large saddle PE with CT evidence of right-sided heart strain. She is currently being evaluated emergency department. She is alert but does not answer questions appropriately. She has been increasingly confused over the last 24 hours per the daughter. Currently resting comfortably on 2 L/min nasal cannula. SpO2 reading 97%. She is febrile with a temperature max of 101.3 F. She is tachycardic with heart rate of 133 bpm. Blood pressure is actually hypertensive at the moment. Has not required any fluid boluses or pressors. According to the daughter, she has no prior history of DVT or PE. Not on any anticoagulants. Repeat labs at our facility showing a WBC count of 1.7, hemoglobin 11, hematocrit 31.8, platelets 118. CMP: Sodium 134, potassium 4.4, chloride 101, serum bicarb 14, BUN 20, creatinine 0.74, glucose 409. Lactic 1.1. Troponins 0.14, and 0.14 respectively. NT proBNP was elevated 82 50. Currently continued on IV heparin per protocol. Follow-up echocardiogram is ordered. Cardiovascular surgery is on for possible intervention. Patient was seen today on 07/09/2024, remains in the ICU, yesterday the patient developed some retroperitoneal bleed and urology was consulted and we di scontinued her heparin recommended vascular surgery evaluation who performed primary percutaneous transluminal mechanical thrombectomy of the left and main pulmonary artery as well as left interlobar artery patient also underwent mechanical thrombectomy of the inferior vena cava and IVC filter placement because of apathy cannot indication to anticoagulation therapy. Patient remains in the ICU today, on 3 L nasal cannula not in any distress, being followed by many consultants including cardiology, urology, and vascular surgery. Does not seem to be in any form of distress. Labs were reviewed WBC count is 1.74 hemoglobin 8.5 electrolytes showed low sodium low bicarb of 16 BUN of 34 creat 1.17. Patient was seen today on 07/10/2024, remains in the ICU, patient is on 2 L nasal cannula, she is receiving clear liquids, does not seem to be in any distress, seen by many consultants including vascular surgery, urology, cardiology, oncology, and I am planning to transfer the patient out of the ICU to a monitored bed and selective. Briefly discussed CODE STATUS with the patient today, undecided yet on CODE STATUS. She would like to discuss this with her family. WBC count is 2.2 hemoglobin is 8.6 electrolytes are normal renal profile is normal, reviewed the note from urology, recommended basically a CT of the chest with contrast and this is referring to the small bleed in the kidney, also a questionable mass in the ureter. No hydronephrosis, no gross hematuria, he recommended eventual cystoscopy and retrograde CT with urogram to assess these issues. Seen today on 07/11/2024, patient seems to be doing fairly well, does not seem to be short of breath, does not seem to be labored in breathing, on 2 L nasal cannula with O2 sats of 96%. WBC count 6.4 hemoglobin 10.2. Seen by urology for renal hemorrhage on the right side, and possible ureteral abnormality, and recommending CT urogram at some time in the near future. Patient is being followed by oncology for her ovarian cancer and for her chemo induced pancytopenia Patient was seen today on 07/12/2024, doing well, relatively asymptomatic, resting in bed, on 2 L nasal cannula, O2 sats are 95%. Still being followed by many consultants including cardiology, hematology, urology, and vascular surgery. Remains off anticoagulation mostly because of contraindication to anticoagulation considering the patient developed kidney bleed after starting on anticoagulation there. Patient required IVC filter placement and in the m eantime we will continue to hold anticoagulation. Patient needs to be cleared for restarting anticoagulation by urology and by hematology. At this point it is best to continue to hold. WBC is 11.2 hemoglobin 9.4 electrolytes are normal renal profile is normal Progress note dated July 13, 2024. 69-year-old female seen today in room 375. The patient continues on nasal O2 at 2 L. She sitting in a chair next to the hospital bed. She is awake and alert. The patient has a history of pulmonary embolism, ovarian cancer, and is currently receiving saline at 25 cc an hour. In addition, because of bleeding concerns, the patient had a [place] filter placed. The patient has no complaints at the current time. Current laboratory data includes a white count 8.12, hemoglobin 9.6, hematocrit 29, and a platelet count of 127,000. Sodium 136, potassium 3.8, chlorides 109, CO2 24, BUN 10, and creatinine is 0.61. Glucose is 230. Calcium is 7.9. Urine culture from July 08 shows evidence of Enterobacter cloacae infection. Progress note dated July 14, 2024. 69-year-old female seen again in room 375. The patient continues on nasal O2 at 2 L. She is not receiving any IV fluids. She seems to be resting comfortably in bed. She is hoping to be discharged soon. Current laboratory data includes a white count of 6.1, hemoglobin 8.7, hematocrit 27.4, and a platelet count of 123,000. Sodium 138, potassium 3.9, chlorides 108, CO2 25, BUN 9, creatinine 0.61. Glucose is 207. Calcium is 8.1. Urine from July 08 shows evidence of Enterobacter. The patient continues on Rocephin. Progress note dated 07/15/2024. 69-year-old female seen again in room 375. The patient continues on no supplemental oxygen. She was on 2 L. Room air saturations are 93%. Clinically, the patient is stable. She denies any shortness of breath, cough, wheezing, chest tightness, or phlegm production. Current laboratory data includes a white count 5.21, hemoglobin 9.3, hematocrit 28.7, and a platelet count of 134,000. Sodium 137, potassium 4, chlorides 106, CO2 27, anion gap 8, and creatinine 0.60. Glucose 182. Calcium 8.3. Urine from July 08, was positive for Enterobacter species. Progress note dated July 16, 2024. 69-year-old female seen again in room 375. The patient is on room air. She is not requiring any supplemental oxygen. She is currently not on any antibiotics. Updraft treatments, can be discontinued. No new labs today other than a glucose of 163. The patient feels well, without any specific complaints. She denies any shortness of breath, cough, wheezing, chest tightness, or phlegm production. She denies chest pain or pressure. She denies all GI and issues. Objective - Vital Signs Vital signs: Vital Signs Temp 98.5 F 07/16/24 08:00 Pulse 82 07/16/24 08:00 Resp 17 07/16/24 08:00 BP 100/63 07/16/24 08:00 Pulse Ox 93 L 07/16/24 09:44 FiO2 Intake & Output 07/15/24 07/16/24 07/16/24 18:59 06:59 18:59 Intake Total 500 20 490 Output Total 350 Balance 150 20 490 Intake: IV 20 20 10 Invasive Line 2 20 20 10 Oral 480 480 Output: Urine 350 Other: Voiding Method Toilet Toilet Toilet Diaper Diaper Diaper # Voids 3 - Exam No acute distress, oriented 3. The patient is currently on room air. No respiratory distress. HEENT examination is grossly unremarkable. Mucous membranes are moist. No oral lesions. Neck supple. Full range of motion. No adenopathy thyromegaly or neck vein distention. Cardiovascular examination reveals regular rhythm rate. S1-S2 normal. No S3 or S4. No discernible murmur noted. Lungs reveal clear breath sounds. Breath sounds are equal bilaterally. No adventitious lung sounds including wheezes rhonchi or crackles. Abdomen soft bowel sounds are heard. No masses or tenderness. Colostomy with viable stoma noted. Extremities are intact. No cyanosis clubbing or edema. Skin is without rash or lesion. Neurologic examination is brief but nonfocal. - Labs CBC & Chem 7: 07/15/24 11:52 07/15/24 11:52 Labs: Abnormal Lab Results - Last 24 Hours (Table) 07/15/24 07/15/24 07/15/24 Range/Units 11:33 11:52 11:52 RBC 3.15 L (4.10-5.20) 10*6/uL Hgb 9.3 L (12.0-15.0) g/dL Hct 28.7 L (37.2-46.3) % Plt Count 134 L (140-440) 10*3/uL Glucose 182 H (74-99) mg/dL POC Glucose (mg/dL) 203 H (70-110) mg/dL Calcium 8.3 L (8.4-10.2) mg/dL 07/15/24 07/15/24 07/16/24 Range/Units 16:32 19:59 06:14 RBC (4.10-5.20) 10*6/uL Hgb (12.0-15.0) g/dL Hct (37.2-46.3) % Plt Count (140-440) 10*3/uL Glucose (74-99) mg/dL POC Glucose (mg/dL) 205 H 201 H 126 H (70-110) mg/dL Calcium (8.4-10.2) mg/dL 07/16/24 Range/Units 11:20 RBC (4.10-5.20) 10*6/uL Hgb (12.0-15.0) g/dL Hct (37.2-46.3) % Plt Count (140-440) 10*3/uL Glucose (74-99) mg/dL POC Glucose (mg/dL) 163 H (70-110) mg/dL Calcium (8.4-10.2) mg/dL Assessment and Plan Assessment: S/P primary percutaneous transluminal mechanical thrombectomy of the main pulmonary artery. S/ P placement of an IVC filter. Percutaneous transluminal mechanical thrombectomy of the inferior vena cava. Bilateral saddle pulmonary embolism, with CT evidence of right sided heart strain. Acute hypoxemic respiratory failure. Retroperitoneal bleed, S/P IVC filter. 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 Pancytopenia. Anion gap metabolic acidosis. Acute mental status changes. Insulin-dependent diabetes mellitus. Hypertension. Morbid obesity. Plan: Plan dated July 13, 2024. The patient appears to be doing relatively well. She continues on nasal O2 at 2 L. She is not receiving any fluids other than saline at 25 cc an hour. She has had a refill filter placed. She does have a history of ovarian cancer, and retroperitoneal hemorrhage. The patient is status post pulmonary embolism. We will continue to follow the patient, make recommendations along the way. All labs, x-rays, and medications are reviewed. The patient's overall prognosis remains guarded. Dictation was produced using [employer] 360ation software. Please excuse any grammatical, word or spelling errors. Plan dated July 14, 2024. The patient appears to be doing relatively well. She continues on 2 L. Her laboratory data has been reviewed. Everything appears stable. She denies any shortness of breath, cough, wheezing, chest tightness, chest pain, chest pressure, palpitations, or any other complaints for that matter. All labs, x- rays, and medications are reviewed. We will continue to follow the patient, make recommendations along the way. The patient is overall prognosis remains guarded. Dictation was produced using [employer]ash software. Please excuse any grammatical, word or spelling errors. Plan dated July 15, 2024. The patient appears to be doing relatively well. She was on 2 L. Currently she is on room air. Saturations are 93 to 94%. All labs, x-rays, and medications are reviewed. The patient is hoping to be discharged soon. We will continue to follow make recommendations along the way. Prognosis is certainly guarded. Dictation was produced using Klash software. Please excuse any grammatical, word or spelling errors. Plan dated July 16, 2024. The patient is seen today in room 375. Again, the patient is without any respiratory issues. She is not requiring any supplemental oxygen, or IVs. All labs, x-rays, and medications are reviewed. The patient is overall prognosis remains guarded. The patient is hoping to be discharged soon. We will continue to follow. Prognosis is guarded. Dictation was produced using [employer] software. Please excuse any grammatical, word or spelling errors. Time with Patient: Less than 30
[2024-07-16 11:31] VITALS: BMI 44.0
[2024-07-16 12:47] VITALS: BP 120/80; PULSE 78; RESP 18; TEMP 97.8
[2024-07-16] MEDS ORDERED: INSULIN GLARGINE (LANTUS) 100 UNIT/ML SYR SQ SCH (21:00)
--- NOTE | 2024-07-21 13:33 | IR ---
EXAMINATION TYPE: IR angio pulmonary BILAT DATE OF EXAM: 07/08/2024 8:23 PM COMPARISON: Pre Operative Images if available both CT/MRI or plain film CLINICAL INDICATION: Female, 69 years old with history of Saddle PE, m/dap, rt gr manual pressure; TECHNIQUE: IR angio pulmonary BILAT, multiple fluoroscopic images provided for procedure. DAP: 87.5 Gycm2 Total fluoroscopy time: 20.0 minutes. FINDINGS: IMPRESSION: 1. Report was generated for administrative purposes only. 2. Please see the operative/procedural note for further details. [facility], , 07/17/2024 8:26 AM [facility]
== END 2024-07-16 15:35 | disposition home health service (06) | DRG 853 ==
LOC: SUPCPDRO 02:24 → EC 02:24 → 2SICU 05:34 → 3SCARD 07-10 17:31
PROVIDERS: ADMIT Internal Medicine; ATTEND Internal Medicine
PROC: 02CP3ZZ Extirpation of Matter from Pulmonary Trunk, Percutaneous Approach (ICD-10-PCS; principal; 2024-07-08 17:14)
PROC: 02CR3ZZ Extirpation of Matter from Left Pulmonary Artery, Percutaneous Approach (ICD-10-PCS; 2024-07-08 17:14)
PROC: 05CY3ZZ Extirpation of Matter from Upper Vein, Percutaneous Approach (ICD-10-PCS; 2024-07-08 17:14)
PROC: 06H03DZ Insertion of Intraluminal Device into Inferior Vena Cava, Percutaneous Approach (ICD-10-PCS; 2024-07-08 17:14)
PROC: 6A550Z0 Pheresis of Erythrocytes, Single (ICD-10-PCS; 2024-07-09)
DX: A41.9 Sepsis, unspecified organism (principal); D61.810 Antineoplastic chemotherapy induced pancytopenia; I26.02 Saddle embolus of pulmonary artery with acute cor pulmonale; J96.01 Acute respiratory failure with hypoxia; G92.8 Other toxic encephalopathy; K68.3 Retroperitoneal hematoma; I61.9 Nontraumatic intracerebral hemorrhage, unspecified; I82.411 Acute embolism and thrombosis of right femoral vein; C78.6 Secondary malignant neoplasm of retroperitoneum and peritoneum; D84.821 Immunodeficiency due to drugs; I82.431 Acute embolism and thrombosis of right popliteal vein; E66.01 Morbid (severe) obesity due to excess calories; E11.65 Type 2 diabetes mellitus with hyperglycemia; I27.23 Pulmonary hypertension due to lung diseases and hypoxia; I10 Essential (primary) hypertension; Z68.41 Body mass index [BMI] 40.0-44.9, adult; E87.20 Acidosis, unspecified; N20.1 Calculus of ureter; N17.9 Acute kidney failure, unspecified; N39.0 Urinary tract infection, site not specified; T45.1X5A Adverse effect of antineoplastic and immunosuppressive drugs, initial encounter; B96.89 Other specified bacterial agents as the cause of diseases classified elsewhere; I51.89 Other ill-defined heart diseases; Z79.4 Long term (current) use of insulin; Z93.3 Colostomy status; Z86.711 Personal history of pulmonary embolism; I25.2 Old myocardial infarction; Z85.43 Personal history of malignant neoplasm of ovary; Z87.891 Personal history of nicotine dependence; Z79.85 Long-term (current) use of injectable non-insulin antidiabetic drugs; Z79.899 Other long term (current) drug therapy; Z87.19 Personal history of other diseases of the digestive system; Z96.653 Presence of artificial knee joint, bilateral
CPT/HCPCS: 36410; 36415; 37184; 37185; 37191; 71045; 74176; 75743; 76770; 76937; 80048; 80051; 80053; 80061; 81001; 82009; 82533; 82565; 82803; 82947; 83036; 83605; 83735; 83880; 84100; 84484; 84520; 85025; 85027; 85610; 85730; 86850; 86900; 86901; 86920; 87040; 87077; 87086; 87186; 93005; 93306; 93970; 94640; 94760; 96365; 96366; 99291

== ENCOUNTER → 2024-08-12 | Outpatient (CLI) | payer MEDICARE | END | disposition home or self-care (01) | LOC: RADCTMAIN 11:48 | PROVIDERS: ATTEND Urology | DX: Z53.9 Procedure and treatment not carried out, unspecified reason (principal) ==